=== PATIENT | male | born 1950 | race Caucasian/White ===

== ENCOUNTER 2020-03-21 12:37 | Outpatient (CLI) | payer MEDICARE, OTHER, SELFPAY ==
--- NOTE | 2020-03-21 12:49 | CT_ITS ---
WS: [id number] CT NECK WITH CONTRAST HISTORY: CERVICAL LYMPHADENOPATHY, LEFT TECHNIQUE: Contiguous 5 mm axial images are performed through the neck with intravenous contrast. Sag ittal and coronal reformats are also submitted. All CT scans at [facility] use at least o ne of these dose optimization techniques: automated exposure control; mA and/or kV adjustment per pat ient size (includes targeted exams where dose is matched to clinical indication); or iterative recons truction. CONTRAST: CONTRAST: Omnipaque 300; 95 mL IV. DLP: 3023.36 mGycm COMPARISON: None available. Soft tissue enhancing mass centered in the LEFT lung base along the lingula tonsil. The largest mass extends over length of 2.6 cm x 2.2 x 1.3 cm. The do believe there is enhancement across the midline and is probably involvement of the lingular surface of the RIGHT tongue. Enlargement and abnormal enh ancement and thickening of the uvula. There is extensive adenopathy in the LEFT neck. Confluent lymphadenopathy throughout the LEFT neck. T he largest cluster measures 8.4 cm in length by 2.8 cm. This cluster of lymph nodes begins at the lev el of the hyoid bone and extends inferiorly to the supraclavicular region. There is an additional anh up of lymph nodes at level IIa. Lymph node clusters are present on the LEFT at level IIa, IIb, III an d Va and supraclavicular. Largest necrotic lymph node measures 2.5 x 2.2 cm at the level of the thyro id cartilage. There are smaller lymph nodes along the RIGHT cervical chain but no definite adenopathy . No osseous abnormalities. Visualized portions of the skull base demonstrate no abnormalities. Orbits and globes are within norm al limits. No soft tissue masses. Visualized paranasal sinuses and mastoid air cells are normal. Lung apices are clear. CT/CT neck w con* [id number] IMPRESSION: 1. Enhancing mass centered at the LEFT lung base to involve the lingular and p alatine tonsils, uvula and highly suspect extension across the midline to the R IGHT tongue base. Consistent with neoplasm. Recommend follow-up PET/CT imaging and biopsy. 2. Extensive LEFT cervical chain lymphadenopathy.
[2020-03-21 13:20] LABS: Blood Urea Nitrogen 22 mg/dL (8-23)
[2020-03-21] MEDS: iohexol 300 mg/mL 100 mL Btl IV (13:35)
== END 2020-03-21 12:38 | disposition home or self-care (01) ==
LOC: RADWPI 12:43
PROVIDERS: Family Provider Family Medicine; Visit Provider Family Medicine
DX: R59.0 Localized enlarged lymph nodes (principal); R91.8 Other nonspecific abnormal finding of lung field
CPT/HCPCS: 70491; 82565; 84520; Q9967

== ENCOUNTER 2020-04-19 14:24 | Outpatient (CLI) | payer MEDICARE, OTHER, SELFPAY ==
--- NOTE | 2020-04-19 17:23 | N.ONRAD NP_ITS ---
Radiation Oncology New Patient Visit Patient: Demarcus Maldonado MR#: [id number] : 1950> Age: 69> Sex: Male> Dictated by: Dr. Lit Baeza Date of Service: 04/19/2020 Referring Physician(s) : Praneeth Thompson M.D. Diagnosis: Oropharynx, base of tongue, squamous cell carcinoma, stage T2 N2 MX (PET pending) Radiotherapy to date: Summary > No prior radiation therapy. Chief Complaint / History of Present Illness: Mr. Maldonado is a 69-year-old man who complained of a foreign body sensation in his throat prior to knee replacement surgery. His surgery was canceled and he was referred for further evaluation. He was noted to have a base of tongue mass and was referred to Dr. Thompson. Dr. Thompson detected a mass involving the left base of tongue extending to the vallecula. Also lymphadenopathy was noted in the left neck extending down to the supraclavicular area. No extension beyond the base of tongue and vallecula was detected. Biopsy was positive for squamous cell carcinoma. HPV was positive. A CT of the neck was performed locally. This study revealed a 2.6 x 2.2 x 1.3 cm mass in the left base of tongue with enhancement extending into the right base of tongue. The study also described enlargement and enhancement of the uvula, which was not appreciated at the time of the E[facility] exam [place] office. The CT also showed extensive lymphadenopathy in the left neck. Lymphadenopathy extended from the hyoid into the supraclavicular region. No definite lymphadenopathy was identified on the right. Mr. Maldonado is referred for evaluation for concomitant chemotherapy and radiation for cure. Current Medications: Atenolol, d3-1000, daily Multiple Vitamins, flonase Allergy Relief, furosemide, glucosamine HCl, hydroCHLOROthiazide, losartan Potassium, metFORMIN HCl, naproxen, omeprazole, potassium Chloride ER, pravastatin Sodium. Allergies: Keflex, Pneumococcal 13-Samaria Conj Vacc and Penicillins. Medical History: - History of prostate cancer, - hypercholesterolemia, - hypertension, - type II diabetes. No history of collagen vascular disease. No previous radiation therapy. Surgical History: Hernia repair (x2), splenectomy, tonsillectomy and tURP. Family History: Father is at age 83 having experienced pneumonia. Mother is at age 85. Brother is at age 53. Sister is alive having experienced melanoma. Social History: Last screened on 04/19/2020 - Yes - but has quit for 38 years. Smoked for 5 years. Last screened on 04/19/2020 - Never drank. Patient indicated access to the following support systems: lives alone, supportive family/friends willing to assist with needs, and adequate transportation available for expected visits. Patient indicated the following nutritional habits: regular meals. Patient indicated participation in the following forms of activity: regular exercise. Current Complaints / Review of Systems: Constitutional - Complains of lack of appetite. Complains of moderate fatigue. Complains of change in weight in which he has lost about 15 lbs. since January 2020. Denies fever and night sweats. Eyes - Denies blurred vision and double vision. ENMT - Complains of altered taste. Denies dysphagia but says it feels like something is in his throat, ear pain, problems with hearing, mouth dryness, stomatitis and tinnitus. Neck - Denies neck pain, decreased range of motion and swelling of the neck. Integumentary - Denies rash. Cardiovascular - Denies arrhythmias, chest pain and edema. Respiratory - Complains of a mild cough. Denies dyspnea, hiccoughs and wheezing. Gastrointestinal - Complains of occasional constipation. Complains of nausea occasionally. Denies abdominal pain, diarrhea, heartburn / dyspepsia, melena / GI bleeding and vomiting. Genitourinary (M) - Denies dysuria, frequency, nocturia and urgency. Musculoskeletal - Complains of joint pain in the right knee. Denies bone pain and muscle weakness. Neurologic - Complains of intermittent dizziness that occurs upon sitting to standing. Denies abnormal gait and headaches. Endocrine - Complains of Type 2 diabetes. Denies thyroid disease. Hematologic/Lymphatic - Denies tender or enlarged lymph nodes.. Vital Signs: Performed on 04/19/2020 2:57 PM Height - 260.8 in, Weight - 72 lbs (high), BSA - 3.51 sq.m, BMI - 0.74 (low), Temperature - 98.3 f (low), Pulse - 79 /min, Respiration - 19 /min, O2 Sat - 94 % (low), Pain - 0 and BP - 127/ 66 mm(hg). Physical Exam: Alert, oriented, and in no acute distress. The oral cavity examination reveals him to have multiple dental caps. His teeth appear to be in fair repair. No gum disease noted. No lesions seen in the oral cavity. My limited exam of the base of tongue did not reveal a visible abnormality. I did not have a mirror in order to do an indirect exam. No lesions were seen involving the palatine tonsils, soft palate, uvula, or posterior pharyngeal wall. Palpation of the base of tongue revealed diffuse induration on the left with milder induration on the right. I could not reach the vallecula due to the patient gagging and pulling away. Examination of the neck revealed no palpable lymphadenopathy on the right. On the left from approximately the level of the hyoid bone lymphadenopathy is palpated in a chain that is relatively continuous down through the supraclavicular area. No lymph nodes larger than 3 cm were palpated. No fixation was detected. Lungs were clear to percussion. On auscultation there were no rales rhonchi or wheezes. Heart rhythm regular. No murmur or gallop or rub. Abdomen no distention. No organomegaly or mass or tenderness. Musculoskeletal no bone tenderness detected. Normal gait. Performance Status: KPS: 80 Pathology: Squamous Cell Carcinoma, HPV+. Lab: Imaging: See HPI Impression: Mr. Maldonado has a squamous cell carcinoma of the base of tongue with significant left neck lymphadenopathy. Cancer is HPV positive. I recommended a PET scan for the completion of staging, particularly to determine if he has metastatic disease, and to appropriately prescribe radiation dose to the right neck. Dr. Reich pointed out in our discussion about this case that status of the nodes in the right neck can affect the stage. I spoke with Mr. Maldonado's dentist [facility] in [facility]. He will see him to assess the status of his dentition and to determine if he needs extractions. He also will determine whether fluoride trays or other treatments are appropriate. I discussed the situation with and Mrs. Maldonado. I discussed that he will receive concomitant chemotherapy and radiation unless the PET scan shows something quite unexpected. I discussed a typical course of radiation over 7 weeks. We discussed that the chemotherapy is given 3 times during radiation. I discussed the numerous side effects that occur with head and neck radiation including fatigue, decreased appetite, mucositis with sore mouth and throat, altered taste, loss of taste, xerostomia, trismus, TMJ syndrome, and middle ear effusion requiring tube placement. I discussed that xerostomia resolvea slowly and that dry mouth usually results in significant deterioration of dentition unless meticulous care is given. Also discussed that a significant percentage of patients who receive head neck radiation develop hypothyroidism. At this time Mr. Maldonado wishes to proceed with a dental evaluation, a PET scan, and then concomitant chemotherapy and radiation if appropriate. I spoke with Mr. Maldonado???s dentist today and they will get him in for evaluation. The PET scan has been ordered and is pending. Signed by: 04/19/2020 5:21:45 PM <<Signature on File>> Time spent with patient: CPT Code: CPT Code:
--- NOTE | 2020-04-19 18:28 | ONC CON_ITS ---
Dr. Reich New Patient Note Patient: Demarcus Maldonado < Unit #: [id number]: 1950 Dicatated By: Devendra Reich M.D.Date of Visit: Apr 19, 2020 Onc MED New Patient/Consult Referring Physician: Praneeth Thompson Chief Complaint: Base of tongue cancer. 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 He had presented with left cervical lymphadenopathy. He had associated pain in the left side of the neck and throat. He had been seen initially by Dr. James. CT of the neck on 03/27/2020 showed a soft tissue enhancing mass centered in the left tongue base along the lingual tonsil. It was noted to extend over a length of 2.6 x 2.2 x 1.3 cm. There appeared to be enhancement across the midline and there was suspected involvement in the lingular surface of the right tongue. Also noted was enlargement and abnormal enhancement and thickening of the uvula. There was extensive, confluent adenopathy i involving the left neck. The largest cluster of nodes measured 8.4 cm in length by 2.8 cm, beginning at the level of the hyoid bone and extending inferiorly to the supraclavicular region. Additional clusters of lymph nodes were present at level IIa, IIb, III, Va, and in the supraclavicular area. The largest necrotic lymph node measured 2.5 x 2.2 cm at the level of the thyroid cartilage. Smaller lymph nodes were noted along the right cervical chain, but without definite adenopathy. The lung apices were noted to be clear. He was seen by Dr. Praneeth Thompson on 03/30/2020. His exam showed an exophytic mass and papillomatous mass at the left tongue base as well as papillomatous mass at the left paramedian tongue base. The remainder of the oral cavity and oropharyngeal exam was reported to be normal. The laryngeal exam showed erythema and edema of the arytenoid mucosa. He then underwent direct laryngoscopy with biopsy and esophagoscopy on 04/05/2020. Findings included an exophytic lesion involving the left tongue base extending to the right of the midline. It also was noted to extend into the vallecula. There was no involvement of the lateral pharyngeal wall or the larynx. The esophagus was noted to be free of lesions. Biopsy showed infiltrating moderately differentiated squamous cell carcinoma which was confirmed to be HPV positive. He is seen now for further management. He says he does not have much energy. He is still doing some light work. ECOG score is 1. He has had a recent decline in his appetite, and his weight is down 16 pounds. He does not have fever or night sweats. He has some discomfort on the left side of the neck and throat, and he has to clear his throat a lot. He has a little difficulty swallowing. He has some sinus drainage and cough. He does not complain of shortness of breath or chest pain. He says his stomach always feels queasy. Lately he has had constipation. He has frequent urination with his diuretic. He has pain in his right knee, and he had originally planned to have right total knee replacement prior to all of this starting. He has no other joint or bone pain. He does not complain of headache. He does have some dizziness. He has no focal neurologic symptoms. He reports that he bruises easily. 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 Past Medical History: His medical history includes hypertension, hypercholesterolemia, type II diabetes, history of prostate cancer, and history of ITP. Past Surgical History: His surgical/procedural history includes radical prostatectomy, splenectomy, tonsillectomy, and umbilical and abdominal wall hernia repairs. Medications: Atenolol 1 Tablet (of 25 mg) Oral daily, D3-1000 1 Tablet (of 25 mcg ) Oral daily, Daily Multiple Vitamins 1 Tablet Oral daily, Flonase Allergy Relief Suspension Nasal, Furosemide 1 Tablet (of 40 mg) Oral daily PRN, Glucosamine HCl 2 Tablet (of 1000 mg) Oral daily, hydroCHLOROthiazide 1 Tablet (of 25 mg) Oral daily, Losartan Potassium 1 Tablet (of 100 mg) Oral daily, metFORMIN HCl 0.5 - 1 Tablet (of 1000 mg) Oral b.i.d., Naproxen 1 Tablet (of 500 mg) Oral b.i.d. PRN, Omeprazole 1 Capsule (of 20 mg) Capsule Delayed Release Oral daily, Potassium Chloride ER 1 Tablet (of 10 meq) Capsule, controlled release Oral daily, Pravastatin Sodium 1 Tablet (of 20 mg) Oral daily Allergies: Keflex, Penicillins, and Pneumococcal 13-Samaria Conj Vacc. Social History: Mr. Maldonado is . He is retired from [employer]. 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 He has a history of smoking for 6 years. He quit following his splenectomy, which was approximately 40 years ago. He also chewed tobacco, but only for about 1 or 2 years. He had some alcohol use in the . He quit drinking in 1971. Family History: Father with pneumonia at age 83. Mother at age 85, apparently due to complications of dementia. A brother at age 53, exact cause unknown to the patient. He was told that he had some form of inherited condition that choked him out . A sister has been treated for melanoma. Review Of Symptoms: Constitutional - He has no energy, but he is still able to do light work. Appetite has declined. Weight is down 16 lbs. No fever, night sweats, or hot flashes. ECOG score is 1, Eyes - No change in vision, ENMT - No hearing loss or tinnitus. He has chronic sinus congestion/drainage. No mouth sores. He has some discomfort in the throat and a little difficulty swallowing, Hematologic/Lymphatic - He bruises easily, Respiratory - No shortness of breath. He does have some cough. No pleuritic pain or hemoptysis, Cardiovascular - No angina pain. No palpitations, Gastrointestinal - His stomach feels queasy. No vomiting. No heartburn or acid reflux. Lately he has had constipation. No blood in the stool or black stools, Genitourinary (M) - No dysuria or hematuria. He has frequent urination with his diuretic. No urgency or incontinence, Musculoskeletal - He has pain in his right knee. He has no other joint or bone pain, Integumentary - No skin rash or other skin changes, Neurologic - No headache. He does have some dizziness. No numbness or tingling. No other focal neurologic symptoms, Psychiatric - He has been a little nervous, and he has some depression. No insomnia, Constitutional - Complains of lack of appetite. Complains of moderate fatigue. Complains of change in weight in which he has lost about 15 lbs. since January 2020. Denies fever and night sweats, Eyes - Denies blurred vision and double vision, ENMT - Complains of altered taste. Denies dysphagia but says it feels like something is in his throat, ear pain, problems with hearing, mouth dryness, stomatitis and tinnitus, Neck - Denies neck pain, decreased range of motion and swelling of the neck, Integumentary - Denies rash, Cardiovascular - Denies arrhythmias, chest pain and edema, Respiratory - Complains of a mild cough. Denies dyspnea, hiccoughs and wheezing, Gastrointestinal - Complains of occasional constipation. Complains of nausea occasionally. Denies abdominal pain, diarrhea, heartburn / dyspepsia, melena / GI bleeding and vomiting, Genitourinary (M) - Denies dysuria, frequency, nocturia and urgency, Musculoskeletal - Complains of joint pain in the right knee. Denies bone pain and muscle weakness, Neurologic - Complains of intermittent dizziness that occurs upon sitting to standing. Denies abnormal gait and headaches, Endocrine - Complains of Type 2 diabetes. Denies thyroid disease, Hematologic/Lymphatic - Denies tender or enlarged lymph nodes. Vital Signs: Performed on Apr 19, 2020 15:46: 72.00 in, 260.8 lbs, 98.3 F, 79, 17, 127/66 mm(hg), 95 % (LOW), 0, Performed on Apr 19, 2020 15:46: 35.371 kg/m2 (HIGH), and Performed on Apr 19, 2020 14:57: 3.51 sq.m. Physical Examination: Constitutional - He appears to be in good general health, Eyes - Sclerae nonicteric. Conjunctivae clear, ENMT - No visible lesion in the oral cavity, Neck - No thyromegaly, Hematologic/Lymphatic - There are multiple small lymph nodes on the left side of the neck, both anterior and posterior cervical, extending down into the left supraclavicular fossa. No axillary adenopathy noted, Respiratory - Lungs are clear with good air movement bilaterally, Cardiovascular - Heart rhythm is regular. There is no murmur, gallop, or rub noted, Abdomen - Moderately distended. Liver and spleen are not enlarged. There is no abdominal mass or ascites noted and there is no inguinal adenopathy, Back/Spine - No spine or CVA tenderness noted, Extremities - Mild lower extremity edema. Posterior tibial pulses are palpable bilaterally, Integumentary - No rashes. No suspicious skin lesions noted, Neurologic - No focal neurologic deficits noted. Impression: 1. Patient with infiltrating moderately differentiated squamous cell carcinoma involving left base of tongue, by clinical evaluation stage BEVERLY (T2, N2b, M0), HPV positive. 2. He underwent direct laryngoscopy with biopsy and esophagoscopy on 04/05/2020. His other medical illnesses include: 3. Hypertension. 4. Hyperlipidemia. 5. Type 2 diabetes. 6. He has chronic venous insufficiency. 7. History of prostate cancer for which he underwent radical prostatectomy approximately 5 years ago. 8. 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 Plan: The CT findings and pathology results were reviewed with the patient. We discussed the clinical implications. He has a locally advanced squamous cell carcinoma involving the left base of tongue. Given the extent of lymph node involvement, he needs a PET/CT to complete staging. In the absence of any evidence of metastatic disease, the recommended treatment will be chemoradiation using standard high-dose cisplatin regimen for the chemosensitization. I reviewed anticipated side effects with the chemotherapy which may include nausea/vomiting, alopecia, fatigue, low blood counts, renal impairment, and neuropathy, among others. He will be visiting with the radiation oncologist today. Treatment will be started as soon as the radiation planning, including dental evaluation, is completed. Signed By: Devendra Reich M.D. <<Signature on File>>
== END 2020-04-19 14:25 | disposition home or self-care (01) ==
LOC: ONCMED 14:35
PROVIDERS: PCP Family Medicine; Referring Provider Otolaryngology; Visit Provider Internal Medicine Medical Oncology
DX: C01 Malignant neoplasm of base of tongue (principal); R59.0 Localized enlarged lymph nodes; Z87.891 Personal history of nicotine dependence; I10 Essential (primary) hypertension; E78.5 Hyperlipidemia, unspecified; E11.9 Type 2 diabetes mellitus without complications; I87.2 Venous insufficiency (chronic) (peripheral); Z85.46 Personal history of malignant neoplasm of prostate; Z90.79 Acquired absence of other genital organ(s); Z90.81 Acquired absence of spleen; Z86.2 Personal history of diseases of the blood and blood-forming organs and certain disorders involving the immune mechanism
CPT/HCPCS: 99204; 99215

== ENCOUNTER 2020-05-15 09:52 | Day surgery (SDC) | payer MEDICARE, OTHER, SELFPAY ==
[2020-05-14 12:27] VITALS: BMI 35.9
[2020-05-15] VITALS (8 sets, daily range): BP systolic 116–135; BP diastolic 58–73; PULSE 69–75; RESP 16–24; TEMP 36.6–36.8; O2SAT 93–100
[2020-05-15] MEDS: sodium chloride 0.9% 1,000 ML 30 ML IV (10:44)
[2020-05-15 10:45] LABS: Glucose Point of Care 146 mg/dL (70-110)
--- NOTE | 2020-05-15 11:04 | ECG_ITS ---
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 Measurements Intervals [place] Rate: 70 P: 72 [place]: 244 QRS: -24 QRSD: 107 T: 38 QT: 399 QTc: 431 Interpretive Statements SINUS RHYTHM WITH FIRST DEGREE AV BLOCK BORDERLINE LEFT AXIS DEVIATION [QRS AXIS < -20] No previous ECG available for comparison Electronically Signed On 05-15-2020 19:19:43 CDT by Jazmyne Henriquez M.D. [id number]
--- NOTE | 2020-05-15 11:27 | W.PM.OPSUD ---
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 PLANNED PROCEDURE: Bronchoscopy inspection of the airway, endobronchial ultrasound-guided transbronchial needle aspiration of lymph nodes and possible endobronchial transbronchial biopsies. Operation Date: 05/15/20 11:00 Proposed Procedures p Ebus(Not Applicable) - Vazquez Kingsley MD
--- NOTE | 2020-05-15 11:50 | ANES.PREANE2 ---
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 Proposed Procedure: Operation Date: 05/15/20 11:00 Proposed Procedures p Ebus(Not Applicable) - Vazquez Kingsley MD Was Beta Pako taken within 24 hours: Yes Last intake: Intake Last Liquid Date 05/14/20 Last Liquid Time 23:50 Last Solid Date 05/14/20 Last Solid Time 16:00 Social: Social History: No alcohol and No tobacco Exam: Pre-Anes Outpt Exam: alert, oriented x 3, clear to auscultation bilaterally and regular rate & rhythm Airway: Submandibular: WNL Cervical ROM: WNL MP: 2 History/ROS: No significant history except as noted Pulmonary: Pulmonary: Cough and GALVAN CV/HEM: CV/HEM: HTN : : None reported Hepatic: Hepatic: None reported GI: GI: GERD Metabolic: Metabolic: DM Musc/skel: Musc/skel: None reported Anesthetic Plan: ASA status: 3 Anesthesia: General Meds/Allergies Current Medications: Current Medications Generic Name Dose Route Start Last Admin Trade Name Freq PRN Reason Stop Dose Admin Sodium Chloride 1,000 mls @ 30 ml s/hr 05/15/20 07:45 05/15/20 10:44 Sodium Chloride 0.9% IV 05/16/20 07:44 30 mls/hr .Q24H CLAUDY Administration PFSH Anesthesia PFSH: Medical History (Updated 05/10/20 @ 11:21 by Vazquez Kingsley MD) Abdominal wall hernia Cervical lymphadenopathy History of ITP HTN (hypertension) Hypercholesterolemia Prostate cancer Type 2 diabetes mellitus Umbilical hernia Surgical History H/O radical prostatectomy H/O splenectomy Hx of tonsillectomy Family History Mother Dementia Father Lung disease Social History Smoking and tobacco status: former smoker Quit status (tobacco): has quit using tobacco Year quit tobacco: 1979 - 1.5 PPD x 10 Years Alcohol intake: never Lives independently: Yes Household members: none Marital status: Current occupational status: retired History of recent travel: No Current gender identity: Male and Female Data Anesthesia Other Labs: Laboratory Results - last 48 hr 05/15/20 10:42 POC Glucose 146 Cardiac Studies: No Data to Display
[2020-05-15] MEDS: lidocaine 1% INJ 20 mL XX (12:23)
[2020-05-15] MEDS: EPINEPHrine 1 mg/mL INJ XX (12:28)
--- NOTE | 2020-05-15 13:24 | SUR.PHASEI ---
1319 PATIENT TO PACU FROM OR. RR EVEN AND UNLABORED. SPO2 100% ON SIMPLE MASK AT 8L.
--- NOTE | 2020-05-15 13:27 | PM.OP ---
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 Procedure: Name of the procedure: Bronchoscopy with inspection of the airway,endobronchial ultrasound-guided transbronchial needle aspiration of lymph nodes and control of bleeding. Indication: PET positive medicine lymphadenopathy with a history of base of the tongue squamous cell cancer Anesthesia: General anesthesia. Local anesthesia: The dell in the right and left mainstem bronchi were anesthetized with 1% lidocaine, 3 mL. Description of the procedure: The procedure was explained to the patient and the consent was obtained. The patient was brought to the OR. The patient underwent endotracheal intubation for general anesthesia. Following induction of general anesthesia, the bronchoscope was advanced through the ET tube. The lower trachea appeared to be normal. The dell was sharp. The dell, the right and left mainstem bronchi are anesthetized with 1% lidocaine. In a systematic manner bilateral bronchial tree was then examined. The bronchoscope was advanced into the left mainstem bronchus. The left upper lobe, lingula and left lower lobe bronchi were examined up to the third subsegmental level and no abnormalities were identified. There was no endobronchial lesion, active bleeding or mucous plug. The bronchoscope was then introduced into the right mainstem bronchus. The right upper lobe, right middle lobe and right lower lobe bronchi were examined up to the third subsegmental level and no abnormalities were identified. The endobronchial ultrasound was introduced through the ET tube. Subcarinal lymphadenopathy was identified. Transbronchial needle aspiration was performed from station 7 and 4R lymph nodes. The bronchoscope was reintroduced through the mouth. There was some bleeding during the intubation process from the base of the tongue cancer. Diluted epinephrine was used to control any residual bleeding. Samples: 1. The transbronchial needle aspiration of the aforementioned lymph node groups were sent for cytology. Complications: There was no immediate complications. The patient was extubated and brought to the PACU in stable condition.
--- NOTE | 2020-05-15 13:42 | SUR.PHASEI ---
1340 PATIENT TO OPS. DENIES PAIN. TOLERATING ICE CHIPS.
--- NOTE | 2020-05-15 14:26 | SUR.PHASEII ---
Patient to follow up with Dr. Kingsley jun 05 a t 8:15.
== END 2020-05-15 14:40 | disposition home or self-care (01) ==
PROVIDERS: PCP Family Medicine; Visit Provider Internal Medicine Critical Care Medicine
PROC: BB4BZZZ Ultrasonography of Pleura (ICD-10-PCS; principal; 2020-05-15 11:00)
DX: C01 Malignant neoplasm of base of tongue (principal); R59.0 Localized enlarged lymph nodes; I10 Essential (primary) hypertension; K21.9 Gastro-esophageal reflux disease without esophagitis; E11.9 Type 2 diabetes mellitus without complications; E78.00 Pure hypercholesterolemia, unspecified; Z85.46 Personal history of malignant neoplasm of prostate; Z87.891 Personal history of nicotine dependence; I44.0 Atrioventricular block, first degree
CPT/HCPCS: 12345; 31628; 36416; 82962; 88173; 88305; 93005; J0171; J1100; J2405; J2704; J2710; J3010; J3490; J7030

== ENCOUNTER 2020-06-01 06:52 | Outpatient (RCR) | payer MEDICARE, OTHER, SELFPAY ==
--- NOTE | 2020-05-28 | CT_ITS ---
Radiation Therapy Planning CT images; total exam DLP: 1682.01 mGy-cm MTDD
[2020-05-28] MEDS: iodixanol 320 mg/mL 100mL Btl (RAD THERAPY ONLY) IV (13:48)
[2020-05-28 13:50] LABS: Blood Urea Nitrogen 14 mg/dL (8-23)
--- NOTE | 2020-05-29 16:21 | ONCRAD EPV_ITS ---
Radiation Oncology Established Patient Visit Patient: Jarod MR#: [id number] : 1950 Age: 69 Sex: Male> Dictated by: Dr. 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 Subsequent EBUS & FNA of level 7 and 4R lymph nodes (05/15/2020) revealed reactive lymph nodes. Planned treatment: Definitive radiation therapy to 70 Gy in 35 fractions concurrent with Q3 weekly cisplatin. Recommended radiographic surveillance following definitive concurrent chemoRT: -) CT of the neck one month after XRT; -) PET/CT (skull to thigh) 3 months after XRT; -) CT chest 6 months after XRT to verify stability of APOLINAR nodule. Chief Complaint / History of Present Illness: The patient is seen in follow up today after recently undergoing EBUS and biopsy of questionable mediastinal lymph nodes (level 7 and 4R). Both FNA samples revealed reactive disease. In follow up today, the patient reports no current swallowing difficulties, aspiration, breathing difficulties, or tongue/throat pain. Current Medications: Atenolol, d3-1000, daily Multiple Vitamins, flonase Allergy Relief, furosemide, glucosamine HCl, hydroCHLOROthiazide, lORazepam, losartan Potassium, metFORMIN HCl, naproxen, omeprazole, potassium Chloride ER, pravastatin Sodium, prochlorperazine Maleate. Allergies: Keflex, Pneumococcal 13-Samaria Conj Vacc and Penicillins. Current Complaints / Review of Systems: Constitutional - Complains of lack of appetite. Complains of moderate fatigue. Denies fever and night sweats. Eyes - Denies blurred vision and double vision. ENMT - Complains of ear pain on the left side occasionally that comes and goes. Complains of altered taste. Denies dysphagia but has odynophagia, problems with hearing, mouth dryness, stomatitis and tinnitus. Neck - Complains of neck pain occasionally. Denies decreased range of motion. Integumentary - Denies rash. Cardiovascular - Denies arrhythmias, chest pain and edema. Respiratory - Complains of cough which is productive occasionally. Complains of dyspnea associated with normal activity. Denies hemoptysis, hiccoughs and wheezing. Gastrointestinal - Complains of persistent constipation. Denies abdominal pain, diarrhea, heartburn / dyspepsia, melena / GI bleeding, nausea and vomiting. Genitourinary (M) - Denies dysuria, frequency, nocturia and urgency. Musculoskeletal - Complains of joint pain in the right knee. Denies bone pain. Neurologic - Complains of intermittent dizziness that occurs upon sitting to standing. Denies headaches. Endocrine - Complains of Type 2 diabetes. Denies thyroid disease. Hematologic/Lymphatic - Complains of tender or enlarged lymph nodes the left side of the neck.. Vital Signs: Performed on 05/28/2020 1:46 PM BMI - 35.452 kg/m2 (high), Height - 72.00 in, Weight - 261.4 lbs, Temperature - 98.8 f, Pulse - 71, Respiration - 20, O2 Sat - 96 %, Pain - 0 and BP - 137/ 75 mm(hg). Physical Exam: General: Alert and oriented x 3. No acute distress. HEENT: Normocephalic, atraumatic. Extraocular Movements Intact: Pupils Equal, Round, Reactive to Light and Accommodation: Sclerae anicteric. Oral cavity is clear without lesions, masses or ulcers. NECK: Exploration of lymph nodes along the left cervical 2/3 lymph node chain is appreciated. Nasolaryngoscopy: Currently unavailable at this facility. LUNGS: Clear to auscultation bilaterally without rales, rhonchi or wheeze. HEART: Regular rate and rhythm, normal S1 and S2 without murmur, gallop or rub. MUSCULOSKELETAL: No tenderness or percussion pain over the axial skeleton, scapulae or pelvis. ABDOMEN: Soft, nontender, nondistended without masses or organomegaly. Bowell sounds are present. EXTREMITIES: No peripheral edema is identified. Limited motor and sensory examination are grossly intact and symmetric bilaterally. NEUROLOGIC: Cranial nerves II ???XII are grossly intact. Normal sensation, strength 5/5 in all extremities, normal gait, no ataxia. Performance Status: 1 - No physically strenuous activity, but ambulatory and able to carry out light or sedentary work (e.g. office work, light house work). (ECOG) Lab: None pending. 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 I plan to begin definitive radiation therapy planning today and medical oncology plans to consider every 3 weekly cisplatin concurrently. We discussed logistics, prognosis, treatment alternatives, and potential acute and late side effects in detail. I have requested that the patient see surgery to evaluate for PEG tube insertion at a later date. The patient expressed understanding of the risks and benefits of treatment, and elected to proceed. Recommended radiographic surveillance following definitive concurrent chemoRT: -) CT of the neck one month after XRT; -) PET/CT (skull to thigh) 3 months after XRT; -) CT chest 6 months after XRT to verify stability of APOLINAR nodule. Signed by: 05/29/2020 4:21:02 PM <<Signature on File>> CPT Code: CPT Code:
[2020-05-31 08:38] LABS: Basophils # 0.1 10^3/uL (0.0-0.1); Basophils % 1.1 %; Eosinophils # 0.7 10^3/uL (0.0-0.8); Eosinophils % 8.2 %; Hematocrit 40.3 % (42.0-52.0); Hemoglobin 13.2 g/dL (11.7-16.6); Lymphocytes # 2.8 10^3/uL (0.8-4.8); Lymphocytes % 34.4 %; Mean Corpuscular HGB Conc 32.8 g/dL (30.0-36.0); Mean Corpuscular Hemoglobin 31.6 pg (28.0-34.0); Mean Corpuscular Volume 96.4 fL (80-94); Mean Platelet Volume 12.5 fL (7.4-10.4); Monocytes % 12.8 %; Nucleated Red Blood Cells % 0 %; Platelet Count 182 10^3/cmm (130-400); Red Blood Count 4.18 10^6/uL (4.1-5.3); Red Cell Distribution Width 14.1 % (12.1-15.1); White Blood Count 8.1 10^3/uL (4.0-10.0)
[2020-05-31 08:57] LABS: Alanine Aminotransferase 19 U/L (0-41); Albumin Level 3.7 g/dL (3.5-5.2); Alkaline Phosphatase 66 IU/L (40-130); Anion Gap 13.7 (5-19); Aspartate Amino Transferase 23 U/L (0-40); Blood Urea Nitrogen 20 mg/dL (8-23); Carbon Dioxide 24 mmol/L (22-29); Chloride 100 mmol/L (98-107); Globulin 3.2 g/dL (1.3-4.6); Glucose 228 mg/dL (65-115); Magnesium 1.7 mg/dL (1.7-2.3); Osmolality Calculated 282 mOsm/kg (285-295); Potassium 3.7 mmol/L (3.5-5.1); Sodium 134 mmol/L (136-145); Total Bilirubin 0.4 mg/dL (0.15-1.2); Total Protein 6.9 g/dL (6.6-8.7)
[2020-05-31] MEDS: FUROsemide 10 mg/mL SDV 2mL 20 MG IV (14:28)
[2020-05-31] MEDS: sodium chlor 0.9% + KCl 20 mEq 20 MEQ/1,000 ML BAG 500 MEQ IV (14:30)
== END 2020-06-01 23:59 | disposition home or self-care (01) ==
LOC: ONCMED 06:52
PROVIDERS: Nurse Practitioner; PCP Family Medicine; Visit Provider Radiology Radiation Oncology
DX: Z51.0 Encounter for antineoplastic radiation therapy (principal); Z51.11 Encounter for antineoplastic chemotherapy; C01 Malignant neoplasm of base of tongue
CPT/HCPCS: 77300; 77301; 77334; 77338; 77386; 80053; 82565; 83735; 84520; 85025; 96366; 96367; 96413; 96415; 99214; J1100; J1453; J1940; J2469; J3475; J3480; J7030; J7040; J9060; Q9967

== ENCOUNTER 2020-06-27 12:51 | Day surgery (SDC) | payer MEDICARE, OTHER, SELFPAY ==
[2020-06-26 15:52] VITALS: BMI 32.6
--- NOTE | 2020-06-27 10:52 | W.PM.OPSUD ---
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
[2020-06-27 12:58] VITALS: BP 125/73; PULSE 72; RESP 18; TEMP 36.7; O2SAT 94
--- NOTE | 2020-06-27 13:04 | SUR.PREOP ---
IV PLACED THIS AM [facility] AND LEFT IN FOR PROCEDURE. IV FLUSHED AND ASYMPTOMATIC
[2020-06-27] MEDS: sodium chloride 0.9% 1,000 ML 30 ML IV (13:09)
--- NOTE | 2020-06-27 13:27 | ANES.PREANE2 ---
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 Proposed Procedure: Operation Date: 06/27/20 14:10 Proposed Procedures p PEG Tube Insertion [id number] C02.9(Not Applicable) - Praveen Goodwin MD Was Beta Pako taken within 24 hours: Yes Last intake: Intake Last Liquid Date 06/27/20 Last Liquid Time 06:30 Last Solid Date 06/26/20 Last Solid Time 12:00 Social: Social History: No alcohol and No tobacco Exam: Pre-Anes Outpt Exam: alert, oriented x 3, clear to auscultation bilaterally and regular rate & rhythm Airway: Submandibular: WNL Cervical ROM: Other (limited CROM) MP: 3 Pulmonary: Pulmonary: None reported CV/HEM: CV/HEM: HTN : : None reported Hepatic: Hepatic: None reported GI: GI: None reported Metabolic: Metabolic: DM Musc/skel: Musc/skel: None reported Neuropsych: Neuropsych: None reported Anesthetic Plan: ASA status: 3 Anesthesia: MAC Meds/Allergies Current Medications: Current Medications Generic Name Dose Route Start Last Admin Trade Name Freq PRN Reason Stop Dose Admin Sodium Chloride 1,000 mls @ 30 ml s/hr 06/27/20 13:00 06/27/20 13:09 Sodium Chloride 0.9% IV 06/28/20 12:59 30 mls/hr .Q24H CLAUDY Administration PFSH Anesthesia PFSH: Medical History Abdominal wall hernia Cervical lymphadenopathy H/O nephrolithotomy with removal of calculi History of ITP HTN (hypertension) Hypercholesterolemia Prostate cancer Squamous cell cancer of tongue Type 2 diabetes mellitus Umbilical hernia Surgical History H/O arthroscopy of knee H/O circumcision H/O colonoscopy 3-4 yrs ago H/O esophagogastroduodenoscopy years ago H/O hernia repair H/O radical prostatectomy H/O splenectomy Hx of tonsillectomy Family History Mother Dementia Father Lung disease Bleeding disorder Denies family history of Anesthesia complication Social History Smoking and tobacco status: former smoker Quit status (tobacco): has quit using tobacco Year quit tobacco: 1979 - 1.5 PPD x 10 Years Alcohol intake: never Lives independently: Yes Household members: none Marital status: Current occupational status: retired History of recent travel: No Current gender identity: Male Data Anesthesia Cardiac Studies: No Data to Display
[2020-06-27] MEDS: clindamycin 600 MG/50 ML PREMIX 100 MG IV (13:53)
--- NOTE | 2020-06-27 14:35 | PM.OP ---
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 A bite block was placed and Olympus gastroscope was introduced and advanced up to the stomach and the first portion of the duodenum. There were no abnormalities noted in the esophagus, stomach and duodenum. The site for the planned PEG was confirmed in the left upper quadrant with transillumination using gastroscope noted through the abdominal wall and indentation of the abdominal wall noted on the gastroscope. This site was marked, and total of 5 milliliters of 1% lidocaine was infiltrated. An 11-blade was used to make a stab incision. An introducer needle was passed through the abdominal wall into the gastric lumen and the needle removed and the needle removed and the sheath left behind. A guidewire was passed through the introducer needle into the gastric lumen and grasped with a snare attached to the gastroscope. The gastroscope was withdrawn along with the guidewire, which was attached to the 20-[place] [employer]ive PEG tube. The guidewire was then pulled through the abdominal wall along with the PEG through the mouth into the gastric lumen until the inner disc was noted to stand against the gastric wall. The gastroscope was reintroduced to confirm good position. The outer disc was then attached and the two way valve was fixed to the PEG tube. The outer disc was noted to be at 3 centimeters at the skin level. Sterile dressing and abdominal binder was placed. The patient was stable throughout the procedure.
[2020-06-27 14:40] VITALS: BP 119/64; PULSE 76; RESP 18; TEMP 36.3; O2SAT 96
[2020-06-27 15:00] VITALS: BP 118/64; PULSE 70; RESP 18; TEMP 36.3; O2SAT 96
[2020-06-27] MEDS: HYDROcodone-acetaminophen 5-325 mg Tablet 1 TAB PO (15:28)
== END 2020-06-27 15:46 | disposition home or self-care (01) ==
PROVIDERS: PCP Family Medicine; Visit Provider Surgery
PROC: 0DH63UZ Insertion of Feeding Device into Stomach, Percutaneous Approach (ICD-10-PCS; CPT 43246; principal; 2020-06-27 14:00)
DX: C02.9 Malignant neoplasm of tongue, unspecified (principal); K44.9 Diaphragmatic hernia without obstruction or gangrene; I10 Essential (primary) hypertension; E11.9 Type 2 diabetes mellitus without complications; E78.00 Pure hypercholesterolemia, unspecified; Z85.46 Personal history of malignant neoplasm of prostate; Z87.891 Personal history of nicotine dependence
CPT/HCPCS: 12345; 43246; J3490; J7030

== ENCOUNTER 2020-07-02 05:34 | Outpatient (RCR) | payer MEDICARE, OTHER, SELFPAY ==
--- NOTE | 2020-06-05 17:42 | ONCRAD TMN_ITS ---
Radiation Oncology Weekly Treatment Management Patient: Demarcus Maldonado MR#: [id number] : 1950> Age: 69> Sex: Male Dictated by: Dr. 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 Subsequent EBUS & FNA of level 7 and 4R lymph nodes (05/15/2020) revealed reactive lymph nodes. Planned treatment: Definitive radiation therapy to 70 Gy in 35 fractions concurrent with Q3 weekly cisplatin. Recommended radiographic surveillance following definitive concurrent chemoRT: -) CT of the neck one month after XRT; -) PET/CT (skull to thigh) 3 months after XRT; -) CT chest 6 months after XRT to verify stability of APOLINAR nodule. Radiotherapy to date: Course: HN 35FX, Treatment Site: HN 35FX, Ref. ID: [id number], Energy: 6X, Dose/Fx (cGy): 200, #Fx: , Dose Correction (cGy): 0, Total Dose (cGy): 800, Start Date: 05/31/2020, Elapsed Days: 5 Reason for visit: The patient is being seen today as part of their regularly scheduled weekly on treatment visits to assess for acute toxicities for radiotherapy. Interim History: The patient is received 4 fractions and he is currently asymptomatic from respect to his radiotherapy. He reports occasional throbbing left ear pain, altered taste, and nausea. His nausea is responding to antiemetics. Current Medications: Atenolol, cISplatin, d3-1000, daily Multiple Vitamins, dexamethasone Sodium Phosphate, emend, flonase Allergy Relief, furosemide, furosemide, glucosamine HCl, hydroCHLOROthiazide, lORazepam, losartan Potassium, magnesium Sulfate, metFORMIN HCl, naproxen, omeprazole, palonosetron HCl, potassium Chloride, potassium Chloride ER, pravastatin Sodium, prochlorperazine Maleate. Allergies: Keflex, Pneumococcal 13-Sam[place] Conj Vacc and Penicillins. Current Complaints/Review of Systems: Constitutional - Complains of mild fatigue. Denies lack of appetite, fever and night sweats. ENMT - Complains of ear pain on the left side occasionally. Complains of altered taste. Denies dysphagia, problems with hearing, mouth dryness and stomatitis. Neck - Denies neck pain. Integumentary - Has no redness to the neck. Respiratory - Complains of hiccoughs. Vital Signs: Performed on 06/05/2020 11:02 AM BMI - 34.937 kg/m2 (high), Height - 72.00 in, Weight - 257.6 lbs, Temperature - 98.0 f, Pulse - 63, Respiration - 18, O2 Sat - 96 %, Pain - 0 and BP - 136/ 77 mm(hg). Physical Exam: Appears stable, no skin erythema or desquamation. Performance Status: 1 - No physically strenuous activity, but ambulatory and able to carry out light or sedentary work (e.g. office work, light house work). (ECOG) Lab: None pending in Radiation Oncology. Test performed on 05/31/2020 8:25 AM HCT - 40.3 % (low), MCV - 96.4 fl (high), MPV - 12.5 fl (high), Monocytes - 1.0 10 3/ul (high), Sodium - 134 mmol/l (low), Cr Clearance (Est) - 141.7100 ml/min (high) and Glucose - 228 mg/dl (high). Imaging: Radiation therapy imaging related to accurate target localization (i.e. KV, MV and CBCT) was reviewed. Appropriate changes, if any, were made to ensure treatment accuracy. Plan: The patient is tolerating therapy reasonably well. Radiotherapy will continue as planned. CPT: 30078 Signed by: Dr. aTe Funes>06/05/2020 5:41:00 PM <<Signature on File>>
[2020-06-06 11:32] LABS: Basophils # 0.1 10^3/uL (0.0-0.1); Basophils % 1.3 %; Eosinophils # 0.3 10^3/uL (0.0-0.8); Eosinophils % 5.1 %; Hematocrit 38.7 % (42.0-52.0); Hemoglobin 13.1 g/dL (11.7-16.6); Lymphocytes # 1.7 10^3/uL (0.8-4.8); Lymphocytes % 26.9 %; Mean Corpuscular HGB Conc 33.9 g/dL (30.0-36.0); Mean Corpuscular Hemoglobin 31.9 pg (28.0-34.0); Mean Corpuscular Volume 94.2 fL (80-94); Mean Platelet Volume 12.7 fL (7.4-10.4); Monocytes # 0.7 10^3/uL (0.2-0.9); Monocytes % 11.9 %; Neutrophils # 3.41 10^3/uL (1.8-7.7); Neutrophils % 54.6 %; Nucleated Red Blood Cells % 0 %; Platelet Count 171 10^3/cmm (130-400); Red Blood Count 4.11 10^6/uL (4.1-5.3); Red Cell Distribution Width 13.2 % (12.1-15.1); White Blood Count 6.2 10^3/uL (4.0-10.0)
[2020-06-06 11:47] LABS: Alanine Aminotransferase 23 U/L (0-41); Alkaline Phosphatase 72 IU/L (40-130); Anion Gap 11.5 (5-19); Aspartate Amino Transferase 27 U/L (0-40); Blood Urea Nitrogen 20 mg/dL (8-23); Carbon Dioxide 33 mmol/L (22-29); Chloride 89 mmol/L (98-107); Globulin 2.9 g/dL (1.3-4.6); Glucose 211 mg/dL (65-115); Osmolality Calculated 273 mOsm/kg (285-295); Potassium 3.5 mmol/L (3.5-5.1); Sodium 130 mmol/L (136-145); Total Bilirubin 0.6 mg/dL (0.15-1.2); Total Protein 6.9 g/dL (6.6-8.7)
--- NOTE | 2020-06-07 15:39 | ONC FU_ITS ---
[facility] Patient Note Patient: Demarcus Maldonado < Unit #: [id number]: 1950 Dictated By: Willy LlamasDate of Visit: Jun 07, 2020 Onc MED Follow-Up/Prog Note Chief Complaint: Base of tongue cancer. 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 He had presented with left cervical lymphadenopathy. He had associated pain in the left side of the neck and throat. He had been seen initially by Dr. James. CT of the neck on 03/27/2020 showed a soft tissue enhancing mass centered in the left tongue base along the lingual tonsil. It was noted to extend over a length of 2.6 x 2.2 x 1.3 cm. There appeared to be enhancement across the midline and there was suspected involvement in the lingular surface of the right tongue. Also noted was enlargement and abnormal enhancement and thickening of the uvula. There was extensive, confluent adenopathy i involving the left neck. The largest cluster of nodes measured 8.4 cm in length by 2.8 cm, beginning at the level of the hyoid bone and extending inferiorly to the supraclavicular region. Additional clusters of lymph nodes were present at level IIa, IIb, III, Va, and in the supraclavicular area. The largest necrotic lymph node measured 2.5 x 2.2 cm at the level of the thyroid cartilage. Smaller lymph nodes were noted along the right cervical chain, but without definite adenopathy. The lung apices were noted to be clear. He was seen by Dr. Praneeth Thompson on 03/30/2020. His exam showed an exophytic mass and papillomatous mass at the left tongue base as well as papillomatous mass at the left paramedian tongue base. The remainder of the oral cavity and oropharyngeal exam was reported to be normal. The laryngeal exam showed erythema and edema of the arytenoid mucosa. He then underwent direct laryngoscopy with biopsy and esophagoscopy on 04/05/2020. Findings included an exophytic lesion involving the left tongue base extending to the right of the midline. It also was noted to extend into the vallecula. There was no involvement of the lateral pharyngeal wall or the larynx. The esophagus was noted to be free of lesions. Biopsy showed infiltrating moderately differentiated squamous cell carcinoma which was confirmed to be HPV positive. Mr. Maldonado was seen by Dr. Reich on April 19, 2024 further management options. At that point he continued to lose some weight. He had lost a total of 16 pounds. He was having pain in the right knee but this is chronic as he was to have a right total knee replacement but was found to have the adenopathy in the left cervical area which was ultimately found to be cancer. Obviously his right knee replacement is on hold. 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 He states the splenectomy really did not help but then he was placed on high-dose prednisone and had antibody testing monthly for total of a year and has had no further problems with his platelets since that time. He underwent PET CT imaging on April 28, 2020 which reported a 2.4 x 1.7 cm left base of tongue mass with an SUV of 24.5, representing the known primary squamous cell carcinoma. There were FDG positive nodes from the cervical level II through IV and V levels on the left consistent with a local metastatic disease. An index node in the left level IV measures 2.7 x 1.7 cm with an SUV of 3.2. A 1.2 cm right level IIA node has an SUV of 4.2, indicating a high probability of a contralateral cervical disease. In the left lateral upper lobe there is a subpleural solid nodule measuring 8 mm with an SUV of 9. This is suspicious but not definitive for distant metastatic disease. Uptake in the central left lung apex does not localize to any radiographic lesion and may represent isolated segmental embolus correlation with clinical symptoms and d-dimer was recommended. In the mediastinum was a 2.8 x 1.5 subcarinal node with an SUV of 5.3 suspicious for metastatic disease. Smaller FDG positive nodes in the right paratracheal and subaortic territories may be reactive but was recommended to be followed closely. Mr. Maldonado was offered concurrent treatment with radiation and chemo sensitizing cisplatin. He began his first cycle of treatment on May 31, 2020. Mr. Maldonado is here today for day 8 follow-up. He reports overall he is doing well. He states he is had a little bit of nausea but the nausea medication resolves as quickly. He states he is swallowing soft foods relatively well and is able to do liquids currently with no problem. He is scheduled to see Dr. Goodwin later this week for consultation for possible feeding tube. Mr. Maldonado states he wants to put off that as long as possible. He states his energy remains pretty good. He is able do all his ADLs without any assistance. He is doing some chores around the house and that he is able to do the light work with no problems. He does tire but recovers well with rest. He denies any fever or chills. He has had no new shortness of breath orthopnea. He denies any chest pain or palpitations. He denies any diarrhea or constipation. He denies any neuropathy or hearing changes. His ECOG is 1. Past Medical History: History of prostate cancer Hypercholesterolemia Hypertension ITP Type II diabetes Past Surgical History: Radical prostatectomy Splenectomy Tonsillectomy Umbilical and abdominal wall hernia repairs Allergies: Keflex, Penicillins, and Pneumococcal 13-Samaria Conj Vacc. Medications: Atenolol 1 Tablet (of 25 mg) Oral daily D3-1000 1 Tablet (of 25 mcg ) Oral daily Daily Multiple Vitamins 1 Tablet Oral daily Flonase Allergy Relief Suspension Nasal Furosemide 1 Tablet (of 40 mg) Oral daily PRN Glucosamine HCl 2 Tablet (of 1000 mg) Oral daily hydroCHLOROthiazide 1 Tablet (of 25 mg) Oral daily Losartan Potassium 1 Tablet (of 100 mg) Oral daily metFORMIN HCl 0.5 - 1 Tablet (of 1000 mg) Oral b.i.d. Naproxen 1 Tablet (of 500 mg) Oral b.i.d. PRN Omeprazole 1 Capsule (of 20 mg) Capsule Delayed Release Oral daily Potassium Chloride ER 1 Tablet (of 10 meq) Capsule, controlled release Oral daily Pravastatin Sodium 1 Tablet (of 20 mg) Oral daily Family History: Mr. Maldonado's mother at age 85. Mr. Maldonado's father at age 83: pneumonia. Mr. Maldonado has 1 brother who is . He has 1 sister who is alive: melanoma. Father with pneumonia at age 83. Mother at age 85, apparently due to complications of dementia. A brother at age 53, exact cause unknown to the patient. He was told that he had some form of inherited condition that choked him out . A sister has been treated for melanoma. Social History: Mr. Maldonado is and he is retired. Mr. Maldonado quit smoking 38 years ago but had smoked for 5 years. He is a former drinker. Mr. Maldonado reports the following support systems: lives alone, supportive family/friends willing to assist with needs, and adequate transportation available for expected visits. His diet consists of regular meals. He indicates his activity level as: regular exercise. He is retired from [employer]. He also had done work on the side [employer]. He has a history of smoking for 6 years. He quit following his splenectomy, which was approximately 40 years ago. He also chewed tobacco, but only for about 1 or 2 years. He had some alcohol use in the . He quit drinking in 1971. Review Of Symptoms: Constitutional Denies fevers, chills, night sweats, excessive fatigue or weight loss. Swallowing soft foods still. Allergic/Immunologic No reactions. Eyes Denies significant visual changes. No diplopia. No amaurosis. ENMT Denies changes in hearing, sore throat, mouth sores, difficulty or changes in swallowing ability (soft foods), and/or sinus drainage. Hematologic/Lymphatic Denies easy bruising or bleeding. The patient denies any tender or palpable lymph nodes. Respiratory Denies dyspnea on exertion, chest pain, cough or hemoptysis. Denies orthopnea. Cardiovascular Denies anginal chest pain, palpitations or orthopnea. Gastrointestinal Denies nausea, vomiting, diarrhea, GI bleeding, or constipation. Denies change in bowel habits and/or stool color, no heartburn or early satiety. Genitourinary (M) Denies hematuria, dysuria, increased frequency, urgency, hesitancy or incontinence. Musculoskeletal Denies joint pain, swelling or redness. No decreased range of motion. Integumentary Denies chronic rashes, inflammation, ulcerations or skin changes. Neurologic Denies headache, blurred vision, and no areas of focal weakness or numbness. Normal gait. No sensory problems. Psychiatric Denies insomnia, depression, kenneth or mood swings. Vital Signs: Performed on Jun 07, 2020 10:04 Height - 72.00 in Weight - 255.2 lbs (LOW) BSA - 2.36 sq.m BMI - 34.61 (HIGH) Temperature - 98.2 F (LOW) Pulse - 71 /min Respiration - 16 /min BP - 137/74 mm(hg) O2 Sat - 93 % (LOW) Pain - 0,1 - No physically strenuous activity, but ambulatory and able to carry out light or sedentary work (e.g. office work, light house work). (ECOG) Physical Examination: Constitutional Alert, oriented, no acute distress. Skin pink, warm and dry. Head Normocephalic; atraumatic. Eyes Conjunctivae and sclerae are clear and without icterus. Pupils are reactive and equal. Hematologic/Lymphatic No petechiae or purpura. Respiratory Lungs are clear to auscultation without rhonchi or wheezing. Cardiovascular Regular rate and rhythm of heart without murmurs,clicks, gallops or rubs. Back/Spine Non-tender to palpation. Extremities No visible deformities, no cyanosis, clubbing or edema. Musculoskeletal No tenderness or swelling, normal range of motion without obvious weakness. Integumentary No rashes or lesions. Neurologic No sensory or motor deficits, normal cerebellar function, normal gait. Psychiatric Alert and oriented times three. Coherent speech. Verbalizes understanding of our discussions today. Laboratory:Test performed on Jun 06, 2020 11:12 Sodium 130 mmol/L Potassium 3.5 mmol/L Chloride 89 mmol/L CO2 33 mmol/L Anion Gap 11.5 BUN 20 mg/dL Creatinine 1.2 mg/dL Cr Clearance (Est) 94.4700 mL/min Glucose 211 mg/dL Calcium 10.0 mg/dL Protein, Total 6.9 g/dL Albumin 4.0 g/dL Globulin 2.9 g/dL Bilirubin, Total 0.6 mg/dL ALT (SGPT) 23 U/L AST (SGOT) 27 U/L Alkaline Phosphatase 72 IU/L WBC 6.2 10 3/uL RBC 4.11 10 6/uL HGB 13.1 g/dL HCT 38.7 % MCV 94.2 fL MCH 31.9 pg MCHC 33.9 g/dL RDW 13.2 % Platelet Count 171 10 3/cmm MPV 12.7 fL Neutrophils 3.41 10 3/uL Lymphocytes 1.7 10 3/uL Monocytes 0.7 10 3/uL Eosinophils 0.3 10 3/uL Basophils 0.1 10 3/uL Neutrophil % 54.6 % Lymphocyte % 26.9 % Monocyte % 11.9 % Eosinophil % 5.1 % Basophils % 1.3 % NRBC % 0 % Test performed on May 31, 2020 08:25 Magnesium 1.7 mg/dL Impression: 1. Patient with infiltrating moderately differentiated squamous cell carcinoma involving left base of tongue, by clinical evaluation stage BEVERLY (T2, N2b, M0), HPV positive. 2. He underwent direct laryngoscopy with biopsy and esophagoscopy on 04/05/2020. His other medical illnesses include: 3. Hypertension. 4. Hyperlipidemia. 5. Type 2 diabetes. 6. He has chronic venous insufficiency. 7. History of prostate cancer for which he underwent radical prostatectomy approximately 5 years ago. 8. 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 He underwent PET CT imaging on April 28, 2020 which reported a 2.4 x 1.7 cm left base of tongue mass with an SUV of 24.5, representing the known primary squamous cell carcinoma. There were FDG positive nodes from the cervical level II through IV and V levels on the left consistent with a local metastatic disease. An index node in the left level IV measures 2.7 x 1.7 cm with an SUV of 3.2. A 1.2 cm right level IIA node has an SUV of 4.2, indicating a high probability of a contralateral cervical disease. In the left lateral upper lobe there is a subpleural solid nodule measuring 8 mm with an SUV of 9. This is suspicious but not definitive for distant metastatic disease. Uptake in the central left lung apex does not localize to any radiographic lesion and may represent isolated segmental embolus correlation with clinical symptoms and d-dimer was recommended. In the mediastinum was a 2.8 x 1.5 subcarinal node with an SUV of 5.3 suspicious for metastatic disease. Smaller FDG positive nodes in the right paratracheal and subaortic territories may be reactive but was recommended to be followed closely. Mr. Maldonado was offered concurrent treatment with radiation and chemo sensitizing cisplatin. He began his first cycle of treatment on May 31, 2020. He has tolerated it well thus far. Plan: 1. Proceed with cycle 1 cisplatin. This is day 8. 2. Continue antiemetics at home as needed he states he does not need a refill as of yet. 3. Continue soft diet as tolerated. We did discuss using Ensure as nutritional supplements however he is using some protein shakes at home as he does not tolerate the taste of the Ensure very well. We did discuss possibly using it in combination with ice cream or frozen yogurt to make a smoothie to get the nutrition as well as additional calories from the other ingredients. 4. Labs from June 06, 2020 were reviewed in detail and discussed with Mr. Maldonado and a copy was given to him. WBC 6.2, hemoglobin 13.1, platelets 171,000 ANC is 3400. Potassium 3.5 random glucose is 211 creatinine 1.2 and LFTs are normal. Magnesium from May 31, 2020 was 1.7. His weight is down from 261.4 pounds on May 21-to 255.2 pounds today. He does see Dr. Goodwin tomorrow for discussion of feeding tube placement. 5. Mr. Maldonado states he is not taking any potassium supplements at this time and he was advised what is watch his potassium for now. He is having his labs checked weekly. 6. We will plan to see him back in 2 weeks with CBC CMP and consideration of cycle 2 cisplatin. I have asked for weekly interim counts. 7. Mr. Maldonado was instructed to contact us in the interim should questions or problems arise. I did reinforce that we are glad to see him at any point but thus far he is doing well and will just see him back right before his chemo unless otherwise needed. Signed By: Willy Llamas-, AOP Devendra Reich MD <<Signature on File>>
--- NOTE | 2020-06-12 11:04 | ONCRAD TMN_ITS ---
Radiation Oncology Weekly Treatment Management Patient: Erica Tracy MR#: [id number] : 1950 Age: 69 Sex: Male Dictated by: Dr. Tae Funes Date of Service: 06/12/2020 Referring Physician(s) : Praneeth Thompson M.D. Diagnosis: cT2 N2 M0 squamous cell carcinoma of the left base of tongue, HPV+ (Stage II per TNM staging 8th ed., 2017) Biopsy proven 04/05/2020, Imaging per CT (03/27/2020) & PET/CT (04/28/2020) revealed a bulky base of tongue tumor with bilateral neck adenopathy (L>R), and concern for possible mediastinal disease. Subsequent EBUS & FNA of level 7 and 4R lymph nodes (05/15/2020) revealed reactive lymph nodes. Planned treatment: Definitive radiation therapy to 70 Gy in 35 fractions concurrent with Q3 weekly cisplatin. Recommended radiographic surveillance following definitive concurrent chemoRT: -) CT of the neck one month after XRT; -) PET/CT (skull to thigh) 3 months after XRT; -) CT chest 6 months after XRT to verify stability of APOLINAR nodule. Radiotherapy to date: Course: HN 35FX, Treatment Site: HN 35FX, Ref. ID: [id number], Energy: 6X, Dose/Fx (cGy): 200, #Fx: , Dose Correction (cGy): 0, Total Dose (cGy): 1,800, Start Date: 05/31/2020, End Date: 06/12/2020, Elapsed Days: 12 Reason for visit: The patient is being seen today as part of their regularly scheduled weekly on treatment visits to assess for acute toxicities from radiotherapy. Interim History: The patient reports no complaints. His next course of chemotherapy is due next . Current Medications: Atenolol, cISplatin, d3-1000, daily Multiple Vitamins, dexamethasone Sodium Phosphate, emend, flonase Allergy Relief, furosemide, furosemide, glucosamine HCl, hydroCHLOROthiazide, lORazepam, losartan Potassium, magnesium Sulfate, metFORMIN HCl, naproxen, omeprazole, palonosetron HCl, potassium Chloride, potassium Chloride ER, pravastatin Sodium, prochlorperazine Maleate. Allergies: Keflex, Pneumococcal 13-Sam[place] Conj Vacc and Penicillins. Current Complaints/Review of Systems: ROS Constitutional - Denies lack of appetite, fatigue, fever, lethargy, malaise, night sweats, rigors / chills and change in weight. ROS Allergic/Immunologic - No reactions. ROS Eyes - Denies significant visual changes. No diplopia. No amaurosis. ROS ENMT - Denies changes in hearing, sore throat, mouth sores, difficulty or changes in swallowing ability (soft foods), and/or sinus drainage. ROS Hematologic/Lymphatic - Denies easy bruising or bleeding. The patient denies any tender or palpable lymph nodes. ROS Respiratory - Denies dyspnea on exertion, chest pain, cough or hemoptysis. Denies orthopnea. ROS Cardiovascular - Denies anginal chest pain, palpitations or orthopnea. ROS Gastrointestinal - Denies nausea, vomiting, diarrhea, GI bleeding, or constipation. Denies change in bowel habits and/or stool color, no heartburn or early satiety. ROS Genitourinary (M) - Denies hematuria, dysuria, increased frequency, urgency, hesitancy or incontinence. ROS Musculoskeletal - Denies joint pain, swelling or redness. No decreased range of motion. ROS Integumentary - Denies chronic rashes, inflammation, ulcerations or skin changes. ROS Neurologic - Denies headache, blurred vision, and no areas of focal weakness or numbness. Normal gait. No sensory problems. ROS Psychiatric - Denies insomnia, depression, kenneth or mood swings. Vital Signs: Performed on 06/12/2020 10:57 AM BMI - 35.127 kg/m2 (high), Height - 72.00 in, Weight - 259.0 lbs, Temperature - 98.9 f, Pulse - 65, Respiration - 17, O2 Sat - 96 %, Pain - 0, Fatigue - 0 and BP - 152/ 68 mm(hg)(high/). Physical Exam: Appears stable, no skin erythema or desquamation. Performance Status: 1 - No physically strenuous activity, but ambulatory and able to carry out light or sedentary work (e.g. office work, light house work). (ECOG) Lab: None pending in Radiation Oncology. Test performed on 06/06/2020 11:12 AM HCT - 38.7 % (low), MCV - 94.2 fl (high), MPV - 12.7 fl (high), Sodium - 130 mmol/l (low), Chloride - 89 mmol/l (low), CO2 - 33 mmol/l (high) and Glucose - 211 mg/dl (high). Imaging: Radiation therapy imaging related to accurate target localization (i.e. KV, MV and CBCT) was reviewed. Appropriate changes, if any, were made to ensure treatment accuracy. Plan: The patient is tolerating therapy reasonably well. Radiotherapy will continue as planned. CPT: 88593 Signed by: Dr. Tae Funes 06/12/2020 11:02:45 AM
[2020-06-13 11:02] LABS: Basophils # 0.1 10^3/uL (0.0-0.1); Basophils % 1.2 %; Eosinophils # 0.5 10^3/uL (0.0-0.8); Eosinophils % 9.3 %; Hematocrit 34.5 % (42.0-52.0); Hemoglobin 11.7 g/dL (11.7-16.6); Lymphocytes # 1.2 10^3/uL (0.8-4.8); Lymphocytes % 25.3 %; Mean Corpuscular HGB Conc 33.9 g/dL (30.0-36.0); Mean Corpuscular Hemoglobin 32.7 pg (28.0-34.0); Mean Corpuscular Volume 96.4 fL (80-94); Mean Platelet Volume 12.6 fL (7.4-10.4); Monocytes # 0.7 10^3/uL (0.2-0.9); Monocytes % 14.3 %; Neutrophils % 49.7 %; Nucleated Red Blood Cells % 0 %; Platelet Count 106 10^3/cmm (130-400); Red Blood Count 3.58 10^6/uL (4.1-5.3); Red Cell Distribution Width 13.3 % (12.1-15.1); White Blood Count 4.8 10^3/uL (4.0-10.0)
[2020-06-13 11:31] LABS: Alanine Aminotransferase 17 U/L (0-41); Albumin Level 3.6 g/dL (3.5-5.2); Alkaline Phosphatase 65 IU/L (40-130); Aspartate Amino Transferase 23 U/L (0-40); Blood Urea Nitrogen 13 mg/dL (8-23); Carbon Dioxide 29 mmol/L (22-29); Chloride 97 mmol/L (98-107); Glucose 163 mg/dL (65-115); Osmolality Calculated 278 mOsm/kg (285-295); Sodium 134 mmol/L (136-145); Total Bilirubin 0.3 mg/dL (0.15-1.2); Total Protein 6.6 g/dL (6.6-8.7)
--- NOTE | 2020-06-19 13:43 | ONCRAD TMN_ITS ---
Radiation Oncology Weekly Treatment Management Patient: Erica Tracy MR#: [id number] : 1950 Age: 69 Sex: Male Dictated by: Dr. Tae Funes Date of Service: 06/19/2020 Referring Physician(s) : Praneeth Thompson Diagnosis: cT2 N2 M0 squamous cell carcinoma of the left base of tongue, HPV+ (Stage II per TNM staging 8th ed., 2017) Biopsy proven 04/05/2020, Imaging per CT (03/27/2020) & PET/CT (04/28/2020) revealed a bulky base of tongue tumor with bilateral neck adenopathy (L>R), and concern for possible mediastinal disease. Subsequent EBUS & FNA of level 7 and 4R lymph nodes (05/15/2020) revealed reactive lymph nodes. Planned treatment: Definitive radiation therapy to 70 Gy in 35 fractions concurrent with Q3 weekly cisplatin. Recommended radiographic surveillance following definitive concurrent chemoRT: -) CT of the neck one month after XRT; -) PET/CT (skull to thigh) 3 months after XRT; -) CT chest 6 months after XRT to verify stability of APOLINAR nodule. Radiotherapy to date: Course: HN 35FX, Treatment Site: HN 35FX, Ref. ID: [id number], Energy: 6X, Dose/Fx (cGy): 200, #Fx: , Dose Correction (cGy): 0, Total Dose (cGy): 2,800, Start Date: 05/31/2020, Elapsed Days: 19 Reason for visit: The patient is being seen today as part of their regularly scheduled weekly on treatment visits to assess for acute toxicities from radiotherapy. Interim History: The patient reports a loss of taste, and fatigue. Current Medications: Atenolol, cISplatin, d3-1000, daily Multiple Vitamins, dexamethasone Sodium Phosphate, emend, flonase Allergy Relief, furosemide, furosemide, glucosamine HCl, hydroCHLOROthiazide, lORazepam, losartan Potassium, magnesium Sulfate, metFORMIN HCl, naproxen, omeprazole, palonosetron HCl, potassium Chloride, potassium Chloride ER, pravastatin Sodium, prochlorperazine Maleate. Allergies: Keflex, Pneumococcal 13-Samaria Conj Vacc and Penicillins. Current Complaints/Review of Systems: Constitutional - Complains of mild fatigue. Complains of change in weight down three pounds since last week. Denies lack of appetite eating well, forcing self to eat, no taste at this time, fever, night sweats and rigors / chills. ENMT - Complains of moderate mouth dryness using biotene. Complains of sputum production lots of clear sisnus drainage. Complains of severe altered taste and that has not affected the appetite. Denies dysphagia, ear pain, epistaxis, problems with hearing, oral bleeding, stomatitis and tinnitus. Neck - Denies neck masses, neck pain, decreased range of motion and swelling of the neck. Integumentary - Denies bruising, dry skin, rash and urticaria. Respiratory - Complains of mild hiccoughs. Denies cough, dyspnea, hemoptysis, pleuritic chest pain and wheezing. Vital Signs: Performed on 06/19/2020 10:46 AM BMI - 34.53 kg/m2 (high), Height - 72.00 in, Weight - 254.6 lbs, Temperature - 97.8 f, Pulse - 67, Respiration - 18, O2 Sat - 97 %, Pain - 0, Fatigue - 5 and BP - 130/ 71 mm(hg). Physical Exam: Appears stable, no skin erythema or desquamation. There is no evidence of oral thrush, or oral mucositis. Performance Status: 1 - No physically strenuous activity, but ambulatory and able to carry out light or sedentary work (e.g. office work, light house work). (ECOG) Lab: None pending in Radiation Oncology. Imaging: Radiation therapy imaging related to accurate target localization (i.e. KV, MV and CBCT) was reviewed. Appropriate changes, if any, were made to ensure treatment accuracy. Plan: The patient is tolerating therapy reasonably well. Radiotherapy will continue as planned. The patient was encouraged to use his salt and soda mouth rinses as recommended. CPT: 60525 Signed by: Dr. Tae Funes 06/19/2020 1:42:14 PM
[2020-06-21 08:58] LABS: Basophils # 0.1 10^3/uL (0.0-0.1); Basophils % 1.2 %; Eosinophils # 0.4 10^3/uL (0.0-0.8); Eosinophils % 10.4 %; Hematocrit 35.3 % (42.0-52.0); Hemoglobin 12.4 g/dL (11.7-16.6); Lymphocytes # 1.5 10^3/uL (0.8-4.8); Lymphocytes % 36.6 %; Mean Corpuscular HGB Conc 35.1 g/dL (30.0-36.0); Mean Corpuscular Hemoglobin 32.7 pg (28.0-34.0); Mean Corpuscular Volume 93.1 fL (80-94); Monocytes # 1.1 10^3/uL (0.2-0.9); Monocytes % 26.7 %; Neutrophils # 0.99 10^3/uL (1.8-7.7); Neutrophils % 24.6 %; Nucleated Red Blood Cells % 0 %; Platelet Count 280 10^3/cmm (130-400); Red Blood Count 3.79 10^6/uL (4.1-5.3); Red Cell Distribution Width 15.2 % (12.1-15.1)
[2020-06-21 09:00] LABS: Mean Platelet Volume 9.5 fL (7.4-10.4)
[2020-06-21 09:40] LABS: Alanine Aminotransferase 10 U/L (0-41); Albumin Level 3.7 g/dL (3.5-5.2); Alkaline Phosphatase 58 IU/L (40-130); Aspartate Amino Transferase 19 U/L (0-40); Blood Urea Nitrogen 26 mg/dL (8-23); Calcium 9.3 mg/dL (8.5-10.5); Carbon Dioxide 27 mmol/L (22-29); Chloride 89 mmol/L (98-107); Globulin 2.8 g/dL (1.3-4.6); Glucose 124 mg/dL (65-115); Osmolality Calculated 258 mOsm/kg (285-295); Sodium 125 mmol/L (136-145); Total Bilirubin 0.4 mg/dL (0.15-1.2); Total Protein 6.5 g/dL (6.6-8.7)
[2020-06-21 09:42] LABS: Anion Gap 12.8 (5-19); Potassium 3.8 mmol/L (3.5-5.1)
--- NOTE | 2020-06-21 19:58 | ONC FU_ITS ---
Dr. Reich Patient Follow-Up Note Patient: Demarcus Maldonado Unit #: [id number]: 1950 Dicatated By: Devendra Reich M.D.Date of Visit:Jun 21, 2020 Onc Med Follow-up/Prog Note Chief Complaint: Base of tongue cancer. 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 He had presented with left cervical lymphadenopathy. He had associated pain in the left side of the neck and throat. He had been seen initially by Dr. James. CT of the neck on 03/27/2020 showed a soft tissue enhancing mass centered in the left tongue base along the lingual tonsil. It was noted to extend over a length of 2.6 x 2.2 x 1.3 cm. There appeared to be enhancement across the midline and there was suspected involvement in the lingular surface of the right tongue. Also noted was enlargement and abnormal enhancement and thickening of the uvula. There was extensive, confluent adenopathy i involving the left neck. The largest cluster of nodes measured 8.4 cm in length by 2.8 cm, beginning at the level of the hyoid bone and extending inferiorly to the supraclavicular region. Additional clusters of lymph nodes were present at level IIa, IIb, III, Va, and in the supraclavicular area. The largest necrotic lymph node measured 2.5 x 2.2 cm at the level of the thyroid cartilage. Smaller lymph nodes were noted along the right cervical chain, but without definite adenopathy. The lung apices were noted to be clear. He was seen by Dr. Praneeth Thompson on 03/30/2020. His exam showed an exophytic mass and papillomatous mass at the left tongue base as well as papillomatous mass at the left paramedian tongue base. The remainder of the oral cavity and oropharyngeal exam was reported to be normal. The laryngeal exam showed erythema and edema of the arytenoid mucosa. He then underwent direct laryngoscopy with biopsy and esophagoscopy on 04/05/2020. Findings included an exophytic lesion involving the left tongue base extending to the right of the midline. It also was noted to extend into the vallecula. There was no involvement of the lateral pharyngeal wall or the larynx. The esophagus was noted to be free of lesions. Biopsy showed infiltrating moderately differentiated squamous cell carcinoma which was confirmed to be HPV positive. I had seen him initially on 04/19/2020. Staging PET/CT on 04/28/2020 showed a 2.4 x 1.7 cm left base of tongue mass with SUV 24.5, consistent with primary malignancy. There were FDG positive nodes from cervical levels II through IV and V levels on the left consistent with local metastatic disease. A 1.2 cm right level 2A node had SUV 4.2 indicating a high probability of contralateral cervical disease. A subpleural solid nodule in the lateral left upper lobe measuring 8 mm had SUV 1.9, suspicious but not definitive for distant metastatic disease. A 2.8 x 1.5 cm subcarinal lymph node had SUV 5.3, suspicious for metastatic disease. Smaller FDG positive nodes in the right pretracheal and subaortic territories were felt to be most likely reactive. He was referred to Dr. Kingsley. On 05/15/2020 he underwent bronchoscopy/EBUS with transbronchial FNA biopsy of station 7 and station 4R lymph nodes. Pathology from both sites showed reactive lymph node tissue with no evidence of malignancy. With those findings, he was recommended to undergo radiation concurrently with standard high-dose cisplatin chemotherapy. He has a history of having previously undergone radical prostatectomy for prostate cancer. He also has a prior history of ITP. His other medical illnesses include hypertension, hyperlipidemia, and type 2 diabetes. He has a past history of smoking, but only for about 6 years. He quit smoking approximately 40 years ago. He had also chewed tobacco, but only for about 1 or 2 years. INTERIM HISTORY: He began cycle 1 of cisplatin at 100 mg/m??? by IV infusion concurrently with radiation on 05/31/2020. He experienced no acute toxicity with the initial cisplatin infusion. He is seen now for a scheduled follow-up visit. He is still feeling pretty good generally. He does have some fatigue, but he is able to do light work. ECOG score is 1. He says he is not that hungry, and he complains that he has no taste. His weight is down 7 pounds. He does not have fever or night sweats. He says his mouth feels a little tender and his throat is a little sore. He has no difficulty swallowing. He has just a little bit of cough. He does not complain of shortness of breath or chest pain. He has had only occasional mild nausea. He has had some mild constipation. He has no complaints. He has pain in his right knee, which is chronic. He has no other joint or bone pain. He does not complain of headache. He has just occasional dizziness. He has no numbness/paresthesia or other focal neurologic symptoms. Medications: Atenolol 1 Tablet (of 25 mg) Oral daily, D3-1000 1 Tablet (of 25 mcg ) Oral daily, Daily Multiple Vitamins 1 Tablet Oral daily, Flonase Allergy Relief Suspension Nasal, Furosemide 1 Tablet (of 40 mg) Oral daily PRN, Glucosamine HCl 2 Tablet (of 1000 mg) Oral daily, hydroCHLOROthiazide 1 Tablet (of 25 mg) Oral daily, Losartan Potassium 1 Tablet (of 100 mg) Oral daily, metFORMIN HCl 0.5 - 1 Tablet (of 1000 mg) Oral b.i.d., Naproxen 1 Tablet (of 500 mg) Oral b.i.d. PRN, Omeprazole 1 Capsule (of 20 mg) Capsule Delayed Release Oral daily, Potassium Chloride ER 1 Tablet (of 10 meq) Capsule, controlled release Oral daily, Pravastatin Sodium 1 Tablet (of 20 mg) Oral daily Allergies: Keflex, Penicillins, and Pneumococcal 13-Samaria Conj Vacc. Review of Systems: Constitutional - His energy seems to be holding up, though he does have some fatigue. He is able to do all his light to moderate outside work. His appetite has decreased, but he is able to eat and he is supplementing with protein shakes. His weight is down a little. No fever, night sweats, or hot flashes. ECOG score is 1, ENMT - No sinus congestion/drainage. His mouth and throat are a little sore. He has no difficulty swallowing, Hematologic/Lymphatic - No abnormal bruising or bleeding, Respiratory - No shortness of breath. He has a slight cough. No pleuritic pain or hemoptysis, Cardiovascular - No angina pain. No palpitations, Gastrointestinal - No nausea or vomiting. He is taking omeprazole for heartburn. He has had mild constipation. No blood in the stool or black stools, Genitourinary (M) - No dysuria or hematuria. No urinary frequency. No urgency or incontinence, Musculoskeletal - He is having increased right knee pain, Integumentary - No skin complications, Neurologic - No headache or dizziness. No numbness or tingling. No other focal neurologic symptoms, Psychiatric - He is having some mild anxiety. No depression. No insomnia. Vital Signs: Performed on Jun 21, 2020 09:31 Height - 72.00 in Weight - 253.2 lbs (LOW) BSA - 2.36 sq.m BMI - 34.34 (HIGH) Temperature - 97.8 F (LOW) Pulse - 72 /min Respiration - 17 /min BP - 117/67 mm(hg) O2 Sat - 95 % (LOW) Pain - 0 Fatigue - 6 Physical Examination: Constitutional - He looks pretty good generally, Eyes - Sclerae nonicteric. Conjunctivae clear, ENMT - There is mild mucosal irritation. There are no other lesions noted in the oral cavity, Hematologic/Lymphatic - There has been resolution of the cervical adenopathy. No axillary adenopathy noted, Respiratory - Lungs are clear with good air movement bilaterally, Cardiovascular - Heart rhythm is regular. There is no murmur, gallop, or rub noted, Abdomen - Mildly distended but soft. Liver and spleen are not enlarged. There is no abdominal mass or ascites noted and there is no inguinal adenopathy, Extremities - Mild lower extremity edema, Neurologic - No focal neurologic deficits noted. Lab/Imaging: Test performed on Jun 21, 2020 09:07 Sodium 125 mmol/L Potassium 3.8 mmol/L Chloride 89 mmol/L CO2 27 mmol/L Anion Gap 12.8 BUN 26 mg/dL Creatinine 1.1 mg/dL Cr Clearance (Est) 103.0600 mL/min Glucose 124 mg/dL Calcium 9.3 mg/dL Protein, Total 6.5 g/dL Albumin 3.7 g/dL Globulin 2.8 g/dL Bilirubin, Total 0.4 mg/dL ALT (SGPT) 10 U/L AST (SGOT) 19 U/L Alkaline Phosphatase 58 IU/L Test performed on Jun 21, 2020 08:25 WBC 4.0 10 3/uL RBC 3.79 10 6/uL HGB 12.4 g/dL HCT 35.3 % MCV 93.1 fL MCH 32.7 pg MCHC 35.1 g/dL RDW 15.2 % Platelet Count 280 10 3/cmm MPV 9.5 fL Neutrophils 0.99 10 3/uL Lymphocytes 1.5 10 3/uL Monocytes 1.1 10 3/uL Eosinophils 0.4 10 3/uL Basophils 0.1 10 3/uL Neutrophil % 24.6 % Lymphocyte % 36.6 % Monocyte % 26.7 % Eosinophil % 10.4 % Basophils % 1.2 % NRBC % 0 % Impression: 1. Patient with infiltrating moderately differentiated squamous cell carcinoma involving left base of tongue, by clinical evaluation stage BEVERLY (T2, N2b, M0), HPV positive. 2. He underwent direct laryngoscopy with biopsy and esophagoscopy on 04/05/2020. His other medical illnesses include: 3. Hypertension. 4. Hyperlipidemia. 5. Type 2 diabetes. 6. He has chronic venous insufficiency. 7. History of prostate cancer for which he underwent radical prostatectomy approximately 5 years ago. 8. 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 Staging PET/CT 04/28/2020 reported a 2.4 x 1.7 cm left base of tongue mass with an SUV of 24.5, consistent with primary malignancy. There were FDG positive nodes from the cervical level II through IV and V levels on the left consistent with local metastatic disease. A 1.2 cm right level IIA node had an SUV of 4.2, indicating a high probability of contralateral cervical disease. In the left lateral upper lobe there was a subpleural solid nodule measuring 8 mm with an SUV 1.9. This was suspicious but not definitive for distant metastatic disease. A 2.8 x 1.5 subcarinal node with SUV 5.3 was suspicious for metastatic disease. Smaller FDG positive nodes in the right paratracheal and subaortic territories appeared to be most likely reactive. On 05/15/2020 he underwent bronchoscopy/EBUS with transbronchial FNA biopsy of station 7 and station 4R lymph nodes. Pathology from both sites showed reactive lymph node tissue with no evidence of malignancy. With those findings, he was recommended to undergo radiation concurrently with standard high-dose cisplatin chemotherapy. He began cycle 1 of cisplatin 100 mg/m??? IV infusion, currently with radiation on 05/31/2020. He tolerated the initial cisplatin infusion with no acute toxicity. He has since then had some fatigue and some anorexia/dysguesia. Thus far has had only very mild mucositis symptoms. Overall he has been tolerating treatment well, and he does appear to be showing a very good clinical response. However, he has now developed moderately severe neutropenia, ANC 1000. Plan: He will continue his daily radiation. Due to the neutropenia, his chemotherapy will be delayed. I will recheck his CBC next week and as soon as he is showing recovery of the neutrophil count, I will plan to proceed with cycle 2 of cisplatin. The dosage will remain the same at 100 mg/m??? by IV infusion. Signed By: Devendra Reich M.D. <<Signature on File>>
[2020-06-25] MEDS: sodium chloride 0.9% 1,000 ML 999 ML IV (11:00)
[2020-06-25 11:16] LABS: Eosinophils # 0.1 10^3/uL (0.0-0.8); Eosinophils % 2.8 %; Hematocrit 37.7 % (42.0-52.0); Hemoglobin 12.7 g/dL (11.7-16.6); Mean Corpuscular HGB Conc 33.7 g/dL (30.0-36.0); Mean Corpuscular Hemoglobin 31.7 pg (28.0-34.0); Mean Platelet Volume 11.7 fL (7.4-10.4); Monocytes # 1.1 10^3/uL (0.2-0.9); Monocytes % 27.8 %; Neutrophils # 1.66 10^3/uL (1.8-7.7); Neutrophils % 42.4 %; Nucleated Red Blood Cells % 0 %; Platelet Count 154 10^3/cmm (130-400); Red Blood Count 4.01 10^6/uL (4.1-5.3); Red Cell Distribution Width 13.6 % (12.1-15.1); White Blood Count 3.9 10^3/uL (4.0-10.0)
[2020-06-25 12:15] LABS: Alanine Aminotransferase 9 U/L (0-41); Albumin Level 3.7 g/dL (3.5-5.2); Alkaline Phosphatase 56 IU/L (40-130); Anion Gap 13.7 (5-19); Aspartate Amino Transferase 14 U/L (0-40); Blood Urea Nitrogen 27 mg/dL (8-23); Calcium 8.6 mg/dL (8.5-10.5); Carbon Dioxide 26 mmol/L (22-29); Chloride 87 mmol/L (98-107); Globulin 2.9 g/dL (1.3-4.6); Glucose 106 mg/dL (65-115); Osmolality Calculated 253 mOsm/kg (285-295); Potassium 3.7 mmol/L (3.5-5.1); Sodium 123 mmol/L (136-145); Total Bilirubin 0.3 mg/dL (0.15-1.2); Total Protein 6.6 g/dL (6.6-8.7)
--- NOTE | 2020-06-26 12:27 | ONCRAD TMN_ITS ---
Radiation Oncology Weekly Treatment Management Patient: Erica Tracy MR#: [id number] : 1950 Age: 69 Sex: Male Dictated by: Dr. Tae Funes Date of Service: 06/25/2020 Referring Physician(s) : Praneeth Thompson Diagnosis: cT2 N2 M0 squamous cell carcinoma of the left base of tongue, HPV+ (Stage II per TNM staging 8th ed., 2017) Biopsy proven 04/05/2020, Imaging per CT (03/27/2020) & PET/CT (04/28/2020) revealed a bulky base of tongue tumor with bilateral neck adenopathy (L>R), and concern for possible mediastinal disease. Subsequent EBUS & FNA of level 7 and 4R lymph nodes (05/15/2020) revealed reactive lymph nodes. Planned treatment: Definitive radiation therapy to 70 Gy in 35 fractions concurrent with Q3 weekly cisplatin. Recommended radiographic surveillance following definitive concurrent chemoRT: -) CT of the neck one month after XRT; -) PET/CT (skull to thigh) 3 months after XRT; -) CT chest 6 months after XRT to verify stability of APOLINAR nodule. Radiotherapy to date: Course: HN 35FX Treatment Site: HN 35FX, Ref. ID: [id number], Energy: 6X, Dose/Fx (cGy): 200, #Fx: 18 / 35, Dose Correction (cGy): 0, Total Dose (cGy): 3,600, Start Date: 05/31/2020, End Date: 06/25/2020,Elapsed Days: 25 Reason for visit: The patient is being seen today as part of their regularly scheduled weekly on treatment visits to assess for acute toxicities from radiotherapy. Interim History: The patient's weight is down 7.6 pounds since last on treatment visit. The patient is frustrated because everything tastes like metal. He reports moderate fatigue and yet no painful swallowing. We discussed the merits of considering to have the PEG tube placed. Current Medications: Atenolol, cISplatin, d3-1000, daily Multiple Vitamins, dexamethasone Sodium Phosphate, emend, flonase Allergy Relief, furosemide, furosemide, glucosamine HCl, hydroCHLOROthiazide, losartan Potassium, magnesium Sulfate, metFORMIN HCl, naproxen, omeprazole, palonosetron HCl, potassium Chloride, potassium Chloride ER, pravastatin Sodium, prochlorperazine Maleate. Allergies: Keflex, Pneumococcal 13-[place] Conj Vacc and Penicillins. Vital Signs: Performed on 06/25/2020 11:10 AM BMI - 33.499 kg/m2 (high), Height - 72.00 in, Weight - 247.0 lbs, Temperature - 97.9 f, Pulse - 71, Respiration - 18, O2 Sat - 96 %, Pain - 0, Fatigue - 7 and BP - 105/ 66 mm(hg). Physical Exam: Appears stable, no skin erythema or desquamation. Lungs are clear to auscultation bilaterally, mild neck erythema. Performance Status: 1 - No physically strenuous activity, but ambulatory and able to carry out light or sedentary work (e.g. office work, light house work). (ECOG) Lab: None pending in Radiation Oncology. Test performed on 06/21/2020 8:25 AM RBC - 3.79 10 6/ul (low), HCT - 35.3 % (low), RDW - 15.2 % (high), Neutrophils - 0.99 10 3/ul (low), Monocytes - 1.1 10 3/ul (high), Test performed on 06/21/2020 9:07 AM Sodium - 125 mmol/l (low), Chloride - 89 mmol/l (low), BUN - 26 mg/dl (high), Glucose - 124 mg/dl (high) and Protein, Total - 6.5 g/dl (low). Imaging: Radiation therapy imaging related to accurate target localization (i.e. KV, MV and CBCT) was reviewed. Appropriate changes, if any, were made to ensure treatment accuracy. Plan: The patient is tolerating therapy reasonably well. Radiotherapy will continue as planned. The patient is considering to have the PEG tube placed. He has already consulted with surgery, and they are waiting for the patient to consent. CPT: 94284 Signed by: Dr. Tae Funes 06/26/2020 12:27:14 PM
[2020-06-27] MEDS: sodium chloride 0.9% 1,000 ML 999 ML IV (09:15)
[2020-07-02 11:20] LABS: Basophils # 0.1 10^3/uL (0.0-0.1); Basophils % 1.2 %; Eosinophils # 0.2 10^3/uL (0.0-0.8); Eosinophils % 3.2 %; Hematocrit 37.8 % (42.0-52.0); Lymphocytes # 0.9 10^3/uL (0.8-4.8); Lymphocytes % 17.8 %; Mean Corpuscular HGB Conc 34.4 g/dL (30.0-36.0); Mean Corpuscular Hemoglobin 32.2 pg (28.0-34.0); Mean Corpuscular Volume 93.6 fL (80-94); Mean Platelet Volume 12.2 fL (7.4-10.4); Monocytes % 18.8 %; Neutrophils # 2.93 10^3/uL (1.8-7.7); Nucleated Red Blood Cells % 0 %; Platelet Count 107 10^3/cmm (130-400); Red Blood Count 4.04 10^6/uL (4.1-5.3); Red Cell Distribution Width 14.4 % (12.1-15.1); White Blood Count 5.1 10^3/uL (4.0-10.0)
[2020-07-02 11:52] LABS: Alanine Aminotransferase 10 U/L (0-41); Albumin Level 3.9 g/dL (3.5-5.2); Alkaline Phosphatase 80 IU/L (40-130); Anion Gap 13.2 (5-19); Aspartate Amino Transferase 17 U/L (0-40); Blood Urea Nitrogen 24 mg/dL (8-23); Calcium 9.9 mg/dL (8.5-10.5); Carbon Dioxide 33 mmol/L (22-29); Chloride 87 mmol/L (98-107); Globulin 3.4 g/dL (1.3-4.6); Glucose 184 mg/dL (65-115); Osmolality Calculated 270 mOsm/kg (285-295); Potassium 4.2 mmol/L (3.5-5.1); Sodium 129 mmol/L (136-145); Total Bilirubin 0.3 mg/dL (0.15-1.2); Total Protein 7.3 g/dL (6.6-8.7)
== END 2020-07-02 23:59 | disposition home or self-care (01) ==
LOC: ONCMED 05:34
PROVIDERS: Nurse Practitioner; PCP Family Medicine; Visit Provider Internal Medicine Medical Oncology
DX: Z51.0 Encounter for antineoplastic radiation therapy (principal); C01 Malignant neoplasm of base of tongue; D70.1 Agranulocytosis secondary to cancer chemotherapy; T45.1X5A Adverse effect of antineoplastic and immunosuppressive drugs, initial encounter; I10 Essential (primary) hypertension; E78.5 Hyperlipidemia, unspecified; E11.9 Type 2 diabetes mellitus without complications; I87.2 Venous insufficiency (chronic) (peripheral); Z90.79 Acquired absence of other genital organ(s); Z85.46 Personal history of malignant neoplasm of prostate; Z90.81 Acquired absence of spleen; Z86.2 Personal history of diseases of the blood and blood-forming organs and certain disorders involving the immune mechanism; Z79.899 Other long term (current) drug therapy
CPT/HCPCS: 12345; 43246; 77336; 77386; 80053; 85025; 96360; 96361; 96365; 99214; J1100; J2469; J3475; J3480; J3490; J7030

== ENCOUNTER 2020-07-13 05:59 | Outpatient (RCR) | payer MEDICARE, OTHER, SELFPAY ==
[2020-07-03] MEDS: sodium chloride 0.9% 250 ML 75 ML IV (09:43)
[2020-07-03] MEDS: FUROsemide 10 mg/mL SDV 2mL 20 MG IV (13:48)
[2020-07-03] MEDS: sodium chlor 0.9% + KCl 20 mEq 20 MEQ/1,000 ML BAG 500 MEQ IV (13:50)
--- NOTE | 2020-07-03 15:02 | ONCRAD TMN_ITS ---
Radiation Oncology Weekly Treatment Management Patient: Erica Tracy MR#: [id number] : 1950 Age: 69 Sex: Male Dictated by: Dr. 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 Subsequent EBUS & FNA of level 7 and 4R lymph nodes (05/15/2020) revealed reactive lymph nodes. Planned treatment: Definitive radiation therapy to 70 Gy in 35 fractions concurrent with Q3 weekly cisplatin. Recommended radiographic surveillance following definitive concurrent chemoRT: -) CT of the neck one month after XRT; -) PET/CT (skull to thigh) 3 months after XRT; -) CT chest 6 months after XRT to verify stability of APOLINAR nodule. Radiotherapy to date: Course: HN 35FX, Treatment Site: HN 35FX, Ref. ID: [id number], Energy: 6X, Dose/Fx (cGy): 200, #Fx: 24 / 35, Dose Correction (cGy): 0, Total Dose (cGy): 4,800, Start Date: 05/31/2020, Elapsed Days: 33 Reason for visit: The patient is being seen today as part of their regularly scheduled weekly on treatment visits to assess for acute toxicities from radiotherapy. Interim History: The patient has a PEG tube, and he is using 5 cans/day. His weight is up. Current Medications: Atenolol, cISplatin, dexamethasone Sodium Phosphate, emend, flonase Allergy Relief, furosemide, furosemide, hydroCHLOROthiazide, losartan Potassium, magnesium Sulfate, metFORMIN HCl, naproxen, palonosetron HCl, potassium Chloride, pravastatin Sodium, prochlorperazine Maleate. Allergies: Keflex, Pneumococcal 13-Samaria Conj Vacc and Penicillins. Current Complaints/Review of Systems: ROS Constitutional - His energy has improved. He is able to do light to moderate outside work. His appetite has improved and his weight is up 4 pounds from last visit. No fever, night sweats, or hot flashes. ECOG score is 1. ROS ENMT - He has sinus congestion/drainage. No mouth sores. No sore throat. He reports thickening in secretions from radiation. ROS Hematologic/Lymphatic - No abnormal bruising or bleeding. ROS Respiratory - No shortness of breath. No cough. No pleuritic pain or hemoptysis. ROS Cardiovascular - No angina pain. No palpitations. ROS Gastrointestinal - No nausea or vomiting. No heartburn or acid reflux. No diarrhea. He reports his bowel habits have slowed down. He will be starting Senna-S today for constipation. No blood in the stool or black stools. He had a PEG tube placed on 06/[address] Goodwin and he is receiving tubel feedings at home. ROS Genitourinary (M) - No dysuria or hematuria. No urinary frequency. No urgency or incontinence. ROS Musculoskeletal - No joint or bone pain. ROS Integumentary - No skin complications. ROS Neurologic - No headache or dizziness. He has some slight numbness/tingling in the fingertips. No other focal neurologic symptoms. ROS Psychiatric - No anxiety or depression. He is sleeping better. Vital Signs: Performed on 07/03/2020 8:59 AM Height - 72.00 in, Weight - 247.4 lbs (high), BSA - 2.33 sq.m, BMI - 33.55 (high), Temperature - 97.3 f (low), Pulse - 73 /min, Respiration - 22 /min, O2 Sat - 99 %, Pain - 0 and BP - 127/ 55 mm(hg)(/low). Physical Exam: Appears stable, no skin erythema or desquamation. Lungs are clear to auscultation bilaterally. The patient has beginning stages of oral thrush, and he has prominent xerostomia. Performance Status: 1 - No physically strenuous activity, but ambulatory and able to carry out light or sedentary work (e.g. office work, light house work). (ECOG) Lab: None pending in Radiation Oncology. Test performed on 07/02/2020 11:05 AM RBC - 4.04 10 6/ul (low), HCT - 37.8 % (low), Platelet Count - 107 10 3/cmm (low), MPV - 12.2 fl (high), Monocytes - 1.0 10 3/ul (high), Sodium - 129 mmol/l (low), Chloride - 87 mmol/l (low), CO2 - 33 mmol/l (high), BUN - 24 mg/dl (high) and Glucose - 184 mg/dl (high). Imaging: Radiation therapy imaging related to accurate target localization (i.e. KV, MV and CBCT) was reviewed. Appropriate changes, if any, were made to ensure treatment accuracy. Plan: The patient is tolerating therapy reasonably well. Radiotherapy will continue as planned. A clotrimazole Altagracia prescription was written, and the patient was encouraged to use his salt and baking soda mouth rinse more frequently in order to facilitate improved oral hygiene. I have a low threshold for prescribing Diflucan in the event that his oral thrush worsens. CPT: 96602 Signed by: Dr. Tae Funes 07/03/2020 3:01:24 PM
--- NOTE | 2020-07-03 18:12 | ONC FU_ITS ---
Dr. Reich Patient Follow-Up Note Patient: Demarcus Maldonado < Unit #: [id number]: 1950 Dicatated By: Devendra Reich M.D.Date of Visit:Jul 03, 2020 Onc Med Follow-up/Prog Note Chief Complaint: Base of tongue cancer. 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 He had presented with left cervical lymphadenopathy. He had associated pain in the left side of the neck and throat. He had been seen initially by Dr. James. CT of the neck on 03/27/2020 showed a soft tissue enhancing mass centered in the left tongue base along the lingual tonsil. It was noted to extend over a length of 2.6 x 2.2 x 1.3 cm. There appeared to be enhancement across the midline and there was suspected involvement in the lingular surface of the right tongue. Also noted was enlargement and abnormal enhancement and thickening of the uvula. There was extensive, confluent adenopathy i involving the left neck. The largest cluster of nodes measured 8.4 cm in length by 2.8 cm, beginning at the level of the hyoid bone and extending inferiorly to the supraclavicular region. Additional clusters of lymph nodes were present at level IIa, IIb, III, Va, and in the supraclavicular area. The largest necrotic lymph node measured 2.5 x 2.2 cm at the level of the thyroid cartilage. Smaller lymph nodes were noted along the right cervical chain, but without definite adenopathy. The lung apices were noted to be clear. He was seen by Dr. Praneeth Thompson on 03/30/2020. His exam showed an exophytic mass and papillomatous mass at the left tongue base as well as papillomatous mass at the left paramedian tongue base. The remainder of the oral cavity and oropharyngeal exam was reported to be normal. The laryngeal exam showed erythema and edema of the arytenoid mucosa. He then underwent direct laryngoscopy with biopsy and esophagoscopy on 04/05/2020. Findings included an exophytic lesion involving the left tongue base extending to the right of the midline. It also was noted to extend into the vallecula. There was no involvement of the lateral pharyngeal wall or the larynx. The esophagus was noted to be free of lesions. Biopsy showed infiltrating moderately differentiated squamous cell carcinoma which was confirmed to be HPV positive. I had seen him initially on 04/19/2020. Staging PET/CT on 04/28/2020 showed a 2.4 x 1.7 cm left base of tongue mass with SUV 24.5, consistent with primary malignancy. There were FDG positive nodes from cervical levels II through IV and V levels on the left consistent with local metastatic disease. A 1.2 cm right level 2A node had SUV 4.2 indicating a high probability of contralateral cervical disease. A subpleural solid nodule in the lateral left upper lobe measuring 8 mm had SUV 1.9, suspicious but not definitive for distant metastatic disease. A 2.8 x 1.5 cm subcarinal lymph node had SUV 5.3, suspicious for metastatic disease. Smaller FDG positive nodes in the right pretracheal and subaortic territories were felt to be most likely reactive. He was referred to Dr. Kingsley. On 05/15/2020 he underwent bronchoscopy/EBUS with transbronchial FNA biopsy of station 7 and station 4R lymph nodes. Pathology from both sites showed reactive lymph node tissue with no evidence of malignancy. With those findings, he was recommended to undergo radiation concurrently with standard high-dose cisplatin chemotherapy. He has a history of having previously undergone radical prostatectomy for prostate cancer. He also has a prior history of ITP. His other medical illnesses include hypertension, hyperlipidemia, and type 2 diabetes. He has a past history of smoking, but only for about 6 years. He quit smoking approximately 40 years ago. He had also chewed tobacco, but only for about 1 or 2 years. INTERIM HISTORY: He began cycle 1 of cisplatin at 100 mg/m??? by IV infusion concurrently with radiation on 05/31/2020. He experienced no acute toxicity with the initial cisplatin infusion. Her further chemotherapy was held due to neutropenia. He completed radiation on 06/19/2020 to a total dose of 6540 cGy. He then continued with radiation. At his day 22 visit he had moderately severe neutropenia with absolute neutrophil count at just under 1000, and his second dose of cisplatin was deferred. Subsequent to that visit, he began having more difficulty with swallowing and with oral intake, and he did opt undergo placement of the PEG tube. He is seen for a scheduled visit. He has now been on tube feeding, and he is tolerating 5 cans of supplement daily. His energy is picking up. His ECOG score is 1. He has no fever or night sweats. He is having a problem with a phlegmy discharge associated with the radiation, and his throat is still a little sore. He does not complain of shortness of breath, cough, or chest pain. He is having some mild constipation. He has no other GI or complaints. He has pain in his right knee. He has some numbness in the tips of his fingers. Medications: Atenolol 1 Tablet (of 25 mg) Oral daily, Flonase Allergy Relief Suspension Nasal, Furosemide 1 Tablet (of 40 mg) Oral daily PRN, hydroCHLOROthiazide 1 Tablet (of 25 mg) Oral daily, Losartan Potassium 1 Tablet (of 100 mg) Oral daily, metFORMIN HCl 0.5 - 1 Tablet (of 1000 mg) Oral b.i.d., Naproxen 1 Tablet (of 500 mg) Oral b.i.d. PRN, Pravastatin Sodium 1 Tablet (of 20 mg) Oral daily Allergies: Keflex, Penicillins, and Pneumococcal 13-Samaria Conj Vacc. Review of Systems: Constitutional - Complains of lack of appetite Has PEG tube and puts in 5 cans of enteral nutrition per day. Complains of mild fatigue. Complains of change in weight in which he has gained 3.8 lbs. since last OTV. Denies fever, ENMT - Complains of dysphagia which is slight, mouth dryness, stomatitis and altered taste. Denies ear pain, Neck - Denies neck pain, Integumentary - Has redness to the neck, Constitutional - His energy has improved. He is able to do light to moderate outside work. His appetite has improved and his weight is up 4 pounds from last visit. No fever, night sweats, or hot flashes. ECOG score is 1, ENMT - He has sinus congestion/drainage. No mouth sores. No sore throat. He reports thickening in secretions from radiation, Hematologic/Lymphatic - No abnormal bruising or bleeding, Respiratory - No shortness of breath. No cough. No pleuritic pain or hemoptysis, Cardiovascular - No angina pain. No palpitations, Gastrointestinal - No nausea or vomiting. No heartburn or acid reflux. No diarrhea. He reports his bowel habits have slowed down. He will be starting Senna-S today for constipation. No blood in the stool or black stools. He had a PEG tube placed on 06/[address] Goodwin and he is receiving tubel feedings at home, Genitourinary (M) - No dysuria or hematuria. No urinary frequency. No urgency or incontinence, Musculoskeletal - No joint or bone pain, Integumentary - No skin complications, Neurologic - No headache or dizziness. He has some slight numbness/tingling in the fingertips. No other focal neurologic symptoms, Psychiatric - No anxiety or depression. He is sleeping better. Vital Signs: Performed on Jul 03, 2020 11:57 Height - 72.00 in Weight - 247.4 lbs Temperature - 97.3 F Pulse - 73 Respiration - 22 BP - 127/55 mm(hg) O2 Sat - 99 % Pain - 0 Performed on Jul 03, 2020 11:57 BMI - 33.554 kg/m2 (HIGH) Performed on Jul 03, 2020 08:59 Height - 72.00 in Weight - 247.4 lbs (HIGH) BSA - 2.33 sq.m BMI - 33.55 (HIGH) Temperature - 97.3 F (LOW) Pulse - 73 /min Respiration - 22 /min BP - 127/55 mm(hg) O2 Sat - 99 % Pain - 0 Physical Examination: Constitutional - He looks pretty good generally, Eyes - Sclerae nonicteric. Conjunctivae clear, ENMT - There is mild erythema. There is a slight coating on the tongue. There are no other lesions noted in the oral cavity, Neck - There is mild erythema from the radiation. There is no mass palpab, Hematologic/Lymphatic - No cervical, clavicular, or axillary adenopathy, Respiratory - Lungs are clear with some decrease in air movement bilaterally, Cardiovascular - Heart rhythm is regular. There is no murmur, gallop, or rub noted, Abdomen - Soft. The PEG tube site looks clean. Liver and spleen are not enlarged. There is no abdominal mass or ascites noted and there is no inguinal adenopathy, Extremities - Slight edema, Neurologic - No focal neurologic deficits noted. Lab/Imaging: Test performed on Jul 02, 2020 11:05 Sodium 129 mmol/L Potassium 4.2 mmol/L Chloride 87 mmol/L CO2 33 mmol/L Anion Gap 13.2 BUN 24 mg/dL Creatinine 1.2 mg/dL Cr Clearance (Est) 94.4700 mL/min Glucose 184 mg/dL Calcium 9.9 mg/dL Protein, Total 7.3 g/dL Albumin 3.9 g/dL Globulin 3.4 g/dL Bilirubin, Total 0.3 mg/dL ALT (SGPT) 10 U/L AST (SGOT) 17 U/L Alkaline Phosphatase 80 IU/L WBC 5.1 10 3/uL RBC 4.04 10 6/uL HGB 13.0 g/dL HCT 37.8 % MCV 93.6 fL MCH 32.2 pg MCHC 34.4 g/dL RDW 14.4 % Platelet Count 107 10 3/cmm MPV 12.2 fL Neutrophils 2.93 10 3/uL Lymphocytes 0.9 10 3/uL Monocytes 1.0 10 3/uL Eosinophils 0.2 10 3/uL Basophils 0.1 10 3/uL Neutrophil % 58.0 % Lymphocyte % 17.8 % Monocyte % 18.8 % Eosinophil % 3.2 % Basophils % 1.2 % NRBC % 0 % Impression: 1. Patient with infiltrating moderately differentiated squamous cell carcinoma involving left base of tongue, by clinical evaluation stage BEVERLY (T2, N2b, M0), HPV positive. 2. He underwent direct laryngoscopy with biopsy and esophagoscopy on 04/05/2020. His other medical illnesses include: 3. Hypertension. 4. Hyperlipidemia. 5. Type 2 diabetes. 6. He has chronic venous insufficiency. 7. History of prostate cancer for which he underwent radical prostatectomy approximately 5 years ago. 8. 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 Staging PET/CT 04/28/2020 reported a 2.4 x 1.7 cm left base of tongue mass with an SUV of 24.5, consistent with primary malignancy. There were FDG positive nodes from the cervical level II through IV and V levels on the left consistent with local metastatic disease. A 1.2 cm right level IIA node had an SUV of 4.2, indicating a high probability of contralateral cervical disease. In the left lateral upper lobe there was a subpleural solid nodule measuring 8 mm with an SUV 1.9. This was suspicious but not definitive for distant metastatic disease. A 2.8 x 1.5 subcarinal node with SUV 5.3 was suspicious for metastatic disease. Smaller FDG positive nodes in the right paratracheal and subaortic territories appeared to be most likely reactive. On 05/15/2020 he underwent bronchoscopy/EBUS with transbronchial FNA biopsy of station 7 and station 4R lymph nodes. Pathology from both sites showed reactive lymph node tissue with no evidence of malignancy. With those findings, he was recommended to undergo radiation concurrently with standard high-dose cisplatin chemotherapy. He began cycle 1 of cisplatin 100 mg/m??? IV infusion concurrently with radiation on 05/31/2020. He tolerated the initial cisplatin infusion with no acute toxicity. At day 22 he had developed moderately severe neutropenia, ANC 1000, and his 2nd cycle of cisplatin was deferred. He has since then undergone placement of a PEG tube, and he has been supplementing with tube feeding, which he tolerates well. He is showing symptomatic improvement, and he does appear to be showing a very good clinical response to the chemoradiation. His blood counts now have adequately recovered. Plan: He will now proceed with his second dose of cisplatin at 100 mg/m??? by IV infusion. This will complete his chemotherapy, as he is due to finish radiation within 2 weeks. I will plan to give him additional IV hydration tomorrow, as needed. I will recheck a blood count in 2 weeks. He will be scheduled for a follow-up visit in 4 weeks. Signed By: Devendra Reich M.D. <<Signature on File>>
[2020-07-06] MEDS: sodium chloride 0.9% 1,000 ML 999 ML IV (09:10)
--- NOTE | 2020-07-10 17:09 | ONCRAD TMN_ITS ---
Radiation Oncology Weekly Treatment Management Patient: Erica Tracy MR#: [id number] : 1950 Age: 69 Sex: Male Dictated by: Dr. 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 Subsequent EBUS & FNA of level 7 and 4R lymph nodes (05/15/2020) revealed reactive lymph nodes. Planned treatment: Definitive radiation therapy to 70 Gy in 35 fractions concurrent with Q3 weekly cisplatin. Recommended radiographic surveillance following definitive concurrent chemoRT: -) CT of the neck one month after XRT; -) PET/CT (skull to thigh) 3 months after XRT; -) CT chest 6 months after XRT to verify stability of APOLINAR nodule. Radiotherapy to date: Course: HN 35FX, Treatment Site: HN 35FX, Ref. ID: [id number], Energy: 6X, Dose/Fx (cGy): 200, #Fx: 28 / 35, Dose Correction (cGy): 0, Total Dose (cGy): 5,600, Start Date: 05/31/2020, Elapsed Days: 40 Reason for visit: The patient is being seen today as part of their regularly scheduled weekly on treatment visits to assess for acute toxicities from radiotherapy. Interim History: The patient reports fatigue, initial dizziness when standing, nausea, progressive solid/liquid odynophagia, and progressive xerostomia. He continues to use his PEG tube and he is consuming approximately 5 cans of nutrition per day. His weight is down 2.4 pounds over the past week. Current Medications: Atenolol, cISplatin, clotrimazole, dexamethasone Sodium Phosphate, emend, flonase Allergy Relief, furosemide, furosemide, hydroCHLOROthiazide, losartan Potassium, magnesium Sulfate, metFORMIN HCl, naproxen, palonosetron HCl, potassium Chloride, pravastatin Sodium, prochlorperazine Maleate. Allergies: Keflex, Pneumococcal 13-Samaria Conj Vacc and Penicillins. Current Complaints/Review of Systems: Constitutional - Complains of lack of appetite Has PEG Tube and puts in 5 cans of eternal nutrition. Complains of severe fatigue. Complains of change in weight in which weight is down 2.4 lbs. since last OTV. Denies fever. ENMT - Complains of dysphagia and also has odynophagia, mouth dryness, stomatitis and altered taste. Denies ear pain. Has worsening hoaseness to the voice. Neck - Denies neck pain. Integumentary - Has dry desquamation to the neck. Vital Signs: Performed on 07/10/2020 11:16 AM BMI - 33.228 kg/m2 (high), Height - 72.00 in, Weight - 245.0 lbs, Temperature - 98.0 f, Pulse - 77, Respiration - 18, O2 Sat - 96 %, Pain - 0 and BP - 105/ 67 mm(hg). Physical Exam: Bilateral neck erythema is appreciated without desquamation. Oral cavity examination reveals physical exam findings consistent with resolved thrush. The patient has thick ropey sputum and obvious xerostomia. Evaluation of the patient's buttocks reveals a 3 cm long by 1 cm wide grade 2 bedsore on his right buttock at the level of his gluteal cleft. performance Status: 1 - No physically strenuous activity, but ambulatory and able to carry out light or sedentary work (e.g. office work, light house work). (ECOG) Lab: None pending in Radiation Oncology. Imaging: Radiation therapy imaging related to accurate target localization (i.e. KV, MV and CBCT) was reviewed. Appropriate changes, if any, were made to ensure treatment accuracy. Plan: The patient is tolerating therapy reasonably well. Radiotherapy will continue as planned. I will ask our medical oncology colleagues to give the patient IV fluids today. Furthermore, the patient was recommended to go see wound care for a grade 2 bedsore located on his right gluteal cleft. The patient was given detailed instructions in how to manage his oral hygiene (inclusive of more frequent swish and spit with baking soda/salt solution +/- swish and spit with olive oil). It appears that the patient's oral thrush has resolved with clotrimazole nelida administration. CPT: 14072 Signed by: Dr. Tae Funes 07/10/2020 5:07:14 PM
== END 2020-07-13 23:59 | disposition home or self-care (01) ==
LOC: ONCMED 05:59
PROVIDERS: PCP Family Medicine; Visit Provider Radiology Radiation Oncology
DX: Z51.0 Encounter for antineoplastic radiation therapy (principal); Z51.11 Encounter for antineoplastic chemotherapy; C01 Malignant neoplasm of base of tongue; I10 Essential (primary) hypertension; E78.5 Hyperlipidemia, unspecified; E11.9 Type 2 diabetes mellitus without complications; I87.2 Venous insufficiency (chronic) (peripheral); D69.3 Immune thrombocytopenic purpura; Z85.46 Personal history of malignant neoplasm of prostate
CPT/HCPCS: 77014; 77336; 77386; 77427; 96360; 96366; 96367; 96375; 96413; 99214; J1100; J1453; J1940; J2370; J2469; J2704; J3475; J3480; J7030; J7040; J7050; J9060

== ENCOUNTER 2020-07-16 07:02 | Inpatient (IN) | payer MEDICARE, OTHER, SELFPAY ==
[2020-07-16] VITALS (106 sets, daily range): BP systolic 73–137; BP diastolic 37–77; PULSE 76–137; RESP 9–23; TEMP 36.7–37.3; O2SAT 85–100; BMI 33.2
--- NOTE | 2020-07-16 07:11 | ED_ITS ---
HPI - Syncope General: Chief Complaint: Syncope Stated Complaint: SYNCOPED Time Seen by Provider: 07/16/20 07:11 History of Present Illness: HPI narrative: 69-year-old male presents to the emergency room with complaint of syncopal episode this morning he got up to go to the bathroom felt lightheaded and dizzy shortly after getting up realize he was not can make it all the way ultimately fell and he hit his forehead on a heater he has a small abrasion had very brief loss of consciousness this was witnessed by his . He has known pharyngeal CA and is undergoing treatment for it had treatment last week. He also reports he had a large bloody bowel movement before coming in this morning. Stool witnessed in the department is obviously black and tarry and is Hemoccult positive. complaint: loss of consciousness and collapsed Onset (ago): minute(s) -: second(s) Prodromal symptoms: lightheaded, shortness of breath and diaphoresis Witnessed: Yes - by Bystander Context: getting out of bed and standing up Injuries sustained associated with event: face Associated symptoms: Reports nausea, short of breath, vertigo and weakness; Deny abdominal pain, chest pain, fever(s), headache(s) or other History: other (Pharyngeal CA) Treatments prior to arrival: none Review of Systems 2 Const: Denies: fever(s) ENMT: Denies: throat pain, ear or mastoid pain, nasal discharge or nasal congestion Card: Denies: chest pain Resp: Denies: dyspnea, productive cough or non-productive cough GI: Reports: nausea; Denies: abdominal pain : Denies: flank pain, dysuria, urinary frequency or urinary urgency Skin/Breast: Denies: rash or pruritus Neuro: Reports: vertigo; Denies: headache(s) [facility] ED PFSH: Medical History (Updated 07/16/20 @ 18:09 by Arik James MD) Abdominal wall hernia Cervical lymphadenopathy H/O nephrolithotomy with removal of calculi History of ITP HTN (hypertension) Hypercholesterolemia Prostate cancer Squamous cell cancer of tongue Type 2 diabetes mellitus Umbilical hernia Surgical History H/O arthroscopy of knee H/O circumcision H/O colonoscopy 3-4 yrs ago H/O esophagogastroduodenoscopy years ago H/O hernia repair H/O radical prostatectomy H/O splenectomy Hx of tonsillectomy S/P percutaneous endoscopic gastrostomy (PEG) tube placement (06/27/20) Family History Mother Dementia Father Lung disease Bleeding disorder Denies family history of Anesthesia complication Social History Smoking and tobacco status: former smoker Quit status (tobacco): has quit using tobacco Year quit tobacco: 1979 - 1.5 PPD x 10 Years Alcohol intake: never Lives independently: Yes Household members: none Marital status: Current occupational status: retired History of recent travel: No Current gender identity: Male Physical Exam Const: COMMON NORMALS: no acute distress GENERAL APPEARANCE: cooperative and comfortable ORIENTATION/CONSCIOUSNESS: Yes awake, Yes oriented to person, Yes oriented to place and Yes oriented to time HENMT: COMMON NORMALS: normocephalic, atraumatic and hearing grossly normal bilaterally HEAD & SCALP: normocephalic and atraumatic Eye: COMMON NORMALS: Equal, round and reactive pupils present, EOMs intact bilaterally, conjunctivae normal and no scleral icterus CONJUNCTIVA: Yes conjunctivae normal PUPIL: Yes Equal, round and reactive pupils present Neck/C-Spine: COMMON NORMALS: full ROM, no lymphadenopathy, supple and no JVD Lymph: LYMPHATIC: no lymphadenopathy noted and no lymphedema noted Resp: COMMON NORMALS: normal respiratory effort, No retractions, No use of accessory muscles and clear to auscultation bilaterally AUSCULTATION: clear to auscultation bilaterally Cardio: COMMON NORMALS: no JVD, regular rate, regular rhythm and No murmurs present (Cardio) RATE: regular rate RHYTHM: regular rhythm GI: COMMON NORMALS: Soft to palpation and No hepatosplenomegaly present AUSCULTATION: Yes normoactive bowel sounds PALPATION: Yes Soft to palpation, No Tenderness to palpation present (GI), No Guarding due to palpation present (GI) and Yes No hepatosplenomegaly present Extremity: COMMON NORMALS: normal to inspection, capillary refill normal, no clubbing, cyanosis or edema, no calf tenderness and no pedal edema Neuro: SENSORIUM/ORIENTATION: Yes oriented to person, Yes oriented to place and Yes oriented to time Skin: COMMON NORMALS: no rashes or lesions noted GENERAL SKIN EXAM: no rashes or lesions noted Course Vital Signs: Vital signs: Vital Signs Temperature 98.5 F 07/17/20 12:00 Pulse Rate 94 07/17/20 16:00 Respiratory Rate 19 H 07/17/20 16:00 Blood Pressure 130/75 07/17/20 16:00 Pulse Oximetry 95 07/17/20 16:00 MDM - Syncope MDM Narrative: Medical decision making narrative: Initially on arrival patient blood pressure of 80 systolic he was given IV fluids while we are waiting all the work-up he had another blood pressure that dropped into the 70 systolic range. He is also tachycardic. Combined that with the syncope that he presented was in a sudden drop from 13 3-8 9 am concerned he is not yet equalized and given his clinical picture we will go ahead and transfuse 2 units. Patient will be admitted his BUN is 68 suspect he has an upper GI bleed he is also been given Protonix. He will be admitted to the ICU will discuss with hospitalist. Lab Data: Labs: Lab Results 07/16/20 07/16/20 07/16/20 Range/Units 07:13 07:13 07:13 WBC 5.9 (4.0-10.0) 10^3/ uL RBC 2.72 L (4.1-5.3) 10^6/u L Hgb 8.9 L (11.7-16.6) g/dL Hct 26.9 L (42.0-52.0) % MCV 98.9 H (80-94) fL MCH 32.7 (28.0-34.0) pg MCHC 33.1 (30.0-36.0) g/dL RDW 13.7 (12.1-15.1) % Plt Count 58 L (130-400) 10^3/c mm MPV 13.0 H (7.4-10.4) fL Neut % (Auto) 71.9 % Lymph % (Auto) 16.0 % [place] % (Auto) 8.3 % Eos % (Auto) 2.7 % Baso % (Auto) 0.8 % Neut # (Auto) 4.26 (1.8-7.7) 10^3/u L Lymph # (Auto) 1.0 (0.8-4.8) 10^3/u L [place] # (Auto) 0.5 (0.2-0.9) 10^3/u L Eos # (Auto) 0.2 (0.0-0.8) 10^3/u L Baso # (Auto) 0.1 (0.0-0.1) 10^3/u L Nucleated RBC % (a uto) 0 % Nucleated RBCs # 0.0 /100WBC Sodium 131 L (136-145) mmol/L Potassium 5.2 H (3.5-5.1) mmol/L Chloride 90 L (98-107) mmol/L Carbon Dioxide 25 (22-29) mmol/L Anion Gap 21.2 H (5-19) BUN 68 H (8-23) mg/dL Creatinine 1.6 H (0.7-1.2) mg/dL GFR Calculation Not Reportable Glucose 264 H (65-115) mg/dL Calculated Osmolal ity 280 L (285-295) mOsm/k g Calcium 9.2 (8.5-10.5) mg/dL Magnesium 2.1 (1.7-2.3) mg/dL Total Bilirubin 0.3 (0.15-1.2) mg/dL AST 14 (0-40) U/L ALT 13 (0-41) U/L Alkaline Phosphata se 87 (40-130) IU/L Creatine Kinase 15 L (39-308) U/L Troponin T Baselin e 14 (0-15) ng/L Total Protein 5.8 L (6.6-8.7) g/dL Albumin 3.4 L (3.5-5.2) g/dL Globulin 2.4 (1.3-4.6) g/dL Urine Color (Yellow) Urine Appearance (CLEAR) Urine pH (5-7) Ur Specific Gravit y (1.005-1.030) Urine Protein (Negative) Urine Glucose (UA) (Normal) Urine Ketones (Negative) Urine Blood (Negative) Urine Nitrate (Negative) Urine Bilirubin (Negative) Urine Urobilinogen (Negative) mg/dL Ur Leukocyte Skylar ase (Negative) Blood Type Rho(D) Type Antibody Screen Crossmatch 07/16/20 07/16/20 Range/Units 08:22 08:40 WBC (4.0-10.0) 10^3/ uL RBC (4.1-5.3) 10^6/u L Hgb (11.7-16.6) g/dL Hct (42.0-52.0) % MCV (80-94) fL MCH (28.0-34.0) pg MCHC (30.0-36.0) g/dL RDW (12.1-15.1) % Plt Count (130-400) 10^3/c mm MPV (7.4-10.4) fL Neut % (Auto) % Lymph % (Auto) % [place] % (Auto) % Eos % (Auto) % Baso % (Auto) % Neut # (Auto) (1.8-7.7) 10^3/u L Lymph # (Auto) (0.8-4.8) 10^3/u L [place] # (Auto) (0.2-0.9) 10^3/u L Eos # (Auto) (0.0-0.8) 10^3/u L Baso # (Auto) (0.0-0.1) 10^3/u L Nucleated RBC % (a uto) % Nucleated RBCs # /100WBC Sodium (136-145) mmol/L Potassium (3.5-5.1) mmol/L Chloride (98-107) mmol/L Carbon Dioxide (22-29) mmol/L Anion Gap (5-19) BUN (8-23) mg/dL Creatinine (0.7-1.2) mg/dL GFR Calculation Glucose (65-115) mg/dL Calculated Osmolal ity (285-295) mOsm/k g Calcium (8.5-10.5) mg/dL Magnesium (1.7-2.3) mg/dL Total Bilirubin (0.15-1.2) mg/dL AST (0-40) U/L ALT (0-41) U/L Alkaline Phosphata se (40-130) IU/L Creatine Kinase (39-308) U/L Troponin T Baselin e (0-15) ng/L Total Protein (6.6-8.7) g/dL Albumin (3.5-5.2) g/dL Globulin (1.3-4.6) g/dL Urine Color Yellow (Yellow) Urine Appearance Clear (CLEAR) Urine pH 5 (5-7) Ur Specific Gravit y 1.015 (1.005-1.030) Urine Protein Neg (Negative) Urine Glucose (UA) 1+ (Normal) Urine Ketones Negative (Negative) Urine Blood Neg (Negative) Urine Nitrate Negative (Negative) Urine Bilirubin Neg (Negative) Urine Urobilinogen Norm (Negative) mg/dL Ur Leukocyte Skylar ase Negative (Negative) Blood Type O Positive Rho(D) Type Positive Antibody Screen Negative Crossmatch See Detail Discharge Plan Discharge Patient Disposition: Admitted As Inpatient Admit Provider: Lalita Daniel Clinical Impression: Acute upper GI bleed, Squamous cell cancer of tongue, Syncope due to orthostatic hypotension Condition: Stable Referrals: Arik James MD [Primary Care Provider] - Discharge Date/Time: 07/16/20 10:47 Coding Level of Care Code ED Boiling Off Winder for Chg Fwd Exam Comprehensive
--- NOTE | 2020-07-16 07:12 | XR_ITS ---
WS: [id number] PORTABLE CHEST HISTORY: dyspnea/cough COMPARISON: 1 2014 Pulmonary hyperexpansion. Small amount of pleural thickening at the LEFT lung base. No pleural effusi on or pneumothorax. Cardiac size: Normal. Mediastinum/Aorta: Normal mediastinum. No osseous abnormality seen. Surgical sutures LEFT upper abdomen. XR/XR chest 1V portable [id number] IMPRESSION: 1. Stable pleural thickening at the LEFT lung base and emphysema. 2. No pneumonia.
--- NOTE | 2020-07-16 07:12 | ECG_ITS ---
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 Measurements Intervals [place] Rate: 98 P: 73 VT: 217 QRS: -12 QRSD: 86 T: 47 QT: 325 QTc: 417 Interpretive Statements SINUS RHYTHM WITH FIRST DEGREE AV BLOCK Compared to ECG 05/15/2020 11:17:33 No significant changes Electronically Signed On 07-16-2020 20:52:14 CDT by Jazmyne Henriquez M.D. [id number] f
[2020-07-16 07:20] LABS: Basophils # 0.1 10^3/uL (0.0-0.1); Basophils % 0.8 %; Eosinophils # 0.2 10^3/uL (0.0-0.8); Eosinophils % 2.7 %; Hematocrit 26.9 % (42.0-52.0); Hemoglobin 8.9 g/dL (11.7-16.6); Mean Corpuscular HGB Conc 33.1 g/dL (30.0-36.0); Mean Corpuscular Hemoglobin 32.7 pg (28.0-34.0); Mean Corpuscular Volume 98.9 fL (80-94); Monocytes # 0.5 10^3/uL (0.2-0.9); Monocytes % 8.3 %; Neutrophils # 4.26 10^3/uL (1.8-7.7); Neutrophils % 71.9 %; Nucleated Red Blood Cells % 0 %; Platelet Count 58 10^3/cmm (130-400); Red Blood Count 2.72 10^6/uL (4.1-5.3); Red Cell Distribution Width 13.7 % (12.1-15.1); White Blood Count 5.9 10^3/uL (4.0-10.0)
--- NOTE | 2020-07-16 07:35 | CT_ITS ---
WS: [id number] CT HEAD NONCONTRAST HISTORY: fall, closed head injury TECHNIQUE: Contiguous axial imaging performed through the brain in 2.5 mm imaging. Bone and soft tiss ue windows. Sagittal and coronal reformats reviewed. All CT scans at [facility] use at le ast one of these dose optimization techniques: automated exposure control; mA and/or kV adjustment pe r patient size (includes targeted exams where dose is matched to clinical indication); or iterative r econstruction. DLP: 864.94 mGy.cm COMPARISON: None available. No acute intracranial hemorrhage, midline shift or mass effect. Mild atrophy and mild chronic microvascular ischemic disease. Small lacunar infarcts in the internal capsules. Ventricles: Normal size with no hydrocephalus. No inferior displacement of cerebellar tonsils. Paranasal sinuses: As visualized are clear. Mastoid air cells: Well pneumatized. Calvarium and scalp: Skull is intact with no soft tissue edema or swelling. CT/CT head wo con* [id number] IMPRESSION: 1. No acute intracranial hemorrhage or edema. 2. Mild atrophy and chronic ischemic disease. 3. No skull fracture.
--- NOTE | 2020-07-16 07:35 | XR_ITS ---
WS: [id number] CERVICAL SPINE 3 VIEWS HISTORY: fall, trauma COMPARISON: None available. Mild straightening of the normal cervical lordosis. Incomplete evaluation of C6 through the superior aspect of T1. No fractures are identified. No prevertebral soft tissue swelling. Mild disc space narrowing and small osteophytes. Lateral masses of C1 and C2 are aligned. Odontoid is negative. Soft tissues are normal. XR/XR cervical spine 3V* [id number] IMPRESSION: 1. Incomplete evaluation of C6-T1. For persisting concerns of cervical patholo gy consider follow-up CT cervical spine. 2. Mild spondylitic changes with no fractures identified.
[2020-07-16 07:42] LABS: Alanine Aminotransferase 13 U/L (0-41); Albumin Level 3.4 g/dL (3.5-5.2); Alkaline Phosphatase 87 IU/L (40-130); Anion Gap 21.2 (5-19); Aspartate Amino Transferase 14 U/L (0-40); Blood Urea Nitrogen 68 mg/dL (8-23); Calcium 9.2 mg/dL (8.5-10.5); Carbon Dioxide 25 mmol/L (22-29); Chloride 90 mmol/L (98-107); Creatine Phosphokinase 15 U/L (39-308); Globulin 2.4 g/dL (1.3-4.6); Glucose 264 mg/dL (65-115); Magnesium 2.1 mg/dL (1.7-2.3); Osmolality Calculated 280 mOsm/kg (285-295); Potassium 5.2 mmol/L (3.5-5.1); Sodium 131 mmol/L (136-145); Total Bilirubin 0.3 mg/dL (0.15-1.2); Total Protein 5.8 g/dL (6.6-8.7)
[2020-07-16 07:43] LABS: Troponin(5th) Baseline 14 ng/L (0-15)
[2020-07-16] MEDS: sodium chloride 0.9% 1,000 ML 999 ML IV ×2 (07:47→09:10)
--- NOTE | 2020-07-16 08:25 | PC.NURSE ---
IV fluids moved to pressure bag due to low BP.
[2020-07-16 08:26] LABS: Add Urine Microscopic? NO
[2020-07-16 08:34] LABS: Bilirubin Urine Neg (Negative); Blood Urine Neg (Negative); Glucose Urine UA 1+ (Normal); Ketones Urine Negative (Negative); Leukocyte Esterase Urine Negative (Negative); Nitrate Urine Negative (Negative); Protein Urine Neg (Negative); Specific Gravity, Urine 1.015 (1.005-1.030); Urine Appearance Clear (CLEAR); Urine Color Yellow (Yellow); Urobilinogen Urine Norm (Negative); pH Urine 5 (5-7)
[2020-07-16] MEDS: pantoprazole 40 mg SDV IVP ×2 (08:57→21:38)
--- NOTE | 2020-07-16 09:12 | ECG_ITS ---
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 Measurements Intervals [place] Rate: 89 P: 110 CO: 215 QRS: 202 QRSD: 90 T: 166 QT: 349 QTc: 426 Interpretive Statements SINUS RHYTHM WITH FIRST DEGREE AV BLOCK ARM LEADS REVERSED [INVERTED P AND QRS IN I] Compared to ECG 07/16/2020 07:19:50 No significant changes Electronically Signed On 07-16-2020 20:53:00 CDT by Jazmyne Henriquez M.D. [id number]
[2020-07-16 10:54] LABS: Troponin 5 2HR 19.27 ng/L (0-15); Troponin 5 2HR Delta 5.27 ABS# (0-10)
[2020-07-16] MEDS: sodium chloride 0.9% 1,000 ML 150 ML IV ×3 (12:21→21:48)
[2020-07-16] MEDS: fluconazole premix 100 MG in empty flexible container 1 EACH 50 MG IV (12:23)
--- NOTE | 2020-07-16 12:45 | PM.CONSULT ---
Providers/Reason For Consult Consulting Physican/Specialty*: Internal medicine/gastroenterology Reason for Consult*: Presumed vigorous upper GI bleed Attending Physician: Arik James MD Primary Care Provider: Arik James MD History of Present Illness History of Present Illness Demarcus Maldonado is a 69 year old male ended to the emergency department after beginning to have black stools yesterday. He did not present yesterday, because he felt pretty good. This morning on route to the toilet he had a syncopal or at least presyncopal episode where he swooned and hit his head on a heater. He was noted at home to have maroon and black tarry stools of copious amount. He was noted to have heme positive and tarry stools in the emergency department. On June 27 Dr. Goodwin put in a PEG tube, as the patient suffers from tongue cancer, and I assume this was placed to maintain nutrition where his cancer to become obstructive. Dr. Crane in the emergency department surmised that the patient may also be suffering from some sort of esophagitis including candidal esophagitis and placed him on Diflucan and IV pantoprazole on route to the intensive care unit as I speak with Mr. Maldonado today he is not in any distress, and he has not had a bloody bowel movement since he is been here. I discussed with him the tenuous nature of his potential GI bleed and have informed him that I am suspicious that it is related to his stress of therapy as well as naproxen twice a day. It is of note that he is on omeprazole as well at low-dose. He agrees to proceed with diagnostic endoscopy and possible control of bleeding. He remains to be seen if we will do that in the intensive care unit, or in the operating room. Review of Systems General: Reports: 10 or more systems reviewed and unremarkable except in HPI and below GI: Reports: dysphagia, diarrhea, change in bowel habits, hematochezia and melena; Denies: abdominal pain, nausea, vomiting, hematemesis, coffee ground emesis, heartburn, early satiety or pain on defecation Meds/Allergies Home Medications and Allergies Home Medications Medication Instructions Recorded Confirmed Last Taken Type atenolol 25 mg tablet 25 mg PO DAILY 05/10/20 07/16/20 07/13/20 History cholecalciferol (vitamin D3) 25 25 mcg PO DAILY 05/10/20 07/16/20 07/15/20 History mcg (1,000 unit) capsule fluticasone propionate 50 1 spray INTRANASAL DAILY PRN 05/10/20 07/16/20 04/10/20 History mcg/actuation nasal spray,suspension furosemide 40 mg tablet 40 mg PO DAILY 05/10/20 07/16/20 07/15/20 History hydrochlorothiazide 25 mg tablet 25 mg PO DAILY 05/10/20 07/16/20 07/15/20 History losartan 100 mg tablet 100 mg PO DAILY 05/10/20 07/16/20 07/15/20 History metformin 1,000 mg tablet See Rx Instructions .ROUTE .COMPLEX 05/10/20 07/16/20 07/15/20 History multivitamin,cf-wdco-osiyduur 1 tab PO DAILY 05/10/20 07/16/20 07/15/20 History naproxen 500 mg tablet 500 mg PO BID 05/10/20 07/16/20 07/15/20 History omeprazole 20 mg tablet,delayed 20 mg PO DAILY 05/10/20 07/16/20 07/15/20 History release pravastatin 20 mg tablet 20 mg PO DAILY 05/10/20 07/16/20 07/15/20 History alprazolam [Xanax] 0.5 mg PO TID PRN 07/16/20 07/16/20 Unknown History clotrimazole See Rx Instructions .ROUTE .COMPLEX 07/16/20 07/16/20 07/15/20 History hydrocodone-acetaminophen 1 tab PO Q6H PRN 07/16/20 07/16/20 Unknown History levofloxacin 500 mg PO DAILY 07/16/20 07/16/20 07/15/20 History Allergies Allergy/AdvReac Type Severity Reaction Status Date / Time pneumococcal vaccine Allergy Severe ALGY-Swell Verified 07/16/20 07:10 Lip/Tongue/Throat cephalexin [From Keflex] AdvReac Severe ADR-Vomitin Verified 07/16/20 07:10 g Penicillins AdvReac Severe ADR-Vomitin Verified 07/16/20 07:10 g Current Medications Current Medications Generic Name Dose Route Start Last Admin Trade Name Freq PRN Reason Stop Dose Admin Sodium Chloride 1,000 mls @ 150 mls/hr 07/16/20 11:07 07/16/20 12:21 Sodium Chloride 0.9% IV 150 mls/hr .Q6H40M CLAUDY Administration Fluconazole 100 mg/ N/A 50 mls @ 50 mls/hr 07/16/20 11:30 07/16/20 12:23 IV 50 mls/hr Q24H CLAUDY Administration PFSH Acute PFSH: Medical History Abdominal wall hernia Cervical lymphadenopathy H/O nephrolithotomy with removal of calculi History of ITP HTN (hypertension) Hypercholesterolemia Prostate cancer Squamous cell cancer of tongue Type 2 diabetes mellitus Umbilical hernia Surgical History H/O arthroscopy of knee H/O circumcision H/O colonoscopy 3-4 yrs ago H/O esophagogastroduodenoscopy years ago H/O hernia repair H/O radical prostatectomy H/O splenectomy Hx of tonsillectomy S/P percutaneous endoscopic gastrostomy (PEG) tube placement (06/27/20) Family History Mother Dementia Father Lung disease Bleeding disorder Denies family history of Anesthesia complication Social History Smoking and tobacco status: former smoker Quit status (tobacco): has quit using tobacco Year quit tobacco: 1979 - .5 PPD x 10 Years Alcohol intake: never Lives independently: Yes Household members: none Marital status: Current occupational status: retired History of recent travel: No Current gender identity: Male Vitals/I&O/Wt Last Vital Signs Temp 99.1 F 07/16/20 12:30 Pulse 82 07/16/20 12:30 Resp 13 07/16/20 12:30 BP 103/65 07/16/20 12:30 Pulse Ox 96 07/16/20 12:30 07/15/20 07/16/20 07/16/20 22:59 06:59 14:59 Intake Total 0 / 0 Output Total 0 / 0 Balance 0 / 0 Weight last 48 hrs Weight 245 lb Physical Exam Const: COMMON NORMALS: no acute distress Neck/C-Spine: COMMON NORMALS: no JVD Resp: COMMON NORMALS: normal respiratory effort, No retractions, No use of accessory muscles, clear to auscultation bilaterally and percussion normal AUSCULTATION: clear to auscultation bilaterally PERCUSSION: percussion normal Cardio: COMMON NORMALS: no JVD, regular rate, regular rhythm, S1 normal heart sound present, S2 normal heart sound present, No gallops present (Cardio), No clicks present (Cardio), No murmurs present (Cardio), No rub (Cardio) and Peripheral pulses 2+ throughout RATE: regular rate RHYTHM: regular rhythm HEART SOUNDS: S1 normal heart sound present and S2 normal heart sound present PERIPHERAL PULSES: Peripheral pulses 2+ throughout GI: COMMON NORMALS: Normal to inspection, nondistended, normoactive bowel sounds present, Soft to palpation, non-tender, no masses and no bruits INSPECTION: Yes other (PEG tube in place and dressed. No bleeding noted.) PALPATION: Yes Soft to palpation A&P Assessment and plan (1) Acute upper GI bleed: I will proceed with diagnostic and possibly therapeutic EGD as soon as possible. Status: Acute Coding Level of Care Code Acute Human Resources Operations Director for [facility] Fwd Exam Detailed Diagnoses Acute upper GI bleed K92.2 Comment Please allow Anahi Ríos to bill for this consult.
--- NOTE | 2020-07-16 13:08 | ANES.PREANE2 ---
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 Proceduralist aware- given prbcs GI: GI: GERD Metabolic: Metabolic: DM and Morbid obesity Anesthetic Plan: ASA status: 3E Anesthesia: General and MAC Risk of > 500 ml blood loss (7ml/kg in children): No Other Pertinent Information: SCC of tongue Meds/Allergies Current Medications: Current Medications Generic Name Dose Route Start Last Admin Trade Name Freq PRN Reason Stop Dose Admin Sodium Chloride 1,000 mls @ 150 m ls/hr 07/16/20 11:07 07/16/20 12:21 Sodium Chloride 0.9% IV 150 mls/hr .Q6H40M CLAUDY Administration Fluconazole 100 mg / N/A 50 mls @ 50 mls/h r 07/16/20 11:30 07/16/20 12:23 IV 50 mls/hr Q24H CLAUDY Administration PFSH Anesthesia PFSH: Medical History Abdominal wall hernia Cervical lymphadenopathy H/O nephrolithotomy with removal of calculi History of ITP HTN (hypertension) Hypercholesterolemia Prostate cancer Squamous cell cancer of tongue Type 2 diabetes mellitus Umbilical hernia Surgical History H/O arthroscopy of knee H/O circumcision H/O colonoscopy 3-4 yrs ago H/O esophagogastroduodenoscopy years ago H/O hernia repair H/O radical prostatectomy H/O splenectomy Hx of tonsillectomy S/P percutaneous endoscopic gastrostomy (PEG) tube placement (06/27/20) Family History Mother Dementia Father Lung disease Bleeding disorder Denies family history of Anesthesia complication Social History Smoking and tobacco status: former smoker Quit status (tobacco): has quit using tobacco Year quit tobacco: 1979 - 1.5 PPD x 10 Years Alcohol intake: never Lives independently: Yes Household members: none Marital status: Current occupational status: retired History of recent travel: No Current gender identity: Male Data Anesthesia CBC & Chem 7: 07/16/20 07:13 07/16/20 07:13 Other Labs: Laboratory Results - last 48 hr 07/16/20 07/16/20 07/16/20 07:13 07:13 07:13 WBC 5.9 RBC 2.72 L Hgb 8.9 L Hct 26.9 L MCV 98.9 H MCH 32.7 MCHC 33.1 RDW 13.7 Plt Count 58 L MPV 13.0 H Neut % (Auto) 71.9 Lymph % (Auto) 16.0 [place] % (Auto) 8.3 Eos % (Auto) 2.7 Baso % (Auto) 0.8 Neut # (Auto) 4.26 Lymph # (Auto) 1.0 [place] # (Auto) 0.5 Eos # (Auto) 0.2 Baso # (Auto) 0.1 Nucleated RBC % (auto) 0 Nucleated RBCs # 0.0 Sodium 131 L Potassium 5.2 H Chloride 90 L Carbon Dioxide 25 Anion Gap 21.2 H BUN 68 H Creatinine 1.6 H GFR Calculation Not Reportable Glucose 264 H Calculated Osmolality 280 L Calcium 9.2 Magnesium 2.1 Total Bilirubin 0.3 AST 14 ALT 13 Alkaline Phosphatase 87 Creatine Kinase 15 L Troponin T Baseline 14 Troponin T 120 Minute Delta Troponin T Total Protein 5.8 L Albumin 3.4 L Globulin 2.4 Urine Color Urine Appearance Urine pH Ur Specific [place] Urine Protein Urine Glucose (UA) Urine Ketones Urine Blood Urine Nitrate Urine Bilirubin Urine Urobilinogen Ur Leukocyte Esterase Blood Type Rho(D) Type Antibody Screen Crossmatch 07/16/20 07/16/20 07/16/20 08:22 08:40 10:27 WBC RBC Hgb Hct MCV MCH MCHC RDW Plt Count MPV Neut % (Auto) Lymph % (Auto) [place] % (Auto) Eos % (Auto) Baso % (Auto) Neut # (Auto) Lymph # (Auto) [place] # (Auto) Eos # (Auto) Baso # (Auto) Nucleated RBC % (auto) Nucleated RBCs # Sodium Potassium Chloride Carbon Dioxide Anion Gap BUN Creatinine GFR Calculation Glucose Calculated Osmolality Calcium Magnesium Total Bilirubin AST ALT Alkaline Phosphatase Creatine Kinase Troponin T Baseline Troponin T 120 Minute 19.27 H Delta Troponin T 5.27 Total Protein Albumin Globulin Urine Color Yellow Urine Appearance Clear Urine pH 5 Ur Specific [place] 1.015 Urine Protein Neg Urine Glucose (UA) 1+ Urine Ketones Negative Urine Blood Neg Urine Nitrate Negative Urine Bilirubin Neg Urine Urobilinogen Norm Ur Leukocyte Esterase Negative Blood Type O Positive Rho(D) Type Positive Antibody Screen Negative Crossmatch See Detail Cardiac Studies: No Data to Display
--- NOTE | 2020-07-16 13:12 | ECG_ITS ---
[facility] Test Date: 2020-07-16 Pat Name: Demarcus Maldonado Department: Room: [facility] Gender: Male Gynaecological Oncologist: : [id number] Requested By: Mikey Parada Order Number: [id number] Kalyani MD: Jazmyne Henriquez M.D. Measurements Intervals [place] Rate: 86 P: 69 NV: 197 QRS: -16 QRSD: 92 T: 38 QT: 356 QTc: 427 Interpretive Statements SINUS RHYTHM Compared to ECG 07/16/2020 09:50:24 First degree AV block no longer present Electronically Signed On 07-16-2020 20:53:03 CDT by Jazmyne Henriquez M.D. [id number]
--- NOTE | 2020-07-16 13:22 | PC.NURSE ---
Transport to OR patient transported to OR by OR crew for EGD.
[2020-07-16] MEDS: sodium chloride 0.9% 1,000 ML 30 ML IV (13:38)
[2020-07-16] MEDS: EPINEPHrine 1 mg/mL INJ SUBCUT ×2 (14:00→14:15)
[2020-07-16 14:24] LABS: Troponin 5 6HR 19.02 ng/L (0-15); Troponin 5 6HR Delta 5.02 ng/L (0-12)
[2020-07-16] MEDS: sodium chloride 0.9% (100 ml) 100 ML (14:51)
--- NOTE | 2020-07-16 18:02 | PM.HP ---
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 The patient presented to the emergency department after having a syncopal episode at home this morning. The patient got up to go to the bathroom and felt lightheaded and dizzy and passed out and hit his right forehead on an air purifier. The patient had a brief syncopal episode. He was brought to the emergency department and found to have black tarry stools and hemoglobin that had dropped from 13 to 8.9 over the last couple of weeks. The patient was transfused 1 unit of blood and Dr. Ramirez saw the patient and did an upper endoscopy. The upper endoscopy showed multiple ulcerations in the duodenum. The patient denies any chest pains, shortness of breath, constipation, dysuria. Medications/Allergies Home Medications Medication Instructions Recorded Confirmed Last Taken Type atenolol 25 mg tablet 25 mg PO DAILY 05/10/20 07/16/20 07/13/20 History cholecalciferol (vitamin D3) 25 25 mcg PO DAILY 05/10/20 07/16/20 07/15/20 History mcg (1,000 unit) capsule fluticasone propionate 50 1 spray INTRANASAL DAILY PRN 05/10/20 07/16/20 04/10/20 History mcg/actuation nasal spray,suspension furosemide 40 mg tablet 40 mg PO DAILY 05/10/20 07/16/20 07/15/20 History hydrochlorothiazide 25 mg tablet 25 mg PO DAILY 05/10/20 07/16/20 07/15/20 History losartan 100 mg tablet 100 mg PO DAILY 05/10/20 07/16/20 07/15/20 History metformin 1,000 mg tablet See Rx Instructions .ROUTE .COMPLEX 05/10/20 07/16/20 07/15/20 History multivitamin,fg-kqbn-wnqyjcxy 1 tab PO DAILY 05/10/20 07/16/20 07/15/20 History naproxen 500 mg tablet 500 mg PO BID 05/10/20 07/16/20 07/15/20 History omeprazole 20 mg tablet,delayed 20 mg PO DAILY 05/10/20 07/16/20 07/15/20 History release pravastatin 20 mg tablet 20 mg PO DAILY 05/10/20 07/16/20 07/15/20 History alprazolam [Xanax] 0.5 mg PO TID PRN 07/16/20 07/16/20 Unknown History clotrimazole See Rx Instructions .ROUTE .COMPLEX 07/16/20 07/16/20 07/15/20 History hydrocodone-acetaminophen 1 tab PO Q6H PRN 07/16/20 07/16/20 Unknown History levofloxacin 500 mg PO DAILY 07/16/20 07/16/20 07/15/20 History Allergies Allergy/AdvReac Type Severity Reaction Status Date / Time pneumococcal vaccine Allergy Severe ALGY-Swell Verified 07/16/20 07:10 Lip/Tongue/Throat cephalexin [From Keflex] AdvReac Severe ADR-Vomitin Verified 07/16/20 07:10 g Penicillins AdvReac Severe ADR-Vomitin Verified 07/16/20 07:10 g PFSH Acute PFSH: Medical History Abdominal wall hernia Cervical lymphadenopathy H/O nephrolithotomy with removal of calculi History of ITP HTN (hypertension) Hypercholesterolemia Prostate cancer Squamous cell cancer of tongue Type 2 diabetes mellitus Umbilical hernia Surgical History H/O arthroscopy of knee H/O circumcision H/O colonoscopy 3-4 yrs ago H/O esophagogastroduodenoscopy years ago H/O hernia repair H/O radical prostatectomy H/O splenectomy Hx of tonsillectomy S/P percutaneous endoscopic gastrostomy (PEG) tube placement (06/27/20) Family History Mother Dementia Father Lung disease Bleeding disorder Denies family history of Anesthesia complication Social History Smoking and tobacco status: former smoker Quit status (tobacco): has quit using tobacco Year quit tobacco: 1979 - 1.5 PPD x 10 Years Alcohol intake: never Lives independently: Yes Household members: none Marital status: Current occupational status: retired History of recent travel: No Current gender identity: Male Vitals/I&O/Wt Last Vital Signs Temp 98.6 F 07/16/20 17:35 Pulse 82 07/16/20 17:35 Resp 20 H 07/16/20 17:35 BP 119/77 07/16/20 17:35 Pulse Ox 98 07/16/20 17:35 07/16/20 07/16/20 07/16/20 06:59 14:59 22:59 Intake Total 1550 / 1550 350 / 1900 Output Total 0 / 0 550 / 550 Balance 1550 / 1550 -200 / 1350 Weight last 48 hrs Weight 245 lb Physical Exam Narrative: EXAM NARRATIVE: General: Alert and oriented x3 Mouth: No significant lesions noted. Cardiac: Regular rate and rhythm without murmurs Lungs: Mild crackles in the bases without wheezes or rhonchi Abdomen: Soft, nontender without masses appreciated Extremities: Trace edema in the bilateral lower extremities Data : 07/16/20 07:13 07/16/20 07:13 A&P Assessment and plan (1) Acute upper GI bleed: Status: Acute (2) Syncope due to orthostatic hypotension: Status: Acute (3) Squamous cell cancer of tongue: Status: Acute (4) Mediastinal lymphadenopathy: Status: Acute (5) Type 2 diabetes mellitus: Status: Acute (6) HTN (hypertension): Status: Acute Additional A&P Information 1. Syncopal episode -the patient has a syncopal episode likely secondary to acute GI bleed. The patient is feeling better after 1 unit of blood and IV fluids. Likely secondary to bleeding and not another neurologic or cardiovascular process. 2. Upper GI bleed -the patient had multiple ulcerations in the duodenum. Dr. Ramirez did an upper endoscopy on 07/16/2020 and there was no active bleeding at that time. The patient is on Protonix 40 mg IV twice daily and will watch for further signs of bleeding. He seems to be improving at this time. I appreciate Dr. Ramirez's assistance with this case. 3. Squamous cell carcinoma of the tongue -the patient has been getting radiation therapy and missed today's treatment secondary to having his upper endoscopy and being hospitalized. We will try and get him set up for continued radiation therapy tomorrow. 4. Type 2 diabetes mellitus -I will hold the patient's metformin today. Plan for sliding scale insulin if needed. 5. Hypertension -restart home meds in the morning since his blood pressure was relatively soft and hold Lasix for now. 6. Prophylaxis -because of GI bleed we will have the patient use SCDs. Attestations Medical Necessity Statement*: Patient will be here for greater than 2 midnights due to upper GI bleed with syncope as above. Critical Care Time: Critical Care Time (min): 35 Coding Level of Care Code Acute Chief Development Officer for [employer] [facility] Diagnoses Acute upper GI bleed K92.2 Syncope due to orthostatic hypotension I95.1 Squamous cell cancer of tongue C02.9 Mediastinal lymphadenopathy R59.0 Type 2 diabetes mellitus E11.9 HTN (hypertension) I10
[2020-07-16 18:52] LABS: Hematocrit 25.1 % (42.0-52.0); Hemoglobin 8.2 g/dL (11.7-16.6)
[2020-07-17] VITALS (21 sets, daily range): BP systolic 98–154; BP diastolic 54–84; PULSE 71–103; RESP 12–23; TEMP 36.7–37.3; O2SAT 93–98
[2020-07-17] MEDS: sodium chloride 0.9% 1,000 ML 150 ML IV ×3 (03:17→18:05)
[2020-07-17 03:59] LABS: Basophils % 1.2 %; Eosinophils # 0.3 10^3/uL (0.0-0.8); Eosinophils % 11.2 %; Hematocrit 25.6 % (42.0-52.0); Hemoglobin 8.5 g/dL (11.7-16.6); Lymphocytes # 0.5 10^3/uL (0.8-4.8); Lymphocytes % 19.6 %; Mean Corpuscular HGB Conc 33.2 g/dL (30.0-36.0); Mean Corpuscular Hemoglobin 31.5 pg (28.0-34.0); Mean Corpuscular Volume 94.8 fL (80-94); Mean Platelet Volume 13.5 fL (7.4-10.4); Monocytes # 0.5 10^3/uL (0.2-0.9); Monocytes % 18.8 %; Neutrophils # 1.23 10^3/uL (1.8-7.7); Neutrophils % 49.2 %; Nucleated Red Blood Cells % 0 %; Platelet Count 48 10^3/cmm (130-400); Red Cell Distribution Width 15.9 % (12.1-15.1); White Blood Count 2.5 10^3/uL (4.0-10.0)
[2020-07-17 04:33] LABS: INR 1.12 (0.8-1.2)
[2020-07-17 04:38] LABS: Slide Review Slide Review Perform
[2020-07-17 04:39] LABS: Phosphorus 2.5 mg/dL (2.5-4.5)
[2020-07-17 04:43] LABS: Alanine Aminotransferase 12 U/L (0-41); Albumin Level 2.8 g/dL (3.5-5.2); Alkaline Phosphatase 55 IU/L (40-130); Anion Gap 12.3 (5-19); Aspartate Amino Transferase 14 U/L (0-40); Blood Urea Nitrogen 55 mg/dL (8-23); Calcium 7.7 mg/dL (8.5-10.5); Carbon Dioxide 24 mmol/L (22-29); Chloride 106 mmol/L (98-107); Globulin 2.2 g/dL (1.3-4.6); Glucose 168 mg/dL (65-115); Osmolality Calculated 288 mOsm/kg (285-295); Potassium 4.3 mmol/L (3.5-5.1); Sodium 138 mmol/L (136-145); Total Bilirubin 0.4 mg/dL (0.15-1.2)
[2020-07-17] MEDS: sodium chloride 0.9% (100 ml) 100 ML 30 ML (05:12)
[2020-07-17 06:12] LABS: Glucose Point of Care 170 mg/dL (70-110)
--- NOTE | 2020-07-17 07:08 | PC.NURSE ---
Shift Events: Patient has remained alert and oriented x 4 this shift. Had 1 medium black tarry bowel movement and 1 smear. 1 unit of PRBC's infused. Repeat Hgb 8.5. Vital signs remained stable. Afebrile. No complaints of pain. Good urine output. Appears to be neutropenic on morning labs. PEG tube flushed and patent.
--- NOTE | 2020-07-17 07:44 | PM.PN ---
Subjective Subjective: Interval history: The patient has had less bowel movements overnight. They seem to be slowing down. He is feeling well in general. The patient is hungry and would like to start tube feedings again. The patient denies any chest pains or shortness of breath. The patient wonders how the ulcers could have form so quickly after his scope looks good 3 weeks ago. Vitals/I&O/Wt Last Vital Signs Temp 98.1 F 07/17/20 04:00 Pulse 71 07/17/20 07:00 Resp 15 07/17/20 07:00 BP 117/60 07/17/20 07:00 Pulse Ox 94 07/17/20 07:00 07/16/20 07/17/20 07/17/20 22:59 06:59 14:59 Intake Total 492.5 / 2042.5 1172.5 / 3215.0 Output Total 1550 / 1550 1200 / 2750 Balance -1057.5 / 492.5 -27.5 / 465.0 Weight last 48 hrs Weight 245 lb Physical Exam Narrative: EXAM NARRATIVE: General: Alert and oriented x3 Mouth: No significant lesions noted. Cardiac: Regular rate and rhythm without murmurs Lungs: Mild crackles in the bases without wheezes or rhonchi Abdomen: Soft, non-tender without masses appreciated Extremities: Trace edema in the bilateral lower extremities Data : 07/17/20 03:05 07/17/20 03:05 A&P Assessment and plan (1) Acute upper GI bleed: Status: Acute (2) Syncope due to orthostatic hypotension: Status: Acute (3) Squamous cell cancer of tongue: Status: Acute (4) Mediastinal lymphadenopathy: Status: Acute (5) Type 2 diabetes mellitus: Status: Acute (6) HTN (hypertension): Status: Acute Additional A&P Information 1. Syncopal episode -the patient has a syncopal episode likely secondary to acute GI bleed. The patient is feeling better after 3 units of blood and IV fluids. Likely secondary to bleeding and not another neurologic or cardiovascular process. 2. Upper GI bleed -the patient had multiple ulcerations in the duodenum. Dr. Ramirez did an upper endoscopy on 07/16/2020 and there was no active bleeding at that time. The patient is on Protonix 40 mg IV twice daily and will watch for further signs of bleeding. He seems to be improving at this time. I appreciate Dr. Ramirez's assistance with this case. The patient did have an endoscopy done at the end of June by Dr. Goodwin for placement of the PEG tube. No abnormalities were noted at that time. This makes me wonder if cisplatin may be the cause of the underlying ulcers. The patient has received 3 units of blood and his hemoglobin is stable at 8.5 currently. We will recheck a CBC this afternoon. Okay to start tube feedings today since his overall bleeding seems to be slowing down. 3. Squamous cell carcinoma of the tongue -the patient has been getting radiation therapy and missed today's treatment secondary to having his upper endoscopy and being hospitalized. We will try and get him set up for continued radiation therapy tomorrow. 4. Type 2 diabetes mellitus -I will hold the patient's metformin today. Plan for sliding scale insulin if needed. 5. Hypertension -hold BP meds for now. 6. Thrombocytopenia -the patient has a history of thrombocytopenia and splenectomy. The current case is likely secondary to cisplatin therapy versus GI bleed. We will continue to monitor levels and transfuse if needed. Since he is not actively bleeding we will hold off on transfusion. 7. Prophylaxis -because of GI bleed we will have the patient use SCDs. Attestations Medical Necessity Statement*: The patient continues need inpatient care and I will keep in the ICU as his blood pressures are relatively soft and he has pancytopenia. 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
[2020-07-17 07:46] LABS: Glucose Point of Care 151 mg/dL (70-110)
[2020-07-17] MEDS: pantoprazole 40 mg SDV IVP (07:46)
--- NOTE | 2020-07-17 09:28 | PC.NURSE ---
Update to Oncology Patient is scheduled for Radiation treatment at [facility]. Verbal request from to contact [facility] and update them on patient being admitted and see if this treatment can be continued while in ICU. Spoke with NAHID Ruvalcaba and informed nurse of patient condition and vital signs since admission yesterday. Per , patient is not a candidate for radiation today d/t active blood BM and vital sings. Will follow up tomorrow and reevaluate status. informed of information. Will continue to monitor patient.
[2020-07-17] MEDS: atorvastatin 40 mg Tablet 20 MG PO (10:03)
[2020-07-17 11:25] LABS: Glucose Point of Care 195 mg/dL (70-110)
--- NOTE | 2020-07-17 11:53 | PM.PN ---
Subjective Subjective: Interval history: Patient says he feels better today. The nurses report that he is had 1 melanotic stool. Vitals/I&O/Wt Last Vital Signs Temp 98.1 F 07/17/20 04:00 Pulse 82 07/17/20 10:00 Resp 12 07/17/20 10:00 BP 109/54 07/17/20 10:00 Pulse Ox 94 07/17/20 10:00 07/16/20 07/17/20 07/17/20 22:59 06:59 14:59 Intake Total 492.5 / 2042.5 1172.5 / 3215.0 2437 / 2437 Output Total 1550 / 1550 1200 / 2750 Balance -1057.5 / 492.5 -27.5 / 465.0 2437 / 2437 Weight last 48 hrs Weight 245 lb Physical Exam Narrative: EXAM NARRATIVE: His abdominal exam reveals no epigastric pain. He does not appear to be in any distress. Data : 07/17/20 03:05 07/17/20 03:05 A&P Assessment and plan (1) Acute upper GI bleed: Secondary to multiple duodenal ulcers 1 of which had a visible artery. Most likely related to the stress of chemotherapy and radiation coupled with his diligent use of naproxen. I recommend continuing his current regimen of aggressive proton pump inhibitor therapy. Changing him over to 40 mg twice daily of Protonix is reasonable as a segue to discharging him home. He is tolerating PEG tube feedings and if he remained stable overnight, discharge in the morning is reasonable. Status: Acute Attestations Medical Necessity Statement*: Given his only recent stabilization, it is reasonable that he will be here for 2 midnights. 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
--- NOTE | 2020-07-17 12:57 | ANE.PACU2 ---
Inpatient post-anesthesia follow up: Airway intact: Yes Vital signs: Temperature 98.5 F Pulse Rate [Monito r] 100 Pulse Rate 91 Respiratory Rate 17 Blood Pressure [Ri ght Arm] 103/57 Blood Pressure 146/67 Pulse Oximetry 96 Oxygen Delivery Me thod [ Nasal Cannula Current Rate & Del shakila] Oxygen Delivery Me thod Room Air Oxygen Flow Rate [ Current Rate 2 & Delivery] Oxygen Flow Rate 4 Fraction of Inspir ed Oxygen Hydration adequate: Yes Nausea and vomiting: No Pain level: 1 Mental status: Baseline
[2020-07-17] MEDS: fluconazole premix 100 MG in empty flexible container 1 EACH 50 MG IV (13:53)
[2020-07-17] MEDS: pantoprazole DR 40 mg Tablet PO (18:06)
[2020-07-17 19:52] LABS: Basophils % 1.4 %; Eosinophils # 0.5 10^3/uL (0.0-0.8); Eosinophils % 24.3 %; Hematocrit 24.2 % (42.0-52.0); Lymphocytes # 0.5 10^3/uL (0.8-4.8); Lymphocytes % 23.4 %; Mean Corpuscular HGB Conc 33.1 g/dL (30.0-36.0); Mean Corpuscular Hemoglobin 31.5 pg (28.0-34.0); Mean Corpuscular Volume 95.3 fL (80-94); Mean Platelet Volume 13.3 fL (7.4-10.4); Monocytes # 0.4 10^3/uL (0.2-0.9); Monocytes % 17.8 %; Neutrophils % 33.1 %; Nucleated Red Blood Cells % 0 %; Platelet Count 57 10^3/cmm (130-400); Red Blood Count 2.54 10^6/uL (4.1-5.3); White Blood Count 2.1 10^3/uL (4.0-10.0)
[2020-07-17 20:19] LABS: Neutrophils # 0.71 10^3/uL (1.8-7.7); Slide Review Slide Review Perform
[2020-07-17 21:40] LABS: Glucose Point of Care 226 mg/dL (70-110)
[2020-07-18] VITALS (9 sets, daily range): BP systolic 123–147; BP diastolic 50–77; PULSE 77–102; RESP 16–20; TEMP 36.6–37.1; O2SAT 94–96
[2020-07-18 06:39] LABS: Glucose Point of Care 153 mg/dL (70-110)
[2020-07-18] MEDS: pantoprazole DR 40 mg Tablet PO ×2 (08:56→18:11)
--- NOTE | 2020-07-18 08:56 | P.PN_ITS ---
Subjective Subjective: Interval history: The patient only had one BM overnight and has not had further blood passage. He has been tolerating tube feeds well. He denies any fevers, shortness of breath and chest pain. No abdominal pain at this point. He was unable to do radiation yesterday due to his active bleeding. He is unsure if he can ambulate well on his own. Vitals/I&O/Wt Last Vital Signs Temp 98.2 F 07/18/20 08:00 Pulse 83 07/18/20 08:00 Resp 18 07/18/20 08:00 BP 141/70 07/18/20 08:00 Pulse Ox 95 07/18/20 08:00 07/17/20 07/18/20 07/18/20 22:59 06:59 14:59 Intake Total 1000 / 3437 Output Total 1100 / 2100 800 / 2900 275 / 275 Balance -100 / 1337 -800 / 537 -275 / -275 Physical Exam Narrative: EXAM NARRATIVE: General: Alert and oriented x3 Mouth: No significant lesions noted. Cardiac: Regular rate and rhythm without murmurs Lungs: Mild crackles in the bases without wheezes or rhonchi Abdomen: Soft, non-tender without masses appreciated Extremities: Trace edema in the bilateral lower extremities Data : 07/18/20 08:57 07/18/20 08:57 A&P Assessment and plan (1) Acute upper GI bleed: Status: Acute (2) Syncope due to orthostatic hypotension: Status: Acute (3) Squamous cell cancer of tongue: Status: Acute (4) Mediastinal lymphadenopathy: Status: Acute (5) Type 2 diabetes mellitus: Status: Acute (6) HTN (hypertension): Status: Acute Additional A&P Information 1. Syncopal episode -the patient had a syncopal episode likely secondary to acute GI bleed. The patient is feeling better after 3 units of blood and IV fluids. Likely secondary to bleeding and not another neurologic or cardiovascular process. Patient is to work with physical therapy today to see if he is steady enough to be able to self-transfer. 2. Upper GI bleed -the patient had multiple ulcerations in the duodenum. Dr. Ramirez did an upper endoscopy on 07/16/2020 and there was no active bleeding at that time. The patient is on Protonix 40 mg IV twice daily and will watch for further signs of bleeding. He seems to be improving at this time. I appreciate Dr. Ramirez's assistance with this case. The patient did have an endoscopy done at the end of June by Dr. Goodwin for placement of the PEG tube. No abnormalities were noted at that time. The patient is currently on Cisplatin and last received chemo about 2.5 weeks ago. The patient has received 3 units of blood and his hemoglobin is relatively stable but slowly trending downward. We will recheck a CBC in the am and consider another transfusion if continuing to drop. Okay to continue tube feedings 5x/day with Glucerna 3. Squamous cell carcinoma of the tongue -the patient has been getting radiation therapy and missed treatment on 07/16 and 07/17 secondary to having his upper endoscopy and GI bleed. I spoke with Dr Reich and he has arranged for him to get this done today (07/18). He is on Cisplatin therapy for chemo. 4. Type 2 diabetes mellitus -I will hold the patient's metformin today. Plan for sliding scale insulin if needed. 5. Hypertension -hold BP meds for now. 6. Thrombocytopenia -the patient has a history of thrombocytopenia and splenectomy. The current case is likely secondary to cisplatin therapy versus GI bleed. We will continue to monitor levels and transfuse if needed. Since he is not actively bleeding we will hold off on transfusion. 7. Neutropenia - The patient likely has neutropenia secondary to chemotherapy. Will continue to follow levels for now. If they get below 500, he shows signs of infection or fever, Cefepime could be considered. He has an allergy to Keflex w ith vomiting but may do okay in terms of this being IV. Continue to follow levels. 8. Prophylaxis -because of GI bleed we will have the patient use SCDs and ambulate with PT. Attestations Medical Necessity Statement*: The patient continues to need inpatient therapy for the above issues. His stay will cross two midnights. 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
[2020-07-18] MEDS: losartan 50 mg Tablet 100 MG PO (08:57)
[2020-07-18] MEDS: atorvastatin 40 mg Tablet 20 MG PO (08:57)
[2020-07-18] MEDS: atenolol 50 mg Tablet 25 MG PO (08:57)
[2020-07-18] MEDS: hydroCHLOROthiazide 25 mg Tablet PO (08:58)
[2020-07-18 09:18] LABS: Hematocrit 24.1 % (42.0-52.0); Hemoglobin 7.9 g/dL (11.7-16.6); Mean Corpuscular HGB Conc 32.8 g/dL (30.0-36.0); Mean Corpuscular Hemoglobin 31.6 pg (28.0-34.0); Mean Corpuscular Volume 96.4 fL (80-94); Mean Platelet Volume 12.6 fL (7.4-10.4); Platelet Count 57 10^3/cmm (130-400); Red Cell Distribution Width 15.8 % (12.1-15.1); White Blood Count 2.3 10^3/uL (4.0-10.0)
[2020-07-18 09:38] LABS: Alanine Aminotransferase 14 U/L (0-41); Albumin Level 2.8 g/dL (3.5-5.2); Alkaline Phosphatase 66 IU/L (40-130); Aspartate Amino Transferase 16 U/L (0-40); Blood Urea Nitrogen 29 mg/dL (8-23); Calcium 8.1 mg/dL (8.5-10.5); Carbon Dioxide 23 mmol/L (22-29); Chloride 113 mmol/L (98-107); Globulin 2.4 g/dL (1.3-4.6); Glucose 206 mg/dL (65-115); Osmolality Calculated 299 mOsm/kg (285-295); Sodium 143 mmol/L (136-145); Total Bilirubin 0.2 mg/dL (0.15-1.2); Total Protein 5.2 g/dL (6.6-8.7)
[2020-07-18 10:28] LABS: Glucose Point of Care 190 mg/dL (70-110)
[2020-07-18 10:35] LABS: Slide Review Slide Review Perform
[2020-07-18 10:45] LABS: Absolute Eosinophils 0.6 10^3/cmm (0.0-0.7); Absolute Segmented Neutrophil 0.3 10/cmm (1.6-7.1); Band Neutrophils Absolute 0.3 10^3/cmm (0.0-1.2); Eosinophils 29 %; Lymphocytes 31 %; Monocytes Absolute 0.3 10^3/cmm (0.1-0.6); Segmented Neutrophils 14 %; Total Cells Counted 100 (0-100)
[2020-07-18 10:46] LABS: Platelet Estimate Decreased (Normal)
[2020-07-18 10:49] LABS: Absolute Neutrophil 0.6 10^3/cmm (1.4-6.5); Polychromasia Trace
--- NOTE | 2020-07-18 12:45 | PC.NURSE ---
Clotrimazole administered late d/t pt's preference. Pt prefers to soak med in 15mls of warm water and allow it to dissolve. Educated pt on proper med administration. Pt refused. Went in pt's room around 1230 to monitor progress. Pt finishing med. Scanned med at that time for proper drug monitoring. Will probably skip next dose.
[2020-07-18] MEDS: fluconazole premix 100 MG in empty flexible container 1 EACH 50 MG IV (15:39)
--- NOTE | 2020-07-18 15:46 | PC.NURSE ---
Pt off unit for radiation from [id number].
[2020-07-18 16:41] LABS: Glucose Point of Care 139 mg/dL (70-110)
[2020-07-18 20:54] LABS: Glucose Point of Care 155 mg/dL (70-110)
[2020-07-18] MEDS: sodium chloride 0.9% 1,000 ML 150 ML IV (22:17)
[2020-07-19] VITALS: BP 125/71; PULSE 78; RESP 18; TEMP 36.9; O2SAT 95
[2020-07-19 04:00] VITALS: BP 122/71; PULSE 81; RESP 16; TEMP 37; O2SAT 95
[2020-07-19] MEDS: sodium chloride 0.9% 1,000 ML 150 ML IV (04:53)
[2020-07-19 06:05] LABS: Basophils % 0.5 %; Eosinophils # 0.5 10^3/uL (0.0-0.8); Hematocrit 22.8 % (42.0-52.0); Hemoglobin 7.2 g/dL (11.7-16.6); Lymphocytes # 0.5 10^3/uL (0.8-4.8); Lymphocytes % 28.6 %; Mean Corpuscular HGB Conc 31.6 g/dL (30.0-36.0); Mean Corpuscular Hemoglobin 30.9 pg (28.0-34.0); Mean Corpuscular Volume 97.9 fL (80-94); Mean Platelet Volume 12.9 fL (7.4-10.4); Monocytes # 0.5 10^3/uL (0.2-0.9); Monocytes % 25.9 %; Nucleated Red Blood Cells % 0 %; Platelet Count 64 10^3/cmm (130-400); Red Blood Count 2.33 10^6/uL (4.1-5.3); Red Cell Distribution Width 15.8 % (12.1-15.1); White Blood Count 1.9 10^3/uL (4.0-10.0)
[2020-07-19 06:32] LABS: Alanine Aminotransferase 13 U/L (0-41); Albumin Level 2.7 g/dL (3.5-5.2); Alkaline Phosphatase 61 IU/L (40-130); Anion Gap 8.6 (5-19); Aspartate Amino Transferase 15 U/L (0-40); Blood Urea Nitrogen 20 mg/dL (8-23); Carbon Dioxide 24 mmol/L (22-29); Chloride 112 mmol/L (98-107); Globulin 2.4 g/dL (1.3-4.6); Glucose 139 mg/dL (65-115); Magnesium 1.8 mg/dL (1.7-2.3); Osmolality Calculated 297 mOsm/kg (285-295); Phosphorus 2.3 mg/dL (2.5-4.5); Potassium 3.6 mmol/L (3.5-5.1); Sodium 141 mmol/L (136-145); Total Bilirubin 0.2 mg/dL (0.15-1.2); Total Protein 5.1 g/dL (6.6-8.7)
[2020-07-19 06:55] LABS: Glucose Point of Care 166 mg/dL (70-110)
[2020-07-19 07:06] LABS: Neutrophils # 0.32 10^3/uL (1.8-7.7)
[2020-07-19 07:41] VITALS: BP 131/70; PULSE 79; RESP 16; TEMP 36.8; O2SAT 96
[2020-07-19] MEDS: losartan 50 mg Tablet 100 MG PO (08:30)
[2020-07-19] MEDS: atorvastatin 40 mg Tablet 20 MG PO (08:30)
[2020-07-19] MEDS: atenolol 50 mg Tablet 25 MG PO (08:31)
[2020-07-19] MEDS: hydroCHLOROthiazide 25 mg Tablet PO (08:32)
[2020-07-19] MEDS: pantoprazole DR 40 mg Tablet PO ×2 (08:32→18:05)
--- NOTE | 2020-07-19 09:10 | PC.SOCIAL ---
IMM Page 2 of IMM explained to and signed by patient. He verbalizes understanding. Initialed, dated, and timed and placed in chart. Copy provided to patient.
[2020-07-19 11:58] VITALS: BP 133/75; PULSE 76; RESP 16; TEMP 37.1; O2SAT 97
[2020-07-19 13:07] LABS: Glucose Point of Care 153 mg/dL (70-110)
--- NOTE | 2020-07-19 13:42 | PM.PN ---
Subjective Subjective: Interval history: Feeling ok but still weak and unsteady. No fevers, no cough. no chest pain Vitals/I&O/Wt Last Vital Signs Temp 98.7 F 07/19/20 11:58 Pulse 76 07/19/20 11:58 Resp 16 07/19/20 11:58 BP 133/75 07/19/20 11:58 Pulse Ox 97 07/19/20 11:58 07/18/20 07/19/20 07/19/20 22:59 06:59 14:59 Intake Total 237 / 1707 1470 / 1707 470 / 470 Output Total 900 / 2355 650 / 2355 Balance -663 / -648 820 / -648 470 / 470 Physical Exam Narrative: EXAM NARRATIVE: General: No acute distress, Alert. Well nourished. Heart: Regular rate and rhythm. No murmurs, rubs or gallops. Normal capillary refill. Lungs: Clear to auscultation. No wheezes, rhonchi or rales. Abdomen: Positive bowel sounds. Non-tender, non-distended. No hepatosplenomegaly. No gaurding. Extremities: No clubbing, cyanosis, or edema. Negative Masha's Data : 07/19/20 04:12 07/19/20 04:12 A&P Assessment and plan (1) Acute upper GI bleed: s/p EGD revealing ulcers. - hgb dropping some still. Unsure if bleeding or from pancytopenia as his wbc has dropped also. - continue to monitor. add iron tabs. cont protonix bid. transfuse if drops below 7 again Status: Acute (2) Syncope due to orthostatic hypotension: Status: Acute (3) Squamous cell cancer of tongue: - continue with radiation therapy Status: Acute (4) Mediastinal lymphadenopathy: Status: Acute (5) Neutropenia: - add cefepime per oncology recommendations. Status: Acute Attestations Medical Necessity Statement*: 69 yo with GI bleed requiring inpatient treatment and monitoring. Coding Level of Care Code Acute Payment Poster for [facility] Diagnoses Acute upper GI bleed K92.2 Syncope due to orthostatic hypotension I95.1 Squamous cell cancer of tongue C02.9 Mediastinal lymphadenopathy R59.0 Neutropenia D70.9
[2020-07-19] MEDS: fluconazole premix 100 MG in empty flexible container 1 EACH 50 MG IV (15:10)
[2020-07-19 16:00] VITALS: BP 126/65; PULSE 75; RESP 16; TEMP 37.4; O2SAT 95
[2020-07-19] MEDS: cefepime 1,000 MG in sodium chloride 0.9% (plus) 50 ML 100 MG IV (17:01)
[2020-07-19] MEDS: ferrous sulfate EC 325 mg Tablet PO (18:05)
[2020-07-19 18:14] LABS: Glucose Point of Care 149 mg/dL (70-110)
[2020-07-19 19:55] VITALS: BP 138/73; PULSE 81; RESP 20; TEMP 37.9; O2SAT 97
[2020-07-19 21:25] LABS: Glucose Point of Care 95 mg/dL (70-110)
[2020-07-20] VITALS: BP 144/73; PULSE 84; RESP 18; TEMP 36.7; O2SAT 96
[2020-07-20] MEDS: cefepime 1,000 MG in sodium chloride 0.9% (plus) 50 ML 100 MG IV ×2 (01:39→15:11)
[2020-07-20 04:00] VITALS: BP 145/76; PULSE 86; RESP 20; TEMP 36.6; O2SAT 94
[2020-07-20 05:39] LABS: Glucose Point of Care 163 mg/dL (70-110)
[2020-07-20 06:06] LABS: Basophils % 0.6 %; Eosinophils # 0.3 10^3/uL (0.0-0.8); Eosinophils % 16.7 %; Hematocrit 24.1 % (42.0-52.0); Hemoglobin 7.7 g/dL (11.7-16.6); Lymphocytes # 0.5 10^3/uL (0.8-4.8); Mean Corpuscular Hemoglobin 31.7 pg (28.0-34.0); Mean Corpuscular Volume 99.2 fL (80-94); Mean Platelet Volume 12.8 fL (7.4-10.4); Monocytes # 0.6 10^3/uL (0.2-0.9); Monocytes % 33.9 %; Neutrophils % 17.2 %; Nucleated Red Blood Cells % 1.7 %; Platelet Count 88 10^3/cmm (130-400); Red Blood Count 2.43 10^6/uL (4.1-5.3); Red Cell Distribution Width 15.3 % (12.1-15.1); White Blood Count 1.7 10^3/uL (4.0-10.0)
[2020-07-20 06:30] LABS: Alanine Aminotransferase 12 U/L (0-41); Albumin Level 2.9 g/dL (3.5-5.2); Alkaline Phosphatase 65 IU/L (40-130); Anion Gap 11.5 (5-19); Aspartate Amino Transferase 15 U/L (0-40); Blood Urea Nitrogen 17 mg/dL (8-23); Calcium 8.1 mg/dL (8.5-10.5); Carbon Dioxide 23 mmol/L (22-29); Chloride 107 mmol/L (98-107); Globulin 2.5 g/dL (1.3-4.6); Glucose 141 mg/dL (65-115); Osmolality Calculated 290 mOsm/kg (285-295); Potassium 3.5 mmol/L (3.5-5.1); Sodium 138 mmol/L (136-145); Total Bilirubin 0.2 mg/dL (0.15-1.2); Total Protein 5.4 g/dL (6.6-8.7)
[2020-07-20 06:42] LABS: Glucose Point of Care 147 mg/dL (70-110)
--- NOTE | 2020-07-20 07:19 | PC.NURSE ---
Dr. Atkins on floor, let him know neutrophil results.
[2020-07-20] MEDS: ferrous sulfate EC 325 mg Tablet PO ×3 (07:29→18:36)
[2020-07-20 08:00] VITALS: BP 123/68; PULSE 76; RESP 18; TEMP 37.6; O2SAT 95
[2020-07-20] MEDS: atenolol 50 mg Tablet 25 MG PO (08:55)
[2020-07-20] MEDS: pantoprazole DR 40 mg Tablet PO ×2 (08:55→18:36)
[2020-07-20] MEDS: losartan 50 mg Tablet 100 MG PO (08:55)
[2020-07-20] MEDS: hydroCHLOROthiazide 25 mg Tablet PO (08:56)
[2020-07-20] MEDS: atorvastatin 40 mg Tablet 20 MG PO (08:57)
[2020-07-20 10:45] LABS: Glucose Point of Care 110 mg/dL (70-110)
[2020-07-20] MEDS: fluconazole 100 mg Tablet PO (11:32)
[2020-07-20] MEDS: HYDROcodone-acetaminophen 5-325 mg Tablet 1 TAB PO (11:33)
[2020-07-20 11:35] VITALS: BP 133/72; PULSE 78; RESP 18; TEMP 37.8; O2SAT 95
--- NOTE | 2020-07-20 13:01 | P.PN_ITS ---
Subjective Subjective: Interval history: Patient is feeling still very weak today. No chest pain or shortness of breath. He did have a fever this morning but he states that is not uncommon after he has radiation therapy. He is getting some blood-tinged sputum from the back of his throat. Vitals/I&O/Wt Last Vital Signs Temp 100.0 F H 07/20/20 11:35 Pulse 78 07/20/20 11:35 Resp 18 07/20/20 11:35 BP 133/72 07/20/20 11:35 Pulse Ox 95 07/20/20 11:35 07/19/20 07/20/20 07/20/20 22:59 06:59 14:59 Intake Total 527 / 1234 237 / 1234 Output Total 700 / 1555 655 / 1555 850 / 850 Balance -173 / -321 -418 / -321 -850 / -850 Physical Exam Narrative: EXAM NARRATIVE: General: No acute distress, Alert. Well nourished. Heart: Regular rate and rhythm. No murmurs, rubs or gallops. Normal capillary refill. Lungs: Clear to auscultation. No wheezes, rhonchi or rales. Abdomen: Positive bowel sounds. Non-tender, non-distended. No hepatosplenome kimberly. No gaurding. Extremities: No clubbing, cyanosis, or edema. Negative Masha's Data : 07/20/20 05:35 07/20/20 05:35 A&P Assessment and plan (1) Acute upper GI bleed: s/p EGD revealing ulcers. - hgb dropping some but up a little bit today. Overall I think this is probably stable. Iron supplements were started yesterday. Transfuse if drops below 7 again Status: Acute (2) Syncope due to orthostatic hypotension: Patient is still very weak with his legs. Unable to get up by himself. We will start physical therapy today. Status: Acute (3) Squamous cell cancer of tongue: - continue with radiation therapy Status: Acute (4) Mediastinal lymphadenopathy: Status: Acute (5) Neutropenia: - add cefepime per oncology recommendations on 07/19/2020. With his white count and neutrophils worsening some today and the fever we noted we will go ahead and add Levaquin as well today. Status: Acute Attestations Medical Necessity Statement*: Patient is a 69-year-old gentleman with severe neutropenia and anemia secondary to GI bleed requiring continued inpatient treatments and monitoring. Coding Level of Care Code Acute Financial Services Assistant for [facility] Diagnoses Acute upper GI bleed K92.2 Syncope due to orthostatic hypotension I95.1 Squamous cell cancer of tongue C02.9 Mediastinal lymphadenopathy R59.0 Neutropenia D70.9
[2020-07-20] MEDS: levofloxacin-dextrose 5 % 750 MG/150 ML PREMIX 100 MG IV (14:19)
[2020-07-20 15:57] VITALS: BP 132/71; PULSE 69; RESP 18; TEMP 37.6; O2SAT 95
[2020-07-20 16:52] LABS: Glucose Point of Care 196 mg/dL (70-110)
[2020-07-20 20:00] VITALS: BP 127/73; PULSE 75; RESP 18; TEMP 36.9; O2SAT 95
[2020-07-20 20:20] LABS: Glucose Point of Care 212 mg/dL (70-110)
[2020-07-21] VITALS: BP 124/74; PULSE 81; RESP 14; TEMP 37.2; O2SAT 94
[2020-07-21] MEDS: cefepime 1,000 MG in sodium chloride 0.9% (plus) 50 ML 100 MG IV ×2 (02:42→14:00)
[2020-07-21 04:00] VITALS: BP 143/75; PULSE 84; RESP 18; TEMP 38.2; O2SAT 94
[2020-07-21 06:10] LABS: Basophils % 0.5 %; Eosinophils # 0.3 10^3/uL (0.0-0.8); Eosinophils % 13.7 %; Hematocrit 24.3 % (42.0-52.0); Hemoglobin 7.9 g/dL (11.7-16.6); Lymphocytes # 0.6 10^3/uL (0.8-4.8); Mean Corpuscular HGB Conc 32.5 g/dL (30.0-36.0); Mean Corpuscular Hemoglobin 31.6 pg (28.0-34.0); Mean Corpuscular Volume 97.2 fL (80-94); Mean Platelet Volume 13.3 fL (7.4-10.4); Monocytes # 0.7 10^3/uL (0.2-0.9); Monocytes % 37.6 %; Neutrophils % 17.2 %; Nucleated Red Blood Cells # 0.1 /100WBC; Nucleated Red Blood Cells % 2.5 %; Platelet Count 124 10^3/cmm (130-400); Red Cell Distribution Width 15.1 % (12.1-15.1)
[2020-07-21 06:17] LABS: Glucose Point of Care 115 mg/dL (70-110)
--- NOTE | 2020-07-21 06:19 | PC.NURSE ---
Pt had 2mL of residual out of PEG tube
[2020-07-21 06:33] LABS: Neutrophils # 0.34 10^3/uL (1.8-7.7)
[2020-07-21 06:35] LABS: Alanine Aminotransferase 10 U/L (0-41); Albumin Level 2.9 g/dL (3.5-5.2); Alkaline Phosphatase 67 IU/L (40-130); Anion Gap 11.4 (5-19); Aspartate Amino Transferase 16 U/L (0-40); Blood Urea Nitrogen 16 mg/dL (8-23); Calcium 8.7 mg/dL (8.5-10.5); Carbon Dioxide 25 mmol/L (22-29); Chloride 103 mmol/L (98-107); Globulin 2.7 g/dL (1.3-4.6); Glucose 107 mg/dL (65-115); Osmolality Calculated 284 mOsm/kg (285-295); Potassium 3.4 mmol/L (3.5-5.1); Sodium 136 mmol/L (136-145); Total Bilirubin 0.2 mg/dL (0.15-1.2); Total Protein 5.6 g/dL (6.6-8.7)
[2020-07-21 07:27] VITALS: BP 142/78; PULSE 56; RESP 20; TEMP 37.7; O2SAT 98
--- NOTE | 2020-07-21 07:37 | PM.PN ---
Subjective Subjective: Interval history: Tmax 100.8F this morning, c/o sore throat, which he states he often develops after radiation. C/o nasal congestion. ANC 340. No diarrhea , nausea or vomiting. 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 - hgb dropping some but up a little bit today. Overall I think this is probably stable. Iron supplements were started yesterday. Transfuse if drops below 7 again. Status: Acute (2) Syncope due to orthostatic hypotension: Patient is still very weak with his legs. Unable to get up by himself. 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 developed sore throat, which patient says has been an adverse event of raditaion in the past for him Status: Acute (4) Mediastinal lymphadenopathy: Status: Acute (5) Neutropenia: - started on cefepime and levaquin per oncology recommendations on 07/19/2020. - ANC at 340, likely as result of recent chemo - Check CXR, blood culture as part of fever w/up. No localizing signs of abdominal infection at this time. IF develops diarrhea, check C diff panel Status: Acute Additional A&P Information 1. Syncopal episode -the patient had a syncopal episode likely secondary to acute GI bleed. The patient is feeling better after 3 units of blood and IV fluids. Likely secondary to bleeding and not another neurologic or cardiovascular process. Patient is to work with physical therapy today to see if he is steady enough to be able to self-transfer. 2. Upper GI bleed -the patient had multiple ulcerations in the duodenum. Dr. Ramirez did an upper endoscopy on 07/16/2020 and there was no active bleeding at that time. The patient is on Protonix 40 mg IV twice daily and will watch for further signs of bleeding. He seems to be improving at this time. I appreciate Dr. Ramirez's assistance with this case. The patient did have an endoscopy done at the end of June by Dr. Goodwin for placement of the PEG tube. No abnormalities were noted at that time. The patient is currently on Cisplatin and last received chemo about 2.5 weeks ago. The patient has received 3 units of blood and his hemoglobin is relatively stable but slowly trending downward. We will recheck a CBC in the am and consider another transfusion if continuing to drop. Okay to continue tube feedings 5x/day with Glucerna 3. Squamous cell carcinoma of the tongue -the patient has been getting radiation therapy and missed treatment on 07/16 and 07/17 secondary to having his upper endoscopy and GI bleed. Currently on RT inpatient 4. Type 2 diabetes mellitus -insulin sliding scale 5. Hypertension -hold BP meds for now. 6. Thrombocytopenia -the patient has a history of thrombocytopenia and splenectomy. The current case is likely secondary to cisplatin therapy versus GI bleed. We will continue to monitor levels and transfuse if needed. Since he is not actively bleeding we will hold off on transfusion. 7. Neutropenia - The patient likely has neutropenia secondary to chemotherapy. Will continue to follow levels for now. 8. Prophylaxis -because of GI bleed we will have the patient use SCDs and ambulate with PT. 9. 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
[2020-07-21] MEDS: atorvastatin 40 mg Tablet 20 MG PO (08:52)
[2020-07-21] MEDS: atenolol 50 mg Tablet 25 MG PO (08:54)
[2020-07-21] MEDS: hydroCHLOROthiazide 25 mg Tablet PO (08:55)
[2020-07-21] MEDS: pantoprazole DR 40 mg Tablet PO ×2 (08:55→18:51)
[2020-07-21] MEDS: losartan 50 mg Tablet 100 MG PO (08:56)
[2020-07-21] MEDS: ferrous sulfate EC 325 mg Tablet PO ×3 (09:45→18:50)
--- NOTE | 2020-07-21 10:17 | DCPLANNER ---
Pg 2 of IM updated and reviewed with pt. No questions, copy provided.
[2020-07-21 10:57] LABS: Glucose Point of Care 126 mg/dL (70-110)
[2020-07-21 11:17] VITALS: BP 134/67; PULSE 80; RESP 18; TEMP 37.2; O2SAT 94
[2020-07-21] MEDS: levofloxacin-dextrose 5 % 750 MG/150 ML PREMIX 100 MG IV (12:00)
[2020-07-21] MEDS: fluconazole 100 mg Tablet PO (12:00)
--- NOTE | 2020-07-21 14:07 | PC.NURSE ---
patient refused to sit up in chair, states he is not feeling up to it today. rec glucerna at meal time two cans, at gravity, with 60mls of water flush. Dr. Oneill notified of feeding amount and schedule and ordered to continue with current Peg feeding.
[2020-07-21 15:10] VITALS: BP 146/63; PULSE 69; RESP 22; TEMP 37.3; O2SAT 94
--- NOTE | 2020-07-21 15:56 | XRR_ITS ---
PROCEDURE INFORMATION: Exam: XR Chest, 1 View Exam date and time: 07/21/2020 3:57 PM Age: 69 years old Clinical indication: Fever; Additional info: Evaluet for pneumonia TECHNIQUE: Imaging protocol: XR of the chest Views: 1 view. COMPARISON: CR XR chest 1V portable [id number] 07/16/2020 7:16 AM ; 11/03/2014 FINDINGS: Lungs: Potential mild component of COPD/chronic bronchitis. No consolidation. Pleural space: Stable pleural thickening/scar left costophrenic angle. No pleural effusion. No pneumothorax. Heart/Mediastinum: Mild arteriosclerosis.. No cardiomegaly. Bones/joints: Old right rib fracture. XR/XR chest 1V portable [id number] IMPRESSION: No acute findings.
[2020-07-21 16:37] LABS: Glucose Point of Care 169 mg/dL (70-110)
[2020-07-21 20:00] VITALS: BP 142/72; PULSE 83; RESP 18; TEMP 38.1; O2SAT 93
[2020-07-21 20:26] LABS: Glucose Point of Care 145 mg/dL (70-110)
[2020-07-22] VITALS: BP 124/70; PULSE 83; RESP 18; TEMP 37.5; O2SAT 93
--- NOTE | 2020-07-22 00:30 | PC.NURSE ---
Pt received 4/5 feedings on this shift due to refusing his 5th feed.
[2020-07-22] MEDS: cefepime 1,000 MG in sodium chloride 0.9% (plus) 50 ML 100 MG IV ×2 (01:40→13:34)
[2020-07-22 04:00] VITALS: BP 135/72; PULSE 85; RESP 17; TEMP 37.8; O2SAT 93
[2020-07-22 05:50] LABS: Basophils % 0.4 %; Eosinophils # 0.3 10^3/uL (0.0-0.8); Eosinophils % 12.7 %; Hematocrit 25.4 % (42.0-52.0); Hemoglobin 8.3 g/dL (11.7-16.6); Lymphocytes # 0.5 10^3/uL (0.8-4.8); Lymphocytes % 21.2 %; Mean Corpuscular HGB Conc 32.7 g/dL (30.0-36.0); Mean Corpuscular Volume 98.1 fL (80-94); Mean Platelet Volume 12.7 fL (7.4-10.4); Monocytes # 0.9 10^3/uL (0.2-0.9); Monocytes % 37.7 %; Neutrophils % 27.2 %; Nucleated Red Blood Cells # 0.1 /100WBC; Nucleated Red Blood Cells % 2.5 %; Platelet Count 166 10^3/cmm (130-400); Red Blood Count 2.59 10^6/uL (4.1-5.3); Red Cell Distribution Width 15.2 % (12.1-15.1); White Blood Count 2.4 10^3/uL (4.0-10.0)
[2020-07-22 06:11] LABS: Alanine Aminotransferase 11 U/L (0-41); Albumin Level 2.9 g/dL (3.5-5.2); Alkaline Phosphatase 64 IU/L (40-130); Anion Gap 13.4 (5-19); Aspartate Amino Transferase 15 U/L (0-40); Blood Urea Nitrogen 18 mg/dL (8-23); Calcium 8.2 mg/dL (8.5-10.5); Carbon Dioxide 26 mmol/L (22-29); Chloride 101 mmol/L (98-107); Globulin 2.9 g/dL (1.3-4.6); Glucose 142 mg/dL (65-115); Osmolality Calculated 288 mOsm/kg (285-295); Potassium 3.4 mmol/L (3.5-5.1); Sodium 137 mmol/L (136-145); Total Bilirubin 0.2 mg/dL (0.15-1.2); Total Protein 5.8 g/dL (6.6-8.7)
[2020-07-22 06:12] LABS: Neutrophils # 0.64 10^3/uL (1.8-7.7)
[2020-07-22 06:33] LABS: Glucose Point of Care 145 mg/dL (70-110)
[2020-07-22 07:12] VITALS: BP 131/73; PULSE 72; RESP 18; TEMP 37.6; O2SAT 94
[2020-07-22] MEDS: atorvastatin 40 mg Tablet 20 MG PO (09:14)
[2020-07-22] MEDS: hydroCHLOROthiazide 25 mg Tablet PO (09:14)
[2020-07-22] MEDS: atenolol 50 mg Tablet 25 MG PO (09:14)
[2020-07-22] MEDS: losartan 50 mg Tablet 100 MG PO (09:14)
[2020-07-22] MEDS: pantoprazole DR 40 mg Tablet PO (09:15)
[2020-07-22] MEDS: ferrous sulfate EC 325 mg Tablet PO ×3 (09:19→16:54)
[2020-07-22 10:58] LABS: Glucose Point of Care 203 mg/dL (70-110)
[2020-07-22 11:10] VITALS: BP 138/72; PULSE 76; RESP 20; TEMP 36.8; O2SAT 95
--- NOTE | 2020-07-22 11:48 | P.PN_ITS ---
Subjective Subjective: Interval history: T-max 100.6 last evening. Saturating 91 to 95% on room air. Denies any current acute complaints. Sore throat appears to be improving today. 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 Unable to get up by himself. 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 developed sore throat, which patient says has been an adverse event of raditaion in the past for him Status: Acute (4) Mediastinal lymphadenopathy: Status: Acute (5) Neutropenia: - started on cefepime and levaquin per oncology recommendations on 07/19/2020. - ANC at 640 now, improving - CXR without consolidation, blood culture negative thus far, No localizing signs of abdominal infection at this time. IF develops diarrhea, check C diff panel Status: Acute Additional A&P Information 1. Syncopal episode -the patient had a syncopal episode likely secondary to acute GI bleed. The patient is feeling better after 3 units of blood and IV fluids. Likely secondary to bleeding and not another neurologic or car diovascular process. Perform standing exercises with PT today. 2. Upper GI bleed -the patient had multiple ulcerations in the duodenum. Dr. Ramirez did an upper endoscopy on 07/16/2020 and there was no active bleeding at that time. The patient is on Protonix 40 mg IV twice daily and will watch for further signs of bleeding. He seems to be improving at this time. I appreciate Dr. Ramirez's assistance with this case. The patient did have an endoscopy done at the end of June by Dr. Goodwin for placement of the PEG tube. No abnormalities were noted at that time. The patient is currently on Cisplatin and last received chemo about 2.5 weeks ago. The patient has received 3 units of blood and his hemoglobin is relatively stable, trending up to 8.3. continue tube feedings 5x/day with Glucerna. 3. Squamous cell carcinoma of the tongue -the patient has been getting radiation therapy and missed treatment on 07/16 and 07/17 secondary to having his upper endoscopy and GI bleed. Currently on RT inpatient 4. Type 2 diabetes mellitus -insulin sliding scale 5. Hypertension -hold BP meds for now. 6. Thrombocytopenia -the patient has a history of thrombocytopenia and splenectomy. The current case is likely secondary to cisplatin therapy versus GI bleed. We will continue to monitor levels and transfuse if needed. Since he is not actively bleeding we will hold off on transfusion. 7. Neutropenia - The patient likely has neutropenia secondary to chemotherapy. Will continue to follow levels for now. ANC is improving 8. Prophylaxis -because of GI bleed we will have the patient use SCDs and ambulate with PT. 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
[2020-07-22] MEDS: levofloxacin-dextrose 5 % 750 MG/150 ML PREMIX 100 MG IV (11:53)
[2020-07-22] MEDS: fluconazole 100 mg Tablet PO (13:16)
[2020-07-22 14:19] LABS: SARS Covid-2 Antigen Negative (Negative)
[2020-07-22 15:09] VITALS: BP 135/76; PULSE 71; RESP 22; TEMP 37.3; O2SAT 91
[2020-07-22 16:32] LABS: Glucose Point of Care 107 mg/dL (70-110)
[2020-07-22 19:56] VITALS: BP 127/73; PULSE 76; RESP 18; TEMP 37.9; O2SAT 95
[2020-07-22 20:39] LABS: Glucose Point of Care 154 mg/dL (70-110)
[2020-07-23] VITALS (7 sets, daily range): BP systolic 113–134; BP diastolic 64–70; PULSE 72–78; RESP 17–21; TEMP 37.2–37.9; O2SAT 91–95
[2020-07-23] MEDS: cefepime 1,000 MG in sodium chloride 0.9% (plus) 50 ML 100 MG IV ×2 (01:37→15:13)
--- NOTE | 2020-07-23 01:40 | PC.NURSE ---
Pt is actively passing gas, but unable to have a bowel movement despite trying several times throughout the night.
[2020-07-23 05:35] LABS: Basophils % 0.7 %; Eosinophils # 0.5 10^3/uL (0.0-0.8); Eosinophils % 16.5 %; Hematocrit 24.4 % (42.0-52.0); Lymphocytes # 0.5 10^3/uL (0.8-4.8); Lymphocytes % 18.4 %; Mean Corpuscular HGB Conc 32.8 g/dL (30.0-36.0); Mean Corpuscular Hemoglobin 31.6 pg (28.0-34.0); Mean Corpuscular Volume 96.4 fL (80-94); Mean Platelet Volume 12.8 fL (7.4-10.4); Monocytes % 34.9 %; Neutrophils % 28.4 %; Nucleated Red Blood Cells # 0.1 /100WBC; Nucleated Red Blood Cells % 2.2 %; Platelet Count 165 10^3/cmm (130-400); Red Blood Count 2.53 10^6/uL (4.1-5.3); Red Cell Distribution Width 15.5 % (12.1-15.1); White Blood Count 2.7 10^3/uL (4.0-10.0)
[2020-07-23 05:56] LABS: Alanine Aminotransferase 12 U/L (0-41); Albumin Level 2.8 g/dL (3.5-5.2); Alkaline Phosphatase 70 IU/L (40-130); Anion Gap 11.4 (5-19); Aspartate Amino Transferase 16 U/L (0-40); Blood Urea Nitrogen 15 mg/dL (8-23); Calcium 8.5 mg/dL (8.5-10.5); Carbon Dioxide 28 mmol/L (22-29); Chloride 99 mmol/L (98-107); Globulin 2.8 g/dL (1.3-4.6); Glucose 136 mg/dL (65-115); Magnesium 1.8 mg/dL (1.7-2.3); Osmolality Calculated 283 mOsm/kg (285-295); Phosphorus 2.3 mg/dL (2.5-4.5); Potassium 3.4 mmol/L (3.5-5.1); Sodium 135 mmol/L (136-145); Total Bilirubin 0.2 mg/dL (0.15-1.2); Total Protein 5.6 g/dL (6.6-8.7)
[2020-07-23 06:13] LABS: Neutrophils # 0.77 10^3/uL (1.8-7.7)
[2020-07-23 06:31] LABS: Glucose Point of Care 171 mg/dL (70-110)
--- NOTE | 2020-07-23 08:33 | PM.PN ---
Subjective Subjective: Interval history: The patient denies any chest pains, shortness of breath, nausea, vomiting, abdominal pain. He states that he feels the temperature problems may be related to his radiation. He would like to go home as soon as he can. The patient has some phlegm in the back of his throat that he coughs up every few hours. Vitals/I&O/Wt Last Vital Signs Temp 99 F 07/23/20 04:00 Pulse 76 07/23/20 04:00 Resp 17 07/23/20 04:00 BP 117/68 07/23/20 04:00 Pulse Ox 91 07/23/20 04:00 07/22/20 07/23/20 07/23/20 22:59 06:59 14:59 Intake Total 1311 / 1361 Output Total 575 / 1025 695 / 1720 Balance -575 / -975 616 / -359 Physical Exam Narrative: EXAM NARRATIVE: General: Alert and oriented x3 Mouth: No significant lesions noted. Thick mucus noted in his mouth. Cardiac: Regular rate and rhythm without murmurs Lungs: Mild crackles in the bases without wheezes or rhonchi Abdomen: Soft, non-tender without masses appreciated Extremities: Trace edema in the bilateral lower extremities Data : 07/23/20 05:04 07/23/20 05:04 Micro: Microbiology 07/22/20 05:27 Blood Culture - Preliminary Blood NEGATIVE TO DATE 07/22/20 05:27 Blood Culture - Preliminary Blood NEGATIVE TO DATE A&P Additional A&P Information 1. Syncopal episode -the patient had a syncopal episode likely secondary to acute GI bleed. The patient is feeling better after 3 units of blood and IV fluids. Likely secondary to bleeding and not another neurologic or cardiovascular process. The patient is able to stand at bedside with physical therapy. Continue to work on strengthening and moving around the room. He will likely need physical therapy as an outpatient. 2. Upper GI bleed -the patient had multiple ulcerations in the duodenum. Dr. Ramirez did an upper endoscopy on 07/16/2020 and there was no active bleeding at that time. The patient is on Protonix 40 mg IV twice daily and will watch for further signs of bleeding. He seems to be improving at this time. I appreciate Dr. Ramirez's assistance with this case. The patient is currently on Cisplatin and last received chemo about 3 weeks ago. The patient has received 3 units of blood and his hemoglobin is relatively stable. Continue to follow hemoglobin and continue with iron supplementation. 3. Squamous cell carcinoma of the tongue -the patient has been getting radiation therapy and missed treatment on 07/16 and 07/17 secondary to having his upper endoscopy and GI bleed. He will have his last treatment of radiation done today. 4. Type 2 diabetes mellitus -I will hold the patient's metformin. Plan for sliding scale insulin if needed. 5. Hypertension -stable at this point. 6. Thrombocytopenia -the patient's platelets are improving. This was likely secondary to his pancytopenia. 7. Neutropenia - The patient likely has neutropenia secondary to chemotherapy. He has signs of neutropenic fever and his temperature is fluctuating. Continue with cefepime and levofloxacin. We will plan for discharge home once he is afebrile for 24 hours and his neutrophil counts are continuing to move upwards. 8. Prophylaxis -because of GI bleed we will have the patient use SCDs and ambulate with PT. Attestations Medical Necessity Statement*: The patient continues need inpatient care secondary to neutropenic fever secondary to chemotherapy. Plan for discharge home once this is improving. 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
[2020-07-23] MEDS: losartan 50 mg Tablet 100 MG PO (08:56)
[2020-07-23] MEDS: potassium chloride oral liq 20 mEq/15 mL UDC 40 MEQ PEG-TUBE (08:56)
[2020-07-23] MEDS: atorvastatin 40 mg Tablet 20 MG PO (08:56)
[2020-07-23] MEDS: ferrous sulfate EC 325 mg Tablet PO ×3 (08:56→16:57)
[2020-07-23] MEDS: hydroCHLOROthiazide 25 mg Tablet PO (08:57)
[2020-07-23] MEDS: atenolol 50 mg Tablet 25 MG PO (08:57)
[2020-07-23] MEDS: pantoprazole DR 40 mg Tablet PO ×2 (08:57→16:57)
--- NOTE | 2020-07-23 09:55 | PC.NURSE ---
IV potassium paused d/t pt going to [facility] for radiation. IV flushed with 10 mL NS. Pt left floor with ambulance personnel.
--- NOTE | 2020-07-23 11:37 | PC.NURSE ---
1000 dose of clotrimazole missed d/t pt being at radiation.
[2020-07-23 11:43] LABS: Glucose Point of Care 172 mg/dL (70-110)
[2020-07-23] MEDS: fluconazole 100 mg Tablet PO (13:04)
[2020-07-23] MEDS: levofloxacin-dextrose 5 % 750 MG/150 ML PREMIX 100 MG IV (13:05)
[2020-07-23 16:57] LABS: Glucose Point of Care 129 mg/dL (70-110)
[2020-07-23] MEDS: magnesium hydroxide 30 mL UDC PO (16:57)
[2020-07-23 20:42] LABS: Glucose Point of Care 143 mg/dL (70-110)
[2020-07-24] VITALS (7 sets, daily range): BP systolic 116–140; BP diastolic 66–83; PULSE 71–87; RESP 17–18; TEMP 37.2–37.8; O2SAT 93–98
[2020-07-24] MEDS: cefepime 1,000 MG in sodium chloride 0.9% (plus) 50 ML 100 MG IV ×2 (01:52→15:40)
[2020-07-24 06:04] LABS: Basophils % 0.6 %; Eosinophils # 0.3 10^3/uL (0.0-0.8); Eosinophils % 10.7 %; Hematocrit 24.8 % (42.0-52.0); Hemoglobin 7.9 g/dL (11.7-16.6); Lymphocytes # 0.5 10^3/uL (0.8-4.8); Lymphocytes % 17.2 %; Mean Corpuscular HGB Conc 31.9 g/dL (30.0-36.0); Mean Corpuscular Hemoglobin 31.5 pg (28.0-34.0); Mean Corpuscular Volume 98.8 fL (80-94); Mean Platelet Volume 12.9 fL (7.4-10.4); Monocytes # 1.1 10^3/uL (0.2-0.9); Monocytes % 34.6 %; Neutrophils % 35.6 %; Nucleated Red Blood Cells % 1.3 %; Platelet Count 200 10^3/cmm (130-400); Red Blood Count 2.51 10^6/uL (4.1-5.3); Red Cell Distribution Width 15.4 % (12.1-15.1); White Blood Count 3.1 10^3/uL (4.0-10.0)
[2020-07-24 06:37] LABS: Alanine Aminotransferase 13 U/L (0-41); Albumin Level 2.7 g/dL (3.5-5.2); Alkaline Phosphatase 68 IU/L (40-130); Anion Gap 12.8 (5-19); Aspartate Amino Transferase 18 U/L (0-40); Blood Urea Nitrogen 12 mg/dL (8-23); Calcium 8.2 mg/dL (8.5-10.5); Carbon Dioxide 26 mmol/L (22-29); Chloride 96 mmol/L (98-107); Globulin 2.9 g/dL (1.3-4.6); Glucose 140 mg/dL (65-115); Magnesium 1.8 mg/dL (1.7-2.3); Osmolality Calculated 274 mOsm/kg (285-295); Potassium 3.8 mmol/L (3.5-5.1); Sodium 131 mmol/L (136-145); Total Bilirubin 0.2 mg/dL (0.15-1.2); Total Protein 5.6 g/dL (6.6-8.7)
[2020-07-24 06:48] LABS: Glucose Point of Care 187 mg/dL (70-110)
--- NOTE | 2020-07-24 08:36 | P.PN_ITS ---
Subjective Subjective: Interval history: The patient is continued to have difficulties with having a bowel movement. Otherwise he has a sore throat related to his recent radiation. The patient is having difficulty with swallowing and pain associated with swallowing. Patient denies any dyspnea at this time. Vitals/I&O/Wt Last Vital Signs Temp 100.1 F H 07/24/20 04:00 Pulse 73 07/24/20 04:00 Resp 18 07/24/20 04:00 BP 117/72 07/24/20 04:00 Pulse Ox 93 07/24/20 04:00 07/23/20 07/24/20 07/24/20 22:59 06:59 14:59 Intake Total 587 / 6932.733 7953 / 2972.333 Output Total 600 / 900 350 / 1250 Balance -13 / 998.333 724 / 1722.333 Physical Exam Narrative: EXAM NARRATIVE: General: Alert and oriented x3 Mouth: A few scattered clear fluid-filled blisters in the posterior pharynx noted. Thick mucus noted in his mouth. Cardiac: Regular rate and rhythm without murmurs Lungs: Mild crackles in the right base without wheezes or rhonchi Abdomen: Soft, non-tender without masses appreciated Extremities: Trace edema in the bilateral lower extremities Data : 07/24/20 05:17 07/24/20 05:17 Micro: Microbiology 07/22/20 05:27 Blood Culture - Preliminary Blood NEGATIVE TO DATE 07/22/20 05:27 Blood Culture - Preliminary Blood NEGATIVE TO DATE A&P Additional A&P Information 1. Syncopal episode -the patient had a syncopal episode likely secondary to acute GI bleed. The patient is feeling better after 3 units of blood and IV fluids. Likely secondary to bleeding and not another neurologic or cardiovascular process. The patient is able to stand at bedside with physical t herapy. Continue to work on strengthening and moving around the room. He will likely need physical therapy as an outpatient. 2. Upper GI bleed -the patient had multiple ulcerations in the duodenum. Dr. Ramirez did an upper endoscopy on 07/16/2020 and there was no active bleeding at that time. The patient is on Protonix 40 mg IV twice daily and will watch for further signs of bleeding. He seems to be improving at this time. I appreciate Dr. Ramirez's assistance with this case. The patient is currently on Cisplatin and last received chemo about 3 weeks ago. The patient has received 3 units of blood and his hemoglobin is relatively stable. Continue to follow hemoglobin and continue with iron supplementation. 3. Squamous cell carcinoma of the tongue -the patient has been getting radiation therapy and missed treatment on 07/16 and 07/17 secondary to having his upper endoscopy and GI bleed. The patient had his last radiation therapy on 07/23/2020. 4. Type 2 diabetes mellitus -I will hold the patient's metformin. Plan for sliding scale insulin if needed. 5. Hypertension -stable at this point. 6. Thrombocytopenia -the patient's platelets are improving. This was likely secondary to his pancytopenia. 7. Neutropenia -the patient's neutropenia is improving and is now up to 1100. Okay to take him off of reverse isolation. We will plan for antibiotics at home upon discharge. The patient is having some temperatures in the low 100s now, however is feeling better. We will plan for discharge home tomorrow if he continues to do well. 8. Constipation -continue to try milk of magnesia and add enema if needed. 9. Prophylaxis -because of GI bleed we will have the patient use SCDs and ambulate with PT. Attestations Medical Necessity Statement*: Patient continues need inpatient care and is showing signs of improvement. We will plan for discharge home in the next 1 to 2 days if he continues to do well. Coding Level of Care Code Acute Emergency Communications Operator for Rolando Klilian
[2020-07-24] MEDS: losartan 50 mg Tablet 100 MG PO (08:54)
[2020-07-24] MEDS: ferrous sulfate EC 325 mg Tablet PO ×3 (08:54→18:19)
[2020-07-24] MEDS: atorvastatin 40 mg Tablet 20 MG PO (08:54)
[2020-07-24] MEDS: atenolol 50 mg Tablet 25 MG PO (08:54)
[2020-07-24] MEDS: hydroCHLOROthiazide 25 mg Tablet PO (08:54)
[2020-07-24] MEDS: pantoprazole DR 40 mg Tablet PO ×2 (08:55→18:19)
[2020-07-24] MEDS: magnesium hydroxide 30 mL UDC PO (09:51)
[2020-07-24] MEDS: fluconazole 100 mg Tablet PO (11:51)
[2020-07-24 11:52] LABS: Glucose Point of Care 165 mg/dL (70-110)
[2020-07-24] MEDS: levofloxacin-dextrose 5 % 750 MG/150 ML PREMIX 100 MG IV (12:28)
[2020-07-24 17:08] LABS: Glucose Point of Care 154 mg/dL (70-110)
[2020-07-24 22:08] LABS: Glucose Point of Care 105 mg/dL (70-110)
[2020-07-25] VITALS: BP 134/72; PULSE 80; RESP 18; TEMP 37.1; O2SAT 95
[2020-07-25] MEDS: cefepime 1,000 MG in sodium chloride 0.9% (plus) 50 ML 100 MG IV (01:59)
[2020-07-25 04:00] VITALS: BP 119/74; PULSE 78; RESP 18; TEMP 36.4; O2SAT 94
[2020-07-25 05:38] LABS: Basophils % 0.7 %; Eosinophils # 0.2 10^3/uL (0.0-0.8); Eosinophils % 6.4 %; Hematocrit 25.6 % (42.0-52.0); Hemoglobin 8.5 g/dL (11.7-16.6); Lymphocytes # 0.5 10^3/uL (0.8-4.8); Lymphocytes % 17.3 %; Mean Corpuscular HGB Conc 33.2 g/dL (30.0-36.0); Mean Corpuscular Hemoglobin 31.7 pg (28.0-34.0); Mean Corpuscular Volume 95.5 fL (80-94); Mean Platelet Volume 12.5 fL (7.4-10.4); Monocytes # 1.1 10^3/uL (0.2-0.9); Monocytes % 36.6 %; Neutrophils # 1.08 10^3/uL (1.8-7.7); Neutrophils % 36.6 %; Platelet Count 233 10^3/cmm (130-400); Red Blood Count 2.68 10^6/uL (4.1-5.3); Red Cell Distribution Width 15.2 % (12.1-15.1)
[2020-07-25 06:14] LABS: Alanine Aminotransferase 14 U/L (0-41); Alkaline Phosphatase 72 IU/L (40-130); Anion Gap 13.2 (5-19); Aspartate Amino Transferase 18 U/L (0-40); Blood Urea Nitrogen 10 mg/dL (8-23); Calcium 8.1 mg/dL (8.5-10.5); Carbon Dioxide 27 mmol/L (22-29); Chloride 94 mmol/L (98-107); Globulin 2.9 g/dL (1.3-4.6); Glucose 127 mg/dL (65-115); Magnesium 1.9 mg/dL (1.7-2.3); Osmolality Calculated 271 mOsm/kg (285-295); Phosphorus 2.3 mg/dL (2.5-4.5); Potassium 4.2 mmol/L (3.5-5.1); Sodium 130 mmol/L (136-145); Total Bilirubin 0.2 mg/dL (0.15-1.2); Total Protein 5.9 g/dL (6.6-8.7)
[2020-07-25 06:50] LABS: Glucose Point of Care 136 mg/dL (70-110)
[2020-07-25 08:00] VITALS: BP 126/78; PULSE 72; RESP 18; TEMP 36.6; O2SAT 96
--- NOTE | 2020-07-25 08:25 | PM.DCS ---
Discharge Providers Date of Admission: 07/16/20 09:29 Date of Discharge: July 25, 2020 Attending Provider at Admission: Lalita Daniel DO Attending Provider at Discharge: Arik James MD Primary Care Provider: Arik James MD Diagnoses at Discharge Discharge Diagnosis (1) Acute upper GI bleed: Status: Acute (2) Syncope due to orthostatic hypotension: Status: Acute (3) Squamous cell cancer of tongue: Status: Acute (4) Mediastinal lymphadenopathy: Status: Acute (5) Neutropenia: Status: Acute Reason for Visit Reason for Visit: SYNCOPED Hospital Course Hospital Course: The patient was admitted with upper GI bleed and his hemoglobin dropped from 13 down to 8. The patient was transfused 3 units of blood and his hemoglobin has been stable in the 8 range since. The patient had an upper endoscopy done by Dr. Ramirez and multiple ulcerations were noted in the duodenum. These were not actively bleeding when he viewed them. The patient stabilized from a hemoglobin standpoint, however he developed pancytopenia with neutropenia and developed temperatures up to 100.3. For this reason he was started on cefepime and levofloxacin. The patient had blood cultures done that were negative. Chest x-ray was negative. The patient responded well to treatment and his neutrophils gradually improved and were over 1000 by the time of discharge. He is not had any elevated temperatures for over 24 hours now. The patient feels well other than having a sore throat likely related to radiation. The patient does not have signs of oral thrush at this time. The patient will be discharged home today and he is to follow-up with his oncologist over the next 4 to 7 days. The patient will follow up with me in the next week. The patient will need to have a CBC rechecked to evaluate his white blood cell count hemoglobin and platelets as well as neutrophils. Overall the patient is in agreement with discharge home at this time. All questions were answered. Routine precautions were discussed. The patient will also be set up with an outpatient suction catheter to help with oral secretions. The patient has significant oral secretions secondary to radiation. He is unable to swallow effectively secondary to treatment of his tongue cancer. I confirm that it is medically necessary for the patient to have the suction catheter at home. Physical Exam Narrative: EXAM NARRATIVE: General: Alert and oriented x3 Mouth: A few scattered clear fluid-filled blisters in the posterior pharynx noted. Thick mucus noted in his mouth. Cardiac: Regular rate and rhythm without murmurs Lungs: Mild crackles in the right base without wheezes or rhonchi Abdomen: Soft, non-tender without masses appreciated Extremities: Trace edema in the bilateral lower extremities Discharge Data Data Completed and Pending: Completed Studies During Hospitalization Category Date Time Status CT head wo con* 7 0450 Urgent Cat Scan 07/16/20 07:35 Completed XR cervical spine 3V* [id number] Stat Exams 07/16/20 07:35 Completed XR chest 1V evelyn ble [id number] Routine Exams 07/21/20 15:56 Completed XR chest 1V evelyn ble [id number] Stat Exams 07/16/20 07:12 Completed Pending at discharge Category Date Time Status Blood Culture AM LABS Lab 07/22/20 05:27 Results Leukocyte Reduced RBC Stat Lab 07/16/20 08:40 Results Type and Screen R outine Lab 07/16/20 08:40 Results Labs from last 24 hours 07/25/20 07/25/20 07/25/20 06:42 05:11 05:11 WBC 3.0 L RBC 2.68 L Hgb 8.5 L Hct 25.6 L MCV 95.5 H MCH 31.7 MCHC 33.2 RDW 15.2 H Plt Count 233 MPV 12.5 H Neut % (Auto) 36.6 Lymph % (Auto) 17.3 Cavalier % (Auto) 36.6 Eos % (Auto) 6.4 Baso % (Auto) 0.7 Neut # (Auto) 1.08 L Lymph # (Auto) 0.5 L Cavalier # (Auto) 1.1 H Eos # (Auto) 0.2 Baso # (Auto) 0.0 Nucleated RBC % (a uto) 1.0 Nucleated RBCs # 0.0 Sodium 130 L Potassium 4.2 Chloride 94 L Carbon Dioxide 27 Anion Gap 13.2 BUN 10 Creatinine 0.8 GFR Calculation Not Reportable Glucose 127 H POC Glucose 136 Calculated Osmolal ity 271 L Calcium 8.1 L Phosphorus 2.3 L Magnesium 1.9 Total Bilirubin 0.2 AST 18 ALT 14 Alkaline Phosphata se 72 Total Protein 5.9 L Albumin 3.0 L Globulin 2.9 07/24/20 07/24/20 07/24/20 22:05 17:05 11:43 WBC RBC Hgb Hct MCV MCH MCHC RDW Plt Count MPV Neut % (Auto) Lymph % (Auto) Cavalier % (Auto) Eos % (Auto) Baso % (Auto) Neut # (Auto) Lymph # (Auto) Cavalier # (Auto) Eos # (Auto) Baso # (Auto) Nucleated RBC % (a uto) Nucleated RBCs # Sodium Potassium Chloride Carbon Dioxide Anion Gap BUN Creatinine GFR Calculation Glucose POC Glucose 105 154 165 Calculated Osmolal ity Calcium Phosphorus Magnesium Total Bilirubin AST ALT Alkaline Phosphata se Total Protein Albumin Globulin Vitals: Last Vital Signs Temp 97.6 F 07/25/20 04:00 Pulse 78 07/25/20 04:00 Resp 18 07/25/20 04:00 BP 119/74 07/25/20 04:00 Pulse Ox 94 07/25/20 04:00 Discharge Plan Discharge Patient Disposition: Home Condition: Stable Prescriptions: New ferrous sulfate 325 mg (65 mg iron) Tablet,Delayed Release (Dr/Ec) 325 mg PO TIDWM Qty: 90 RF: 0 Continued atenolol 25 mg tablet 25 mg PO DAILY RF: 0 cholecalciferol (vitamin D3) 25 mcg (1,000 unit) capsule 25 mcg PO DAILY RF: 0 Complete Multivitamin Tablet 1 tab PO DAILY RF: 0 fluticasone propionate [Flonase Allergy Relief] 50 mcg/actuation spray,suspension 1 spray INTRANASAL DAILY PRN (Reason: allergy symptoms) RF: 0 furosemide 40 mg tablet 40 mg PO DAILY RF: 0 hydrochlorothiazide 25 mg tablet 25 mg PO DAILY RF: 0 losartan 100 mg tablet 100 mg PO DAILY RF: 0 metformin 1,000 mg tablet See Rx Instructions .ROUTE .COMPLEX RF: 0 pravastatin 20 mg tablet 20 mg PO DAILY RF: 0 clotrimazole 10 mg nelida See Rx Instructions .ROUTE .COMPLEX RF: 0 hydrocodone-acetaminophen 5-325 mg Tablet 1 tab PO Q6H PRN (Reason: Pain) RF: 0 Xanax 0.5 mg Tablet 0.5 mg PO TID PRN (Reason: Anxiety) RF: 0 levofloxacin 500 mg Tablet 500 mg PO DAILY RF: 0 Changed omeprazole 20 mg tablet,delayed release (DR/EC) 40 mg PO DAILY Qty: 60 RF: 0 Discontinued naproxen 500 mg tablet 500 mg PO BID RF: 0 Discharge Orders: Discharge Order (Routine); Ordered 07/25/20 Ordered By: Arik James Other Ambulatory Orders: DME: Miscellaneous (Order) Location: None Selected Ordered By: Arik James DME: Miscellaneous (Order) Location: None Selected Ordered By: Arik James Referrals: Devendra Reich MD [Hospitalist] - 4-7 days Arik James MD [Primary Care Provider] - 1 week Discharge Diet: Resume prior tube feeds Discharge Activity: Increase activity as tolerated Activity Restrictions/Additional Instructions: For having concerns that you are having further bleeding from your intestine, please return to the ER right away. Discharge Attestations Time Spent in Discharge Care*: greater than 30 min Quality Metrics Clinical Quality Measures During this hospital stay, did patient experience: None Coding Level of Care Code Acute Sports Anchor for g Fwd Diagnoses Acute upper GI bleed K92.2 Syncope due to orthostatic hypotension I95.1 Squamous cell cancer of tongue C02.9 Mediastinal lymphadenopathy R59.0 Neutropenia D70.9
[2020-07-25] MEDS: ferrous sulfate EC 325 mg Tablet PO (09:18)
[2020-07-25 09:19] VITALS: BP 119/74
[2020-07-25] MEDS: hydroCHLOROthiazide 25 mg Tablet PO (09:19)
[2020-07-25] MEDS: atenolol 50 mg Tablet 25 MG PO (09:19)
[2020-07-25] MEDS: losartan 50 mg Tablet 100 MG PO (09:19)
[2020-07-25] MEDS: atorvastatin 40 mg Tablet 20 MG PO (09:19)
[2020-07-25] MEDS: pantoprazole DR 40 mg Tablet PO (09:19)
[2020-07-25 10:46] VITALS: BP 119/74
== END 2020-07-25 09:47 | disposition home or self-care (01) | DRG 378 ==
LOC: ER 08:45 → ICU 10:11 → MEDSURG 07-17 20:12
PROVIDERS: Family Medicine; Internal Medicine; Student in an Organized Health Care Education/Training Program; Admitting Provider Family Medicine; PCP Family Medicine; Visit Provider Family Medicine
PROC: 0DJ08ZZ Inspection of Upper Intestinal Tract, Via Natural or Artificial Opening Endoscopic (ICD-10-PCS; CPT 43235; principal; 2020-07-16 13:00)
DX: K26.4 Chronic or unspecified duodenal ulcer with hemorrhage (principal); D61.818 Other pancytopenia; W19.XXXA Unspecified fall, initial encounter; C02.9 Malignant neoplasm of tongue, unspecified; Z93.1 Gastrostomy status; I10 Essential (primary) hypertension; E78.00 Pure hypercholesterolemia, unspecified; C61 Malignant neoplasm of prostate; E11.9 Type 2 diabetes mellitus without complications; Z90.79 Acquired absence of other genital organ(s); Z90.81 Acquired absence of spleen; Z87.891 Personal history of nicotine dependence; K26.7 Chronic duodenal ulcer without hemorrhage or perforation; Z79.899 Other long term (current) drug therapy; Z79.891 Long term (current) use of opiate analgesic; Z79.84 Long term (current) use of oral hypoglycemic drugs; T45.1X5A Adverse effect of antineoplastic and immunosuppressive drugs, initial encounter; D69.59 Other secondary thrombocytopenia; R59.0 Localized enlarged lymph nodes; I95.1 Orthostatic hypotension
CPT/HCPCS: 12345; 36415; 36416; 36430; 43236; 70450; 71045; 72040; 77386; 80053; 81003; 82550; 82962; 83735; 84100; 84484; 85007; 85014; 85018; 85025; 85610; 86141; 86850; 86900; 86920; 87040; 87426; 93005; 96372; 97110; 97116; 97161; 97530; 99283; C9113; J0171; J0692; J1450; J1815; J1956; J2370; J2704; J7030; P9016

== ENCOUNTER 2020-07-31 05:40 | Outpatient (RCR) | payer MEDICARE, OTHER, SELFPAY ==
[2020-07-30 10:13] LABS: Basophils # 0.1 10^3/uL (0.0-0.1); Basophils % 1.3 %; Eosinophils % 0.9 %; Hematocrit 30.4 % (42.0-52.0); Hemoglobin 9.9 g/dL (11.7-16.6); Lymphocytes # 0.7 10^3/uL (0.8-4.8); Lymphocytes % 15.2 %; Mean Corpuscular HGB Conc 32.6 g/dL (30.0-36.0); Mean Corpuscular Hemoglobin 31.7 pg (28.0-34.0); Mean Corpuscular Volume 97.4 fL (80-94); Mean Platelet Volume 11.3 fL (7.4-10.4); Monocytes # 1.2 10^3/uL (0.2-0.9); Monocytes % 25.9 %; Neutrophils # 2.39 10^3/uL (1.8-7.7); Neutrophils % 52.5 %; Nucleated Red Blood Cells % 0.4 %; Platelet Count 369 10^3/cmm (130-400); Red Blood Count 3.12 10^6/uL (4.1-5.3); Red Cell Distribution Width 16.8 % (12.1-15.1); White Blood Count 4.6 10^3/uL (4.0-10.0)
[2020-07-30 10:30] LABS: Alanine Aminotransferase 14 U/L (0-41); Albumin Level 3.6 g/dL (3.5-5.2); Alkaline Phosphatase 111 IU/L (40-130); Anion Gap 14.9 (5-19); Aspartate Amino Transferase 19 U/L (0-40); Blood Urea Nitrogen 24 mg/dL (8-23); Calcium 9.7 mg/dL (8.5-10.5); Carbon Dioxide 27 mmol/L (22-29); Chloride 92 mmol/L (98-107); Globulin 3.1 g/dL (1.3-4.6); Glucose 154 mg/dL (65-115); Osmolality Calculated 275 mOsm/kg (285-295); Potassium 4.9 mmol/L (3.5-5.1); Sodium 129 mmol/L (136-145); Total Bilirubin 0.2 mg/dL (0.15-1.2); Total Protein 6.7 g/dL (6.6-8.7)
[2020-07-31 14:54] LABS: Iron 52 ug/dL (59-158); Percent Saturation 23.7 % (20-50); Thyroid Stimulating Hormone 3.59 uIU/mL (0.27-4.20); Total Iron Binding Capacity 219 mcg/dl; Unsaturated Iron Binding 167 ug/dL (112-347)
--- NOTE | 2020-08-04 14:09 | ONC FU_ITS ---
Dr. Reich Patient Follow-Up Note Patient: Demarcus Maldonado Unit #: [id number]: [id number] Dicatated By: Devendra Reich M.D.Date of Visit:Jul 31, 2020 Onc Med Follow-up/Prog Note Chief Complaint: Base of tongue cancer. 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 He had presented with left cervical lymphadenopathy. He had associated pain in the left side of the neck and throat. He had been seen initially by Dr. James. CT of the neck on 03/27/2020 showed a soft tissue enhancing mass centered in the left tongue base along the lingual tonsil. It was noted to extend over a length of 2.6 x 2.2 x 1.3 cm. There appeared to be enhancement across the midline and there was suspected involvement in the lingular surface of the right tongue. Also noted was enlargement and abnormal enhancement and thickening of the uvula. There was extensive, confluent adenopathy i involving the left neck. The largest cluster of nodes measured 8.4 cm in length by 2.8 cm, beginning at the level of the hyoid bone and extending inferiorly to the supraclavicular region. Additional clusters of lymph nodes were present at level IIa, IIb, III, Va, and in the supraclavicular area. The largest necrotic lymph node measured 2.5 x 2.2 cm at the level of the thyroid cartilage. Smaller lymph nodes were noted along the right cervical chain, but without definite adenopathy. The lung apices were noted to be clear. He was seen by Dr. Praneeth Thompson on 03/30/2020. His exam showed an exophytic mass and papillomatous mass at the left tongue base as well as papillomatous mass at the left paramedian tongue base. The remainder of the oral cavity and oropharyngeal exam was reported to be normal. The laryngeal exam showed erythema and edema of the arytenoid mucosa. He then underwent direct laryngoscopy with biopsy and esophagoscopy on 04/05/2020. Findings included an exophytic lesion involving the left tongue base extending to the right of the midline. It also was noted to extend into the vallecula. There was no involvement of the lateral pharyngeal wall or the larynx. The esophagus was noted to be free of lesions. Biopsy showed infiltrating moderately differentiated squamous cell carcinoma which was confirmed to be HPV positive. I had seen him initially on 04/19/2020. Staging PET/CT on 04/28/2020 showed a 2.4 x 1.7 cm left base of tongue mass with SUV 24.5, consistent with primary malignancy. There were FDG positive nodes from cervical levels II through IV and V levels on the left consistent with local metastatic disease. A 1.2 cm right level 2A node had SUV 4.2 indicating a high probability of contralateral cervical disease. A subpleural solid nodule in the lateral left upper lobe measuring 8 mm had SUV 1.9, suspicious but not definitive for distant metastatic disease. A 2.8 x 1.5 cm subcarinal lymph node had SUV 5.3, suspicious for metastatic disease. Smaller FDG positive nodes in the right pretracheal and subaortic territories were felt to be most likely reactive. He was referred to Dr. Kingsley. On 05/15/2020 he underwent bronchoscopy/EBUS with transbronchial FNA biopsy of station 7 and station 4R lymph nodes. Pathology from both sites showed reactive lymph node tissue with no evidence of malignancy. With those findings, he was recommended to undergo radiation concurrently with standard high-dose cisplatin chemotherapy. He has a history of having previously undergone radical prostatectomy for prostate cancer. He also has a prior history of ITP. His other medical illnesses include hypertension, hyperlipidemia, and type 2 diabetes. He has a past history of smoking, but only for about 6 years. He quit smoking approximately 40 years ago. He had also chewed tobacco, but only for about 1 or 2 years. INTERIM HISTORY: He began cycle 1 of cisplatin at 100 mg/m??? by IV infusion concurrently with radiation on 05/31/2020. He experienced no acute toxicity with the initial cisplatin infusion. Her further chemotherapy was held due to neutropenia. He completed radiation on 06/19/2020 to a total dose of 6540 cGy. He then continued with radiation. At his day 22 visit he had moderately severe neutropenia with absolute neutrophil count at just under 1000, and his second dose of cisplatin was deferred. Subsequent to that visit, he began having more difficulty with swallowing and with oral intake, and he did opt undergo placement of the PEG tube. He was able to continue his radiation, and he proceeded with cycle 2 of cisplatin 100 mg/m??? by IV infusion on 07/03/2020. On 07/16/2020 he was admitted to the hospital with acute upper GI bleeding. His EGD showed multiple benign-appearing ulcers in the duodenum, which appeared to be the likely source for the GI bleed, though no active bleeding was apparent at the time of the procedure. During the hospitalization he became neutropenic, but it resolved uneventfully on antibiotic coverage with cefepime and Levaquin. During the hospitalization, he was able to resume his radiation, and he completed treatment on 07/23/2020 to a total dose of 7000 cGy. He was discharged home on 07/25/2020. He is seen now for a follow-up visit. He is feeling pretty good generally, though he is still weak and his activity is limited. ECOG score is 3. He does not have much appetite, and he is still dependent on tube feeding for his nutrition. He has had problems trying to swallow liquids. He has not had fever. He complains that he sweats a lot, both during the daytime and at night. His throat is still sore. He is having some cough associated with sinus drainage. He does not complain of shortness of breath or chest pain. He currently is not having nausea he does not have acid reflux symptoms. He is having constipation now. Bladder function is been okay. He has no significant joint or bone pain. He has developed swelling in his legs, and he also has developed some bedsores, though he says they are getting better. He does not complain of headache or dizziness. He has no focal neurologic symptoms. Medications: Atenolol 1 Tablet (of 25 mg) Oral daily, Doxycycline Monohydrate 20 mL (of 25 mg/5mL) Suspension, when reconstituted Oral b.i.d. for 14 days, Flonase Allergy Relief Suspension Nasal, Furosemide 1 Tablet (of 40 mg) Oral b.i.d. PRN, metFORMIN HCl 0.5 - 1 Tablet (of 1000 mg) Oral b.i.d., Pravastatin Sodium 1 Tablet (of 20 mg) Oral daily Allergies: Keflex, Penicillins, and Pneumococcal 13-Samaria Conj Vacc. Review of Systems: Constitutional - He is feeling pretty good generally, he is weak and he is mainly sedentary at home. His appetite is okay but his weight is down about 5 pounds from last visit. No fevers. He is having persistent sweating both day and night. ECOG score is 3, ENMT - He has sinus congestion/drainage, which tends to be worse at night. No mouth sores. His throat is sore. He has some difficulty swallowing, including liquids, Hematologic/Lymphatic - No abnormal bruising or bleeding, Respiratory - No shortness of breath. No cough. No pleuritic pain or hemoptysis, Cardiovascular - No angina pain. No palpitations, Gastrointestinal - No nausea or vomiting. No heartburn or acid reflux. No diarrhea. He has constipation. He currently has no blood in the stool or black stools. He has PEG tube which he is using for feedings and medications, Genitourinary (M) - No dysuria or hematuria. No urinary frequency. No urgency or incontinence, Musculoskeletal - He is having alot of pain in his throat from radiation. He is taking hydrocodone-APAP 5-325 mg for this, Integumentary - He has swelling in both legs, Neurologic - No headache or dizziness. No numbness or tingling. No other focal neurologic symptoms, Psychiatric - He sometimes has depression. He does not sleep well. Vital Signs: Performed on Jul 31, 2020 10:04 Height - 72.00 in Weight - 240.2 lbs (LOW) BSA - 2.30 sq.m BMI - 32.58 (HIGH) Temperature - 97.0 F (LOW) Pulse - 80 /min Respiration - 20 /min BP - 113/56 mm(hg) O2 Sat - 96 % Pain - 7 Physical Examination: Constitutional - He appears generally weak, Eyes - Sclerae nonicteric. Conjunctivae clear, ENMT - There are no lesions noted in the oral cavity, Neck - No mass or thyromegaly, Hematologic/Lymphatic - No cervical, clavicular, or axillary adenopathy, Respiratory - Lungs sound clear with some decrease in air movement bilaterally, Cardiovascular - Heart rhythm is regular. There is no murmur, gallop, or rub noted, Abdomen - Soft. The PEG tube site looks good. Liver and spleen are not enlarged. There is no abdominal mass or ascites noted and there is no inguinal adenopathy, Extremities - There is 2+ lower extremity edema, Neurologic - No focal neurologic deficits noted. Lab/Imaging: CBC shows hemoglobin 9.9 g, white blood cell count 4600, and platelet count 369,000. Comprehensive metabolic profile is unremarkable except for slightly low sodium at 129 mmol/L. Renal function remains adequate with BUN 24 and creatinine 1.1 mg/dL. Bilirubin and liver enzymes are normal. Impression: 1. Patient with infiltrating moderately differentiated squamous cell carcinoma involving left base of tongue, by clinical evaluation stage BEVERLY (T2, N2b, M0), HPV positive. 2. He underwent direct laryngoscopy with biopsy and esophagoscopy on 04/05/2020. His other medical illnesses include: 3. Hypertension. 4. Hyperlipidemia. 5. Type 2 diabetes. 6. He has chronic venous insufficiency. 7. History of prostate cancer for which he underwent radical prostatectomy approximately 5 years ago. 8. 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 Staging PET/CT 04/28/2020 reported a 2.4 x 1.7 cm left base of tongue mass with an SUV of 24.5, consistent with primary malignancy. There were FDG positive nodes from the cervical level II through IV and V levels on the left consistent with local metastatic disease. A 1.2 cm right level IIA node had an SUV of 4.2, indicating a high probability of contralateral cervical disease. In the left lateral upper lobe there was a subpleural solid nodule measuring 8 mm with an SUV 1.9. This was suspicious but not definitive for distant metastatic disease. A 2.8 x 1.5 subcarinal node with SUV 5.3 was suspicious for metastatic disease. Smaller FDG positive nodes in the right paratracheal and subaortic territories appeared to be most likely reactive. On 05/15/2020 he underwent bronchoscopy/EBUS with transbronchial FNA biopsy of station 7 and station 4R lymph nodes. Pathology from both sites showed reactive lymph node tissue with no evidence of malignancy. With those findings, he was recommended to undergo radiation concurrently with standard high-dose cisplatin chemotherapy. He began cycle 1 of cisplatin 100 mg/m??? IV infusion concurrently with radiation on 05/31/2020. He tolerated the initial cisplatin infusion with no acute toxicity. At day 22 he had developed moderately severe neutropenia, ANC 1000, and his 2nd cycle of cisplatin was deferred. During that time he had undergone placement of a PEG tube, and he began nutritional support with tube feeding. He was able to continue his radiation, and he was then given cycle 2 of cisplatin on 07/03/2020. On 07/16/2020 he was admitted to the hospital with acute GI bleed, determined by EGD to be due to duodenal ulcers. He stabilized with conservative management. He again became neutropenic, but with uneventful recovery. He was able to continue radiation, and he completed his treatment on 07/23/2020 to a total dose of 7000 cGy. Since discharge from the hospital he has still been pretty weak generally and he has limited activity. At this point he still has sore throat and difficulty swallowing, but he does tolerate his tube feeding. Overall he has had significant complications during chemoradiation and he still has early marginal performance status, but he does appear to have had a very good response by clinical evaluation. Plan: He is now being followed on observation/expectant management. He is still having to administer medications through his PEG tube, and I did give suggestions for transitioning his PPI to something more convenient. He was also given instructions for a bowel regimen. With his blood pressure relatively low he is advised to stop losartan. For now he will continue antibiotic coverage with doxycycline. I will see if I can arrange for physical therapy at home. He is being scheduled for a 1-month interval follow-up CT scan, and I also will arrange for follow-up with Dr. Thompson. Signed By: Devendra Reich M.D. <<Signature on File>>
== END 2020-08-01 12:10 | disposition home or self-care (01) ==
LOC: ONCMED 05:40
PROVIDERS: PCP Family Medicine; Visit Provider Internal Medicine Medical Oncology
DX: C01 Malignant neoplasm of base of tongue (principal); I10 Essential (primary) hypertension; E78.5 Hyperlipidemia, unspecified; E11.9 Type 2 diabetes mellitus without complications; I87.2 Venous insufficiency (chronic) (peripheral); D69.3 Immune thrombocytopenic purpura; Z85.46 Personal history of malignant neoplasm of prostate; Z90.81 Acquired absence of spleen
CPT/HCPCS: 80053; 83540; 83550; 84443; 85025; 99214

== ENCOUNTER 2020-08-20 10:07 | Outpatient (CLI) | payer MEDICARE, OTHER, SELFPAY ==
--- NOTE | 2020-08-20 10:20 | CT_ITS ---
WS: [id number] CT NECK WITH CONTRAST HISTORY: MALIGNANT NEOPLASM BASE OF TONGUE TECHNIQUE: Contiguous 5 mm axial images are performed through the neck with intravenous contrast. Sag ittal and coronal reformats are also submitted. All CT scans at [facility] use at least o ne of these dose optimization techniques: automated exposure control; mA and/or kV adjustment per pat ient size (includes targeted exams where dose is matched to clinical indication); or iterative recons truction. CONTRAST: CONTRAST: Omnipaque 300; 95 mL IV. DLP: 3021.4 mGycm COMPARISON: 07/22/[address] 04/28/2020 Recently described mass at the LEFT lung base with extension across the midline has essentially resol nithin with treatment. There is mild thickening of the uvula but improved also. The paraglottic fat on t he RIGHT is mildly more prominent than on the LEFT but this may be posttreatment edema. There is also some increased soft tissue thickening in the floor of the LEFT pyriform sinus. There has been a significant improvement in the LEFT cervical chain lymphadenopathy. There is one lar ge necrotic lymph node in the LEFT cervical chain which is a level 3 lymph node measuring 1.7 x 1.6 c m. This lymph node encroaches into the posterior jugular vein and has decreased in size since the michele or study. There are some additional lymph nodes which are all smaller in size. No right-sided enlarge d or necrotic lymph nodes are appreciated. Thyroid gland and salivary glands are normally enhancing with no masses. No osseous abnormalities. Visualized portions of the skull base demonstrate no abnormalities. Orbits and globes are within norm al limits. No soft tissue masses. Visualized paranasal sinuses and mastoid air cells are normal. No nodules at the lung apices. CT/CT neck w con* [id number] IMPRESSION: 1. Complete resolution LEFT tongue base neoplasm since 03/21/2020. 2. Very mild edema in the RIGHT paraglottic fat which is probably post treatm ent. There is additional increased soft tissue in the floor of the LEFT pyrifor m sinus which is probably mucus. 3. Significant improvement in the cervical chain lymphadenopathy. Largest lymp h node persists measuring 1.7 x 1.6 cm at level III but also improved. 4. No progression or adverse changes.
[2020-08-20] MEDS: iohexol 300 mg/mL 100 mL Btl IV (10:43)
== END 2020-08-20 10:08 | disposition home or self-care (01) ==
LOC: RADWPI 10:15
PROVIDERS: PCP Family Medicine; Visit Provider Radiology Radiation Oncology
DX: C01 Malignant neoplasm of base of tongue (principal); R60.0 Localized edema; R59.0 Localized enlarged lymph nodes
CPT/HCPCS: 70491; Q9967

== ENCOUNTER 2020-08-27 13:18 | Outpatient (RCR) | payer MEDICARE, OTHER, SELFPAY ==
[2020-08-09] MEDS: sodium chloride 0.9% 1,000 mL Bolus 999 ML IV (13:55)
[2020-08-09 15:31] LABS: Basophils # 0.1 10^3/uL (0.0-0.1); Basophils % 0.7 %; Eosinophils # 0.1 10^3/uL (0.0-0.8); Eosinophils % 0.7 %; Hematocrit 30.1 % (42.0-52.0); Hemoglobin 9.9 g/dL (11.7-16.6); Lymphocytes # 0.8 10^3/uL (0.8-4.8); Lymphocytes % 11.1 %; Mean Corpuscular HGB Conc 32.9 g/dL (30.0-36.0); Mean Corpuscular Volume 97.4 fL (80-94); Mean Platelet Volume 11.9 fL (7.4-10.4); Monocytes % 15.2 %; Neutrophils # 4.79 10^3/uL (1.8-7.7); Nucleated Red Blood Cells % 0 %; Platelet Count 245 10^3/cmm (130-400); Red Blood Count 3.09 10^6/uL (4.1-5.3); Red Cell Distribution Width 17.4 % (12.1-15.1); White Blood Count 6.8 10^3/uL (4.0-10.0)
[2020-08-09 15:52] LABS: Ammonia 15 umol/L (16-60)
[2020-08-09 15:55] LABS: Alanine Aminotransferase 16 U/L (0-41); Albumin Level 3.8 g/dL (3.5-5.2); Alkaline Phosphatase 99 IU/L (40-130); Anion Gap 14.6 (5-19); Aspartate Amino Transferase 21 U/L (0-40); Blood Urea Nitrogen 11 mg/dL (8-23); C Reactive Protein 4.6 mg/L (0.0-4.9); Calcium 8.9 mg/dL (8.5-10.5); Carbon Dioxide 25 mmol/L (22-29); Chloride 90 mmol/L (98-107); Creatine Phosphokinase 27 U/L (39-308); Globulin 2.4 g/dL (1.3-4.6); Glucose 123 mg/dL (65-115); Osmolality Calculated 261 mOsm/kg (285-295); Potassium 4.6 mmol/L (3.5-5.1); Sodium 125 mmol/L (136-145); Total Bilirubin 0.2 mg/dL (0.15-1.2); Total Protein 6.2 g/dL (6.6-8.7)
--- NOTE | 2020-08-22 18:39 | ONCRAD EPV_ITS ---
Radiation Oncology Established Patient Visit Patient: Erica Tracy [id number] : 1950> Age: 69> Sex: Male> Dictated by: Dr. Tae Funes Date of Service: 08/22/2020 Referring Physician(s) : Praneeth Thompson Diagnosis: C01 - Malignant neoplasm of base of tongue, Diagnosed 04/19/2020 (Active) Stage X, T2, pN2b, M0, p16+ Diagnosis: cT2 N2 M0 squamous cell carcinoma of the left base of tongue, HPV+ (Stage II per TNM staging 8th ed., 2017) Biopsy proven 04/05/2020, Imaging per CT (03/27/2020) & PET/CT (04/28/2020) revealed a bulky base of tongue tumor with bilateral neck adenopathy (L>R), and concern for possible mediastinal disease. Subsequent EBUS & FNA of level 7 and 4R lymph nodes (05/15/2020) revealed reactive lymph nodes. Treatment rendered: Definitive radiation therapy to 70 Gy in 35 fractions concurrent with Q3 weekly cisplatin (05/31/2020-07/23/2020). Current History: The patient is seen in follow-up today, and he reports persistent dysgeusia to the extent that he would rather use his PEG tube then consume food orally. Furthermore, the patient shares that when he drinks water, it goes down the wrong tube . He also continues to complain of xerostomia, thick ropey sputum, and fatigue. Posttreatment CT of the neck (08/20/2020) revealed complete resolution of the left tongue base neoplasm, and significant improvement in cervical lymphadenopathy. The patient has mild edema in the right paraglottic fat and mucus appearing material in the left piriform sinus. Current Medications: Atenolol, cISplatin, dexamethasone Sodium Phosphate, doxycycline Monohydrate, doxycycline Monohydrate, emend, flonase Allergy Relief, furosemide, furosemide, furosemide, hYDROcodone-Acetaminophen, magnesium Sulfate, metFORMIN HCl, palonosetron HCl, potassium Chloride, pravastatin Sodium, prochlorperazine Maleate, sodium Chloride. Allergies: Keflex, Pneumococcal 13-Samaria Conj Vacc and Penicillins. Current Complaints / Review of Systems: Constitutional - Complains of lack of appetite. Complains of mild fatigue. Complains of change in weight dwon 11 lbs. since last seen on 07/10/20. Denies fever. Patient is only using his G-Tube due to food has no taste. Puts in 5 can per day of Glucerna in the G-Tube. Eyes - Denies blurred vision and double vision. ENMT - Complains of problems with hearing in both ears. Complains of sputum production which is thick and ropey. Complains of altered taste. Denies dysphagia but has odynophagia, ear pain, mouth dryness, stomatitis and tinnitus. Neck - Denies neck pain and decreased range of motion. Integumentary - Denies rash. Cardiovascular - Complains of edema in both legs and feet. Denies arrhythmias and chest pain. Respiratory - Denies cough, dyspnea, hiccoughs and wheezing. Gastrointestinal - Denies abdominal pain, constipation, diarrhea, heartburn / dyspepsia, melena / GI bleeding, nausea and vomiting. Genitourinary (M) - Complains of nocturia occasionally. Denies dysuria, frequency and urgency. Musculoskeletal - Complains of generalized muscle weakness. Denies joint pain. Neurologic - Complains of abnormal gait with walking and depends on if he is tired or the terrain he is walking on. Denies dizziness and headaches. Endocrine - Complains of Type 2 diabetes. Denies thyroid disease. Hematologic/Lymphatic - Denies tender or enlarged lymph nodes.. Physical Exam: General: Alert and oriented x 3. No acute distress. HEENT: Normocephalic, atraumatic. Extraocular Movements Intact: Pupils Equal, Round, Reactive to Light and Accommodation: Sclerae anicteric. Oral cavity is prominent for xerostomia, thick ropey sputum, but no mucosal irregularity concerning for malignancy or oral thrush. NECK: Supple without supraclavicular or jugular lymphadenopathy. LUNGS: Clear to auscultation bilaterally without rales, rhonchi or wheeze. HEART: Regular rate and rhythm, normal S1 and S2 without murmur, gallop or rub. MUSCULOSKELETAL: No tenderness or percussion pain over the axial skeleton, scapulae or pelvis. EXTREMITIES: No peripheral edema is identified NEUROLOGIC: Cranial nerves II ???XII are grossly intact. Normal sensation, strength 5/5 in all extremities, normal gait, no ataxia. Performance Status: 3 - Capable of only limited self-care, confined to bed or chair more than 50% of waking hours. (ECOG) Lab: None pending. Test performed on 07/30/2020 10:02 AM RBC - 3.12 10 6/ul (low), HGB - 9.9 g/dl (low), HCT - 30.4 % (low), MCV - 97.4 fl (high), RDW - 16.8 % (high), MPV - 11.3 fl (high), Lymphocytes - 0.7 10 3/ul (low), Monocytes - 1.2 10 3/ul (high), Sodium - 129 mmol/l (low), Chloride - 92 mmol/l (low), BUN - 24 mg/dl (high), Glucose - 154 mg/dl (high) and Osmolality - Calculated - 275 mosm/kg (low). Pathology: Primary, c01 - malignant neoplasm of base of tongue, Diagnosed 04/19/2020 (active) stage x, t2, pn2b, m0, p16+. Impression: The patient is a 69-year-old male with cT2 N2 M0 squamous cell carcinoma of the left base of tongue, HPV+ (Stage II per TNM staging 8th ed., 2017) who was treated with definitive radiation therapy to a total dose of 70 Gy in 35 fractions concurrent Q3 weekly cisplatin (completed 07/23/2020). The patient's posttreatment CT of the neck (08/20/2020) revealed complete resolution of the left tongue base neoplasm, and significant interval improvement in cervical lymphadenopathy. Plan: -) Swallow evaluation (ordered today). The patient remains PEG tube dependent and he shares that when he swallows water, he aspirates it. -) PET/CT (skull to thigh) ~fourth week of October 2020, and follow-up with radiation oncology with planned nasolaryngoscopy; -) CT chest with contrast at the end of December or April 2021, to verify stability of the APOLINAR nodule. -) Begin thyroid function surveillance at the end of December 2020, followed by every 6 months. -) The patient was encouraged to follow-up with his ENT physician for surveillance, -) The patient was encouraged to follow-up with his dentist. Signed by: Tae Funes MD 08/22/2020 6:38:37 PM <<Signature on File>> Time spent with patient: CPT Code: CPT Code:
[2020-08-27] MEDS: sodium chloride 0.9% 1,000 mL Bolus 999 ML IV (13:35)
[2020-08-27 13:50] LABS: Basophils # 0.1 10^3/uL (0.0-0.1); Eosinophils # 0.2 10^3/uL (0.0-0.8); Eosinophils % 2.2 %; Hematocrit 38.3 % (42.0-52.0); Hemoglobin 12.6 g/dL (11.7-16.6); Lymphocytes # 1.7 10^3/uL (0.8-4.8); Lymphocytes % 24.5 %; Mean Corpuscular HGB Conc 32.9 g/dL (30.0-36.0); Mean Corpuscular Hemoglobin 32.7 pg (28.0-34.0); Mean Corpuscular Volume 99.5 fL (80-94); Mean Platelet Volume 13.6 fL (7.4-10.4); Monocytes % 13.7 %; Neutrophils # 4.01 10^3/uL (1.8-7.7); Nucleated Red Blood Cells % 0 %; Platelet Count 53 10^3/cmm (130-400); Red Blood Count 3.85 10^6/uL (4.1-5.3); Red Cell Distribution Width 16.4 % (12.1-15.1); White Blood Count 6.9 10^3/uL (4.0-10.0)
[2020-08-27 14:05] LABS: Anion Gap 17.8 (5-19); Blood Urea Nitrogen 15 mg/dL (8-23); Calcium 9.9 mg/dL (8.5-10.5); Carbon Dioxide 27 mmol/L (22-29); Chloride 89 mmol/L (98-107); Glucose 119 mg/dL (65-115); Osmolality Calculated 272 mOsm/kg (285-295); Potassium 3.8 mmol/L (3.5-5.1); Sodium 130 mmol/L (136-145)
== END 2020-09-01 23:59 | disposition home or self-care (01) ==
LOC: ONCMED 13:18
PROVIDERS: PCP Family Medicine; Visit Provider Internal Medicine Medical Oncology
DX: C01 Malignant neoplasm of base of tongue (principal); Z23 Encounter for immunization; E87.1 Hypo-osmolality and hyponatremia; R41.0 Disorientation, unspecified; I10 Essential (primary) hypertension; Z79.899 Other long term (current) drug therapy; M62.81 Muscle weakness (generalized); R25.3 Fasciculation; Z93.1 Gastrostomy status
CPT/HCPCS: 80048; 80053; 82140; 82550; 85025; 86140; 90471; 96360; J7030

== ENCOUNTER 2020-08-29 10:39 | Outpatient (CLI) | payer MEDICARE, OTHER, SELFPAY ==
--- NOTE | 2020-08-29 11:16 | FL_ITS ---
WS: [id number] Exam: FL barium swallow modified [id number] Date/Time of Exam: 08/29/2020 11:25 AM Reason For Exam: Other dysphagia Fluoroscopy time: 2 minutes Modified barium swallow was performed in conjunction with the speech therapy department. Fluoroscopy was performed with patient in the lateral projection. Multiple food consistencies were provided. A single episode of laryngeal penetration was identified with swallowing of thin liquids. This was re medied with the chin down position. The patient tolerated nectar consistency and solid barium foodstu ffs without aspiration or penetration. FL/FL barium swallow modifd [id number] IMPRESSION: 1. Single episode of mild laryngeal penetration with thin liquid barium as deta iled above. 2. No other sign of aspiration or penetration. Speech therapist will provide re commendations.
== END 2020-08-29 10:40 | disposition home or self-care (01) ==
LOC: RAD 10:43
PROVIDERS: PCP Family Medicine; Visit Provider Radiology Radiation Oncology
DX: R13.10 Dysphagia, unspecified (principal)
CPT/HCPCS: 74230; 92611

== ENCOUNTER 2020-08-29 12:28 | Outpatient (RCR) | payer MEDICARE, OTHER, SELFPAY | END 2020-09-01 23:59 | disposition home or self-care (01) | LOC: SPT 12:28 | PROVIDERS: PCP Family Medicine; Referring Provider Radiology Radiation Oncology; Visit Provider Radiology Radiation Oncology | DX: C01 Malignant neoplasm of base of tongue (principal) | CPT/HCPCS: 97161 ==

== ENCOUNTER 2020-09-02 06:00 | Outpatient (RCR) | payer MEDICARE, OTHER, SELFPAY | END 2020-10-01 23:59 | disposition home or self-care (01) | LOC: SPT 06:00 | PROVIDERS: PCP Family Medicine; Referring Provider Radiology Radiation Oncology; Visit Provider Radiology Radiation Oncology | DX: C02.9 Malignant neoplasm of tongue, unspecified (principal) | CPT/HCPCS: 97110 ==

== ENCOUNTER 2020-10-01 05:15 | Outpatient (RCR) | payer MEDICARE, OTHER, SELFPAY ==
[2020-09-05 09:17] LABS: Basophils # 0.1 10^3/uL (0.0-0.1); Basophils % 1.3 %; Eosinophils # 0.3 10^3/uL (0.0-0.8); Eosinophils % 4.6 %; Hematocrit 36.7 % (42.0-52.0); Hemoglobin 12.3 g/dL (11.7-16.6); Lymphocytes # 1.6 10^3/uL (0.8-4.8); Mean Corpuscular HGB Conc 33.5 g/dL (30.0-36.0); Mean Corpuscular Hemoglobin 32.5 pg (28.0-34.0); Mean Corpuscular Volume 97.1 fL (80-94); Mean Platelet Volume 13.3 fL (7.4-10.4); Monocytes # 0.9 10^3/uL (0.2-0.9); Neutrophils # 2.67 10^3/uL (1.8-7.7); Neutrophils % 48.9 %; Nucleated Red Blood Cells % 0 %; Platelet Count 39 10^3/cmm (130-400); Red Blood Count 3.78 10^6/uL (4.1-5.3); Red Cell Distribution Width 15.5 % (12.1-15.1); White Blood Count 5.5 10^3/uL (4.0-10.0)
[2020-09-05 09:44] LABS: Alanine Aminotransferase 16 U/L (0-41); Alkaline Phosphatase 85 IU/L (40-130); Anion Gap 13.9 (5-19); Aspartate Amino Transferase 20 U/L (0-40); Blood Urea Nitrogen 11 mg/dL (8-23); Calcium 9.8 mg/dL (8.5-10.5); Carbon Dioxide 29 mmol/L (22-29); Chloride 90 mmol/L (98-107); Globulin 2.7 g/dL (1.3-4.6); Glucose 135 mg/dL (65-115); Osmolality Calculated 269 mOsm/kg (285-295); Potassium 3.9 mmol/L (3.5-5.1); Sodium 129 mmol/L (136-145); Total Bilirubin 0.3 mg/dL (0.15-1.2); Total Protein 6.7 g/dL (6.6-8.7)
[2020-09-05 09:48] LABS: Slide Review Slide Review Perform
[2020-09-10 12:28] LABS: Basophils # 0.1 10^3/uL (0.0-0.1); Basophils % 1.3 %; Eosinophils # 0.2 10^3/uL (0.0-0.8); Eosinophils % 3.3 %; Hemoglobin 12.5 g/dL (11.7-16.6); Lymphocytes % 36.9 %; Mean Corpuscular HGB Conc 33.8 g/dL (30.0-36.0); Mean Corpuscular Hemoglobin 33.1 pg (28.0-34.0); Mean Corpuscular Volume 97.9 fL (80-94); Mean Platelet Volume 11.9 fL (7.4-10.4); Monocytes # 0.9 10^3/uL (0.2-0.9); Monocytes % 15.7 %; Neutrophils # 2.35 10^3/uL (1.8-7.7); Neutrophils % 42.4 %; Nucleated Red Blood Cells % 0 %; Red Blood Count 3.78 10^6/uL (4.1-5.3); Red Cell Distribution Width 15.4 % (12.1-15.1); White Blood Count 5.5 10^3/uL (4.0-10.0)
[2020-09-10 13:11] LABS: Platelet Count 24 10^3/cmm (130-400)
[2020-09-13 09:31] LABS: Basophils # 0.1 10^3/uL (0.0-0.1); Basophils % 1.2 %; Eosinophils # 0.2 10^3/uL (0.0-0.8); Eosinophils % 3.1 %; Hematocrit 37.2 % (42.0-52.0); Hemoglobin 12.6 g/dL (11.7-16.6); Lymphocytes # 1.3 10^3/uL (0.8-4.8); Mean Corpuscular HGB Conc 33.9 g/dL (30.0-36.0); Mean Corpuscular Hemoglobin 32.6 pg (28.0-34.0); Mean Corpuscular Volume 96.1 fL (80-94); Monocytes % 19.6 %; Neutrophils # 2.38 10^3/uL (1.8-7.7); Neutrophils % 48.7 %; Nucleated Red Blood Cells % 0 %; Red Blood Count 3.87 10^6/uL (4.1-5.3); White Blood Count 4.9 10^3/uL (4.0-10.0)
[2020-09-13 10:20] LABS: Platelet Count 18 10^3/cmm (130-400)
[2020-09-13 10:21] LABS: Slide Review Slide Review Perform
[2020-09-14 07:12] LABS: Basophils # 0.1 10^3/uL (0.0-0.1); Basophils % 1.3 %; Eosinophils # 0.2 10^3/uL (0.0-0.8); Eosinophils % 4.1 %; Hematocrit 38.5 % (42.0-52.0); Hemoglobin 12.8 g/dL (11.7-16.6); Lymphocytes # 1.8 10^3/uL (0.8-4.8); Lymphocytes % 39.8 %; Mean Corpuscular HGB Conc 33.2 g/dL (30.0-36.0); Mean Corpuscular Hemoglobin 32.6 pg (28.0-34.0); Mean Platelet Volume 12.6 fL (7.4-10.4); Monocytes # 0.9 10^3/uL (0.2-0.9); Monocytes % 18.4 %; Neutrophils # 1.65 10^3/uL (1.8-7.7); Neutrophils % 35.8 %; Nucleated Red Blood Cells % 0 %; Red Blood Count 3.93 10^6/uL (4.1-5.3); Red Cell Distribution Width 15.1 % (12.1-15.1); White Blood Count 4.6 10^3/uL (4.0-10.0)
[2020-09-14 08:47] LABS: Platelet Count 22 10^3/cmm (130-400); Slide Review Slide Review Perform
[2020-09-17 10:12] LABS: Basophils # 0.1 10^3/uL (0.0-0.1); Basophils % 1.6 %; Eosinophils # 0.1 10^3/uL (0.0-0.8); Eosinophils % 2.7 %; Hematocrit 37.5 % (42.0-52.0); Hemoglobin 12.5 g/dL (11.7-16.6); Lymphocytes # 1.4 10^3/uL (0.8-4.8); Lymphocytes % 32.1 %; Mean Corpuscular HGB Conc 33.3 g/dL (30.0-36.0); Mean Corpuscular Hemoglobin 32.5 pg (28.0-34.0); Mean Corpuscular Volume 97.4 fL (80-94); Mean Platelet Volume 13.2 fL (7.4-10.4); Monocytes # 0.8 10^3/uL (0.2-0.9); Monocytes % 17.4 %; Neutrophils # 2.02 10^3/uL (1.8-7.7); Neutrophils % 45.7 %; Nucleated Red Blood Cells % 0 %; Red Blood Count 3.85 10^6/uL (4.1-5.3); Red Cell Distribution Width 14.8 % (12.1-15.1); White Blood Count 4.4 10^3/uL (4.0-10.0)
[2020-09-17 10:31] LABS: Platelet Count 19 10^3/cmm (130-400)
[2020-09-20 08:54] LABS: Basophils # 0.1 10^3/uL (0.0-0.1); Basophils % 1.6 %; Eosinophils # 0.2 10^3/uL (0.0-0.8); Eosinophils % 3.7 %; Hematocrit 37.3 % (42.0-52.0); Hemoglobin 12.3 g/dL (11.7-16.6); Lymphocytes # 1.7 10^3/uL (0.8-4.8); Lymphocytes % 38.8 %; Mean Corpuscular Hemoglobin 32.5 pg (28.0-34.0); Mean Corpuscular Volume 98.4 fL (80-94); Mean Platelet Volume 12.2 fL (7.4-10.4); Monocytes # 0.7 10^3/uL (0.2-0.9); Monocytes % 16.6 %; Neutrophils # 1.68 10^3/uL (1.8-7.7); Neutrophils % 38.8 %; Nucleated Red Blood Cells % 0 %; Red Blood Count 3.79 10^6/uL (4.1-5.3); Red Cell Distribution Width 15.1 % (12.1-15.1); White Blood Count 4.3 10^3/uL (4.0-10.0)
[2020-09-20 10:02] LABS: Platelet Count 24 10^3/cmm (130-400); Slide Review Slide Review Perform
[2020-09-26 09:42] LABS: Basophils # 0.1 10^3/uL (0.0-0.1); Basophils % 1.2 %; Eosinophils # 0.2 10^3/uL (0.0-0.8); Eosinophils % 3.8 %; Hematocrit 38.3 % (42.0-52.0); Hemoglobin 12.8 g/dL (11.7-16.6); Lymphocytes # 1.3 10^3/uL (0.8-4.8); Lymphocytes % 31.2 %; Mean Corpuscular HGB Conc 33.4 g/dL (30.0-36.0); Mean Corpuscular Hemoglobin 32.9 pg (28.0-34.0); Mean Corpuscular Volume 98.5 fL (80-94); Mean Platelet Volume 13.8 fL (7.4-10.4); Monocytes # 0.8 10^3/uL (0.2-0.9); Monocytes % 19.1 %; Neutrophils # 1.87 10^3/uL (1.8-7.7); Neutrophils % 44.2 %; Nucleated Red Blood Cells % 0 %; Platelet Count 30 10^3/cmm (130-400); Red Blood Count 3.89 10^6/uL (4.1-5.3); Red Cell Distribution Width 14.6 % (12.1-15.1); White Blood Count 4.2 10^3/uL (4.0-10.0)
[2020-09-26 10:05] LABS: Alanine Aminotransferase 17 U/L (0-41); Albumin Level 4.2 g/dL (3.5-5.2); Alkaline Phosphatase 69 IU/L (40-130); Aspartate Amino Transferase 19 U/L (0-40); Blood Urea Nitrogen 12 mg/dL (8-23); Calcium 9.8 mg/dL (8.5-10.5); Carbon Dioxide 27 mmol/L (22-29); Chloride 93 mmol/L (98-107); Globulin 2.7 g/dL (1.3-4.6); Glucose 142 mg/dL (65-115); Osmolality Calculated 276 mOsm/kg (285-295); Sodium 132 mmol/L (136-145); Total Bilirubin 0.3 mg/dL (0.15-1.2); Total Protein 6.9 g/dL (6.6-8.7)
[2020-09-26 10:20] LABS: Slide Review Slide Review Perform; Vitamin B12 222 pg/mL (232-1245)
[2020-10-01] MEDS: cyanocobalamin 1,000 mcg/mL SDV 1000 MCG IM (09:10)
[2020-10-01 09:19] LABS: Basophils # 0.1 10^3/uL (0.0-0.1); Basophils % 1.1 %; Eosinophils # 0.2 10^3/uL (0.0-0.8); Eosinophils % 2.5 %; Hematocrit 41.3 % (42.0-52.0); Hemoglobin 13.3 g/dL (11.7-16.6); Lymphocytes # 1.8 10^3/uL (0.8-4.8); Lymphocytes % 29.7 %; Mean Corpuscular HGB Conc 32.2 g/dL (30.0-36.0); Mean Corpuscular Hemoglobin 32.3 pg (28.0-34.0); Mean Corpuscular Volume 100.2 fL (80-94); Monocytes # 1.1 10^3/uL (0.2-0.9); Monocytes % 18.6 %; Neutrophils # 2.91 10^3/uL (1.8-7.7); Neutrophils % 47.6 %; Nucleated Red Blood Cells % 0 %; Platelet Count 31 10^3/cmm (130-400); Red Blood Count 4.12 10^6/uL (4.1-5.3); Red Cell Distribution Width 14.4 % (12.1-15.1); White Blood Count 6.1 10^3/uL (4.0-10.0)
[2020-10-01 09:39] LABS: Alanine Aminotransferase 17 U/L (0-41); Albumin Level 4.3 g/dL (3.5-5.2); Alkaline Phosphatase 76 IU/L (40-130); Anion Gap 16.8 (5-19); Aspartate Amino Transferase 19 U/L (0-40); Blood Urea Nitrogen 15 mg/dL (8-23); Calcium 10.3 mg/dL (8.5-10.5); Carbon Dioxide 30 mmol/L (22-29); Chloride 93 mmol/L (98-107); Globulin 2.9 g/dL (1.3-4.6); Glucose 142 mg/dL (65-115); Osmolality Calculated 285 mOsm/kg (285-295); Potassium 3.8 mmol/L (3.5-5.1); Sodium 136 mmol/L (136-145); Total Bilirubin 0.3 mg/dL (0.15-1.2); Total Protein 7.2 g/dL (6.6-8.7)
== END 2020-10-01 23:59 | disposition home or self-care (01) ==
LOC: ONCMED 05:15
PROVIDERS: Internal Medicine Medical Oncology; PCP Family Medicine; Visit Provider Nurse Practitioner
DX: C01 Malignant neoplasm of base of tongue (principal); D51.9 Vitamin B12 deficiency anemia, unspecified
CPT/HCPCS: 36415; 80053; 82607; 85025; 96372; J3420

== ENCOUNTER 2020-10-02 06:00 | Outpatient (RCR) | payer MEDICARE, OTHER, SELFPAY | END 2020-11-01 23:59 | disposition home or self-care (01) | LOC: SPT 06:00 | PROVIDERS: PCP Family Medicine; Referring Provider Radiology Radiation Oncology; Visit Provider Radiology Radiation Oncology | DX: C01 Malignant neoplasm of base of tongue (principal) | CPT/HCPCS: 97110 ==

== ENCOUNTER 2020-10-22 05:40 | Outpatient (RCR) | payer MEDICARE, OTHER, SELFPAY ==
[2020-10-08] MEDS: cyanocobalamin 1,000 mcg/mL SDV 1000 MCG SUBCUT (09:00)
[2020-10-08 09:18] LABS: Basophils # 0.1 10^3/uL (0.0-0.1); Basophils % 1.4 %; Eosinophils # 0.2 10^3/uL (0.0-0.8); Eosinophils % 3.7 %; Hematocrit 39.9 % (42.0-52.0); Lymphocytes % 35.3 %; Mean Corpuscular HGB Conc 32.6 g/dL (30.0-36.0); Mean Corpuscular Volume 98.3 fL (80-94); Mean Platelet Volume 13.4 fL (7.4-10.4); Monocytes % 17.1 %; Neutrophils # 2.41 10^3/uL (1.8-7.7); Nucleated Red Blood Cells % 0 %; Platelet Count 52 10^3/cmm (130-400); Red Blood Count 4.06 10^6/uL (4.1-5.3); Red Cell Distribution Width 14.3 % (12.1-15.1); White Blood Count 5.7 10^3/uL (4.0-10.0)
[2020-10-08 09:48] LABS: Slide Review Slide Review Perform
[2020-10-15] MEDS: cyanocobalamin 1,000 mcg/mL SDV 1000 MCG SUBCUT (09:09)
[2020-10-15 09:35] LABS: Basophils # 0.1 10^3/uL (0.0-0.1); Basophils % 1.5 %; Eosinophils # 0.2 10^3/uL (0.0-0.8); Eosinophils % 2.7 %; Hematocrit 40.9 % (42.0-52.0); Hemoglobin 13.5 g/dL (11.7-16.6); Lymphocytes # 1.7 10^3/uL (0.8-4.8); Lymphocytes % 30.3 %; Mean Corpuscular Hemoglobin 32.4 pg (28.0-34.0); Mean Corpuscular Volume 98.1 fL (80-94); Monocytes # 1.1 10^3/uL (0.2-0.9); Monocytes % 19.3 %; Neutrophils # 2.51 10^3/uL (1.8-7.7); Neutrophils % 45.8 %; Nucleated Red Blood Cells % 0 %; Platelet Count 33 10^3/cmm (130-400); Red Blood Count 4.17 10^6/uL (4.1-5.3); Red Cell Distribution Width 13.9 % (12.1-15.1); White Blood Count 5.5 10^3/uL (4.0-10.0)
[2020-10-15 09:42] LABS: Alanine Aminotransferase 16 U/L (0-41); Albumin Level 4.2 g/dL (3.5-5.2); Alkaline Phosphatase 65 IU/L (40-130); Anion Gap 15.5 (5-19); Aspartate Amino Transferase 25 U/L (0-40); Blood Urea Nitrogen 17 mg/dL (8-23); Calcium 9.9 mg/dL (8.5-10.5); Carbon Dioxide 29 mmol/L (22-29); Chloride 97 mmol/L (98-107); Globulin 2.7 g/dL (1.3-4.6); Glucose 132 mg/dL (65-115); Osmolality Calculated 289 mOsm/kg (285-295); Potassium 3.5 mmol/L (3.5-5.1); Sodium 138 mmol/L (136-145); Total Bilirubin 0.2 mg/dL (0.15-1.2); Total Protein 6.9 g/dL (6.6-8.7)
[2020-10-22] MEDS: cyanocobalamin 1,000 mcg/mL SDV 1000 MCG SUBCUT (08:53)
[2020-10-22 09:03] LABS: Basophils # 0.1 10^3/uL (0.0-0.1); Basophils % 1.5 %; Eosinophils # 0.3 10^3/uL (0.0-0.8); Eosinophils % 4.7 %; Hematocrit 39.7 % (42.0-52.0); Lymphocytes # 2.5 10^3/uL (0.8-4.8); Lymphocytes % 41.1 %; Mean Corpuscular HGB Conc 32.7 g/dL (30.0-36.0); Mean Corpuscular Volume 97.8 fL (80-94); Mean Platelet Volume 12.8 fL (7.4-10.4); Neutrophils # 2.14 10^3/uL (1.8-7.7); Neutrophils % 35.5 %; Nucleated Red Blood Cells % 0 %; Platelet Count 48 10^3/cmm (130-400); Red Blood Count 4.06 10^6/uL (4.1-5.3); Red Cell Distribution Width 13.6 % (12.1-15.1)
== END 2020-11-01 23:59 | disposition home or self-care (01) ==
LOC: ONCMED 05:40
PROVIDERS: PCP Family Medicine; Visit Provider Nurse Practitioner
DX: C01 Malignant neoplasm of base of tongue (principal)
CPT/HCPCS: 36415; 80053; 85025; 96372; J3420

== ENCOUNTER 2020-11-05 08:53 | Outpatient (RCR) | payer MEDICARE, OTHER, SELFPAY ==
[2020-11-05 09:30] LABS: Basophils # 0.1 10^3/uL (0.0-0.1); Basophils % 1.3 %; Eosinophils # 0.3 10^3/uL (0.0-0.8); Eosinophils % 4.5 %; Hematocrit 40.5 % (42.0-52.0); Hemoglobin 13.2 g/dL (11.7-16.6); Lymphocytes # 2.3 10^3/uL (0.8-4.8); Lymphocytes % 37.5 %; Mean Corpuscular HGB Conc 32.6 g/dL (30.0-36.0); Mean Corpuscular Hemoglobin 32.1 pg (28.0-34.0); Mean Corpuscular Volume 98.5 fL (80-94); Mean Platelet Volume 13.5 fL (7.4-10.4); Monocytes % 16.6 %; Neutrophils # 2.46 10^3/uL (1.8-7.7); Neutrophils % 39.8 %; Nucleated Red Blood Cells % 0 %; Platelet Count 65 10^3/cmm (130-400); Red Blood Count 4.11 10^6/uL (4.1-5.3); Red Cell Distribution Width 13.5 % (12.1-15.1); White Blood Count 6.2 10^3/uL (4.0-10.0)
[2020-11-05 10:08] LABS: Alanine Aminotransferase 18 U/L (0-41); Albumin Level 4.2 g/dL (3.5-5.2); Alkaline Phosphatase 64 IU/L (40-130); Anion Gap 16.1 (5-19); Aspartate Amino Transferase 25 U/L (0-40); Blood Urea Nitrogen 17 mg/dL (8-23); Carbon Dioxide 31 mmol/L (22-29); Chloride 99 mmol/L (98-107); Glucose 138 mg/dL (65-115); Homocysteine 13.81; Osmolality Calculated 298 mOsm/kg (285-295); Potassium 4.1 mmol/L (3.5-5.1); Sodium 142 mmol/L (136-145); Total Bilirubin 0.3 mg/dL (0.15-1.2); Total Protein 7.2 g/dL (6.6-8.7)
--- NOTE | 2020-11-05 11:23 | ONC FU_ITS ---
[facility] Patient Note Patient: Demarcus Maldonado Unit #: [id number]: 1950 Dictated By: Willy LlamasDate of Visit: Nov 05, 2020 Onc MED Follow-Up/Prog Note Chief Complaint: Base of tongue cancer. 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 He had presented with left cervical lymphadenopathy. He had associated pain in the left side of the neck and throat. He had been seen initially by Dr. James. CT of the neck on 03/27/2020 showed a soft tissue enhancing mass centered in the left tongue base along the lingual tonsil. It was noted to extend over a length of 2.6 x 2.2 x 1.3 cm. There appeared to be enhancement across the midline and there was suspected involvement in the lingular surface of the right tongue. Also noted was enlargement and abnormal enhancement and thickening of the uvula. There was extensive, confluent adenopathy i involving the left neck. The largest cluster of nodes measured 8.4 cm in length by 2.8 cm, beginning at the level of the hyoid bone and extending inferiorly to the supraclavicular region. Additional clusters of lymph nodes were present at level IIa, IIb, III, Va, and in the supraclavicular area. The largest necrotic lymph node measured 2.5 x 2.2 cm at the level of the thyroid cartilage. Smaller lymph nodes were noted along the right cervical chain, but without definite adenopathy. The lung apices were noted to be clear. He was seen by Dr. Praneeth Thompson on 03/30/2020. His exam showed an exophytic mass and papillomatous mass at the left tongue base as well as papillomatous mass at the left paramedian tongue base. The remainder of the oral cavity and oropharyngeal exam was reported to be normal. The laryngeal exam showed erythema and edema of the arytenoid mucosa. He then underwent direct laryngoscopy with biopsy and esophagoscopy on 04/05/2020. Findings included an exophytic lesion involving the left tongue base extending to the right of the midline. It also was noted to extend into the vallecula. There was no involvement of the lateral pharyngeal wall or the larynx. The esophagus was noted to be free of lesions. Biopsy showed infiltrating moderately differentiated squamous cell carcinoma which was confirmed to be HPV positive. Dr Reich had seen him initially on 04/19/2020. Staging PET/CT on 04/28/2020 showed a 2.4 x 1.7 cm left base of tongue mass with SUV 24.5, consistent with primary malignancy. There were FDG positive nodes from cervical levels II through IV and V levels on the left consistent with local metastatic disease. A 1.2 cm right level 2A node had SUV 4.2 indicating a high probability of contralateral cervical disease. A subpleural solid nodule in the lateral left upper lobe measuring 8 mm had SUV 1.9, suspicious but not definitive for distant metastatic disease. A 2.8 x 1.5 cm subcarinal lymph node had SUV 5.3, suspicious for metastatic disease. Smaller FDG positive nodes in the right pretracheal and subaortic territories were felt to be most likely reactive. He was referred to Dr. Kingsley. On 05/15/2020 he underwent bronchoscopy/EBUS with transbronchial FNA biopsy of station 7 and station 4R lymph nodes. Pathology from both sites showed reactive lymph node tissue with no evidence of malignancy. With those findings, he was recommended to undergo radiation concurrently with standard high-dose cisplatin chemotherapy. He has a history of having previously undergone radical prostatectomy for prostate cancer. He also has a prior history of ITP. His other medical illnesses include hypertension, hyperlipidemia, and type 2 diabetes. He has a past history of smoking, but only for about 6 years. He quit smoking approximately 40 years ago. He had also chewed tobacco, but only for about 1 or 2 years. INTERIM HISTORY: He began cycle 1 of cisplatin at 100 mg/m??? by IV infusion concurrently with radiation on 05/31/2020. He experienced no acute toxicity with the initial cisplatin infusion. Her further chemotherapy was held due to neutropenia. He completed radiation on 06/19/2020 to a total dose of 6540 cGy. He then continued with radiation. At his day 22 visit he had moderately severe neutropenia with absolute neutrophil count at just under 1000, and his second dose of cisplatin was deferred. Subsequent to that visit, he began having more difficulty with swallowing and with oral intake, and he did opt undergo placement of the PEG tube. He was able to continue his radiation, and he proceeded with cycle 2 of cisplatin 100 mg/m??? by IV infusion on 07/03/2020. On 07/16/2020 he was admitted to the hospital with acute upper GI bleeding. His EGD showed multiple benign-appearing ulcers in the duodenum, which appeared to be the likely source for the GI bleed, though no active bleeding was apparent at the time of the procedure. During the hospitalization he became neutropenic, but it resolved uneventfully on antibiotic coverage with cefepime and Levaquin. During the hospitalization, he was able to resume his radiation, and he completed treatment on 07/23/2020 to a total dose of 7000 cGy. He was discharged home on 07/25/2020. Mr Malagon is here today for followup. Overall he is doing well. He is slowly recovering. He states that he is not using his walker for mobility assistance in the house very much at all. He states that he is eating good. He still has quite a few taste abnormalities. He states they are no worse and may be slightly better but certainly not back to his normal. He did have follow-up with Dr. Heath in [place] and he stated everything looked good and plan to see him back in 6 months. Mr. Maldonado states that he is seeing Dr. Goodwin tomorrow for possible PEG tube removal. He is not utilizing it at all. He denies any nausea or vomiting. He denies any diarrhea or constipation. He denies any pain. He states he has not had any trouble swallowing or eating. He denies any mouth sores, sore throat. Denies any residual neuropathy. His ECOG is 1. Past Medical History: History of prostate cancer Hypercholesterolemia Hypertension ITP Type II diabetes Past Surgical History: Radical prostatectomy Splenectomy Tonsillectomy Umbilical and abdominal wall hernia repairs Allergies: Keflex, Penicillins, and Pneumococcal 13-Samaria Conj Vacc. Medications: Atenolol 1 Tablet (of 25 mg) Tablet Oral daily Flonase Allergy Relief Suspension Nasal Furosemide 1 Tablet (of 40 mg) Oral at bedtime PRN metFORMIN HCl 0.5 - 1 Tablet (of 1000 mg) Oral b.i.d. Omeprazole 1 Capsule (of 20 mg) Capsule Delayed Release Oral daily Potassium Chloride ER 1 Tablet (of 10 meq) Capsule, controlled release Oral daily Pravastatin Sodium 1 Tablet (of 20 mg) Oral daily Family History: Mr. Maldonado's mother at age 85. Mr. Maldonado's father at age 83: pneumonia. Mr. Maldonado has 1 brother who is . He has 1 sister who is alive: melanoma. Father with pneumonia at age 83. Mother at age 85, apparently due to complications of dementia. A brother at age 53, exact cause unknown to the patient. He was told that he had some form of inherited condition that choked him out . A sister has been treated for melanoma. Social History: Mr. Maldonado is and he is retired. Mr. Maldonado quit smoking 39 years ago but had smoked for 5 years. He is a former drinker. Mr. Maldonado reports the following support systems: lives alone, supportive family/friends willing to assist with needs, and adequate transportation available for expected visits. His diet consists of regular meals. He indicates his activity level as: regular exercise. He is retired from [employer]. He also had done work on the side [employer]. He has a history of smoking for 6 years. He quit following his splenectomy, which was approximately 40 years ago. He also chewed tobacco, but only for about 1 or 2 years. He had some alcohol use in the . He quit drinking in 1971. Review Of Symptoms: Constitutional Denies lack of appetite, fatigue, fever, lethargy, malaise, night sweats, rigors / chills and change in weight. Eating good-no trouble swallowing. Taste is still off. Allergic/Immunologic No reactions. Eyes Denies significant visual changes. No diplopia. No amaurosis. ENMT Denies changes in hearing, sore throat, mouth sores, difficulty or changes in swallowing ability (soft foods), and/or sinus drainage. Hematologic/Lymphatic Denies easy bruising or bleeding. The patient denies any tender or palpable lymph nodes. Respiratory Denies dyspnea on exertion, chest pain, cough or hemoptysis. Denies orthopnea. Cardiovascular Denies anginal chest pain, palpitations or orthopnea. Gastrointestinal Denies nausea, vomiting, diarrhea, GI bleeding, or constipation. Denies change in bowel habits and/or stool color, no heartburn or early satiety. Genitourinary (M) Denies hematuria, dysuria, increased frequency, urgency, hesitancy or incontinence. Musculoskeletal Denies joint pain, swelling or redness. No decreased range of motion. Integumentary Denies chronic rashes, inflammation, ulcerations or skin changes. Neurologic Denies headache, blurred vision, and no areas of focal weakness or numbness. Normal gait-using assistance less and less. I go without the walker most of the time at home . No sensory problems. Psychiatric Denies insomnia, depression, kenneth or mood swings. Vital Signs: Performed on Nov 05, 2020 10:30 Height - 72.00 in Weight - 220.8 lbs (LOW) BSA - 2.22 sq.m BMI - 29.95 Temperature - 97.9 F (LOW) Pulse - 90 /min Respiration - 18 /min BP - 151/80 mm(hg) (HIGH) O2 Sat - 93 % (LOW) Pain - 0,1 - No physically strenuous activity, but ambulatory and able to carry out light or sedentary work (e.g. office work, light house work). (ECOG) Physical Examination: Constitutional Alert, oriented, no acute distress. Skin pink, warm and dry. Head Normocephalic; atraumatic. Eyes Conjunctivae and sclerae are clear and without icterus. Pupils are reactive and equal. ENMT No oral exudates, ulcers, masses, thrush or mucositis. Oropharynx clear. Tongue normal. Neck Supple without masses or thyromegaly. No jugular venous distension. No supraclavicular or cervical adenopathy. Hematologic/Lymphatic No petechiae or purpura. Respiratory Lungs are clear to auscultation without rhonchi or wheezing. Cardiovascular Regular rate and rhythm of heart without murmurs,clicks, gallops or rubs. Back/Spine Non-tender to palpation. Extremities No visible deformities, no cyanosis, clubbing or edema. Musculoskeletal No tenderness or swelling, normal range of motion without obvious weakness. Integumentary No rashes or lesions. Neurologic No sensory or motor deficits, normal cerebellar function, normal gait. Psychiatric Alert and oriented times three. Coherent speech. Verbalizes understanding of our discussions today. Laboratory:Test performed on Nov 05, 2020 09:16 Homocysteine 13.81 umol/L Sodium 142 mmol/L Potassium 4.1 mmol/L Chloride 99 mmol/L CO2 31 mmol/L Anion Gap 16.1 BUN 17 mg/dL Creatinine 0.9 mg/dL Cr Clearance (Est) 106.65 mL/min Glucose 138 mg/dL Osmolality - Calculated 298 mOsm/kg Calcium 10.0 mg/dL Protein, Total 7.2 g/dL Albumin 4.2 g/dL Globulin 3.0 g/dL Bilirubin, Total 0.3 mg/dL ALT (SGPT) 18 U/L AST (SGOT) 25 U/L Alkaline Phosphatase 64 IU/L WBC 6.2 10 3/uL RBC 4.11 10 6/uL HGB 13.2 g/dL HCT 40.5 % MCV 98.5 fL MCH 32.1 pg MCHC 32.6 g/dL RDW 13.5 % Platelet Count 65 10 3/cmm MPV 13.5 fL Neutrophils 2.46 10 3/uL Lymphocytes 2.3 10 3/uL Monocytes 1.0 10 3/uL Eosinophils 0.3 10 3/uL Basophils 0.1 10 3/uL Neutrophil % 39.8 % Lymphocyte % 37.5 % Monocyte % 16.6 % Eosinophil % 4.5 % Basophils % 1.3 % NRBC % 0 % Test performed on Sep 20, 2020 08:45 CBC Slide Review Slide Review Perform SLIDE REVIEW AGREES WITH AUTOMATED RESULTS ST Test performed on Jul 30, 2020 10:02 TSH 3.59 uIU/mL Test performed on May 31, 2020 08:25 Magnesium 1.7 mg/dL Impression: 1. Patient with infiltrating moderately differentiated squamous cell carcinoma involving left base of tongue, by clinical evaluation stage BEVERLY (T2, N2b, M0), HPV positive. 2. He underwent direct laryngoscopy with biopsy and esophagoscopy on 04/05/2020. His other medical illnesses include: 3. Hypertension. 4. Hyperlipidemia. 5. Type 2 diabetes. 6. He has chronic venous insufficiency. 7. History of prostate cancer for which he underwent radical prostatectomy approximately 5 years ago. 8. 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 Staging PET/CT 04/28/2020 reported a 2.4 x 1.7 cm left base of tongue mass with an SUV of 24.5, consistent with primary malignancy. There were FDG positive nodes from the cervical level II through IV and V levels on the left consistent with local metastatic disease. A 1.2 cm right level IIA node had an SUV of 4.2, indicating a high probability of contralateral cervical disease. In the left lateral upper lobe there was a subpleural solid nodule measuring 8 mm with an SUV 1.9. This was suspicious but not definitive for distant metastatic disease. A 2.8 x 1.5 subcarinal node with SUV 5.3 was suspicious for metastatic disease. Smaller FDG positive nodes in the right paratracheal and subaortic territories appeared to be most likely reactive. On 05/15/2020 he underwent bronchoscopy/EBUS with transbronchial FNA biopsy of station 7 and station 4R lymph nodes. Pathology from both sites showed reactive lymph node tissue with no evidence of malignancy. With those findings, he was recommended to undergo radiation concurrently with standard high-dose cisplatin chemotherapy. He began cycle 1 of cisplatin 100 mg/m??? IV infusion concurrently with radiation on 05/31/2020. He tolerated the initial cisplatin infusion with no acute toxicity. At day 22 he had developed moderately severe neutropenia, ANC 1000, and his 2nd cycle of cisplatin was deferred. During that time he had undergone placement of a PEG tube, and he began nutritional support with tube feeding. He was able to continue his radiation, and he was then given cycle 2 of cisplatin on 07/03/2020. On 07/16/2020 he was admitted to the hospital with acute GI bleed, determined by EGD to be due to duodenal ulcers. He stabilized with conservative management. He again became neutropenic, but with uneventful recovery. He was able to continue radiation, and he completed his treatment on 07/23/2020 to a total dose of 7000 cGy. Since discharge from the hospital he has still been pretty weak generally and he has limited activity. At this point he still has sore throat and difficulty swallowing, but he does tolerate his tube feeding. Overall he has had significant complications during chemoradiation and he still has early marginal performance status, but he does appear to have had a very good response by clinical evaluation. He continues to recover without evidence of disease recurrence. He continues to have thromboctyopenia but his platelets are improved today at 65,000. Plan: 1. Continue observation/expectant management. 2. He is seeing Dr Goodwin for possible removal of his PEG tube tomorrow. He states he is not using it at all. 3. He did have followup with Dr Neville just before Aure[place] and reports he was told everything looked good and Dr Neville will see him back in 6 months or as needed. 4. Today's labs were reviewed in detail and discussed with Mr Maldonado and a copy was given to him. WBC , Hgb 13.2, platelets 65,000, ANC 2500. Creatinine 0.3, random glucose 138, LFT's are normal. His weight is 220.8. He is afebrile. Add a hemoglobin A1c to blood in lab due to his glucose of 138. This also may be sent to [facility]. 5. We will plan to see him back in 1 month with CBC CMP TSH. Also he will have restaging PET CT imaging for comparison to his August 2020 scans. 6. Mr. Maldonado hard about the COVID-19 vaccine. He wishes to visit on a list to have received the vaccine once it is available. [facility] was to be on our [facility] as well. He states the [facility] did [facility] to have a shingles vaccine. I did ask him to delay that until after the Covid vaccine just due to the unknown sequela of both been administered within a month or so of each other. 7. Mr. Maldonado was encouraged to contact us in interim should questions or problems arise. Signed By: Willy Llamas-, CNP Devendra Reich MD <<Signature on File>>
[2020-11-05 13:07] LABS: Estmated Average Glucose 123; Hemoglobin A1C 5.9 % (4.0-6.0)
[2020-11-08 11:33] LABS: Methylmalonic Acid 142 nmol/L (87-318)
== END 2020-12-02 23:59 | disposition home or self-care (01) ==
LOC: ONCMED 08:53
PROVIDERS: PCP Family Medicine; Visit Provider Nurse Practitioner
DX: C01 Malignant neoplasm of base of tongue (principal); I10 Essential (primary) hypertension; E78.5 Hyperlipidemia, unspecified; E11.9 Type 2 diabetes mellitus without complications; I87.2 Venous insufficiency (chronic) (peripheral); D69.3 Immune thrombocytopenic purpura; Z85.46 Personal history of malignant neoplasm of prostate; Z79.899 Other long term (current) drug therapy
CPT/HCPCS: 36415; 80053; 83036; 83090; 83921; 85025; 99214

== ENCOUNTER 2020-12-24 08:04 | Outpatient (RCR) | payer MEDICARE, OTHER, SELFPAY ==
[2020-12-24 08:35] LABS: Basophils # 0.1 10^3/uL (0.0-0.1); Basophils % 1.5 %; Eosinophils # 0.2 10^3/uL (0.0-0.8); Eosinophils % 3.9 %; Hemoglobin 13.4 g/dL (11.7-16.6); Lymphocytes # 2.5 10^3/uL (0.8-4.8); Lymphocytes % 47.5 %; Mean Corpuscular HGB Conc 32.7 g/dL (30.0-36.0); Mean Corpuscular Hemoglobin 31.8 pg (28.0-34.0); Mean Corpuscular Volume 97.2 fL (80-94); Mean Platelet Volume 12.3 fL (7.4-10.4); Monocytes # 0.8 10^3/uL (0.2-0.9); Monocytes % 15.6 %; Neutrophils # 1.62 10^3/uL (1.8-7.7); Neutrophils % 31.3 %; Nucleated Red Blood Cells % 0 %; Platelet Count 57 10^3/cmm (130-400); Red Blood Count 4.22 10^6/uL (4.1-5.3); Red Cell Distribution Width 14.6 % (12.1-15.1); White Blood Count 5.2 10^3/uL (4.0-10.0)
[2020-12-24 09:02] LABS: Alanine Aminotransferase 14 U/L (0-41); Albumin Level 4.4 g/dL (3.5-5.2); Alkaline Phosphatase 60 IU/L (40-130); Anion Gap 15.2 (5-19); Aspartate Amino Transferase 24 U/L (0-40); Blood Urea Nitrogen 19 mg/dL (8-23); Carbon Dioxide 29 mmol/L (22-29); Chloride 97 mmol/L (98-107); Glucose 127 mg/dL (65-115); Osmolality Calculated 290 mOsm/kg (285-295); Potassium 3.2 mmol/L (3.5-5.1); Sodium 138 mmol/L (136-145); Total Bilirubin 0.4 mg/dL (0.15-1.2); Total Protein 7.4 g/dL (6.6-8.7)
[2020-12-24] MEDS: sodium chloride 0.9% 250 ML 125 ML IV (12:49)
--- NOTE | 2020-12-30 16:46 | ONC FU_ITS ---
[facility] Patient Note Patient: Demarcus Maldonado Unit #: [id number]: 1950 Dictated By: Willy LlamasDate of Visit: Dec 24, 2020 Onc MED Follow-Up/Prog Note Chief Complaint: Base of tongue cancer. 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 He had presented with left cervical lymphadenopathy. He had associated pain in the left side of the neck and throat. He had been seen initially by Dr. James. CT of the neck on 03/27/2020 showed a soft tissue enhancing mass centered in the left tongue base along the lingual tonsil. It was noted to extend over a length of 2.6 x 2.2 x 1.3 cm. There appeared to be enhancement across the midline and there was suspected involvement in the lingular surface of the right tongue. Also noted was enlargement and abnormal enhancement and thickening of the uvula. There was extensive, confluent adenopathy i involving the left neck. The largest cluster of nodes measured 8.4 cm in length by 2.8 cm, beginning at the level of the hyoid bone and extending inferiorly to the supraclavicular region. Additional clusters of lymph nodes were present at level IIa, IIb, III, Va, and in the supraclavicular area. The largest necrotic lymph node measured 2.5 x 2.2 cm at the level of the thyroid cartilage. Smaller lymph nodes were noted along the right cervical chain, but without definite adenopathy. The lung apices were noted to be clear. He was seen by Dr. Praneeth Thompson on 03/30/2020. His exam showed an exophytic mass and papillomatous mass at the left tongue base as well as papillomatous mass at the left paramedian tongue base. The remainder of the oral cavity and oropharyngeal exam was reported to be normal. The laryngeal exam showed erythema and edema of the arytenoid mucosa. He then underwent direct laryngoscopy with biopsy and esophagoscopy on 04/05/2020. Findings included an exophytic lesion involving the left tongue base extending to the right of the midline. It also was noted to extend into the vallecula. There was no involvement of the lateral pharyngeal wall or the larynx. The esophagus was noted to be free of lesions. Biopsy showed infiltrating moderately differentiated squamous cell carcinoma which was confirmed to be HPV positive. Dr Reich had seen him initially on 04/19/2020. Staging PET/CT on 04/28/2020 showed a 2.4 x 1.7 cm left base of tongue mass with SUV 24.5, consistent with primary malignancy. There were FDG positive nodes from cervical levels II through IV and V levels on the left consistent with local metastatic disease. A 1.2 cm right level 2A node had SUV 4.2 indicating a high probability of contralateral cervical disease. A subpleural solid nodule in the lateral left upper lobe measuring 8 mm had SUV 1.9, suspicious but not definitive for distant metastatic disease. A 2.8 x 1.5 cm subcarinal lymph node had SUV 5.3, suspicious for metastatic disease. Smaller FDG positive nodes in the right pretracheal and subaortic territories were felt to be most likely reactive. He was referred to Dr. Kingsley. On 05/15/2020 he underwent bronchoscopy/EBUS with transbronchial FNA biopsy of station 7 and station 4R lymph nodes. Pathology from both sites showed reactive lymph node tissue with no evidence of malignancy. With those findings, he was recommended to undergo radiation concurrently with standard high-dose cisplatin chemotherapy. He has a history of having previously undergone radical prostatectomy for prostate cancer. He also has a prior history of ITP. His other medical illnesses include hypertension, hyperlipidemia, and type 2 diabetes. He has a past history of smoking, but only for about 6 years. He quit smoking approximately 40 years ago. He had also chewed tobacco, but only for about 1 or 2 years. INTERIM HISTORY: He began cycle 1 of cisplatin at 100 mg/m??? by IV infusion concurrently with radiation on 05/31/2020. He experienced no acute toxicity with the initial cisplatin infusion. Her further chemotherapy was held due to neutropenia. He completed radiation on 06/19/2020 to a total dose of 6540 cGy. He then continued with radiation. At his day 22 visit he had moderately severe neutropenia with absolute neutrophil count at just under 1000, and his second dose of cisplatin was deferred. Subsequent to that visit, he began having more difficulty with swallowing and with oral intake, and he did opt undergo placement of the PEG tube. He was able to continue his radiation, and he proceeded with cycle 2 of cisplatin 100 mg/m??? by IV infusion on 07/03/2020. On 07/16/2020 he was admitted to the hospital with acute upper GI bleeding. His EGD showed multiple benign-appearing ulcers in the duodenum, which appeared to be the likely source for the GI bleed, though no active bleeding was apparent at the time of the procedure. During the hospitalization he became neutropenic, but it resolved uneventfully on antibiotic coverage with cefepime and Levaquin. During the hospitalization, he was able to resume his radiation, and he completed treatment on 07/23/2020 to a total dose of 7000 cGy. He was discharged home on 07/25/2020. His neutropenia did recover post hospitalization but has had persistent thrombocytopenia of unknown etiology. Mr. Maldonado reports that he had follow-up with Dr. Neville in [place] and is on a 6-month surveillance plan for him. He also had removal of his PEG tube on November 06, [address] Goodwin. Mr. Maldonado had restaging PET/CT on November 24, 2020 which reported resolution at the base of the tongue and bilateral cervical malignant nodes. Progression of existing left upper lobe nodule with development of multiple new FDG positive nodules, indicating malignant progression. Mr. Maldonado did have next generation sequencing through [facility] and on December 04, 2020 it reported that he was PD-L1 (22 C3) positive, CPS: 10 by IHC and TMB sequencing was high, 11 mut/Mb. His p16 by IHC was positive/2+, 90%, MSI sequencing was stable mismatch repair status was proficient; NTRK 1/2/3 fusion not detected; FANTASMA negative and EGFR amplification not detected. TP53 mutation not detected. HOXB13 sequencing pathogenic variant Exon 1 p.[id number]; KMT2D pathologic variant exon 48 [id number], The tumor mutational burden was reported at 11. With these findings Dr. Reich has discussed with Mr.& Mrs. Maldonado the potential benefit of response with immunotherapy. He has offered Mr. Maldonado treatment with pembrolizumab. Mr. Maldonado, Mrs. Maldonado and Dr. Reich discussed this at length and they are agreeable to proceed with a trial of immunotherapy. We will plan to start that today. Mr. Maldonado states he has no new concerns. He denies any new shortness of breath or orthopnea. He states he has had a productive cough of some discolored sputum which she states happens frequently this time a year. He states unfortunately he generally ends up with bronchitis. He states he is able to cough stuff up currently. He denies any fever or chills. He denies any known Covid exposure or pending test. He denies any chest pain or palpitations. He states he is generally weak but no worse than what he has been. He is able to perform his ADLs without any assistance. He denies any bowel or bladder problems. He denies any worsening fatigue, hair loss or brittle nails. He states overall he feels good. He is eating good and swallowing well at this point. He denies any new pain. His ECOG is 1. Past Medical History: History of prostate cancer Hypercholesterolemia Hypertension ITP Type II diabetes Past Surgical History: Radical prostatectomy Splenectomy Tonsillectomy Umbilical and abdominal wall hernia repairs Allergies: Keflex, Penicillins, and Pneumococcal 13-[place] Conj Vacc. Medications: Atenolol 1 Tablet (of 25 mg) Tablet Oral daily Flonase Allergy Relief Suspension Nasal Furosemide 1 Tablet (of 40 mg) Oral at bedtime PRN metFORMIN HCl 0.5 - 1 Tablet (of 1000 mg) Oral b.i.d. Omeprazole 1 Capsule (of 20 mg) Capsule Delayed Release Oral daily Potassium Chloride ER 1 Tablet (of 10 meq) Capsule, controlled release Oral daily Pravastatin Sodium 1 Tablet (of 20 mg) Oral daily Family History: Mr. Maldonado's mother at age 85. Mr. Maldonado's father at age 83: pneumonia. Mr. Maldonado has 1 brother who is . He has 1 sister who is alive: melanoma. Father with pneumonia at age 83. Mother at age 85, apparently due to complications of dementia. A brother at age 53, exact cause unknown to the patient. He was told that he had some form of inherited condition that choked him out . A sister has been treated for melanoma. Social History: Mr. Maldonado is and he is retired. Mr. Maldonado quit smoking 39 years ago but had smoked for 5 years. He is a former drinker. Mr. Maldonado reports the following support systems: lives alone, supportive family/friends willing to assist with needs, and adequate transportation available for expected visits. His diet consists of regular meals. He indicates his activity level as: regular exercise. He is retired from [employer]. 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 He has a history of smoking for 6 years. He quit following his splenectomy, which was approximately 40 years ago. He also chewed tobacco, but only for about 1 or 2 years. He had some alcohol use in the . He quit drinking in 1971. Review Of Symptoms: Constitutional Denies lack of appetite, fatigue, fever, lethargy, malaise, night sweats, rigors / chills and change in weight. Eating good-no trouble swallowing. Eyes Denies significant visual changes. No diplopia. No amaurosis. ENMT Denies changes in hearing, sore throat, mouth sores, difficulty or changes in swallowing ability (soft foods), and/or sinus drainage. Hematologic/Lymphatic Denies easy bruising or bleeding. The patient denies any tender or palpable lymph nodes. Respiratory Denies dyspnea on exertion, chest pain, cough or hemoptysis. Denies orthopnea. Cardiovascular Denies anginal chest pain, palpitations or orthopnea. Gastrointestinal Denies nausea, vomiting, diarrhea, GI bleeding, or constipation. Denies change in bowel habits and/or stool color, no heartburn or early satiety. Genitourinary (M) Denies hematuria, dysuria, increased frequency, urgency, hesitancy or incontinence. Musculoskeletal Denies joint pain, swelling or redness. No decreased range of motion. Integumentary Denies chronic rashes, inflammation, ulcerations or skin changes. Neurologic Denies headache, blurred vision, and no areas of focal weakness or numbness. Normal gait-using cane for assistance less and less. Psychiatric Denies insomnia, depression, kenneth or mood swings. Vital Signs: ,1 - No physically strenuous activity, but ambulatory and able to carry out light or sedentary work (e.g. office work, light house work). (ECOG) Physical Examination: Constitutional Alert, oriented, no acute distress. Skin pink, warm and dry. Head Normocephalic; atraumatic. Eyes Conjunctivae and sclerae are clear and without icterus. Pupils are reactive and equal. Neck Supple without masses or thyromegaly. No jugular venous distension. No supraclavicular or cervical adenopathy. Hematologic/Lymphatic No petechiae or purpura. Respiratory Lungs are clear to auscultation without rhonchi or wheezing. Cardiovascular Regular rate and rhythm of heart without murmurs,clicks, gallops or rubs. Back/Spine Non-tender to palpation. Extremities No visible deformities, no cyanosis, clubbing or edema. Musculoskeletal No tenderness or swelling, normal range of motion without obvious weakness. Integumentary No rashes or lesions. Neurologic No sensory or motor deficits, normal cerebellar function, normal gait. Psychiatric Alert and oriented times three. Coherent speech. Verbalizes understanding of our discussions today. Laboratory:Test performed on Dec 24, 2020 08:23 Sodium 138 mmol/L TSH 9.00 uIU/mL Potassium 3.2 mmol/L Chloride 97 mmol/L CO2 29 mmol/L Anion Gap 15.2 BUN 19 mg/dL Creatinine 0.9 mg/dL Cr Clearance (Est) 105.1000 mL/min Glucose 127 mg/dL Osmolality - Calculated 290 mOsm/kg Calcium 10.0 mg/dL Protein, Total 7.4 g/dL Albumin 4.4 g/dL Globulin 3.0 g/dL Bilirubin, Total 0.4 mg/dL ALT (SGPT) 14 U/L AST (SGOT) 24 U/L Alkaline Phosphatase 60 IU/L WBC 5.2 10 3/uL RBC 4.22 10 6/uL HGB 13.4 g/dL HCT 41.0 % MCV 97.2 fL MCH 31.8 pg MCHC 32.7 g/dL RDW 14.6 % Platelet Count 57 10 3/cmm MPV 12.3 fL Neutrophils 1.62 10 3/uL Lymphocytes 2.5 10 3/uL Monocytes 0.8 10 3/uL Eosinophils 0.2 10 3/uL Basophils 0.1 10 3/uL Neutrophil % 31.3 % Lymphocyte % 47.5 % Monocyte % 15.6 % Eosinophil % 3.9 % Basophils % 1.5 % NRBC % 0 % Test performed on Nov 05, 2020 09:16 Homocysteine 13.81 umol/L Test performed on Sep 20, 2020 08:45 CBC Slide Review Slide Review Perform SLIDE REVIEW AGREES WITH AUTOMATED RESULTS ST Impression: 1. Patient with infiltrating moderately differentiated squamous cell carcinoma involving left base of tongue, by clinical evaluation stage BEVERLY (T2, N2b, M0), HPV positive. 2. He underwent direct laryngoscopy with biopsy and esophagoscopy on 04/05/2020. His other medical illnesses include: 3. Hypertension. 4. Hyperlipidemia. 5. Type 2 diabetes. 6. He has chronic venous insufficiency. 7. History of prostate cancer for which he underwent radical prostatectomy approximately 5 years ago. 8. 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 Staging PET/CT 04/28/2020 reported a 2.4 x 1.7 cm left base of tongue mass with an SUV of 24.5, consistent with primary malignancy. There were FDG positive nodes from the cervical level II through IV and V levels on the left consistent with local metastatic disease. A 1.2 cm right level IIA node had an SUV of 4.2, indicating a high probability of contralateral cervical disease. In the left lateral upper lobe there was a subpleural solid nodule measuring 8 mm with an SUV 1.9. This was suspicious but not definitive for distant metastatic disease. A 2.8 x 1.5 subcarinal node with SUV 5.3 was suspicious for metastatic disease. Smaller FDG positive nodes in the right paratracheal and subaortic territories appeared to be most likely reactive. On 05/15/2020 he underwent bronchoscopy/EBUS with transbronchial FNA biopsy of station 7 and station 4R lymph nodes. Pathology from both sites showed reactive lymph node tissue with no evidence of malignancy. With those findings, he was recommended to undergo radiation concurrently with standard high-dose cisplatin chemotherapy. He began cycle 1 of cisplatin 100 mg/m??? IV infusion concurrently with radiation on 05/31/2020. He tolerated the initial cisplatin infusion with no acute toxicity. At day 22 he had developed moderately severe neutropenia, ANC 1000, and his 2nd cycle of cisplatin was deferred. During that time he had undergone placement of a PEG tube, and he began nutritional support with tube feeding. He was able to continue his radiation, and he was then given cycle 2 of cisplatin on 07/03/2020. On 07/16/2020 he was admitted to the hospital with acute GI bleed, determined by EGD to be due to duodenal ulcers. He stabilized with conservative management. He again became neutropenic, but with uneventful recovery. He was able to continue radiation, and he completed his treatment on 07/23/2020 to a total dose of 7000 cGy. Since discharge from the hospital he has still been pretty weak generally and he has limited activity. At this point he still has sore throat and difficulty swallowing, but he does tolerate his tube feeding. Mr. Maldonado had restaging PET/CT on November 24, 2020 which reported resolution at the base of the tongue and bilateral cervical malignant nodes. Progression of existing left upper lobe nodule with development of multiple new FDG positive nodules, indicating malignant progression. Mr. Maldonado did have next generation sequencing through [facility] and on December 04, 2020 it reported that he was PD-L1 (22 C3) positive, CPS: 10 by IHC and TMB sequencing was high, 11 mut/Mb. His p16 by IHC was positive/2+, 90%, MSI sequencing was stable mismatch repair status was proficient; NTRK 1/2/3 fusion not detected; FANTASMA negative and EGFR amplification not detected. TP53 mutation not detected. HOXB13 sequencing pathogenic variant Exon 1 p.[id number]; KMT2D pathologic variant exon 48 [id number], The tumor mutational burden was reported at 11. With these findings Dr. Reich has discussed with Mr.& Mrs. Maldonado the potential benefit of response with immunotherapy. He has offered Mr. Maldonado treatment with pembrolizumab. He continues to recover without evidence of disease recurrence. He continues to have thromboctyopenia. Mr. Maldonado was found to have PD-L1 positive mutation from the [facility] report dated 12/04/2020. There has been documented benefit from pembrolizumab. Mr. Maldonado has been offered treatment with pembrolizumab. He and Dr. Reich discussed it at length today. He has elected to proceed with pembrolizumab today. Plan: PROBLEMS ADDRESSED TODAY 1. PD-L1 positive infiltrating moderately differentiated squamous cell carcinoma involving the left tongue base. A. Proceed with cycle 1 single agent prembrolizumab B. Antiemetics may be added as needed C. Today's labs were reviewed in detail and discussed with Mr Maldonado and a copy was given to him. WBC 5.2, hemoglobin 13.4, platelets 57,000, ANC is 1620. Potassium 3.2 random glucose 127 creatinine 0.9 LFTs are normal TSH is 9.0. 5. We will plan to see him back in 3 weeks for cycle 2 with CBC CMP TSH. 6. Specific side effects of immunotherapy discussed included but not limited to: ??? pneumonitis: new or worsening cough; chest pain; and shortness of breath. ??? Colitis: diarrhea or more bowel movements than usual; blood in stools or dark, tarry, sticky stools; and severe stomach area (abdomen) pain or tenderness. ??? Encephalitis: confusion, headaches, mental status changes, disorientation * hepatitis: jaundice; severe nausea or vomiting; pain on the right side of the abdomen; drowsiness; dark urine; bleeding or bruise more easily than normal. ??? nephritis and kidney failure: including decrease in the amount of urine; hematuria; lower extremity edema; and loss of appetite. ??? thyroid and pituitary changes that may include: headaches that will not go away or unusual headaches; extreme tiredness, weight gain or weight loss; changes in mood or behavior, such as decreased sex drive, irritability, or forgetfulness; dizziness or fainting; hair loss; feeling cold; constipation; and voice gets deeper. ???rash; changes in eyesight; severe or persistent muscle or joint pains; and severe muscle weakness. 2. Hypothyroidism A. We will start him on levothyroxine 25 mics for a TSH of 9.0 prior to starting immunotherapy. He has been instructed to let us know if he has any worsening fatigue, skin dryness, brittle hair or nails, shortness of breath, chest discomfort or any diaphoresis. He was encouraged to let us know if he has any GI side effects such as diarrhea/constipation or nausea/vominting. B. We will plan to recheck his thyroid profile at his next follow-up. 3. Lower respiratory symptoms concerning for onset of bronchitis A. Levaquin 500 mg po daily x 7 days B OTC cough medicatio with Delsym C. OTC Guaifenesin as needed for congestion. The majority of this visit was time spent face to face in review of plan of care by Dr Reich and myself, review of side effect identification/management and where to call for questions or concerns. Signed By: Willy Llamas-, [facility] Devendra Reich MD <<Signature on File>>
== END 2020-12-30 23:59 | disposition home or self-care (01) ==
LOC: ONCMED 08:04
PROVIDERS: PCP Family Medicine; Visit Provider Nurse Practitioner
DX: Z51.12 Encounter for antineoplastic immunotherapy (principal); C01 Malignant neoplasm of base of tongue; E78.00 Pure hypercholesterolemia, unspecified; I10 Essential (primary) hypertension; E11.9 Type 2 diabetes mellitus without complications; E78.5 Hyperlipidemia, unspecified; I87.2 Venous insufficiency (chronic) (peripheral); Z85.46 Personal history of malignant neoplasm of prostate; Z79.899 Other long term (current) drug therapy
CPT/HCPCS: 80053; 84443; 85025; 96413; 99215; J7050; J9271

== ENCOUNTER 2021-01-14 06:06 | Outpatient (RCR) | payer MEDICARE, OTHER, SELFPAY ==
[2021-01-14 14:42] LABS: Basophils # 0.1 10^3/uL (0.0-0.1); Eosinophils # 0.2 10^3/uL (0.0-0.8); Eosinophils % 3.3 %; Hematocrit 37.9 % (42.0-52.0); Hemoglobin 12.5 g/dL (11.7-16.6); Lymphocytes # 2.2 10^3/uL (0.8-4.8); Mean Corpuscular Hemoglobin 31.7 pg (28.0-34.0); Mean Corpuscular Volume 96.2 fL (80-94); Monocytes # 0.9 10^3/uL (0.2-0.9); Monocytes % 15.9 %; Neutrophils # 2.14 10^3/uL (1.8-7.7); Neutrophils % 38.6 %; Nucleated Red Blood Cells % 0 %; Platelet Count 75 10^3/cmm (130-400); Red Blood Count 3.94 10^6/uL (4.1-5.3); Red Cell Distribution Width 15.3 % (12.1-15.1); White Blood Count 5.5 10^3/uL (4.0-10.0)
[2021-01-14 15:19] LABS: Alanine Aminotransferase 16 U/L (0-41); Albumin Level 4.2 g/dL (3.5-5.2); Alkaline Phosphatase 59 IU/L (40-130); Anion Gap 14.7 (5-19); Aspartate Amino Transferase 27 U/L (0-40); Blood Urea Nitrogen 19 mg/dL (8-23); Calcium 9.5 mg/dL (8.5-10.5); Carbon Dioxide 29 mmol/L (22-29); Chloride 100 mmol/L (98-107); Glucose 99 mg/dL (65-115); Osmolality Calculated 292 mOsm/kg (285-295); Potassium 3.7 mmol/L (3.5-5.1); Sodium 140 mmol/L (136-145); Thyroid Stimulating Hormone 4.42 uIU/mL (0.27-4.20); Total Bilirubin 0.5 mg/dL (0.15-1.2); Total Protein 7.2 g/dL (6.6-8.7)
[2021-01-14 17:17] LABS: Vitamin B12 > 2000 pg/mL (232-1245)
--- NOTE | 2021-01-14 18:25 | ONC FU_ITS ---
Dr. Reich Patient Follow-Up Note Patient: Demarcus Maldonado Unit #: [id number]: [id number] Dicatated By: Devendra Reich M.D.Date of Visit:Jan 14, 2021 Onc Med Follow-up/Prog Note Chief Complaint: Base of tongue cancer. 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 He had subsequent progression to stage IVC with PET/CT evidence of pulmonary metastatic disease bilaterally. He had presented with left cervical lymphadenopathy. He had associated pain in the left side of the neck and throat. He had been seen initially by Dr. James. CT of the neck on 03/27/2020 showed a soft tissue enhancing mass centered in the left tongue base along the lingual tonsil. It was noted to extend over a length of 2.6 x 2.2 x 1.3 cm. There appeared to be enhancement across the midline and there was suspected involvement in the lingular surface of the right tongue. Also noted was enlargement and abnormal enhancement and thickening of the uvula. There was extensive, confluent adenopathy i involving the left neck. The largest cluster of nodes measured 8.4 cm in length by 2.8 cm, beginning at the level of the hyoid bone and extending inferiorly to the supraclavicular region. Additional clusters of lymph nodes were present at level IIa, IIb, III, Va, and in the supraclavicular area. The largest necrotic lymph node measured 2.5 x 2.2 cm at the level of the thyroid cartilage. Smaller lymph nodes were noted along the right cervical chain, but without definite adenopathy. The lung apices were noted to be clear. He was seen by Dr. Praneeth Thompson on 03/30/2020. His exam showed an exophytic mass and papillomatous mass at the left tongue base as well as papillomatous mass at the left paramedian tongue base. The remainder of the oral cavity and oropharyngeal exam was reported to be normal. The laryngeal exam showed erythema and edema of the arytenoid mucosa. He then underwent direct laryngoscopy with biopsy and esophagoscopy on 04/05/2020. Findings included an exophytic lesion involving the left tongue base extending to the right of the midline. It also was noted to extend into the vallecula. There was no involvement of the lateral pharyngeal wall or the larynx. The esophagus was noted to be free of lesions. Biopsy showed infiltrating moderately differentiated squamous cell carcinoma which was confirmed to be HPV positive. I had seen him initially on 04/19/2020. Staging PET/CT on 04/28/2020 showed a 2.4 x 1.7 cm left base of tongue mass with SUV 24.5, consistent with primary malignancy. There were FDG positive nodes from cervical levels II through IV and V levels on the left consistent with local metastatic disease. A 1.2 cm right level 2A node had SUV 4.2 indicating a high probability of contralateral cervical disease. A subpleural solid nodule in the lateral left upper lobe measuring 8 mm had SUV 1.9, suspicious but not definitive for distant metastatic disease. A 2.8 x 1.5 cm subcarinal lymph node had SUV 5.3, suspicious for metastatic disease. Smaller FDG positive nodes in the right pretracheal and subaortic territories were felt to be most likely reactive. He was referred to Dr. Kingsley. On 05/15/2020 he underwent bronchoscopy/EBUS with transbronchial FNA biopsy of station 7 and station 4R lymph nodes. Pathology from both sites showed reactive lymph node tissue with no evidence of malignancy. With those findings, he was recommended to undergo radiation concurrently with standard high-dose cisplatin chemotherapy. He began cycle 1 of cisplatin at 100 mg/m??? by IV infusion concurrently with radiation on 05/31/2020. He experienced no acute toxicity with the initial cisplatin infusion. Her further chemotherapy was held due to neutropenia. He completed radiation on 06/19/2020 to a total dose of 6540 cGy. He then continued with radiation. At his day 22 visit he had moderately severe neutropenia with absolute neutrophil count at just under 1000, and his second dose of cisplatin was deferred. Subsequent to that visit, he began having more difficulty with swallowing and with oral intake, and he did opt undergo placement of the PEG tube. He was able to continue his radiation, and he proceeded with cycle 2 of cisplatin 100 mg/m??? by IV infusion on 07/03/2020. On 07/16/2020 he was admitted to the hospital with acute upper GI bleeding. His EGD showed multiple benign-appearing ulcers in the duodenum, which appeared to be the likely source for the GI bleed, though no active bleeding was apparent at the time of the procedure. During the hospitalization he became neutropenic, but it resolved uneventfully on antibiotic coverage with cefepime and Levaquin. During the hospitalization, he was able to resume his radiation, and he completed treatment on 07/23/2020 to a total dose of 7000 cGy. He has a history of having previously undergone radical prostatectomy for prostate cancer. He also has a prior history of ITP. His other medical illnesses include hypertension, hyperlipidemia, and type 2 diabetes. He has a past history of smoking, but only for about 6 years. He quit smoking approximately 40 years ago. He had also chewed tobacco, but only for about 1 or 2 years. INTERIM HISTORY: Restaging neck CT on 08/20/2020 showed significant improvement in the cervical chain lymphadenopathy with the largest persistent lymph node measuring 1.7 x 1.6 cm at level III. There appeared to be complete resolution of the left tongue base neoplasm. A restaging PET/CT on 11/24/2020 showed resolution of the base of tongue mass with FDG negative, subcentimeter left sided cervical lymph nodes. The right cervical level 2A node was no longer visualized. A 9 mm left upper lobe pulmonary nodule with SUV 2.3 was noted to have progressed from the prior study and also noted were multiple new bilateral pulmonary nodules, consistent with malignancy. These included a 1 cm anterior medial left upper lobe nodule with SUV 6.7 and a 1.1 cm right upper lobe nodule with SUV 6.4. With those findings he had further evaluation with a next generation sequencing study. It showed no actionable mutations, but the PD-L1 was positive at 10% and the tumor mutation burden was high at 11, suggesting potential benefit with immunotherapy. On 12/24/2020 he began cycle 1 of treatment with pembrolizumab. He tolerated it with no adverse effects. He is seen now for a follow-up visit. He says his energy is getting a little better. His ECOG score is 1. His appetite also is improving, except for lunch. His weight is down, though. He does not have fever or night sweats. He is not having difficulty swallowing. He does have some sinus drainage and cough. He does not complain of shortness of breath or chest pain. He has not been having nausea. He has had a little pain in his left lower chest/left upper quadrant medially. Bowel function has been adequate with senna. He has no complaints. He has some muscle cramping in his hands and he also complains that his shoulders hurt. He does not complain of headache. He has occasional orthostatic lightheadedness. He tends to get numbness in his left hand at night. Medications: Atenolol 1 Tablet (of 25 mg) Oral daily, Claritin 1 Tablet (of 10 mg) Oral once, D3-1000 1 Tablet (of 25 mcg ) Oral daily, Daily Multiple Vitamins 1 Tablet Oral daily, Flonase Allergy Relief Suspension Nasal, Furosemide 1 Tablet (of 40 mg) Oral at bedtime PRN, Lasix (80 mg) Tablet Oral Take as Directed, Levothyroxine Sodium 1 Tablet (of 25 mcg) Oral daily, metFORMIN HCl 0.5 - 1 Tablet (of 1000 mg) Oral b.i.d., Omeprazole 1 Capsule (of 20 mg) Capsule Delayed Release Oral daily, Potassium Chloride ER 1 Tablet (of 10 meq) Capsule, controlled release Oral daily, Pravastatin Sodium 1 Tablet (of 20 mg) Oral daily, Singulair 1 Tablet (of 10 mg) Oral at bedtime, Vitamin B 12 1 Tablet Oral once Allergies: Keflex, Penicillins, and Pneumococcal 13-[place] Conj Vacc. Vital Signs: Performed on Jan 14, 2021 16:16 Height - 72.00 in Weight - 209 lbs (LOW) BSA - 2.17 sq.m BMI - 28.35 Temperature - 98.4 F Pulse - 72 /min Respiration - 18 /min BP - 122/72 mm(hg) O2 Sat - 95 % (LOW) Pain - 0 Physical Examination: Constitutional - He appears somewhat weak generally, Eyes - Sclerae nonicteric. Conjunctivae clear, ENMT - No lesions noted in the oral cavity, Hematologic/Lymphatic - No cervical, clavicular, or axillary adenopathy, Respiratory - Lungs show sightly diminished air movement bilaterally and slightly coarse breath sounds, Cardiovascular - Heart rhythm is regular. There is no murmur, gallop, or rub noted, Abdomen - Soft. Liver is not enlarged. There is no abdominal mass or ascites noted and there is no inguinal adenopathy, Extremities - No edema, Neurologic - No focal neurologic deficits noted. Lab/Imaging: Test performed on Jan 14, 2021 14:08 Sodium 140 mmol/L TSH 4.42 uIU/mL Potassium 3.7 mmol/L Chloride 100 mmol/L CO2 29 mmol/L Anion Gap 14.7 BUN 19 mg/dL Creatinine 1.1 mg/dL Cr Clearance (Est) 81.4000 mL/min Glucose 99 mg/dL Osmolality - Calculated 292 mOsm/kg Calcium 9.5 mg/dL Protein, Total 7.2 g/dL Albumin 4.2 g/dL Globulin 3.0 g/dL Bilirubin, Total 0.5 mg/dL ALT (SGPT) 16 U/L AST (SGOT) 27 U/L Alkaline Phosphatase 59 IU/L WBC 5.5 10 3/uL RBC 3.94 10 6/uL HGB 12.5 g/dL HCT 37.9 % MCV 96.2 fL MCH 31.7 pg MCHC 33.0 g/dL RDW 15.3 % Platelet Count 75 10 3/cmm MPV 14.0 fL Neutrophils 2.14 10 3/uL Lymphocytes 2.2 10 3/uL Monocytes 0.9 10 3/uL Eosinophils 0.2 10 3/uL Basophils 0.1 10 3/uL Neutrophil % 38.6 % Lymphocyte % 40.0 % Monocyte % 15.9 % Eosinophil % 3.3 % Basophils % 2.0 % NRBC % 0 % Problem List: 1. HPV positive squamous cell carcinoma involving left base of tongue, by clinical evaluation stage BEVERLY (T2, N2b, M0) at initial diagnosis in March 2020. He had subsequent progression to stage IVC with PET/CT evidence of pulmonary metastatic disease bilaterally. 2. Hypertension. 3. Hyperlipidemia. 4. Type 2 diabetes. 5. He has chronic venous insufficiency. 6. History of prostate cancer for which he underwent radical prostatectomy approximately 5 years ago. 7. 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 Problems Addressed with this Encounter and Plan: Patient with HPV positive squamous cell carcinoma involving left base of tongue, by clinical evaluation stage BEVERLY (T2, N2b, M0) at initial diagnosis in March 2020. He underwent direct laryngoscopy with biopsy and esophagoscopy on 04/05/2020. Staging PET/CT 04/28/2020 showed a 2.8 x 1.5 subcarinal node with SUV 5.3, suspicious for metastatic disease. Smaller FDG positive nodes in the right paratracheal and subaortic territories appeared to be most likely reactive. On 05/15/2020 he underwent bronchoscopy/EBUS with transbronchial FNA biopsy of station 7 and station 4R lymph nodes. Pathology from both sites showed reactive lymph node tissue with no evidence of malignancy. With those findings, he was recommended to undergo radiation concurrently with standard high-dose cisplatin chemotherapy. He began cycle 1 of cisplatin 100 mg/m??? IV infusion concurrently with radiation on 05/31/2020. He tolerated the initial cisplatin infusion with no acute toxicity. At day 22 he had developed moderately severe neutropenia, ANC 1000, and his 2nd cycle of cisplatin was deferred. During that time he had undergone placement of a PEG tube, and he began nutritional support with tube feeding. He was able to continue his radiation, and he was then given cycle 2 of cisplatin on 07/03/2020. On 07/16/2020 he was admitted to the hospital with acute GI bleed, determined by EGD to be due to duodenal ulcers. He stabilized with conservative management. He again became neutropenic, but with uneventful recovery. He was able to continue radiation, and he completed his treatment on 07/23/2020 to a total dose of 7000 cGy. He did appear to have a very good response by follow-up CT in August 2020. Restaging PET/CT on 11/24/2019 showed FDG positive pulmonary nodules bilaterally, consistent with metastatic disease. A next generation sequencing study showed no actionable mutations, but his tumor was found to be PD-L1 positive at 10% with tumor mutation burden high at 11%, suggesting possible benefit with immunotherapy. He then began cycle 1 of pembrolizumab on 12/24/2020. He tolerated it well. He will proceed now with cycle 2 of pembrolizumab at 200 mg by IV infusion. He returns for treatment again in 3 weeks and for a follow-up visit in 6 weeks. Signed By: Devendra Reich M.D. <<Signature on File>>
== END 2021-01-30 23:59 | disposition home or self-care (01) ==
LOC: ONCMED 06:06
PROVIDERS: PCP Family Medicine; Visit Provider Internal Medicine Medical Oncology
DX: Z51.12 Encounter for antineoplastic immunotherapy (principal); C01 Malignant neoplasm of base of tongue; C78.01 Secondary malignant neoplasm of right lung; C78.02 Secondary malignant neoplasm of left lung; D69.3 Immune thrombocytopenic purpura; D51.9 Vitamin B12 deficiency anemia, unspecified; E03.9 Hypothyroidism, unspecified; I10 Essential (primary) hypertension; E78.5 Hyperlipidemia, unspecified; E11.9 Type 2 diabetes mellitus without complications; I87.2 Venous insufficiency (chronic) (peripheral); Z85.46 Personal history of malignant neoplasm of prostate; Z90.81 Acquired absence of spleen
CPT/HCPCS: 80053; 82607; 84443; 85025; 96413; 99214; J7050; J9271

== ENCOUNTER 2021-02-25 05:28 | Outpatient (RCR) | payer MEDICARE, OTHER, SELFPAY ==
[2021-02-25 12:01] LABS: Basophils # 0.1 10^3/uL (0.0-0.1); Basophils % 1.4 %; Eosinophils # 0.2 10^3/uL (0.0-0.8); Eosinophils % 1.9 %; Hematocrit 43.3 % (42.0-52.0); Hemoglobin 13.8 g/dL (11.7-16.6); Lymphocytes # 2.4 10^3/uL (0.8-4.8); Lymphocytes % 30.7 %; Mean Corpuscular HGB Conc 31.9 g/dL (30.0-36.0); Mean Corpuscular Hemoglobin 31.7 pg (28.0-34.0); Mean Corpuscular Volume 99.5 fL (80-94); Mean Platelet Volume 12.3 fL (7.4-10.4); Monocytes # 1.2 10^3/uL (0.2-0.9); Monocytes % 15.6 %; Neutrophils # 3.84 10^3/uL (1.8-7.7); Neutrophils % 49.9 %; Nucleated Red Blood Cells % 0 %; Platelet Count 99 10^3/cmm (130-400); Red Blood Count 4.35 10^6/uL (4.1-5.3); Red Cell Distribution Width 15.2 % (12.1-15.1); White Blood Count 7.7 10^3/uL (4.0-10.0)
[2021-02-25 12:35] LABS: Alanine Aminotransferase 26 U/L (0-41); Albumin Level 4.3 g/dL (3.5-5.2); Alkaline Phosphatase 64 IU/L (40-130); Anion Gap 20.1 (5-19); Aspartate Amino Transferase 42 U/L (0-40); Blood Urea Nitrogen 18 mg/dL (8-23); Calcium 9.5 mg/dL (8.5-10.5); Carbon Dioxide 24 mmol/L (22-29); Chloride 96 mmol/L (98-107); Globulin 3.4 g/dL (1.3-4.6); Glucose 110 mg/dL (65-115); Osmolality Calculated 285 mOsm/kg (285-295); Potassium 4.1 mmol/L (3.5-5.1); Sodium 136 mmol/L (136-145); Thyroid Stimulating Hormone 7.91 uIU/mL (0.27-4.20); Total Bilirubin 0.4 mg/dL (0.15-1.2); Total Protein 7.7 g/dL (6.6-8.7)
--- NOTE | 2021-03-04 00:54 | ONC FU_ITS ---
[facility] Patient Note Patient: Demarcus Maldonado Unit #: [id number]: [id number] Dictated By: Willy LlamasDate of Visit: Feb 25, 2021 Onc MED Follow-Up/Prog Note Chief Complaint: Base of tongue cancer. 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 He had subsequent progression to stage IVC with PET/CT evidence of pulmonary metastatic disease bilaterally. He had presented with left cervical lymphadenopathy. He had associated pain in the left side of the neck and throat. He had been seen initially by Dr. James. CT of the neck on 03/27/2020 showed a soft tissue enhancing mass centered in the left tongue base along the lingual tonsil. It was noted to extend over a length of 2.6 x 2.2 x 1.3 cm. There appeared to be enhancement across the midline and there was suspected involvement in the lingular surface of the right tongue. Also noted was enlargement and abnormal enhancement and thickening of the uvula. There was extensive, confluent adenopathy i involving the left neck. The largest cluster of nodes measured 8.4 cm in length by 2.8 cm, beginning at the level of the hyoid bone and extending inferiorly to the supraclavicular region. Additional clusters of lymph nodes were present at level IIa, IIb, III, Va, and in the supraclavicular area. The largest necrotic lymph node measured 2.5 x 2.2 cm at the level of the thyroid cartilage. Smaller lymph nodes were noted along the right cervical chain, but without definite adenopathy. The lung apices were noted to be clear. He was seen by Dr. Praneeth Thompson on 03/30/2020. His exam showed an exophytic mass and papillomatous mass at the left tongue base as well as papillomatous mass at the left paramedian tongue base. The remainder of the oral cavity and oropharyngeal exam was reported to be normal. The laryngeal exam showed erythema and edema of the arytenoid mucosa. He then underwent direct laryngoscopy with biopsy and esophagoscopy on 04/05/2020. Findings included an exophytic lesion involving the left tongue base extending to the right of the midline. It also was noted to extend into the vallecula. There was no involvement of the lateral pharyngeal wall or the larynx. The esophagus was noted to be free of lesions. Biopsy showed infiltrating moderately differentiated squamous cell carcinoma which was confirmed to be HPV positive. Dr Reich had seen him initially on 04/19/2020. Staging PET/CT on 04/28/2020 showed a 2.4 x 1.7 cm left base of tongue mass with SUV 24.5, consistent with primary malignancy. There were FDG positive nodes from cervical levels II through IV and V levels on the left consistent with local metastatic disease. A 1.2 cm right level 2A node had SUV 4.2 indicating a high probability of contralateral cervical disease. A subpleural solid nodule in the lateral left upper lobe measuring 8 mm had SUV 1.9, suspicious but not definitive for distant metastatic disease. A 2.8 x 1.5 cm subcarinal lymph node had SUV 5.3, suspicious for metastatic disease. Smaller FDG positive nodes in the right pretracheal and subaortic territories were felt to be most likely reactive. He was referred to Dr. Kingsley. On 05/15/2020 he underwent bronchoscopy/EBUS with transbronchial FNA biopsy of station 7 and station 4R lymph nodes. Pathology from both sites showed reactive lymph node tissue with no evidence of malignancy. With those findings, he was recommended to undergo radiation concurrently with standard high-dose cisplatin chemotherapy. He began cycle 1 of cisplatin at 100 mg/m??? by IV infusion concurrently with radiation on 05/31/2020. He experienced no acute toxicity with the initial cisplatin infusion. Her further chemotherapy was held due to neutropenia. He completed radiation on 06/19/2020 to a total dose of 6540 cGy. He then continued with radiation. At his day 22 visit he had moderately severe neutropenia with absolute neutrophil count at just under 1000, and his second dose of cisplatin was deferred. Subsequent to that visit, he began having more difficulty with swallowing and with oral intake, and he did opt undergo placement of the PEG tube. He was able to continue his radiation, and he proceeded with cycle 2 of cisplatin 100 mg/m??? by IV infusion on 07/03/2020. On 07/16/2020 he was admitted to the hospital with acute upper GI bleeding. His EGD showed multiple benign-appearing ulcers in the duodenum, which appeared to be the likely source for the GI bleed, though no active bleeding was apparent at the time of the procedure. During the hospitalization he became neutropenic, but it resolved uneventfully on antibiotic coverage with cefepime and Levaquin. During the hospitalization, he was able to resume his radiation, and he completed treatment on 07/23/2020 to a total dose of 7000 cGy. He has a history of having previously undergone radical prostatectomy for prostate cancer. He also has a prior history of ITP. His other medical illnesses include hypertension, hyperlipidemia, and type 2 diabetes. He has a past history of smoking, but only for about 6 years. He quit smoking approximately 40 years ago. He had also chewed tobacco, but only for about 1 or 2 years. INTERIM HISTORY: Restaging neck CT on 08/20/2020 showed significant improvement in the cervical chain lymphadenopathy with the largest persistent lymph node measuring 1.7 x 1.6 cm at level III. There appeared to be complete resolution of the left tongue base neoplasm. A restaging PET/CT on 11/24/2020 showed resolution of the base of tongue mass with FDG negative, subcentimeter left sided cervical lymph nodes. The right cervical level 2A node was no longer visualized. A 9 mm left upper lobe pulmonary nodule with SUV 2.3 was noted to have progressed from the prior study and also noted were multiple new bilateral pulmonary nodules, consistent with malignancy. These included a 1 cm anterior medial left upper lobe nodule with SUV 6.7 and a 1.1 cm right upper lobe nodule with SUV 6.4. With those findings he had further evaluation with a next generation sequencing study. It showed no actionable mutations, but the PD-L1 was positive at 10% and the tumor mutation burden was high at 11, suggesting potential benefit with immunotherapy. On 12/24/2020 he began cycle 1 of treatment with pembrolizumab. He was last seen by Dr. Reich on January 14, 2009. He was tolerating pembrolizumab well at every 3 continued the pembrolizumab every 3 weeks and had follow-up again in 6 weeks. Mr. Maldonado is here today for follow-up. He states overall he feels that he is doing well in regards to the treatment. He has had some upper respiratory symptoms and that he is having sinus congestion and cough. He has not been productive this point. He has had some clear to light yellow sinus drainage. He has had some intermittent chest congestion but states it is soft and loose right now. He denies any fever or chills. He states he has had a little bit more short of breath but feels that this is due to the congestion more than anything. He denies any orthopnea. Denies any hemoptysis. He states his bowels and bladder are normal for him. He denies any pain. His ECOG is 1. He is due to see Dr. Heath on Thursday for further evaluation. His last visit there was January 23, 2021. His ECOG is 1. Past Medical History: History of prostate cancer Hypercholesterolemia Hypertension ITP Type II diabetes Past Surgical History: Radical prostatectomy Splenectomy Tonsillectomy Umbilical and abdominal wall hernia repairs Allergies: Keflex, Penicillins, and Pneumococcal 13-[place] Conj Vacc. Medications: Atenolol 1 Tablet (of 25 mg) Oral daily Claritin 1 Tablet (of 10 mg) Oral once D3-1000 1 Tablet (of 25 mcg ) Oral daily Daily Multiple Vitamins 1 Tablet Oral daily Flonase Allergy Relief Suspension Nasal Furosemide 1 Tablet (of 40 mg) Oral at bedtime PRN Lasix (80 mg) Tablet Oral Take as Directed Levothyroxine Sodium 1 Tablet (of 25 mcg) Oral daily metFORMIN HCl 0.5 - 1 Tablet (of 1000 mg) Oral b.i.d. Omeprazole 1 Capsule (of 20 mg) Capsule Delayed Release Oral daily Potassium Chloride ER 1 Tablet (of 10 meq) Capsule, controlled release Oral daily Pravastatin Sodium 1 Tablet (of 20 mg) Oral daily Singulair 1 Tablet (of 10 mg) Oral at bedtime Vitamin B 12 1 Tablet Oral once Family History: Mr. Maldonado's mother at age 85. Mr. Maldonado's father at age 83: pneumonia. Mr. Maldonado has 1 brother who is . He has 1 sister who is alive: melanoma. Father with pneumonia at age 83. Mother at age 85, apparently due to complications of dementia. A brother at age 53, exact cause unknown to the patient. He was told that he had some form of inherited condition that choked him out . A sister has been treated for melanoma. Social History: Mr. Maldonado is and he is retired. Mr. Maldonado quit smoking 39 years ago but had smoked for 5 years. He is a former drinker. Mr. Maldonado reports the following support systems: lives alone, supportive family/friends willing to assist with needs, and adequate transportation available for expected visits. His diet consists of regular meals. He indicates his activity level as: regular exercise. He is retired from [employer]. 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 He has a history of smoking for 6 years. He quit following his splenectomy, which was approximately 40 years ago. He also chewed tobacco, but only for about 1 or 2 years. He had some alcohol use in the . He quit drinking in 1971. Review Of Symptoms: see above Vital Signs: Performed on Feb 25, 2021 13:04 Weight - 190.6 lbs (HIGH) BSA - 0.00 sq.m BMI - 0.00 Temperature - 98.4 F Pulse - 75 /min Respiration - 18 /min BP - 132/79 mm(hg) O2 Sat - 95 % (LOW) Pain - 0 Fatigue - 7 Performed on Feb 25, 2021 11:42 Height - 72.00 in Weight - 191 lbs (LOW) BSA - 2.09 sq.m BMI - 25.90,1 - No physically strenuous activity, but ambulatory and able to carry out light or sedentary work (e.g. office work, light house work). (ECOG) Physical Examination: Constitutional Alert, oriented, no acute distress. Skin pink, warm and dry. Head Normocephalic; atraumatic. Eyes Conjunctivae and sclerae are clear and without icterus. Pupils are reactive and equal. ENMT No oral exudates, ulcers, masses, thrush or mucositis. Oropharynx clear. Tongue normal. Neck Supple without masses or thyromegaly. No jugular venous distension. No supraclavicular or cervical adenopathy. Hematologic/Lymphatic No petechiae or purpura. Respiratory Lungs are clear after cough to auscultation. Prior to cough-bilateral lower lobe wheezing. Cardiovascular Regular rate and rhythm of heart without murmurs,clicks, gallops or rubs. Back/Spine Non-tender to palpation. Extremities No visible deformities, no cyanosis, clubbing or edema. Musculoskeletal No tenderness or swelling, normal range of motion without obvious weakness. Integumentary No rashes or lesions. Neurologic No sensory or motor deficits, normal cerebellar function, normal gait. Psychiatric Alert and oriented times three. Coherent speech. Verbalizes understanding of our discussions today. Laboratory:Test performed on Feb 25, 2021 11:40 Sodium 136 mmol/L TSH 7.91 uIU/mL Potassium 4.1 mmol/L Chloride 96 mmol/L CO2 24 mmol/L Anion Gap 20.1 BUN 18 mg/dL Creatinine 0.9 mg/dL Cr Clearance (Est) 90.73 mL/min Glucose 110 mg/dL Osmolality - Calculated 285 mOsm/kg Calcium 9.5 mg/dL Protein, Total 7.7 g/dL Albumin 4.3 g/dL Globulin 3.4 g/dL Bilirubin, Total 0.4 mg/dL ALT (SGPT) 26 U/L AST (SGOT) 42 U/L Alkaline Phosphatase 64 IU/L WBC 7.7 10 3/uL RBC 4.35 10 6/uL HGB 13.8 g/dL HCT 43.3 % MCV 99.5 fL MCH 31.7 pg MCHC 31.9 g/dL RDW 15.2 % Platelet Count 99 10 3/cmm MPV 12.3 fL Neutrophils 3.84 10 3/uL Lymphocytes 2.4 10 3/uL Monocytes 1.2 10 3/uL Eosinophils 0.2 10 3/uL Basophils 0.1 10 3/uL Neutrophil % 49.9 % Lymphocyte % 30.7 % Monocyte % 15.6 % Eosinophil % 1.9 % Basophils % 1.4 % NRBC % 0 % Impression: 1. HPV positive squamous cell carcinoma involving left base of tongue, by clinical evaluation stage BEVERLY (T2, N2b, M0) at initial diagnosis in March 2020. He had subsequent progression to stage IVC with PET/CT evidence of pulmonary metastatic disease bilaterally. 2. Hypertension. 3. Hyperlipidemia. 4. Type 2 diabetes. 5. He has chronic venous insufficiency. 6. History of prostate cancer for which he underwent radical prostatectomy approximately 5 years ago. 7. 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 Plan: PROBLEMS ADDRESSED TODAY 1. HPV positive squamous cell carcinoma involving left base of tongue, by clinical evaluation stage BEVERLY (T2, N2b, M0) at initial diagnosis in March 2020. He underwent direct laryngoscopy with biopsy and esophagoscopy on 04/05/2020. Staging PET/CT 04/28/2020 showed a 2.8 x 1.5 subcarinal node with SUV 5.3, suspicious for metastatic disease. Smaller FDG positive nodes in the right paratracheal and subaortic territories appeared to be most likely reactive. On 05/15/2020 he underwent bronchoscopy/EBUS with transbronchial FNA biopsy of station 7 and station 4R lymph nodes. Pathology from both sites showed reactive lymph node tissue with no evidence of malignancy. With those findings, he was recommended to undergo radiation concurrently with standard high-dose cisplatin chemotherapy. He began cycle 1 of cisplatin 100 mg/m??? IV infusion concurrently with radiation on 05/31/2020. He tolerated the initial cisplatin infusion with no acute toxicity. At day 22 he had developed moderately severe neutropenia, ANC 1000, and his 2nd cycle of cisplatin was deferred. During that time he had undergone placement of a PEG tube, and he began nutritional support with tube feeding. He was able to continue his radiation, and he was then given cycle 2 of cisplatin on 07/03/2020. On 07/16/2020 he was admitted to the hospital with acute GI bleed, determined by EGD to be due to duodenal ulcers. He stabilized with conservative management. He again became neutropenic, but with uneventful recovery. He was able to continue radiation, and he completed his treatment on 07/23/2020 to a total dose of 7000 cGy. He did appear to have a very good response by follow-up CT in August 2020. Restaging PET/CT on 11/24/2019 showed FDG positive pulmonary nodules bilaterally, consistent with metastatic disease. A next generation sequencing study showed no actionable mutations, but his tumor was found to be PD-L1 positive at 10% with tumor mutation burden high at 11%, suggesting possible benefit with immunotherapy. He then began cycle 1 of pembrolizumab on 12/24/2020. He tolerated it well. Mr. Maldonado has now completed 3 cycles of single agent pembrolizumab at every 3-week dosing. A. We will hold his dose today due to upper respiratory and symptoms and he was following with Dr. Heath on Thursday. B. Today's labs reviewed in detail discussed with Mr. Maldonado and a copy was given to him. WBC 7.7, hemoglobin 13.8, platelets 99,000 neutrophils are 3840. Potassium 4.1 creatinine 0.9 random glucose is 110 LFTs are normal TSH is 7.91. He is asymptomatic. C. We will plan to see him back in 1 week with out labs for consideration of treatment with a 3-week dosing of pembrolizumab. D. Mr. Maldonado is instructed to call us in the interim if questions or problems arise. Signed By: CHERRY Llamas AOCNP <<Signature on File>>
== END 2021-03-01 23:59 | disposition home or self-care (01) ==
LOC: ONCMED 05:28
PROVIDERS: PCP Family Medicine; Visit Provider Nurse Practitioner
DX: Z51.12 Encounter for antineoplastic immunotherapy (principal); C01 Malignant neoplasm of base of tongue; C78.01 Secondary malignant neoplasm of right lung; C78.02 Secondary malignant neoplasm of left lung; E78.00 Pure hypercholesterolemia, unspecified; I10 Essential (primary) hypertension; E11.9 Type 2 diabetes mellitus without complications; I87.2 Venous insufficiency (chronic) (peripheral); Z79.899 Other long term (current) drug therapy
CPT/HCPCS: 36415; 80053; 84443; 85025; 96413; 99214; J7050; J9271

== ENCOUNTER 2021-03-29 05:33 | Outpatient (RCR) | payer MEDICARE, OTHER, SELFPAY ==
[2021-03-04] MEDS: sodium chloride 0.9% 250 ML 125 ML IV (12:40)
--- NOTE | 2021-03-12 22:10 | ONC FU_ITS ---
[facility] Patient Note Patient: Demarcus Maldonado Unit #: [id number]: 1950 Dictated By: Willy LlamasDate of Visit: March 04, 2021 Onc MED Follow-Up/Prog Note Chief Complaint: Base of tongue cancer. 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 He had subsequent progression to stage IVC with PET/CT evidence of pulmonary metastatic disease bilaterally. He had presented with left cervical lymphadenopathy. He had associated pain in the left side of the neck and throat. He had been seen initially by Dr. James. CT of the neck on 03/27/2020 showed a soft tissue enhancing mass centered in the left tongue base along the lingual tonsil. It was noted to extend over a length of 2.6 x 2.2 x 1.3 cm. There appeared to be enhancement across the midline and there was suspected involvement in the lingular surface of the right tongue. Also noted was enlargement and abnormal enhancement and thickening of the uvula. There was extensive, confluent adenopathy i involving the left neck. The largest cluster of nodes measured 8.4 cm in length by 2.8 cm, beginning at the level of the hyoid bone and extending inferiorly to the supraclavicular region. Additional clusters of lymph nodes were present at level IIa, IIb, III, Va, and in the supraclavicular area. The largest necrotic lymph node measured 2.5 x 2.2 cm at the level of the thyroid cartilage. Smaller lymph nodes were noted along the right cervical chain, but without definite adenopathy. The lung apices were noted to be clear. He was seen by Dr. Praneeth Thompson on 03/30/2020. His exam showed an exophytic mass and papillomatous mass at the left tongue base as well as papillomatous mass at the left paramedian tongue base. The remainder of the oral cavity and oropharyngeal exam was reported to be normal. The laryngeal exam showed erythema and edema of the arytenoid mucosa. He then underwent direct laryngoscopy with biopsy and esophagoscopy on 04/05/2020. Findings included an exophytic lesion involving the left tongue base extending to the right of the midline. It also was noted to extend into the vallecula. There was no involvement of the lateral pharyngeal wall or the larynx. The esophagus was noted to be free of lesions. Biopsy showed infiltrating moderately differentiated squamous cell carcinoma which was confirmed to be HPV positive. Dr Reich had seen him initially on 04/19/2020. Staging PET/CT on 04/28/2020 showed a 2.4 x 1.7 cm left base of tongue mass with SUV 24.5, consistent with primary malignancy. There were FDG positive nodes from cervical levels II through IV and V levels on the left consistent with local metastatic disease. A 1.2 cm right level 2A node had SUV 4.2 indicating a high probability of contralateral cervical disease. A subpleural solid nodule in the lateral left upper lobe measuring 8 mm had SUV 1.9, suspicious but not definitive for distant metastatic disease. A 2.8 x 1.5 cm subcarinal lymph node had SUV 5.3, suspicious for metastatic disease. Smaller FDG positive nodes in the right pretracheal and subaortic territories were felt to be most likely reactive. He was referred to Dr. Kingsley. On 05/15/2020 he underwent bronchoscopy/EBUS with transbronchial FNA biopsy of station 7 and station 4R lymph nodes. Pathology from both sites showed reactive lymph node tissue with no evidence of malignancy. With those findings, he was recommended to undergo radiation concurrently with standard high-dose cisplatin chemotherapy. He began cycle 1 of cisplatin at 100 mg/m??? by IV infusion concurrently with radiation on 05/31/2020. He experienced no acute toxicity with the initial cisplatin infusion. Her further chemotherapy was held due to neutropenia. He completed radiation on 06/19/2020 to a total dose of 6540 cGy. He then continued with radiation. At his day 22 visit he had moderately severe neutropenia with absolute neutrophil count at just under 1000, and his second dose of cisplatin was deferred. Subsequent to that visit, he began having more difficulty with swallowing and with oral intake, and he did opt undergo placement of the PEG tube. He was able to continue his radiation, and he proceeded with cycle 2 of cisplatin 100 mg/m??? by IV infusion on 07/03/2020. On 07/16/2020 he was admitted to the hospital with acute upper GI bleeding. His EGD showed multiple benign-appearing ulcers in the duodenum, which appeared to be the likely source for the GI bleed, though no active bleeding was apparent at the time of the procedure. During the hospitalization he became neutropenic, but it resolved uneventfully on antibiotic coverage with cefepime and Levaquin. During the hospitalization, he was able to resume his radiation, and he completed treatment on 07/23/2020 to a total dose of 7000 cGy. He has a history of having previously undergone radical prostatectomy for prostate cancer. He also has a prior history of ITP. His other medical illnesses include hypertension, hyperlipidemia, and type 2 diabetes. He has a past history of smoking, but only for about 6 years. He quit smoking approximately 40 years ago. He had also chewed tobacco, but only for about 1 or 2 years. INTERIM HISTORY: Restaging neck CT on 08/20/2020 showed significant improvement in the cervical chain lymphadenopathy with the largest persistent lymph node measuring 1.7 x 1.6 cm at level III. There appeared to be complete resolution of the left tongue base neoplasm. A restaging PET/CT on 11/24/2020 showed resolution of the base of tongue mass with FDG negative, subcentimeter left sided cervical lymph nodes. The right cervical level 2A node was no longer visualized. A 9 mm left upper lobe pulmonary nodule with SUV 2.3 was noted to have progressed from the prior study and also noted were multiple new bilateral pulmonary nodules, consistent with malignancy. These included a 1 cm anterior medial left upper lobe nodule with SUV 6.7 and a 1.1 cm right upper lobe nodule with SUV 6.4. With those findings he had further evaluation with a next generation sequencing study. It showed no actionable mutations, but the PD-L1 was positive at 10% and the tumor mutation burden was high at 11, suggesting potential benefit with immunotherapy. On 12/24/2020 he began cycle 1 of treatment with pembrolizumab. He was last seen by Dr. Reich on January 14, 2009. He was tolerating pembrolizumab well at every 3 continued the pembrolizumab every 3 weeks and had follow-up again in 6 weeks. Mr. Maldonado is here today for follow-up. He states overall he feels that he is doing well in regards to the treatment. He has had some upper respiratory symptoms and that he is having sinus congestion and cough. He has not been productive this point. He has had some clear to light yellow sinus drainage. He has had some intermittent chest congestion but states it is soft and loose right now. He denies any fever or chills. He states he has had a little bit more short of breath but feels that this is due to the congestion more than anything. He denies any orthopnea. Denies any hemoptysis. He states his bowels and bladder are normal for him. He denies any pain. His ECOG is 1. He did see Dr. Heath on Thursday, February 27, 2021, for further evaluation. Mr. Maldonado reports that he was started on Singulair and had no further recommendations. He states he is ready for treatment today. His ECOG is 1. Past Medical History: History of prostate cancer Hypercholesterolemia Hypertension ITP Type II diabetes Past Surgical History: Radical prostatectomy Splenectomy Tonsillectomy Umbilical and abdominal wall hernia repairs Allergies: Keflex, Penicillins, and Pneumococcal 13-[place] Conj Vacc. Medications: Atenolol 1 Tablet (of 25 mg) Oral daily Claritin 1 Tablet (of 10 mg) Oral once D3-1000 1 Tablet (of 25 mcg ) Oral daily Daily Multiple Vitamins 1 Tablet Oral daily Flonase Allergy Relief Suspension Nasal Furosemide 1 Tablet (of 40 mg) Oral at bedtime PRN Lasix (80 mg) Tablet Oral Take as Directed Levothyroxine Sodium 1 Tablet (of 25 mcg) Oral daily metFORMIN HCl 0.5 - 1 Tablet (of 1000 mg) Oral b.i.d. Omeprazole 1 Capsule (of 20 mg) Capsule Delayed Release Oral daily Potassium Chloride ER 1 Tablet (of 10 meq) Capsule, controlled release Oral daily Pravastatin Sodium 1 Tablet (of 20 mg) Oral daily Singulair 1 Tablet (of 10 mg) Oral at bedtime Vitamin B 12 1 Tablet Oral once Family History: Mr. Maldonado's mother at age 85. Mr. Maldonado's father at age 83: pneumonia. Mr. Maldonado has 1 brother who is . He has 1 sister who is alive: melanoma. Father with pneumonia at age 83. Mother at age 85, apparently due to complications of dementia. A brother at age 53, exact cause unknown to the patient. He was told that he had some form of inherited condition that choked him out . A sister has been treated for melanoma. Social History: Mr. Maldonado is and he is retired. Mr. Maldonado quit smoking 39 years ago but had smoked for 5 years. He is a former drinker. Mr. Maldonado reports the following support systems: lives alone, supportive family/friends willing to assist with needs, and adequate transportation available for expected visits. His diet consists of regular meals. He indicates his activity level as: regular exercise. He is retired from [employer] He also had done work on the side [employer]. He has a history of smoking for 6 years. He quit following his splenectomy, which was approximately 40 years ago. He also chewed tobacco, but only for about 1 or 2 years. He had some alcohol use in the . He quit drinking in 1971. Review Of Symptoms: <See Above> Vital Signs: Performed on March 04, 2021 11:57 Height - 72.00 in Weight - 185.6 lbs (LOW) BSA - 2.06 sq.m BMI - 25.17 Temperature - 97.5 F (LOW) Pulse - 77 /min Respiration - 18 /min BP - 111/73 mm(hg) O2 Sat - 96 % Pain - 0,1 - No physically strenuous activity, but ambulatory and able to carry out light or sedentary work (e.g. office work, light house work). (ECOG) Physical Examination: Constitutional Alert, oriented, no acute distress. Skin pink, warm and dry. Head Normocephalic; atraumatic. Eyes Conjunctivae and sclerae are clear and without icterus. Pupils are reactive and equal. Hematologic/Lymphatic No petechiae or purpura. Respiratory Lungs are clear after cough to auscultation. Prior to cough-bilateral lower lobe wheezing. Cardiovascular Regular rate and rhythm of heart without murmurs,clicks, gallops or rubs. Back/Spine Non-tender to palpation. Extremities No visible deformities, no cyanosis, clubbing or edema. Musculoskeletal No tenderness or swelling, normal range of motion without obvious weakness. Integumentary No rashes or lesions. Neurologic No sensory or motor deficits, normal cerebellar function, normal gait. Psychiatric Alert and oriented times three. Coherent speech. Verbalizes understanding of our discussions today. Laboratory:Test performed on Feb 25, 2021 11:40 Sodium 136 mmol/L TSH 7.91 uIU/mL Potassium 4.1 mmol/L Chloride 96 mmol/L CO2 24 mmol/L Anion Gap 20.1 BUN 18 mg/dL Creatinine 0.9 mg/dL Cr Clearance (Est) 90.73 mL/min Glucose 110 mg/dL Osmolality - Calculated 285 mOsm/kg Calcium 9.5 mg/dL Protein, Total 7.7 g/dL Albumin 4.3 g/dL Globulin 3.4 g/dL Bilirubin, Total 0.4 mg/dL ALT (SGPT) 26 U/L AST (SGOT) 42 U/L Alkaline Phosphatase 64 IU/L WBC 7.7 10 3/uL RBC 4.35 10 6/uL HGB 13.8 g/dL HCT 43.3 % MCV 99.5 fL MCH 31.7 pg MCHC 31.9 g/dL RDW 15.2 % Platelet Count 99 10 3/cmm MPV 12.3 fL Neutrophils 3.84 10 3/uL Lymphocytes 2.4 10 3/uL Monocytes 1.2 10 3/uL Eosinophils 0.2 10 3/uL Basophils 0.1 10 3/uL Neutrophil % 49.9 % Lymphocyte % 30.7 % Monocyte % 15.6 % Eosinophil % 1.9 % Basophils % 1.4 % NRBC % 0 % Test performed on Jan 14, 2021 14:08 Vitamin B12 > 2000 pg/mL Test performed on Nov 05, 2020 09:16 Homocysteine 13.81 umol/L Test performed on Sep 20, 2020 08:45 CBC Slide Review Slide Review Perform SLIDE REVIEW AGREES WITH AUTOMATED RESULTS ST Impression: 1. HPV positive squamous cell carcinoma involving left base of tongue, by clinical evaluation stage BEVERLY (T2, N2b, M0) at initial diagnosis in March 2020. He had subsequent progression to stage IVC with PET/CT evidence of pulmonary metastatic disease bilaterally. 2. Hypertension. 3. Hyperlipidemia. 4. Type 2 diabetes. 5. He has chronic venous insufficiency. 6. History of prostate cancer for which he underwent radical prostatectomy approximately 5 years ago. 7. 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 Plan/Problems Addressed at this Visit: PROBLEMS ADDRESSED TODAY 1. HPV positive squamous cell carcinoma involving left base of tongue, by clinical evaluation stage BEVERLY (T2, N2b, M0) at initial diagnosis in March 2020. He underwent direct laryngoscopy with biopsy and esophagoscopy on 04/05/2020. Staging PET/CT 04/28/2020 showed a 2.8 x 1.5 subcarinal node with SUV 5.3, suspicious for metastatic disease. Smaller FDG positive nodes in the right paratracheal and subaortic territories appeared to be most likely reactive. On 05/15/2020 he underwent bronchoscopy/EBUS with transbronchial FNA biopsy of station 7 and station 4R lymph nodes. Pathology from both sites showed reactive lymph node tissue with no evidence of malignancy. With those findings, he was recommended to undergo radiation concurrently with standard high-dose cisplatin chemotherapy. He began cycle 1 of cisplatin 100 mg/m??? IV infusion concurrently with radiation on 05/31/2020. He tolerated the initial cisplatin infusion with no acute toxicity. At day 22 he had developed moderately severe neutropenia, ANC 1000, and his 2nd cycle of cisplatin was deferred. During that time he had undergone placement of a PEG tube, and he began nutritional support with tube feeding. He was able to continue his radiation, and he was then given cycle 2 of cisplatin on 07/03/2020. On 07/16/2020 he was admitted to the hospital with acute GI bleed, determined by EGD to be due to duodenal ulcers. He stabilized with conservative management. He again became neutropenic, but with uneventful recovery. He was able to continue radiation, and he completed his treatment on 07/23/2020 to a total dose of 7000 cGy. He did appear to have a very good response by follow-up CT in August 2020. Restaging PET/CT on 11/24/2019 showed FDG positive pulmonary nodules bilaterally, consistent with metastatic disease. A next generation sequencing study showed no actionable mutations, but his tumor was found to be PD-L1 positive at 10% with tumor mutation burden high at 11%, suggesting possible benefit with immunotherapy. He then began cycle 1 of pembrolizumab on 12/24/2020. He tolerated it well. Mr. Maldonado has now completed 3 cycles of single agent pembrolizumab at every 3-week dosing. A. Proceed with cycle 4 pembrolizumab at 200 mg. B. Labs from February 25, 2021 reviewed in detail discussed with Mr. Maldonado and a copy was given to him. WBC 7.7, hemoglobin 13.8, platelets 99,000 neutrophils are 3840. Potassium 4.1 creatinine 0.9 random glucose is 110 LFTs are normal TSH is 7.91. He is asymptomatic. C. We will plan to see him back in 3 weeks with CBC, CMP and TSH for consideration of treatment with a 3-week dosing of pembrolizumab-cycle 5. D. He was advised that he could use Mucinex 1200 mg twice daily [id number] if he feels he needs it for congestion. He is feeling some better on the Singulair. E. Mr. Maldonado is instructed to call us in the interim if questions or problems arise. Signed By: Willy Llamas-, [facility] Devendra Reich MD <<Signature on File>>
[2021-03-25 10:06] LABS: Basophils # 0.1 10^3/uL (0.0-0.1); Basophils % 1.4 %; Eosinophils # 0.2 10^3/uL (0.0-0.8); Eosinophils % 3.5 %; Hematocrit 43.4 % (42.0-52.0); Hemoglobin 14.6 g/dL (11.7-16.6); Lymphocytes # 2.2 10^3/uL (0.8-4.8); Lymphocytes % 42.9 %; Mean Corpuscular HGB Conc 33.6 g/dL (30.0-36.0); Mean Corpuscular Hemoglobin 32.3 pg (28.0-34.0); Mean Platelet Volume 13.2 fL (7.4-10.4); Monocytes # 0.9 10^3/uL (0.2-0.9); Monocytes % 17.8 %; Neutrophils # 1.78 10^3/uL (1.8-7.7); Neutrophils % 34.2 %; Nucleated Red Blood Cells % 0 %; Platelet Count 60 10^3/cmm (130-400); Red Blood Count 4.52 10^6/uL (4.1-5.3); White Blood Count 5.2 10^3/uL (4.0-10.0)
[2021-03-25 10:24] LABS: Alanine Aminotransferase 15 U/L (0-41); Albumin Level 4.2 g/dL (3.5-5.2); Alkaline Phosphatase 59 IU/L (40-130); Anion Gap 19.3 (5-19); Aspartate Amino Transferase 31 U/L (0-40); Blood Urea Nitrogen 26 mg/dL (8-23); Calcium 9.5 mg/dL (8.5-10.5); Carbon Dioxide 26 mmol/L (22-29); Chloride 95 mmol/L (98-107); Globulin 3.1 g/dL (1.3-4.6); Glucose 141 mg/dL (65-115); Lactate Dehydrogenase 202 U/L (135-225); Osmolality Calculated 291 mOsm/kg (285-295); Potassium 3.3 mmol/L (3.5-5.1); Sodium 137 mmol/L (136-145); Total Bilirubin 0.4 mg/dL (0.15-1.2); Total Protein 7.3 g/dL (6.6-8.7)
[2021-03-25] MEDS: famotidine 20 mg/2 mL INJ IVP (11:55)
[2021-03-25] MEDS: sodium chloride 0.9% 250 ML 125 ML IV (12:00)
[2021-03-25] MEDS: sodium chlor 0.9% + KCl 40 mEq 40 MEQ/1,000 ML BAG 240 MEQ IV (12:19)
--- NOTE | 2021-03-26 07:51 | ONC FU_ITS ---
Dr. Reich Patient Follow-Up Note Patient: Demarcus Maldonado Unit #: [id number]: [id number] Dicatated By: Devendra Reich M.D.Date of Visit:March 25, 2021 Onc Med Follow-up/Prog Note Chief Complaint: Base of tongue cancer. 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 He had subsequent progression to stage IVC with PET/CT evidence of pulmonary metastatic disease bilaterally. He had presented with left cervical lymphadenopathy. He had associated pain in the left side of the neck and throat. He had been seen initially by Dr. James. CT of the neck on 03/27/2020 showed a soft tissue enhancing mass centered in the left tongue base along the lingual tonsil. It was noted to extend over a length of 2.6 x 2.2 x 1.3 cm. There appeared to be enhancement across the midline and there was suspected involvement in the lingular surface of the right tongue. Also noted was enlargement and abnormal enhancement and thickening of the uvula. There was extensive, confluent adenopathy i involving the left neck. The largest cluster of nodes measured 8.4 cm in length by 2.8 cm, beginning at the level of the hyoid bone and extending inferiorly to the supraclavicular region. Additional clusters of lymph nodes were present at level IIa, IIb, III, Va, and in the supraclavicular area. The largest necrotic lymph node measured 2.5 x 2.2 cm at the level of the thyroid cartilage. Smaller lymph nodes were noted along the right cervical chain, but without definite adenopathy. The lung apices were noted to be clear. He was seen by Dr. Praneeth Thompson on 03/30/2020. His exam showed an exophytic mass and papillomatous mass at the left tongue base as well as papillomatous mass at the left paramedian tongue base. The remainder of the oral cavity and oropharyngeal exam was reported to be normal. The laryngeal exam showed erythema and edema of the arytenoid mucosa. He then underwent direct laryngoscopy with biopsy and esophagoscopy on 04/05/2020. Findings included an exophytic lesion involving the left tongue base extending to the right of the midline. It also was noted to extend into the vallecula. There was no involvement of the lateral pharyngeal wall or the larynx. The esophagus was noted to be free of lesions. Biopsy showed infiltrating moderately differentiated squamous cell carcinoma which was confirmed to be HPV positive. I had seen him initially on 04/19/2020. Staging PET/CT on 04/28/2020 showed a 2.4 x 1.7 cm left base of tongue mass with SUV 24.5, consistent with primary malignancy. There were FDG positive nodes from cervical levels II through IV and V levels on the left consistent with local metastatic disease. A 1.2 cm right level 2A node had SUV 4.2 indicating a high probability of contralateral cervical disease. A subpleural solid nodule in the lateral left upper lobe measuring 8 mm had SUV 1.9, suspicious but not definitive for distant metastatic disease. A 2.8 x 1.5 cm subcarinal lymph node had SUV 5.3, suspicious for metastatic disease. Smaller FDG positive nodes in the right pretracheal and subaortic territories were felt to be most likely reactive. He was referred to Dr. Kingsley. On 05/15/2020 he underwent bronchoscopy/EBUS with transbronchial FNA biopsy of station 7 and station 4R lymph nodes. Pathology from both sites showed reactive lymph node tissue with no evidence of malignancy. With those findings, he was recommended to undergo radiation concurrently with standard high-dose cisplatin chemotherapy. He began cycle 1 of cisplatin at 100 mg/m??? by IV infusion concurrently with radiation on 05/31/2020. He experienced no acute toxicity with the initial cisplatin infusion. Her further chemotherapy was held due to neutropenia. He completed radiation on 06/19/2020 to a total dose of 6540 cGy. He then continued with radiation. At his day 22 visit he had moderately severe neutropenia with absolute neutrophil count at just under 1000, and his second dose of cisplatin was deferred. Subsequent to that visit, he began having more difficulty with swallowing and with oral intake, and he did opt undergo placement of the PEG tube. He was able to continue his radiation, and he proceeded with cycle 2 of cisplatin 100 mg/m??? by IV infusion on 07/03/2020. On 07/16/2020 he was admitted to the hospital with acute upper GI bleeding. His EGD showed multiple benign-appearing ulcers in the duodenum, which appeared to be the likely source for the GI bleed, though no active bleeding was apparent at the time of the procedure. During the hospitalization he became neutropenic, but it resolved uneventfully on antibiotic coverage with cefepime and Levaquin. During the hospitalization, he was able to resume his radiation, and he completed treatment on 07/23/2020 to a total dose of 7000 cGy. He has a history of having previously undergone radical prostatectomy for prostate cancer. He also has a prior history of ITP. His other medical illnesses include hypertension, hyperlipidemia, and type 2 diabetes. He has a past history of smoking, but only for about 6 years. He quit smoking approximately 40 years ago. He had also chewed tobacco, but only for about 1 or 2 years. INTERIM HISTORY: Restaging neck CT on 08/20/2020 showed significant improvement in the cervical chain lymphadenopathy with the largest persistent lymph node measuring 1.7 x 1.6 cm at level III. There appeared to be complete resolution of the left tongue base neoplasm. A restaging PET/CT on 11/24/2020 showed resolution of the base of tongue mass with FDG negative, subcentimeter left sided cervical lymph nodes. The right cervical level 2A node was no longer visualized. A 9 mm left upper lobe pulmonary nodule with SUV 2.3 was noted to have progressed from the prior study and also noted were multiple new bilateral pulmonary nodules, consistent with malignancy. These included a 1 cm anterior medial left upper lobe nodule with SUV 6.7 and a 1.1 cm right upper lobe nodule with SUV 6.4. With those findings he had further evaluation with a next generation sequencing study. It showed no actionable mutations, but the PD-L1 was positive at 10% and the tumor mutation burden was high at 11, suggesting potential benefit with immunotherapy. On 12/24/2020 he began cycle 1 of treatment with pembrolizumab. He tolerated it with no adverse effects. He then continued treatment at 3-week intervals. As of 03/04/2021 he completed his 4th cycle. He is seen for a scheduled visit. He says he has been going downhill and getting progressively weaker. He has very limited activity now. His ECOG score is 3. He has no appetite and he is hardly eating. His weight has dropped almost 35 pounds since December. He does not have fever or night sweats. He complains that his mouth is dry. He has cough associated with phlegm in his throat, but he complains that he cannot get rid of it. He does not complain of shortness of breath or chest pain. He sometimes has nausea. He complains of having a lot of intestinal gas, and he has been having pain in the right lower quadrant area. He also has constipation. He has been taking senna. Bladder function has been okay. He has pain in his right knee, which is chronic. He does not complain of headache. He has been feeling unsteady. He has no focal neurologic symptoms. Medications: Atenolol 1 Tablet (of 25 mg) Oral daily, Claritin 1 Tablet (of 10 mg) Oral once, D3-1000 1 Tablet (of 25 mcg ) Oral daily, Daily Multiple Vitamins 1 Tablet Oral daily, Flonase Allergy Relief Suspension Nasal, Furosemide 1 Tablet (of 40 mg) Oral at bedtime PRN, Lasix (80 mg) Tablet Oral Take as Directed, Levothyroxine Sodium 1 Tablet (of 25 mcg) Oral daily, metFORMIN HCl 0.5 - 1 Tablet (of 1000 mg) Oral b.i.d., Omeprazole 1 Capsule (of 20 mg) Capsule Delayed Release Oral daily, Potassium Chloride ER 1 Tablet (of 10 meq) Capsule, controlled release Oral daily, Pravastatin Sodium 1 Tablet (of 20 mg) Oral daily, Singulair 1 Tablet (of 10 mg) Oral at bedtime, Vitamin B 12 1 Tablet Oral once Allergies: Keflex, Penicillins, and Pneumococcal 13-[place] Conj Vacc. Vital Signs: Performed on March 25, 2021 11:16 Height - 72.00 in Weight - 175.8 lbs (LOW) BSA - 2.02 sq.m BMI - 23.84 Temperature - 97.3 F (LOW) Pulse - 88 /min Respiration - 18 /min BP - 104/70 mm(hg) O2 Sat - 98 % Pain - 0 Fatigue - 8 Physical Examination: Constitutional - He appears generally weak, Eyes - Sclerae nonicteric. Conjunctivae clear, ENMT - No lesions noted in the oral cavity, Hematologic/Lymphatic - No cervical, clavicular, or axillary adenopathy, Respiratory - Lungs show diminished air movement bilaterally and slightly coarse breath sounds, Cardiovascular - Heart rhythm is regular. There is no murmur, gallop, or rub noted, Abdomen - Mildly distended but soft. There is a subcutaneous nodule palpable within the midline abdominal scar. Liver is not enlarged. There is no abdominal mass or ascites noted and there is no inguinal adenopathy, Extremities - Mild edema, Neurologic - No focal neurologic deficits noted. Lab/Imaging: Test performed on March 25, 2021 09:43 LDH (Total) 202 U/L Sodium 137 mmol/L Potassium 3.3 mmol/L Chloride 95 mmol/L CO2 26 mmol/L Anion Gap 19.3 BUN 26 mg/dL Creatinine 1.0 mg/dL Cr Clearance (Est) 75.31 mL/min Glucose 141 mg/dL Osmolality - Calculated 291 mOsm/kg Calcium 9.5 mg/dL Protein, Total 7.3 g/dL Albumin 4.2 g/dL Globulin 3.1 g/dL Bilirubin, Total 0.4 mg/dL ALT (SGPT) 15 U/L AST (SGOT) 31 U/L Alkaline Phosphatase 59 IU/L WBC 5.2 10 3/uL RBC 4.52 10 6/uL HGB 14.6 g/dL HCT 43.4 % MCV 96.0 fL MCH 32.3 pg MCHC 33.6 g/dL RDW 15.0 % Platelet Count 60 10 3/cmm MPV 13.2 fL Neutrophils 1.78 10 3/uL Lymphocytes 2.2 10 3/uL Monocytes 0.9 10 3/uL Eosinophils 0.2 10 3/uL Basophils 0.1 10 3/uL Neutrophil % 34.2 % Lymphocyte % 42.9 % Monocyte % 17.8 % Eosinophil % 3.5 % Basophils % 1.4 % NRBC % 0 % Problem List: 1. HPV positive squamous cell carcinoma involving left base of tongue, by clinical evaluation stage BEVERLY (T2, N2b, M0) at initial diagnosis in March 2020. He had subsequent progression to stage IVC with PET/CT evidence of pulmonary metastatic disease bilaterally. 2. Hypertension. 3. Hyperlipidemia. 4. Type 2 diabetes. 5. He has chronic venous insufficiency. 6. History of prostate cancer for which he underwent radical prostatectomy approximately 5 years ago. 7. 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 Problems Addressed with this Encounter and Plan: Patient with HPV positive squamous cell carcinoma involving left base of tongue, by clinical evaluation stage BEVERLY (T2, N2b, M0) at initial diagnosis in March 2020. He underwent direct laryngoscopy with biopsy and esophagoscopy on 04/05/2020. Staging PET/CT 04/28/2020 showed a 2.8 x 1.5 subcarinal node with SUV 5.3, suspicious for metastatic disease. Smaller FDG positive nodes in the right paratracheal and subaortic territories appeared to be most likely reactive. On 05/15/2020 he underwent bronchoscopy/EBUS with transbronchial FNA biopsy of station 7 and station 4R lymph nodes. Pathology from both sites showed reactive lymph node tissue with no evidence of malignancy. With those findings, he was recommended to undergo radiation concurrently with standard high-dose cisplatin chemotherapy. He began cycle 1 of cisplatin 100 mg/m??? IV infusion concurrently with radiation on 05/31/2020. He tolerated the initial cisplatin infusion with no acute toxicity. At day 22 he had developed moderately severe neutropenia, ANC 1000, and his 2nd cycle of cisplatin was deferred. During that time he had undergone placement of a PEG tube, and he began nutritional support with tube feeding. He was able to continue his radiation, and he was then given cycle 2 of cisplatin on 07/03/2020. On 07/16/2020 he was admitted to the hospital with acute GI bleed, determined by EGD to be due to duodenal ulcers. He stabilized with conservative management. He again became neutropenic, but with uneventful recovery. He was able to continue radiation, and he completed his treatment on 07/23/2020 to a total dose of 7000 cGy. He did appear to have a very good response by follow-up CT in August 2020. Restaging PET/CT on 11/24/2019 showed FDG positive pulmonary nodules bilaterally, consistent with metastatic disease. A next generation sequencing study showed no actionable mutations, but his tumor was found to be PD-L1 positive at 10% with tumor mutation burden high at 11%, suggesting possible benefit with immunotherapy. He then began cycle 1 of pembrolizumab on 12/24/2020. And he had continued pembrolizumab 200 mg by IV infusion every 3 weeks. As of 03/04/2021 he completed his 4th cycle. During the past 1 to 2 months he has had a significant decline in his general condition with progressive weakness and declining performance status. He reports having very poor appetite and he has had significant weight loss. He also is having significant GI symptoms. It is uncertain to what extent the symptoms may be due to progression of the cancer, but I suspect that at least some component is treatment related. As such, the pembrolizumab will be put on hold. He will start IV hydration, and I am going to also start empiric steroid therapy. He will need to be monitoring his blood sugars closely. In addition, I will begin empiric prophylaxis with fluconazole 200 mg daily. With his blood pressure relatively low, he is to stop atenolol and he will hold his afternoon dose of furosemide. He will increase his potassium supplement to twice daily. He will return tomorrow for additional IV hydration. He will be scheduled for a follow-up visit in 1 week. Signed By: Devendra Reich M.D. <<Signature on File>>
[2021-03-26] MEDS: famotidine 20 mg/2 mL INJ IVP (09:20)
[2021-03-26 09:30] LABS: Anion Gap 17.9 (5-19); Blood Urea Nitrogen 30 mg/dL (8-23); Calcium 9.1 mg/dL (8.5-10.5); Carbon Dioxide 26 mmol/L (22-29); Chloride 99 mmol/L (98-107); Glucose 123 mg/dL (65-115); Osmolality Calculated 296 mOsm/kg (285-295); Potassium 3.9 mmol/L (3.5-5.1); Sodium 139 mmol/L (136-145)
[2021-03-26] MEDS: sodium chloride 0.9% 1,000 ML 999 ML IV (09:30)
[2021-03-29] MEDS: sodium chloride 0.9% 1,000 ML 999 ML IV (09:30)
[2021-03-29 10:10] LABS: Anion Gap 19.9 (5-19); Blood Urea Nitrogen 32 mg/dL (8-23); Calcium 9.4 mg/dL (8.5-10.5); Carbon Dioxide 22 mmol/L (22-29); Chloride 94 mmol/L (98-107); Glucose 143 mg/dL (65-115); Osmolality Calculated 283 mOsm/kg (285-295); Potassium 3.9 mmol/L (3.5-5.1); Sodium 132 mmol/L (136-145)
== END 2021-04-01 23:59 | disposition home or self-care (01) ==
LOC: ONCMED 05:33
PROVIDERS: PCP Family Medicine; Visit Provider Internal Medicine Medical Oncology
DX: Z51.12 Encounter for antineoplastic immunotherapy (principal); Z51.11 Encounter for antineoplastic chemotherapy; C01 Malignant neoplasm of base of tongue; C78.01 Secondary malignant neoplasm of right lung; C78.02 Secondary malignant neoplasm of left lung; D69.3 Immune thrombocytopenic purpura; I10 Essential (primary) hypertension; E78.5 Hyperlipidemia, unspecified; E11.9 Type 2 diabetes mellitus without complications; I87.2 Venous insufficiency (chronic) (peripheral); Z85.46 Personal history of malignant neoplasm of prostate; Z79.899 Other long term (current) drug therapy
CPT/HCPCS: 80048; 80053; 83615; 85025; 96360; 96361; 96365; 96366; 96367; 96375; 96413; 99214; 99215; J1100; J3490; J7030; J7050; J9271

== ENCOUNTER 2021-04-11 11:41 | Outpatient (RCR) | payer MEDICARE, OTHER, SELFPAY ==
[2021-04-04 14:13] LABS: Basophils % 0.1 %; Hematocrit 44.4 % (42.0-52.0); Hemoglobin 15.2 g/dL (11.7-16.6); Lymphocytes # 1.3 10^3/uL (0.8-4.8); Lymphocytes % 19.9 %; Mean Corpuscular HGB Conc 34.2 g/dL (30.0-36.0); Mean Corpuscular Hemoglobin 32.3 pg (28.0-34.0); Mean Corpuscular Volume 94.5 fL (80-94); Mean Platelet Volume 13.5 fL (7.4-10.4); Monocytes # 0.6 10^3/uL (0.2-0.9); Monocytes % 8.8 %; Neutrophils # 4.74 10^3/uL (1.8-7.7); Neutrophils % 70.3 %; Nucleated Red Blood Cells % 0 %; Platelet Count 125 10^3/cmm (130-400); Red Cell Distribution Width 15.2 % (12.1-15.1); White Blood Count 6.7 10^3/uL (4.0-10.0)
[2021-04-04 14:45] LABS: Alanine Aminotransferase 23 U/L (0-41); Albumin Level 4.1 g/dL (3.5-5.2); Alkaline Phosphatase 61 IU/L (40-130); Aspartate Amino Transferase 27 U/L (0-40); Blood Urea Nitrogen 26 mg/dL (8-23); Calcium 9.2 mg/dL (8.5-10.5); Carbon Dioxide 27 mmol/L (22-29); Chloride 94 mmol/L (98-107); Globulin 2.7 g/dL (1.3-4.6); Glucose 154 mg/dL (65-115); Osmolality Calculated 286 mOsm/kg (285-295); Sodium 134 mmol/L (136-145); Total Bilirubin 0.3 mg/dL (0.15-1.2); Total Protein 6.8 g/dL (6.6-8.7)
[2021-04-04 14:51] LABS: Anion Gap 17.5 (5-19)
[2021-04-04 14:52] LABS: Potassium 4.5 mmol/L (3.5-5.1)
[2021-04-04] MEDS: sodium chloride 0.9% 500 ML 999 ML IV (15:45)
[2021-04-04 16:20] LABS: Free T4 Free Thyroxine 1.55 ng/dL (0.82-1.77); Thyroid Stimulating Hormone 4.36 uIU/mL (0.27-4.20)
--- NOTE | 2021-04-04 18:48 | ONC FU_ITS ---
Dr. Reich Patient Follow-Up Note Patient: Demarcus Maldonado Unit #: [id number]: 1950 Dicatated By: Devendra Reich M.D.Date of Visit:Apr 04, 2021 Onc Med Follow-up/Prog Note Chief Complaint: Base of tongue cancer. 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 He had subsequent progression to stage IVC with PET/CT evidence of pulmonary metastatic disease bilaterally. He had presented with left cervical lymphadenopathy. He had associated pain in the left side of the neck and throat. He had been seen initially by Dr. James. CT of the neck on 03/27/2020 showed a soft tissue enhancing mass centered in the left tongue base along the lingual tonsil. It was noted to extend over a length of 2.6 x 2.2 x 1.3 cm. There appeared to be enhancement across the midline and there was suspected involvement in the lingular surface of the right tongue. Also noted was enlargement and abnormal enhancement and thickening of the uvula. There was extensive, confluent adenopathy i involving the left neck. The largest cluster of nodes measured 8.4 cm in length by 2.8 cm, beginning at the level of the hyoid bone and extending inferiorly to the supraclavicular region. Additional clusters of lymph nodes were present at level IIa, IIb, III, Va, and in the supraclavicular area. The largest necrotic lymph node measured 2.5 x 2.2 cm at the level of the thyroid cartilage. Smaller lymph nodes were noted along the right cervical chain, but without definite adenopathy. The lung apices were noted to be clear. He was seen by Dr. Praneeth Thompson on 03/30/2020. His exam showed an exophytic mass and papillomatous mass at the left tongue base as well as papillomatous mass at the left paramedian tongue base. The remainder of the oral cavity and oropharyngeal exam was reported to be normal. The laryngeal exam showed erythema and edema of the arytenoid mucosa. He then underwent direct laryngoscopy with biopsy and esophagoscopy on 04/05/2020. Findings included an exophytic lesion involving the left tongue base extending to the right of the midline. It also was noted to extend into the vallecula. There was no involvement of the lateral pharyngeal wall or the larynx. The esophagus was noted to be free of lesions. Biopsy showed infiltrating moderately differentiated squamous cell carcinoma which was confirmed to be HPV positive. I had seen him initially on 04/19/2020. Staging PET/CT on 04/28/2020 showed a 2.4 x 1.7 cm left base of tongue mass with SUV 24.5, consistent with primary malignancy. There were FDG positive nodes from cervical levels II through IV and V levels on the left consistent with local metastatic disease. A 1.2 cm right level 2A node had SUV 4.2 indicating a high probability of contralateral cervical disease. A subpleural solid nodule in the lateral left upper lobe measuring 8 mm had SUV 1.9, suspicious but not definitive for distant metastatic disease. A 2.8 x 1.5 cm subcarinal lymph node had SUV 5.3, suspicious for metastatic disease. Smaller FDG positive nodes in the right pretracheal and subaortic territories were felt to be most likely reactive. He was referred to Dr. Kingsley. On 05/15/2020 he underwent bronchoscopy/EBUS with transbronchial FNA biopsy of station 7 and station 4R lymph nodes. Pathology from both sites showed reactive lymph node tissue with no evidence of malignancy. With those findings, he was recommended to undergo radiation concurrently with standard high-dose cisplatin chemotherapy. He began cycle 1 of cisplatin at 100 mg/m??? by IV infusion concurrently with radiation on 05/31/2020. He experienced no acute toxicity with the initial cisplatin infusion. Her further chemotherapy was held due to neutropenia. He completed radiation on 06/19/2020 to a total dose of 6540 cGy. He then continued with radiation. At his day 22 visit he had moderately severe neutropenia with absolute neutrophil count at just under 1000, and his second dose of cisplatin was deferred. Subsequent to that visit, he began having more difficulty with swallowing and with oral intake, and he did opt undergo placement of the PEG tube. He was able to continue his radiation, and he proceeded with cycle 2 of cisplatin 100 mg/m??? by IV infusion on 07/03/2020. On 07/16/2020 he was admitted to the hospital with acute upper GI bleeding. His EGD showed multiple benign-appearing ulcers in the duodenum, which appeared to be the likely source for the GI bleed, though no active bleeding was apparent at the time of the procedure. During the hospitalization he became neutropenic, but it resolved uneventfully on antibiotic coverage with cefepime and Levaquin. During the hospitalization, he was able to resume his radiation, and he completed treatment on 07/23/2020 to a total dose of 7000 cGy. He has a history of having previously undergone radical prostatectomy for prostate cancer. He also has a prior history of ITP. His other medical illnesses include hypertension, hyperlipidemia, and type 2 diabetes. He has a past history of smoking, but only for about 6 years. He quit smoking approximately 40 years ago. He had also chewed tobacco, but only for about 1 or 2 years. INTERIM HISTORY: Restaging neck CT on 08/20/2020 showed significant improvement in the cervical chain lymphadenopathy with the largest persistent lymph node measuring 1.7 x 1.6 cm at level III. There appeared to be complete resolution of the left tongue base neoplasm. A restaging PET/CT on 11/24/2020 showed resolution of the base of tongue mass with FDG negative, subcentimeter left sided cervical lymph nodes. The right cervical level 2A node was no longer visualized. A 9 mm left upper lobe pulmonary nodule with SUV 2.3 was noted to have progressed from the prior study and also noted were multiple new bilateral pulmonary nodules, consistent with malignancy. These included a 1 cm anterior medial left upper lobe nodule with SUV 6.7 and a 1.1 cm right upper lobe nodule with SUV 6.4. With those findings he had further evaluation with a next generation sequencing study. It showed no actionable mutations, but the PD-L1 was positive at 10% and the tumor mutation burden was high at 11, suggesting potential benefit with immunotherapy. On 12/24/2020 he began cycle 1 of treatment with pembrolizumab. He tolerated it with no adverse effects. He then continued treatment at 3-week intervals. As of 03/04/2021 he completed his 4th cycle. I had seen him for a follow-up visit on 03/25/2021. He was feeling very weak generally. His ECOG score had declined to 3. He also had very poor appetite. He was noted to have a weight loss of 35 pounds since December. He was having a lot of intestinal gas and he also reported having pain in his right lower quadrant area. He had some constipation, but no diarrhea. His treatment was put on hold, and he was given IV hydration. I also opted to give him steroid therapy, but with his known diabetes it was limited to a relatively low dose of prednisone. He is seen now for a follow-up visit. He did have some improvement with the IV fluids and with the prednisone, but modest at best. He still complains that his legs are weak and he has very limited activity. ECOG score is still 3. Appetite has improved somewhat, but his says he still eats only a little. He does not have fever or night sweats. He complains of having dry mouth and he also has been having hoarseness. He has just occasional cough. He has had some shortness of breath. He does not complain of chest pain. He is not having nausea. He continues to complain that he is burping a lot and also passing a lot of gas. His bowel function remains adequate with senna. He still has had no diarrhea. Bladder function remains adequate. He has joint pain in his knees and is also had some back pain. He does not complain of headache. He sometimes has lightheadedness. He has no numbness/paresthesia or other focal neurologic symptoms. Medications: Claritin 1 Tablet (of 10 mg) Oral once, D3-1000 1 Tablet (of 25 mcg ) Oral daily, Daily Multiple Vitamins 1 Tablet Oral daily, Diflucan 1 (100 mg) Tablet Oral daily, Flonase Allergy Relief Suspension Nasal, Lasix (80 mg) Tablet Oral Take as Directed, Levothyroxine Sodium 1 Tablet (of 25 mcg) Oral daily, metFORMIN HCl 0.5 - 1 Tablet (of 1000 mg) Oral b.i.d., Omeprazole 1 Capsule (of 20 mg) Capsule Delayed Release Oral daily, Potassium Chloride ER 1 Tablet (of 20 meq) Capsule, controlled release Oral daily, Pravastatin Sodium 1 Tablet (of 20 mg) Oral daily, predniSONE 1 (20 mg) Tablet Oral b.i.d., Singulair 1 Tablet (of 10 mg) Oral at bedtime, Vitamin B 12 1 Tablet Oral once Allergies: Keflex, Penicillins, and Pneumococcal 13-Samaria Conj Vacc. Vital Signs: Performed on Apr 04, 2021 15:05 Height - 72.00 in Weight - 170.4 lbs (LOW) BSA - 1.99 sq.m BMI - 23.11 Temperature - 97.3 F (LOW) Pulse - 147 /min (HIGH) Respiration - 17 /min BP - 134/85 mm(hg) O2 Sat - 98 % Pain - 0 Physical Examination: Constitutional - He appears generally weak, Eyes - Sclerae nonicteric. Conjunctivae clear, ENMT - There is a slight coating on the tongue. There are no other lesions noted in the oral cavity, Hematologic/Lymphatic - No cervical, clavicular, or axillary adenopathy, Respiratory - Lungs sound clear with diminished air movement bilaterally, Cardiovascular - Heart rhythm shows a regular tachycardia with some premature beats. There is no murmur, gallop, or rub noted, Abdomen - Mildly distended and tympanic. Liver is not enlarged. There is no abdominal mass or ascites noted and there is no inguinal adenopathy, Extremities - Mild edema, worse on the right, Neurologic - No focal neurologic deficits noted. Lab/Imaging: Test performed on Apr 04, 2021 13:55 Sodium 134 mmol/L Potassium 4.5 mmol/L Chloride 94 mmol/L CO2 27 mmol/L Anion Gap 17.5 BUN 26 mg/dL Creatinine 0.8 mg/dL Cr Clearance (Est) 91.25 mL/min Glucose 154 mg/dL Osmolality - Calculated 286 mOsm/kg Calcium 9.2 mg/dL Protein, Total 6.8 g/dL Albumin 4.1 g/dL Globulin 2.7 g/dL Bilirubin, Total 0.3 mg/dL ALT (SGPT) 23 U/L AST (SGOT) 27 U/L Alkaline Phosphatase 61 IU/L WBC 6.7 10 3/uL RBC 4.70 10 6/uL HGB 15.2 g/dL HCT 44.4 % MCV 94.5 fL MCH 32.3 pg MCHC 34.2 g/dL RDW 15.2 % Platelet Count 125 10 3/cmm MPV 13.5 fL Neutrophils 4.74 10 3/uL Lymphocytes 1.3 10 3/uL Monocytes 0.6 10 3/uL Eosinophils 0.0 10 3/uL Basophils 0.0 10 3/uL Neutrophil % 70.3 % Lymphocyte % 19.9 % Monocyte % 8.8 % Eosinophil % 0.0 % Basophils % 0.1 % NRBC % 0 % Test performed on Apr 04, 2021 01:55 T4, Free 1.55 ng/dL TSH 4.36 uIU/mL Problem List: 1. HPV positive squamous cell carcinoma involving left base of tongue, by clinical evaluation stage BEVERLY (T2, N2b, M0) at initial diagnosis in March 2020. He had subsequent progression to stage IVC with PET/CT evidence of pulmonary metastatic disease bilaterally. 2. Hypertension. 3. Hyperlipidemia. 4. Type 2 diabetes. 5. He has chronic venous insufficiency. 6. History of prostate cancer for which he underwent radical prostatectomy approximately 5 years ago. 7. 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 Problems Addressed with this Encounter and Plan: Patient with HPV positive squamous cell carcinoma involving left base of tongue, by clinical evaluation stage BEVERLY (T2, N2b, M0) at initial diagnosis in March 2020. He underwent direct laryngoscopy with biopsy and esophagoscopy on 04/05/2020. Staging PET/CT 04/28/2020 showed a 2.8 x 1.5 subcarinal node with SUV 5.3, suspicious for metastatic disease. Smaller FDG positive nodes in the right paratracheal and subaortic territories appeared to be most likely reactive. On 05/15/2020 he underwent bronchoscopy/EBUS with transbronchial FNA biopsy of station 7 and station 4R lymph nodes. Pathology from both sites showed reactive lymph node tissue with no evidence of malignancy. With those findings, he was recommended to undergo radiation concurrently with standard high-dose cisplatin chemotherapy. He began cycle 1 of cisplatin 100 mg/m??? IV infusion concurrently with radiation on 05/31/2020. He tolerated the initial cisplatin infusion with no acute toxicity. At day 22 he had developed moderately severe neutropenia, ANC 1000, and his 2nd cycle of cisplatin was deferred. During that time he had undergone placement of a PEG tube, and he began nutritional support with tube feeding. He was able to continue his radiation, and he was then given cycle 2 of cisplatin on 07/03/2020. On 07/16/2020 he was admitted to the hospital with acute GI bleed, determined by EGD to be due to duodenal ulcers. He stabilized with conservative management. He again became neutropenic, but with uneventful recovery. He was able to continue radiation, and he completed his treatment on 07/23/2020 to a total dose of 7000 cGy. He did appear to have a very good response by follow-up CT in August 2020. Restaging PET/CT on 11/24/2019 showed FDG positive pulmonary nodules bilaterally, consistent with metastatic disease. A next generation sequencing study showed no actionable mutations, but his tumor was found to be PD-L1 positive at 10% with tumor mutation burden high at 11%, suggesting possible benefit with immunotherapy. He then began cycle 1 of pembrolizumab on 12/24/2020. And he had continued pembrolizumab 200 mg by IV infusion every 3 weeks. As of 03/04/2021 he completed his 4th cycle. During the past 1 to 2 months he has had a significant decline in his general condition with progressive weakness and declining performance status. As of last week his treatment was put on hold. He was given IV dehydration and he also started steroid therapy with a relatively low dose of prednisone. He has since then been feeling only slightly better. He continues to complain that his legs feel weak. He has some shortness of breath, but no chest pain. He does have significant tachycardia. He reports having intestinal gas, but he currently is not having abdominal pain and he has had no diarrhea. I am still uncertain as to the underlying cause for his decline. He will be given additional IV hydration today. I will have him continue prednisone at 10 mg daily. He will restart the atenolol, which has been stopped with his last visit. He will be scheduled for CT pulmonary angiogram and for CT abdomen/pelvis. He also will be scheduled for a brain MRI. He will have further evaluation as indicated. Signed By: Devendra Reich M.D. <<Signature on File>>
--- NOTE | 2021-04-10 13:25 | MR_ITS ---
WS: [id number] MRI BRAIN WITH AND WITHOUT CONTRAST HISTORY: HEAD/NECK CANCER;WEAKNESS COMPARISON: None available. TECHNIQUE: Multiplanar imaging performed through the brain with MultiHance 18 ml's IV. No acute infarcts are seen. Haynes-white matter differentiation is well preserved. Very minimal FLAIR a nd T2 signal hyperintensity surrounding the ventricles and chronic ischemic disease. No prior infarct s. No hemorrhage. No susceptibility artifacts or prior lacunar infarcts. Ventricles and extra-axial spaces are normal. Clivus and pituitary gland are normal. Visualized posterior fossa and brainstem are also normal. Cancer, weakness Postcontrast images are negative for masses or vascular malformations. Dural venous sinuses are normal. Paranasal sinuses: Well aerated with no significant disease. Mastoid air cells: Normal. Calvarium and scalp: Normal. MR/MR head wo/w con [id number] IMPRESSION: 1. No evidence for metastatic disease to the brain. 2. Very minimal chronic microvascular ischemic disease in the periventricular white matter. 3. No acute infarct or hemorrhage.
[2021-04-10] MEDS: gadobenate dimeglumine 20 mL vial IV (14:32)
--- NOTE | 2021-04-11 10:31 | CT_ITS ---
WS: [id number] CTA CHEST WITH CT ABDOMEN AND PELVIS. HISTORY: Short of breath, weakness and tachycardia. TECHNIQUE: CT angiogram is performed through the chest. Additional imaging is performed through the a bdomen and pelvis with IV contrast. Sagittal and coronal reformats have been submitted. MIP imaging also reviewed. All CT scans at [facility] use at least one of these dose optimization tech niques: automated exposure control; mA and/or kV adjustment per patient size (includes targeted exams where dose is matched to clinical indication); or iterative reconstruction. Contrast: Omnipaque 350; 95 cc IV. DLP: 1338.25 mGy.cm COMPARISON: 07/14/2019 and prior PET/CT 11/24/2020 Chest CTA: No central pulmonary embolism. Occlusive emboli in the segmental branch of the LEFT upper lobe pulmonary artery. There is mild branching into subsegmental arteries. Additional subsegmental RI GHT lower lobe pulmonary emboli. No RIGHT heart strain. Pulmonary artery size is normal. Very mild at herosclerosis aorta. Mild enlargement of the LEFT heart chambers. Small pericardial effusion. No pleu ral effusion. Numerous bilateral pulmonary nodules are reidentified. These were previously described by PET/CT. RIGHT upper lobe nodule is lobulated measuring 15 mm in short axis diameter. This nodule h as increased in size from 10 mm. Majority of the nodules have decreased in size or resolved. Mediastinal and hilar lymphadenopathy has increased since the prior study. Largest lymph nodes measur e up to 1.6 cm in diameter in the LEFT hilar region and inferior LEFT paratracheal region. Small amount of oral contrast in the esophagus. Abdomen CT: Liver, gallbladder and adrenal glands are normal. Pancreatic atrophy. Prior splenectomy. No renal obstruction. 3.5 cm cyst from the superior posterior LEFT kidney. Mild atherosclerosis aorta . Extensive air distention of the colon. Colon is distended to the level of the rectum. No focal fonseca ge in caliber. Small bowel loops are more normal size. No adenopathy. No ascites. Stable calcified nodule in the anterior abdominal wall fat. Pelvic CT: No free fluid. Small RIGHT hydrocele. No adenopathy. Mild carinatum deformity. Bones are diffusely osteopenic. No fractures or osteoblastic/osteolytic bon e disease. CT/CT angio chest w abd pel w con IMPRESSION: 1. LEFT upper and RIGHT lower lobe pulmonary emboli. No central emboli. 2. Numerous bilateral metastatic pulmonary nodules. One of these nodules has i ncreased in diameter from 10 to 15 mm in the RIGHT upper lobe. Majority of thes e nodules have either decreased in size or resolved. 3. Increasing mediastinal and hilar lymphadenopathy. Largest lymph node at 1.6 cm at the LEFT hilum. 4. Prior splenectomy. 5. No metastatic disease in the liver or adrenal glands. 6. Diffuse air distention throughout the colon. Probably an ileus pattern. No transition zone. Notified Devendra Reich MD at 04/11/2021 12:28 PM.
[2021-04-11] MEDS: iodixanol 320 mg/mL 100mL Btl IV (11:52)
[2021-04-11 17:19] LABS: Glucose Point of Care 146 mg/dL (70-110)
== END 2021-04-11 13:00 | disposition home or self-care (01) ==
LOC: ONCMED 11:41
PROVIDERS: PCP Family Medicine; Visit Provider Internal Medicine Medical Oncology
DX: C01 Malignant neoplasm of base of tongue (principal); C78.01 Secondary malignant neoplasm of right lung; C78.02 Secondary malignant neoplasm of left lung; I10 Essential (primary) hypertension; E78.5 Hyperlipidemia, unspecified; E11.9 Type 2 diabetes mellitus without complications; I87.2 Venous insufficiency (chronic) (peripheral); D47.3 Essential (hemorrhagic) thrombocythemia; Z85.46 Personal history of malignant neoplasm of prostate; Z79.899 Other long term (current) drug therapy
CPT/HCPCS: 36416; 70553; 71275; 74177; 80053; 82962; 84439; 84443; 85025; 96360; 99214; A9577; J7040; Q9967

== ENCOUNTER 2021-04-11 13:16 | Inpatient (IN) | payer MEDICARE, OTHER, SELFPAY ==
[2021-04-11 13:37] VITALS: BMI 23.0
--- NOTE | 2021-04-11 14:38 | P.HP_ITS ---
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 He tolerated it with no adverse effects.He then continued treatment at 3-week intervals. As of 03/04/2021 he completed his 4th cycle.He is being managed by Dr. Reich as an outpatient, but lately there has been progressive decline in his overall functional status, with significantly noted weight loss, poor appetite poor oral intake.ECOG score had declined to 3.His immunotherapy was kept on hold. he will started on IV hydration as well as low-dose steroids. Patient had modest improvement with low-dose steroids and IV hydration, he still has significant generalized weakness , poor appetite , leg weakness.He was sent in from Dr. Reich clinic, for high-dose steroid, IV hydration. Pertinent imaging studies: CT angio chest abdomen and pelvis has shown: 04/11/2021 LEFT upper and RIGHT lower lobe pulmonary emboli. No central emboli. Numerous bilateral metastatic pulmonary nodules. One of these nodules has increased in diameter from 10 to 15 mm in the RIGHT upper lobe. Majority of these nodules have either decreased in size or resolved. Increasing mediastinal and hilar lymphadenopathy. Largest lymph node at 1.6 cm at the LEFT hilum. MR head wo/w con: No evidence for metastatic disease to the brain. Review of Systems Const: Denies: fever(s) Card: Denies: palpitations Resp: Denies: wheezing or pain on inspiration GI: Denies: abdominal pain, nausea or vomiting : Denies: flank pain or difficulty urinating Musc: Denies: extremity pain Neuro: Denies: headache(s) or confusion Medications/Allergies Home Medications Medication Instructions Recorded Confirmed Last Taken Type atenolol 25 mg tablet 25 mg PO DAILY 05/10/20 11/06/20 07/13/20 History cholecalciferol (vitamin D3) 25 25 mcg PO DAILY 05/10/20 11/06/20 07/15/20 History mcg (1,000 unit) capsule fluticasone propionate 50 1 spray INTRANASAL DAILY PRN 05/10/20 11/06/20 06/07/22 History mcg/actuation nasal spray,suspension furosemide 40 mg tablet 40 mg PO DAILY 05/10/20 11/06/20 07/15/20 History hydrochlorothiazide 25 mg tablet 25 mg PO DAILY 05/10/20 11/06/20 07/15/20 History losartan 100 mg tablet 100 mg PO DAILY 05/10/20 11/06/20 07/15/20 History metformin 1,000 mg tablet See Rx Instructions .ROUTE .COMPLEX 05/10/20 11/06/20 07/15/20 History multivitamin,go-erqz-ojxbobjo 1 tab PO DAILY 05/10/20 11/06/20 07/15/20 History pravastatin 20 mg tablet 20 mg PO DAILY 05/10/20 11/06/20 07/15/20 History Xanax 0.5 mg PO TID PRN 07/16/20 11/06/20 Unknown History clotrimazole See Rx Instructions .ROUTE .COMPLEX 07/16/20 11/06/20 07/15/20 History hydrocodone-acetaminophen 1 tab PO Q6H PRN 07/16/20 11/06/20 Unknown History levofloxacin 500 mg PO DAILY 07/16/20 11/06/20 07/15/20 History ferrous sulfate 325 mg PO TIDWM #90 tab 07/24/20 11/06/20 Unknown Rx omeprazole 40 mg PO BID #60 tab 07/25/20 11/06/20 07/15/20 Rx Allergies Allergy/AdvReac Type Severity Reaction Status Date / Time pneumococcal vaccine Allergy Severe ALGY-Swell Verified 11/06/20 13:59 Lip/Tongue/Throat cephalexin [From Keflex] AdvReac Severe ADR-Vomitin Verified 11/06/20 13:59 g Penicillins AdvReac Severe ADR-Vomitin Verified 11/06/20 13:59 g PFSH Acute PFSH: Medical History (Updated 04/11/21 @ 15:03 by Ruben Escobedo MD) Abdominal wall hernia Cervical lymphadenopathy H/O nephrolithotomy with removal of calculi History of ITP HTN (hypertension) Hypercholesterolemia Prostate cancer Squamous cell cancer of tongue Type 2 diabetes mellitus Umbilical hernia Surgical History (Updated 04/11/21 @ 15:02 by Ruben Escobedo MD) H/O arthroscopy of knee H/O circumcision H/O colonoscopy 3-4 yrs ago H/O esophagogastroduodenoscopy years ago H/O hernia repair H/O radical prostatectomy H/O splenectomy Hx of tonsillectomy S/P percutaneous endoscopic gastrostomy (PEG) tube placement (06/27/20) removed on 11/05/2020 Family History Mother Dementia Father Lung disease Bleeding disorder Denies family history of Anesthesia complication Social History Smoking and tobacco status: former smoker Quit status (tobacco): has quit using tobacco Year quit tobacco: 1979 - 1.5 PPD x 10 Years Alcohol intake: never Lives independently: Yes Household members: none Marital status: Current occupational status: retired History of recent travel: No Current gender identity: Male Physical Exam Const: COMMON NORMALS: patient oriented x3 HENMT: COMMON NORMALS: normocephalic and atraumatic HEAD & SCALP: normocephalic and atraumatic Chest: CHEST: Yes Symmetrical chest wall rise Resp: COMMON NORMALS: clear to auscultation bilaterally EFFORT & INSPECTION: Yes symmetric chest movement AUSCULTATION: clear to auscultation bilaterally Cardio: COMMON NORMALS: regular rate, regular rhythm, S1 normal heart sound present, S2 normal heart sound present, No gallops present (Cardio), No murmurs present (Cardio), No rub (Cardio) and Peripheral pulses 2+ throughout RATE: regular rate RHYTHM: regular rhythm HEART SOUNDS: S1 normal heart sound present and S2 normal heart sound present PERIPHERAL PULSES: Peripheral pulses 2+ throughout GI: COMMON NORMALS: Normal to inspection, nondistended, normoactive bowel sounds present, Soft to palpation, non-tender, No hepatosplenomegaly present and no masses AUSCULTATION: Yes normoactive bowel sounds PALPATION: Yes Soft to palpation and Yes No hepatosplenomegaly present RECTAL EXAM: Yes deferred Extremity: COMMON NORMALS: no clubbing, cyanosis or edema and no pedal edema Neuro: COMMON NORMALS: patient oriented x3 A&P Assessment and plan (1) Generalized weakness: Patient presented with chief complaint of generalized weakness poor oral intake severe dehydration, current concern is immunotherapy related side effect. He has been started on high-dose steroids, along with, IV hydration, IV Protonix, medium dose sliding scale insulin. Will encourage oral intake, if needed will start on PPN. Status: Acute (2) Dehydration: IV hydration Status: Acute (3) Acute pulmonary embolism: Acute pulmonary embolism in the setting of malignancy Eliquis 10 mg every 12 hours daily for 5 days, thereafter Eliquis 5 mg every 12 hours daily. Status: Acute (4) HTN (hypertension): Status: Acute (5) Type 2 diabetes mellitus: Status: Acute (6) Squamous cell cancer of tongue: Status: Acute (7) History of ITP: Status: Acute (8) Status post splenectomy: Status: Acute Additional A&P Information CODE STATUS: Full code DVT prophylaxis: On Eliquis Attestations Medical Necessity Statement*: Patient needs to be in hospital for management of generalized weakness poor oral intake severe dehydration need for IV fluids.Anticipated length of stay greater than 2 midnight. Coding Level of Care Code Acute Marketing Officer for g Fwd Exam Detailed Diagnoses Generalized weakness R53.1 Dehydration E86.0 Acute pulmonary embolism I26.99 HTN (hypertension) I10 Type 2 diabetes mellitus E11.9 Squamous cell cancer of tongue C02.9 History of ITP Z86.2 Status post splenectomy Z90.81
[2021-04-11 15:06] VITALS: PULSE 108; O2SAT 98
[2021-04-11 15:35] VITALS: BP 94/67; PULSE 93; RESP 15; TEMP 36.8; O2SAT 96
--- NOTE | 2021-04-11 16:12 | PC.PHAR ---
pt states his cecily stephen takes care of his medications-medications entered are what ext med history shows and what cecily states the pt takes-cecily states the pt is taking kcl 10meq bid states ctc told her to increase to the bid ext med history shows last filled on 04/03/21 30d/s for 10meq daily-cecily states the pt doesnt always take the atenolol depending on what his bp is-ext med history shows lasix 40mg take 80mg qam and 40mg qpm cecily states the pt is only taking 80mg qam-cecily states the pt has norco 5/325mg but doesnt take often cecily states the bottle is dated 07/31/2020-cecily states the pt has 9 tabs left of fluconazole rx filled on 04/05/21 14d/s for 200mg daily-cecily states the pt is on the prednisone 20mg once a day dose-ext med history shows filled on 03/26/21 18d/s for 20mg bid for 5 days and then 20mg daily thereafter
[2021-04-11 16:13] LABS: Basophils % 0.6 %; Eosinophils # 0.1 10^3/uL (0.0-0.8); Eosinophils % 0.7 %; Hematocrit 43.3 % (42.0-52.0); Hemoglobin 15.2 g/dL (11.7-16.6); Lymphocytes # 1.2 10^3/uL (0.8-4.8); Lymphocytes % 17.1 %; Mean Corpuscular HGB Conc 35.1 g/dL (30.0-36.0); Mean Corpuscular Hemoglobin 32.8 pg (28.0-34.0); Mean Corpuscular Volume 93.5 fL (80-94); Mean Platelet Volume 12.5 fL (7.4-10.4); Monocytes # 0.6 10^3/uL (0.2-0.9); Monocytes % 8.5 %; Neutrophils # 5.14 10^3/uL (1.8-7.7); Neutrophils % 72.4 %; Nucleated Red Blood Cells % 0 %; Platelet Count 83 10^3/cmm (130-400); Red Blood Count 4.63 10^6/uL (4.1-5.3); White Blood Count 7.1 10^3/uL (4.0-10.0)
[2021-04-11 16:28] LABS: Alanine Aminotransferase 22 U/L (0-41); Albumin Level 3.9 g/dL (3.5-5.2); Alkaline Phosphatase 68 IU/L (40-130); Aspartate Amino Transferase 28 U/L (0-40); Blood Urea Nitrogen 30 mg/dL (8-23); Calcium 9.4 mg/dL (8.5-10.5); Carbon Dioxide 23 mmol/L (22-29); Chloride 91 mmol/L (98-107); Globulin 2.7 g/dL (1.3-4.6); Glucose 143 mg/dL (65-115); Osmolality Calculated 279 mOsm/kg (285-295); Sodium 130 mmol/L (136-145); Total Bilirubin 0.5 mg/dL (0.15-1.2); Total Protein 6.6 g/dL (6.6-8.7)
[2021-04-11] MEDS: pantoprazole 40 mg SDV IVP (16:49)
[2021-04-11] MEDS: nystatin 100,000 unit/mL UDC 5 mL 100000 UNIT PO ×2 (16:49→21:27)
[2021-04-11] MEDS: sodium chloride 0.9% 1,000 ML 75 ML IV (16:49)
--- NOTE | 2021-04-11 17:24 | PC.NUTR ---
Nutrition consult per Dr. Escobedo completed at this time. Pt reports 80 lb wt loss X 1 year (32%). Recommend vanilla Glucerna TID, and 1 scoop beneprotein per meal when possible. Added pt preferences for no bread, no eggs at breakfast, and no hard/crunchy foods to diet information. See RD assessment for further details.
--- NOTE | 2021-04-11 18:09 | PC.NURSE ---
Patient refused tray but drank one full Ensure and a container of pudding.
[2021-04-11] MEDS: ferrous sulfate EC 325 mg Tablet PO (18:23)
[2021-04-11 19:55] VITALS: BP 110/62; PULSE 84; RESP 16; TEMP 37; O2SAT 95
[2021-04-11 20:45] LABS: Glucose Point of Care 142 mg/dL (70-110)
[2021-04-11] MEDS: apixaban 5 mg Tablet 10 MG PO (21:27)
[2021-04-11] MEDS: mirtazapine 15 mg Tablet PO (21:27)
[2021-04-11 23:43] VITALS: BP 118/76; PULSE 76; RESP 18; TEMP 36.5; O2SAT 97
--- NOTE | 2021-04-12 02:30 | PC.NURSE ---
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 THIS NURSE INFORMED HARP MAKER THAT THEY COULD REMOVE THEM TO MAKE PATIENT MORE COMFORTABLE.
[2021-04-12 04:00] VITALS: BP 104/65; PULSE 73; RESP 18; TEMP 36.4; O2SAT 97
[2021-04-12] MEDS: sodium chloride 0.9% 1,000 ML 75 ML IV ×2 (04:25→22:55)
[2021-04-12 05:24] LABS: Basophils % 0.2 %; Hematocrit 36.9 % (42.0-52.0); Hemoglobin 12.6 g/dL (11.7-16.6); Lymphocytes # 0.9 10^3/uL (0.8-4.8); Lymphocytes % 18.6 %; Mean Corpuscular HGB Conc 34.1 g/dL (30.0-36.0); Mean Corpuscular Hemoglobin 32.3 pg (28.0-34.0); Mean Corpuscular Volume 94.6 fL (80-94); Mean Platelet Volume 12.8 fL (7.4-10.4); Monocytes # 0.1 10^3/uL (0.2-0.9); Monocytes % 1.7 %; Neutrophils # 3.76 10^3/uL (1.8-7.7); Neutrophils % 78.7 %; Nucleated Red Blood Cells % 0 %; Platelet Count 81 10^3/cmm (130-400); Red Cell Distribution Width 15.3 % (12.1-15.1); White Blood Count 4.8 10^3/uL (4.0-10.0)
[2021-04-12 05:46] LABS: Alanine Aminotransferase 21 U/L (0-41); Albumin Level 3.2 g/dL (3.5-5.2); Alkaline Phosphatase 57 IU/L (40-130); Anion Gap 16.2 (5-19); Aspartate Amino Transferase 24 U/L (0-40); Blood Urea Nitrogen 29 mg/dL (8-23); Calcium 8.8 mg/dL (8.5-10.5); Carbon Dioxide 26 mmol/L (22-29); Chloride 95 mmol/L (98-107); Globulin 2.2 g/dL (1.3-4.6); Glucose 165 mg/dL (65-115); Magnesium 1.5 mg/dL (1.7-2.3); Osmolality Calculated 286 mOsm/kg (285-295); Potassium 4.2 mmol/L (3.5-5.1); Sodium 133 mmol/L (136-145); Total Bilirubin 0.3 mg/dL (0.15-1.2); Total Protein 5.4 g/dL (6.6-8.7)
[2021-04-12 06:41] LABS: Glucose Point of Care 166 mg/dL (70-110)
[2021-04-12 07:42] VITALS: BP 124/70; PULSE 74; RESP 18; TEMP 37.1; O2SAT 96
[2021-04-12] MEDS: magnesium sulfate premix 2 GM/50 ML PIGGYBACK IV (08:41)
[2021-04-12] MEDS: cholecalciferol (vitamin D3) 1,000 unit Tablet 1000 UNIT PO (08:42)
[2021-04-12] MEDS: apixaban 5 mg Tablet 10 MG PO ×2 (08:42→21:37)
[2021-04-12] MEDS: atorvastatin 40 mg Tablet 20 MG PO (08:42)
[2021-04-12] MEDS: ferrous sulfate EC 325 mg Tablet PO ×3 (08:42→18:40)
[2021-04-12] MEDS: nystatin 100,000 unit/mL UDC 5 mL 100000 UNIT PO ×4 (08:43→21:37)
--- NOTE | 2021-04-12 09:38 | PM.PN ---
Subjective Subjective: Interval history: Patient was seen and examined this morning,no acute event overnight.Continue to be on high dose steroid,continue to be on I.V Hydration,says that he is trying to eat as much as possible. Vitals/I&O/Wt Last Vital Signs Temp 98.8 F 04/12/21 07:42 Pulse 74 04/12/21 07:42 Resp 18 04/12/21 07:42 BP 124/70 04/12/21 07:42 Pulse Ox 96 04/12/21 07:42 04/11/21 04/12/21 04/12/21 22:59 06:59 14:59 Intake Total 435 / 435 870 / 1305 360 / 360 Output Total 100 / 100 650 / 750 Balance 335 / 335 220 / 555 360 / 360 Weight last 48 hrs Weight 77.111 kg Physical Exam Const: COMMON NORMALS: patient oriented x3 HENMT: COMMON NORMALS: normocephalic and atraumatic HEAD & SCALP: normocephalic and atraumatic Chest: CHEST: Yes Symmetrical chest wall rise Resp: COMMON NORMALS: clear to auscultation bilaterally EFFORT & INSPECTION: Yes symmetric chest movement AUSCULTATION: clear to auscultation bilaterally Cardio: COMMON NORMALS: regular rate, regular rhythm, S1 normal heart sound present, S2 normal heart sound present, No gallops present (Cardio), No murmurs present (Cardio), No rub (Cardio) and Peripheral pulses 2+ throughout RATE: regular rate RHYTHM: regular rhythm HEART SOUNDS: S1 normal heart sound present and S2 normal heart sound present PERIPHERAL PULSES: Peripheral pulses 2+ throughout GI: COMMON NORMALS: Normal to inspection, nondistended, normoactive bowel sounds present, Soft to palpation, non-tender, No hepatosplenomegaly present and no masses AUSCULTATION: Yes normoactive bowel sounds PALPATION: Yes Soft to palpation and Yes No hepatosplenomegaly present RECTAL EXAM: Yes deferred Extremity: COMMON NORMALS: no clubbing, cyanosis or edema and no pedal edema Neuro: COMMON NORMALS: patient oriented x3 Data : 04/12/21 05:10 04/12/21 05:10 A&P Assessment and plan (1) Generalized weakness: Patient presented with chief complaint of generalized weakness poor oral intake severe dehydration, current concern is immunotherapy related side effect. He has been started on high-dose steroids, along with, IV hydration, IV Protonix, medium dose sliding scale insulin. Will encourage oral intake, if needed will start on PPN. PT/OT Evaluation Status: Acute (2) Dehydration: IV hydration Status: Acute (3) Acute pulmonary embolism: Acute pulmonary embolism in the setting of malignancy Eliquis 10 mg every 12 hours daily for 5 days, thereafter Eliquis 5 mg every 12 hours daily. Status: Acute (4) HTN (hypertension): Status: Acute (5) Type 2 diabetes mellitus: Status: Acute (6) Squamous cell cancer of tongue: Status: Acute (7) History of ITP: Status: Acute (8) Status post splenectomy: Status: Acute Additional A&P Information CODE STATUS: Full code DVT prophylaxis: On Eliquis Attestations Medical Necessity Statement*: Patient needs to be in hospital for management of generalized weakness poor oral intake severe dehydration need for IV fluids. Coding Level of Care Code Acute Principle Industrial Hygienist for Chg Fwd Exam Detailed Diagnoses Generalized weakness R53.1 Dehydration E86.0 Acute pulmonary embolism I26.99 HTN (hypertension) I10 Type 2 diabetes mellitus E11.9 Squamous cell cancer of tongue C02.9 History of ITP Z86.2 Status post splenectomy Z90.81
[2021-04-12 10:57] LABS: Glucose Point of Care 266 mg/dL (70-110)
[2021-04-12 11:58] VITALS: BP 112/66; PULSE 83; RESP 16; TEMP 36.9; O2SAT 96
--- NOTE | 2021-04-12 13:03 | PC.CHAP ---
Pastoral Care Encounter/Spiritual Assessment Type of Contact [] Declined ship pilot dispatcher visit [] Patient/Family/Request visit [] Outpatient visit [] Follow-up visit [] Physician referral [] Code/Alert [xx] Routine visit [] Staff referral [] Actively dying [] Patient sleeping [] Family support [] [] Out of room [] Palliative care [] [] Receiving care in room [] Pre-surgical visit [] Trauma [] Long length of stay [] ICU visit [] Other: Relational/Emotional Strength [xx] Patient feels connected with others/family/visitors/staff [] Distress [] Loneliness/isolation [] Abandonment Spirituality of Patient [] Person of Jadyn [] Attends Sikh of their Jadyn [xx] Believes in Prayer [] Reads Bible or Temple materials [] There are Spiritual issues to be addressed Resource Development Director Interventions [xx] Prayer [xx] Active listening [xx] Non-anxious presence [] Spiritual/emotional support [] Crisis/trauma care [] Spiritual counseling [] Bereavement support [] Provided bereavement packet [] Provided Bible/devotional materials [] Provided toy/stuffed animal, coloring book to patient or family member [] Provided Communion [] Anointing/[place] [] Salvation [xx] Completed spiritual assessment [] Other: Impact on Illness or Injury [] Angry [] Fearful [] Anxious [] Often cries [] Exhaustion [] Unable to work [] Unable to attend christian [] Unable to walk/stand [] Unable to read [] Unable to drive [] Unable to eat/drink [] Unable to sleep [] Unable to be with family [] Patient intubated [] Other: Summary Girlfriend present. Resource Development Director prayed for both of them at her request. Time spent with patient 6 minutes
[2021-04-12] MEDS: pantoprazole 40 mg SDV IVP (14:39)
[2021-04-12 15:28] VITALS: BP 123/74; PULSE 91; RESP 16; TEMP 36.8; O2SAT 95
[2021-04-12 16:58] LABS: Glucose Point of Care 210 mg/dL (70-110)
[2021-04-12 20:00] VITALS: BP 107/67; PULSE 82; RESP 20; TEMP 36.7; O2SAT 95
[2021-04-12] MEDS: mirtazapine 15 mg Tablet PO (21:37)
[2021-04-12 22:12] LABS: Glucose Point of Care 216 mg/dL (70-110)
[2021-04-12 23:15] VITALS: BP 94/59; PULSE 78; RESP 16; TEMP 36.7; O2SAT 96
[2021-04-13 03:16] VITALS: BP 111/66; PULSE 73; RESP 18; TEMP 36.6; O2SAT 96
[2021-04-13 06:57] LABS: Glucose Point of Care 224 mg/dL (70-110)
[2021-04-13 07:03] LABS: Basophils % 0.2 %; Hematocrit 33.6 % (42.0-52.0); Hemoglobin 11.7 g/dL (11.7-16.6); Lymphocytes # 0.6 10^3/uL (0.8-4.8); Lymphocytes % 5.3 %; Mean Corpuscular HGB Conc 34.8 g/dL (30.0-36.0); Mean Corpuscular Hemoglobin 32.7 pg (28.0-34.0); Mean Corpuscular Volume 93.9 fL (80-94); Mean Platelet Volume 13.3 fL (7.4-10.4); Monocytes # 0.4 10^3/uL (0.2-0.9); Monocytes % 3.3 %; Neutrophils % 90.1 %; Nucleated Red Blood Cells % 0 %; Platelet Count 105 10^3/cmm (130-400); Red Blood Count 3.58 10^6/uL (4.1-5.3); Red Cell Distribution Width 15.1 % (12.1-15.1)
[2021-04-13 07:33] LABS: Alanine Aminotransferase 19 U/L (0-41); Albumin Level 3.1 g/dL (3.5-5.2); Alkaline Phosphatase 58 IU/L (40-130); Anion Gap 11.8 (5-19); Aspartate Amino Transferase 19 U/L (0-40); Blood Urea Nitrogen 26 mg/dL (8-23); Calcium 8.5 mg/dL (8.5-10.5); Carbon Dioxide 27 mmol/L (22-29); Chloride 100 mmol/L (98-107); Creatinine Clr Calc Pharmacy 91.3802; Glucose 207 mg/dL (65-115); Osmolality Calculated 291 mOsm/kg (285-295); Potassium 3.8 mmol/L (3.5-5.1); Sodium 135 mmol/L (136-145); Total Bilirubin 0.4 mg/dL (0.15-1.2); Total Protein 5.1 g/dL (6.6-8.7)
[2021-04-13 07:44] LABS: Slide Review Slide Review Perform
[2021-04-13 08:00] VITALS: BP 119/68; PULSE 72; RESP 16; TEMP 36.4; O2SAT 96
[2021-04-13] MEDS: atorvastatin 40 mg Tablet 20 MG PO (09:10)
[2021-04-13] MEDS: cholecalciferol (vitamin D3) 1,000 unit Tablet 1000 UNIT PO (09:10)
[2021-04-13] MEDS: apixaban 5 mg Tablet 10 MG PO (09:11)
[2021-04-13] MEDS: ferrous sulfate EC 325 mg Tablet PO (09:11)
[2021-04-13] MEDS: nystatin 100,000 unit/mL UDC 5 mL 100000 UNIT PO (09:11)
--- NOTE | 2021-04-13 10:27 | PM.DCS ---
Discharge Providers Date of Admission: 04/11/21 13:16 Date of Discharge: April 13, 2021 Attending Provider at Admission: Ruben Escobedo MD Attending Provider at Discharge: Ruben Escobedo MD Primary Care Provider: Arik Jmaes MD Diagnoses at Discharge Discharge Diagnosis (1) Generalized weakness: (2) Dehydration: (3) Acute pulmonary embolism: (4) HTN (hypertension): (5) Type 2 diabetes mellitus: (6) Squamous cell cancer of tongue: (7) History of ITP: (8) Status post splenectomy: Reason for Visit Reason for Visit: gen weakness, poor oral intake, dehydration Hospital Course Hospital Course Demarcus Maldonado is a 70 year old male 70 year-old man with past medical history of hypertension , ITP s/p splecnectomy, diabetes , 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 He tolerated it with no adverse effects.He then continued treatment at 3-week intervals. As of 03/04/2021 he completed his 4th cycle.He is being managed by Dr. Reich as an outpatient, but lately there has been progressive decline in his overall functional status, with significantly noted weight loss, poor appetite poor oral intake.ECOG score had declined to 3.His immunotherapy was kept on hold. he will started on IV hydration as well as low-dose steroids. Patient had modest improvement with low-dose steroids and IV hydration, he still has significant generalized weakness , poor appetite , leg weakness.He was sent in from Dr. Reich clinic, for high-dose steroid, IV hydration. Pertinent imaging studies: CT angio chest abdomen and pelvis has shown: 04/11/2021 LEFT upper and RIGHT lower lobe pulmonary emboli. No central emboli. Numerous bilateral metastatic pulmonary nodules. One of these nodules has increased in diameter from 10 to 15 mm in the RIGHT upper lobe. Majority of these nodules have either decreased in size or resolved. Increasing mediastinal and hilar lymphadenopathy. Largest lymph node at 1.6 cm at the LEFT hilum. MR head wo/w con: No evidence for metastatic disease to the brain. He was admitted for Generalized weakness, severe dehydration :likely 2/2 poor oral intake. current concern was immunotherapy related side effect.He was started on high-dose steroids, along with, IV hydration, IV Protonix, medium dose sliding scale insulin.nutrition goals were discussed and explained,physical therapy was involved in the care along with ms sql developer.For his acute P/E he was started on eliquis.Overall he responded well to the above medical management and was discharged on oral prednisone 20 mg TID.He will continue to follow as outpatient. Physical Exam Const: COMMON NORMALS: patient oriented x3 HENMT: COMMON NORMALS: normocephalic and atraumatic HEAD & SCALP: normocephalic and atraumatic Chest: CHEST: Yes Symmetrical chest wall rise Resp: COMMON NORMALS: clear to auscultation bilaterally EFFORT & INSPECTION: Yes symmetric chest movement AUSCULTATION: clear to auscultation bilaterally Cardio: COMMON NORMALS: regular rate, regular rhythm, S1 normal heart sound present, S2 normal heart sound present, No gallops present (Cardio), No murmurs present (Cardio), No rub (Cardio) and Peripheral pulses 2+ throughout RATE: regular rate RHYTHM: regular rhythm HEART SOUNDS: S1 normal heart sound present and S2 normal heart sound present PERIPHERAL PULSES: Peripheral pulses 2+ throughout GI: COMMON NORMALS: Normal to inspection, nondistended, normoactive bowel sounds present, Soft to palpation, non-tender, No hepatosplenomegaly present and no masses AUSCULTATION: Yes normoactive bowel sounds PALPATION: Yes Soft to palpation and Yes No hepatosplenomegaly present RECTAL EXAM: Yes deferred Extremity: COMMON NORMALS: no clubbing, cyanosis or edema and no pedal edema Neuro: COMMON NORMALS: patient oriented x3 Discharge Data Data Completed and Pending: Pending at discharge Category Date Time Status Complete Blood Co unt w/Auto AM LABS Lab 04/14/21 04:00 Ordered Comprehensive Met abolic Panel AM LA BS Lab 04/14/21 04:00 Ordered Labs from last 24 hours 04/13/21 04/13/21 04/13/21 06:34 06:34 06:08 WBC 12.0 H RBC 3.58 L Hgb 11.7 Hct 33.6 L MCV 93.9 MCH 32.7 MCHC 34.8 RDW 15.1 Plt Count 105 L MPV 13.3 H Neut % (Auto) 90.1 Lymph % (Auto) 5.3 [place] % (Auto) 3.3 Eos % (Auto) 0.0 Baso % (Auto) 0.2 Neut # (Auto) 10.80 H Lymph # (Auto) 0.6 L [place] # (Auto) 0.4 Eos # (Auto) 0.0 Baso # (Auto) 0.0 Nucleated RBC % (a uto) 0 Nucleated RBCs # 0.0 Sodium 135 L Potassium 3.8 Chloride 100 Carbon Dioxide 27 Anion Gap 11.8 BUN 26 H Creatinine 0.7 GFR Calculation Not Reportable Glucose 207 H POC Glucose 224 H Calculated Osmolal ity 291 Calcium 8.5 Total Bilirubin 0.4 AST 19 ALT 19 Alkaline Phosphata se 58 Total Protein 5.1 L Albumin 3.1 L Globulin 2.0 04/12/21 04/12/21 04/12/21 21:30 16:53 10:52 WBC RBC Hgb Hct MCV MCH MCHC RDW Plt Count MPV Neut % (Auto) Lymph % (Auto) [place] % (Auto) Eos % (Auto) Baso % (Auto) Neut # (Auto) Lymph # (Auto) [place] # (Auto) Eos # (Auto) Baso # (Auto) Nucleated RBC % (a uto) Nucleated RBCs # Sodium Potassium Chloride Carbon Dioxide Anion Gap BUN Creatinine GFR Calculation Glucose POC Glucose 216 H 210 H 266 H Calculated Osmolal ity Calcium Total Bilirubin AST ALT Alkaline Phosphata se Total Protein Albumin Globulin Vitals: Last Vital Signs Temp 97.6 F 04/13/21 08:00 Pulse 72 04/13/21 08:00 Resp 16 04/13/21 08:00 BP 119/68 04/13/21 08:00 Pulse Ox 96 04/13/21 08:00 Discharge Plan Discharge Patient Disposition: Home Condition: Stable Prescriptions: New Eliquis 5 mg tablet 5 mg PO BID Qty: 60 RF: 3 Continued cholecalciferol (vitamin D3) 25 mcg (1,000 unit) capsule 25 mcg PO QAM RF: 0 fluticasone propionate [Flonase Allergy Relief] 50 mcg/actuation spray,suspension 1 spray INTRANASAL .ONCE TO TWICE A DAY PRN (Reason: allergy symptoms) RF: 0 metformin 1,000 mg tablet See Rx Instructions .ROUTE .COMPLEX RF: 0 pravastatin 20 mg tablet 20 mg PO QPM RF: 0 hydrocodone-acetaminophen 5-325 mg Tablet 1 tab PO Q4H PRN (Reason: Pain) RF: 0 multivitamin Tablet 1 tab PO QAM RF: 0 fluconazole 200 mg tablet 200 mg PO QAM RF: 0 Compazine 10 mg Tablet 10 mg PO Q4H PRN (Reason: Nausea) RF: 0 omeprazole 40 mg Capsule,Delayed Release(Dr/Ec) 40 mg PO QAM RF: 0 Euthyrox 25 mcg tablet 25 mcg PO QAM RF: 0 Tylenol Arthritis Pain 650 mg Tablet Extended Release 1,300 mg PO BID RF: 0 ferrous sulfate 325 mg (65 mg iron) Tablet 325 mg PO QAM RF: 0 montelukast 10 mg tablet 10 mg PO BEDTIME RF: 0 ProAir HFA 90 mcg/actuation Hfa Aerosol Inhaler 2 puff INHALATION QID PRN (Reason: Shortness Of Breath) RF: 0 Mucus Relief 400 mg Tablet 400 mg PO TID RF: 0 Changed prednisone 20 mg tablet 20 mg PO TID Qty: 21 RF: 0 Held atenolol 25 mg tablet 25 mg PO QAM RF: 0 Hold Instructions: Resume on 04/20/21. furosemide 40 mg tablet 80 mg PO QAM RF: 0 Hold Instructions: Resume on 04/20/21. potassium chloride 10 mEq tablet extended release 10 meq PO BID RF: 0 Hold Instructions: Resume on 04/20/21. Discharge Orders: Discharge Order (Routine); Ordered 04/13/21 Ordered By: Ruben Escobedo Referrals: Devendra Reich MD [Hospitalist] - 1 month (Please contact Dr. Reich's office Thursday morning to make a follow-up appointment. ) Discharge Diet: Diabetic Discharge Activity: Resume usual activity Patient Instructions: Apixaban (By mouth), Dehydration (GEN), Opioid Safety Discharge Attestations Time Spent in Discharge Care*: less than 30 min Specific Discharge Activities: educating patient, educating and/or supporting family/caregiver, discussing with pcp/other providers, discussing with lead case manager/social workers/dc planners, documenting/other paperwork and evaluating patient/reviewing data Status at Discharge: Cognitive status at discharge: cognitively intact, Behavioral status at discharge: cooperative, Functional status at discharge: independent ambulation Overall status at discharge: patient is back to baseline Quality Metrics Clinical Quality Measures During this hospital stay, did patient experience: None Coding Level of Care Code Acute Chg FW DC note Diagnoses Generalized weakness R53.1 Dehydration E86.0 Acute pulmonary embolism I26.99 HTN (hypertension) I10 Type 2 diabetes mellitus E11.9 Squamous cell cancer of tongue C02.9 History of ITP Z86.2 Status post splenectomy Z90.81
[2021-04-13 11:00] VITALS: BP 124/73; PULSE 87; RESP 16; TEMP 36.6; O2SAT 96
[2021-04-13 11:07] LABS: Glucose Point of Care 290 mg/dL (70-110)
[2021-04-13 11:51] VITALS: BP 124/73; PULSE 87; RESP 16; TEMP 36.6; O2SAT 96
== END 2021-04-13 11:51 | disposition home or self-care (01) | DRG 640 ==
PROVIDERS: Admitting Provider Internal Medicine; PCP Family Medicine; Visit Provider Internal Medicine
DX: E86.0 Dehydration (principal); I26.99 Other pulmonary embolism without acute cor pulmonale; C78.02 Secondary malignant neoplasm of left lung; C78.01 Secondary malignant neoplasm of right lung; R53.1 Weakness; T45.1X5A Adverse effect of antineoplastic and immunosuppressive drugs, initial encounter; I10 Essential (primary) hypertension; Z90.81 Acquired absence of spleen; C01 Malignant neoplasm of base of tongue; Z92.21 Personal history of antineoplastic chemotherapy; Z92.3 Personal history of irradiation; Z79.899 Other long term (current) drug therapy; Z87.442 Personal history of urinary calculi; E78.00 Pure hypercholesterolemia, unspecified; C61 Malignant neoplasm of prostate; E11.9 Type 2 diabetes mellitus without complications; Z90.79 Acquired absence of other genital organ(s); Z87.891 Personal history of nicotine dependence; Z79.84 Long term (current) use of oral hypoglycemic drugs
CPT/HCPCS: 36415; 36416; 70553; 71275; 74177; 80053; 82962; 83735; 85025; 96372; 97110; 97161; A9577; C9113; J1815; J2930; J3475; J7030; Q9967

== ENCOUNTER 2021-04-29 08:00 | Outpatient (RCR) | payer MEDICARE, OTHER, SELFPAY ==
--- NOTE | 2021-04-27 13:40 | ONC FU_ITS ---
Dr. Reich Patient Follow-Up Note Patient: Demarcus Maldonado Unit #: [id number]: [id number] Dicatated By: Devendra Reich M.D.Date of Visit:Apr 23, 2021 Onc Med Follow-up/Prog Note Chief Complaint: Base of tongue cancer. 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 He had subsequent progression to stage IV with PET/CT evidence of pulmonary metastatic disease bilaterally. He had presented with left cervical lymphadenopathy. He had associated pain in the left side of the neck and throat. He had been seen initially by Dr. James. CT of the neck on 03/27/2020 showed a soft tissue enhancing mass centered in the left tongue base along the lingual tonsil. It was noted to extend over a length of 2.6 x 2.2 x 1.3 cm. There appeared to be enhancement across the midline and there was suspected involvement in the lingular surface of the right tongue. Also noted was enlargement and abnormal enhancement and thickening of the uvula. There was extensive, confluent adenopathy i involving the left neck. The largest cluster of nodes measured 8.4 cm in length by 2.8 cm, beginning at the level of the hyoid bone and extending inferiorly to the supraclavicular region. Additional clusters of lymph nodes were present at level IIa, IIb, III, Va, and in the supraclavicular area. The largest necrotic lymph node measured 2.5 x 2.2 cm at the level of the thyroid cartilage. Smaller lymph nodes were noted along the right cervical chain, but without definite adenopathy. The lung apices were noted to be clear. He was seen by Dr. Praneeth Thompson on 03/30/2020. His exam showed an exophytic mass and papillomatous mass at the left tongue base as well as papillomatous mass at the left paramedian tongue base. The remainder of the oral cavity and oropharyngeal exam was reported to be normal. The laryngeal exam showed erythema and edema of the arytenoid mucosa. He then underwent direct laryngoscopy with biopsy and esophagoscopy on 04/05/2020. Findings included an exophytic lesion involving the left tongue base extending to the right of the midline. It also was noted to extend into the vallecula. There was no involvement of the lateral pharyngeal wall or the larynx. The esophagus was noted to be free of lesions. Biopsy showed infiltrating moderately differentiated squamous cell carcinoma which was confirmed to be HPV positive. I had seen him initially on 04/19/2020. Staging PET/CT on 04/28/2020 showed a 2.4 x 1.7 cm left base of tongue mass with SUV 24.5, consistent with primary malignancy. There were FDG positive nodes from cervical levels II through IV and V levels on the left consistent with local metastatic disease. A 1.2 cm right level 2A node had SUV 4.2 indicating a high probability of contralateral cervical disease. A subpleural solid nodule in the lateral left upper lobe measuring 8 mm had SUV 1.9, suspicious but not definitive for distant metastatic disease. A 2.8 x 1.5 cm subcarinal lymph node had SUV 5.3, suspicious for metastatic disease. Smaller FDG positive nodes in the right pretracheal and subaortic territories were felt to be most likely reactive. He was referred to Dr. Kingsley. On 05/15/2020 he underwent bronchoscopy/EBUS with transbronchial FNA biopsy of station 7 and station 4R lymph nodes. Pathology from both sites showed reactive lymph node tissue with no evidence of malignancy. With those findings, he was recommended to undergo radiation concurrently with standard high-dose cisplatin chemotherapy. He began cycle 1 of cisplatin at 100 mg/m??? by IV infusion concurrently with radiation on 05/31/2020. He experienced no acute toxicity with the initial cisplatin infusion. Her further chemotherapy was held due to neutropenia. He completed radiation on 06/19/2020 to a total dose of 6540 cGy. He then continued with radiation. At his day 22 visit he had moderately severe neutropenia with absolute neutrophil count at just under 1000, and his second dose of cisplatin was deferred. Subsequent to that visit, he began having more difficulty with swallowing and with oral intake, and he did opt undergo placement of the PEG tube. He was able to continue his radiation, and he proceeded with cycle 2 of cisplatin 100 mg/m??? by IV infusion on 07/03/2020. On 07/16/2020 he was admitted to the hospital with acute upper GI bleeding. His EGD showed multiple benign-appearing ulcers in the duodenum, which appeared to be the likely source for the GI bleed, though no active bleeding was apparent at the time of the procedure. During the hospitalization he became neutropenic, but it resolved uneventfully on antibiotic coverage with cefepime and Levaquin. During the hospitalization, he was able to resume his radiation, and he completed treatment on 07/23/2020 to a total dose of 7000 cGy. He has a history of having previously undergone radical prostatectomy for prostate cancer. He also has a prior history of ITP. His other medical illnesses include hypertension, hyperlipidemia, and type 2 diabetes. He has a past history of smoking, but only for about 6 years. He quit smoking approximately 40 years ago. He had also chewed tobacco, but only for about 1 or 2 years. INTERIM HISTORY: Restaging neck CT on 08/20/2020 showed significant improvement in the cervical chain lymphadenopathy with the largest persistent lymph node measuring 1.7 x 1.6 cm at level III. There appeared to be complete resolution of the left tongue base neoplasm. A restaging PET/CT on 11/24/2020 showed resolution of the base of tongue mass with FDG negative, subcentimeter left sided cervical lymph nodes. The right cervical level 2A node was no longer visualized. A 9 mm left upper lobe pulmonary nodule with SUV 2.3 was noted to have progressed from the prior study and also noted were multiple new bilateral pulmonary nodules, consistent with malignancy. These included a 1 cm anterior medial left upper lobe nodule with SUV 6.7 and a 1.1 cm right upper lobe nodule with SUV 6.4. With those findings he had further evaluation with a next generation sequencing study. It showed no actionable mutations, but the PD-L1 was positive at 10% and the tumor mutation burden was high at 11, suggesting potential benefit with immunotherapy. On 12/24/2020 he began cycle 1 of treatment with pembrolizumab. He tolerated it with no adverse effects. He then continued treatment at 3-week intervals. As of 03/04/2021 he completed his 4th cycle. I had seen him for a follow-up visit on 03/25/2021. He was feeling very weak generally. His ECOG score had declined to 3. He also had very poor appetite. He was noted to have a weight loss of 35 pounds since December. He was having a lot of intestinal gas and he also reported having pain in his right lower quadrant area. He had some constipation, but no diarrhea. His treatment was put on hold, and he was given IV hydration. I also opted to give him steroid therapy, but with his known diabetes, it was limited to a relatively low dose of prednisone. During follow-up his symptoms persisted, and on 04/11/2021 he was admitted to the hospital after his CT pulmonary angiogram reported presence of left upper and right lower lobe pulmonary emboli. Also noted were numerous bilateral metastatic pulmonary nodules, the majority of which were either decreased in size or resolved. One was noted to have increased from 10 to 15 mm in the right upper lobe. There was also increasing mediastinal and hilar lymphadenopathy with the largest node at the left hilum measuring 1.6 cm. There was evidence for diffuse air distention throughout the colon felt to be most likely an ileus pattern. He began on anticoagulation with apixaban and at that point he also was placed on higher dose steroid therapy. He is seen for a follow-up visit. He has been feeling a little better generally, though he still has significant fatigue and his activity tolerance remains limited. ECOG score is 3. He is eating a little better now. He does not have fever or night sweats. He has had some blood pressure spikes at home. He does not complain of shortness of breath, cough, or chest pain. He has ongoing problems with intestinal gas and constipation. He is taking laxatives on a regular basis. Bladder function has been okay. He has no significant joint or bone pain. He does complain that his legs are weak. He also has been having depression. Medications: Claritin 1 Tablet (of 10 mg) Oral once, D3-1000 1 Tablet (of 25 mcg ) Oral daily, Daily Multiple Vitamins 1 Tablet Oral daily, Diflucan 1 (100 mg) Tablet Oral daily, Flonase Allergy Relief Suspension Nasal, Lasix (80 mg) Tablet Oral Take as Directed, Levothyroxine Sodium 1 Tablet (of 25 mcg) Oral daily, metFORMIN HCl 0.5 - 1 Tablet (of 1000 mg) Oral b.i.d., Omeprazole 1 Capsule (of 20 mg) Capsule Delayed Release Oral daily, Potassium Chloride ER 1 Tablet (of 20 meq) Capsule, controlled release Oral daily, Pravastatin Sodium 1 Tablet (of 20 mg) Oral daily, predniSONE 1 (20 mg) Tablet Oral b.i.d., Singulair 1 Tablet (of 10 mg) Oral at bedtime, Vitamin B 12 1 Tablet Oral once Allergies: Keflex, Penicillins, and Pneumococcal 13-[place] Conj Vacc. Vital Signs: Performed on Apr 23, 2021 14:14 Height - 72.00 in Weight - 170 lbs (LOW) BSA - 1.99 sq.m BMI - 23.06 Temperature - 97.1 F (LOW) Pulse - 90 /min Respiration - 18 /min BP - 143/93 mm(hg) (HIGH) O2 Sat - 97 % Pain - 0 Fatigue - 6 Physical Examination: Constitutional - He still appears generally weak, Eyes - Sclerae nonicteric. Conjunctivae clear, ENMT - No lesions noted in the oral cavity, Hematologic/Lymphatic - No cervical, clavicular, or axillary adenopathy, Respiratory - Lungs sound clear with diminished air movement bilaterally, Cardiovascular - Heart rhythm shows a regular. There is no murmur, gallop, or rub noted, Abdomen - Mildly distended and tympanic. There are 2 subcutaneous nodules palpable, 1 in the mid and the other in the upper abdomen, both to the left of the midline. Liver is not enlarged. There is no abdominal mass or ascites noted and there is no inguinal adenopathy, Extremities - Mild lower extremity edema, Neurologic - No focal neurologic deficits noted. Lab/Imaging: Test performed on Apr 04, 2021 13:55 Sodium 134 mmol/L Potassium 4.5 mmol/L Chloride 94 mmol/L CO2 27 mmol/L Anion Gap 17.5 BUN 26 mg/dL Creatinine 0.8 mg/dL Cr Clearance (Est) 91.25 mL/min Glucose 154 mg/dL Osmolality - Calculated 286 mOsm/kg Calcium 9.2 mg/dL Protein, Total 6.8 g/dL Albumin 4.1 g/dL Globulin 2.7 g/dL Bilirubin, Total 0.3 mg/dL ALT (SGPT) 23 U/L AST (SGOT) 27 U/L Alkaline Phosphatase 61 IU/L WBC 6.7 10 3/uL RBC 4.70 10 6/uL HGB 15.2 g/dL HCT 44.4 % MCV 94.5 fL MCH 32.3 pg MCHC 34.2 g/dL RDW 15.2 % Platelet Count 125 10 3/cmm MPV 13.5 fL Neutrophils 4.74 10 3/uL Lymphocytes 1.3 10 3/uL Monocytes 0.6 10 3/uL Eosinophils 0.0 10 3/uL Basophils 0.0 10 3/uL Neutrophil % 70.3 % Lymphocyte % 19.9 % Monocyte % 8.8 % Eosinophil % 0.0 % Basophils % 0.1 % NRBC % 0 % Test performed on Apr 04, 2021 01:55 T4, Free 1.55 ng/dL TSH 4.36 uIU/mL Test performed on March 25, 2021 09:43 LDH (Total) 202 U/L Test performed on Jan 14, 2021 14:08 Vitamin B12 > 2000 pg/mL Test performed on Nov 05, 2020 09:16 Homocysteine 13.81 umol/L Problem List: 1. HPV positive squamous cell carcinoma involving left base of tongue, by clinical evaluation stage II (T2, N2, M0) at initial diagnosis in March 2020. He had subsequent progression to stage IV with PET/CT evidence of pulmonary metastatic disease bilaterally. 2. Hypertension. 3. Hyperlipidemia. 4. Type 2 diabetes. 5. He has chronic venous insufficiency. 6. History of prostate cancer for which he underwent radical prostatectomy approximately 5 years ago. 7. 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 Problems Addressed with this Encounter and Plan: 1. Patient with HPV positive squamous cell carcinoma involving left base of tongue, by clinical evaluation stage II (T2, N2b, M0) at initial diagnosis in March 2020. He underwent direct laryngoscopy with biopsy and esophagoscopy on 04/05/2020. Staging PET/CT 04/28/2020 showed a 2.8 x 1.5 subcarinal node with SUV 5.3, suspicious for metastatic disease. Smaller FDG positive nodes in the right paratracheal and subaortic territories appeared to be most likely reactive. On 05/15/2020 he underwent bronchoscopy/EBUS with transbronchial FNA biopsy of station 7 and station 4R lymph nodes. Pathology from both sites showed reactive lymph node tissue with no evidence of malignancy. With those findings, he was recommended to undergo radiation concurrently with standard high-dose cisplatin chemotherapy. He began cycle 1 of cisplatin 100 mg/m??? IV infusion concurrently with radiation on 05/31/2020. He tolerated the initial cisplatin infusion with no acute toxicity. At day 22 he had developed moderately severe neutropenia, ANC 1000, and his 2nd cycle of cisplatin was deferred. During that time he had undergone placement of a PEG tube, and he began nutritional support with tube feeding. He was able to continue his radiation, and he was then given cycle 2 of cisplatin on 07/03/2020. On 07/16/2020 he was admitted to the hospital with acute GI bleed, determined by EGD to be due to duodenal ulcers. He stabilized with conservative management. He again became neutropenic, but with uneventful recovery. He was able to continue radiation, and he completed his treatment on 07/23/2020 to a total dose of 7000 cGy. He did appear to have a very good response by follow-up CT in August 2020. Restaging PET/CT on 11/24/2019 showed FDG positive pulmonary nodules bilaterally, consistent with metastatic disease. A next generation sequencing study showed no actionable mutations, but his tumor was found to be PD-L1 positive at 10% with tumor mutation burden high at 11%, suggesting possible benefit with immunotherapy. He then began cycle 1 of pembrolizumab on 12/24/2020, and he then continued pembrolizumab 200 mg by IV infusion every 3 weeks. As of 03/04/2021 he completed his 4th cycle. He then had a significant decline in his general condition with progressive weakness and declining performance status, and his further treatment was put on hold. On 04/11/2021 he was admitted to the hospital after his CT pulmonary angiogram reported presence of left upper and right lower lobe pulmonary emboli. Also noted were numerous bilateral metastatic pulmonary nodules, the majority of which were either decreased in size or resolved. One was noted to have increased from 10 to 15 mm in the right upper lobe. There was also increasing mediastinal and hilar lymphadenopathy with the largest node at the left hilum measuring 1.6 cm. There was evidence for diffuse air distention throughout the colon felt to be most likely an ileus pattern. He began on anticoagulation with apixaban and at that point he also was placed on higher dose steroid therapy. He has since then been feeling somewhat better, though his activity tolerance remains very limited. At this point I will have him continue the prednisone at 20 mg daily for an additional 7 days, and he will then taper to 10 mg daily. In the meantime, he will be scheduled for restaging PET/CT. He will have further evaluation as indicated. 2. He has hypothyroidism and his TSH is mildly elevated. His levothyroxine dosage will be increased to 37.5 mg daily. 3. He is having significant depression, and he will now be started on citalopram 20 mg daily. Signed By: Devendra Reich M.D. <<Signature on File>>
[2021-04-29] MEDS: sodium chloride 0.9% 1,000 ML 999 ML IV (15:00)
== END 2021-05-01 23:59 | disposition home or self-care (01) ==
LOC: ONCMED 08:00
PROVIDERS: PCP Family Medicine; Visit Provider Internal Medicine Medical Oncology
DX: C01 Malignant neoplasm of base of tongue (principal); C78.01 Secondary malignant neoplasm of right lung; C78.02 Secondary malignant neoplasm of left lung; I10 Essential (primary) hypertension; E78.5 Hyperlipidemia, unspecified; E11.9 Type 2 diabetes mellitus without complications; I87.2 Venous insufficiency (chronic) (peripheral); D69.3 Immune thrombocytopenic purpura; Z85.46 Personal history of malignant neoplasm of prostate; Z79.899 Other long term (current) drug therapy; Z92.21 Personal history of antineoplastic chemotherapy
CPT/HCPCS: 96360; 99214; J7030

== ENCOUNTER 2021-05-13 05:59 | Outpatient (RCR) | payer MEDICARE, OTHER, SELFPAY ==
[2021-05-13 08:57] LABS: Basophils # 0.1 10^3/uL (0.0-0.1); Basophils % 1.4 %; Eosinophils # 0.1 10^3/uL (0.0-0.8); Eosinophils % 3.6 %; Hemoglobin 13.7 g/dL (11.7-16.6); Lymphocytes # 1.3 10^3/uL (0.8-4.8); Lymphocytes % 36.2 %; Mean Corpuscular HGB Conc 35.1 g/dL (30.0-36.0); Mean Corpuscular Hemoglobin 32.9 pg (28.0-34.0); Mean Corpuscular Volume 93.5 fL (80-94); Mean Platelet Volume 11.6 fL (7.4-10.4); Monocytes # 0.6 10^3/uL (0.2-0.9); Monocytes % 15.6 %; Neutrophils # 1.52 10^3/uL (1.8-7.7); Neutrophils % 42.4 %; Nucleated Red Blood Cells % 0 %; Platelet Count 138 10^3/cmm (130-400); Red Blood Count 4.17 10^6/uL (4.1-5.3); Red Cell Distribution Width 14.5 % (12.1-15.1); White Blood Count 3.6 10^3/uL (4.0-10.0)
[2021-05-13 09:07] LABS: Alanine Aminotransferase 25 U/L (0-41); Albumin Level 3.7 g/dL (3.5-5.2); Alkaline Phosphatase 63 IU/L (40-130); Anion Gap 16.8 (5-19); Aspartate Amino Transferase 32 U/L (0-40); Blood Urea Nitrogen 9 mg/dL (8-23); Calcium 8.9 mg/dL (8.5-10.5); Carbon Dioxide 28 mmol/L (22-29); Chloride 86 mmol/L (98-107); Globulin 2.3 g/dL (1.3-4.6); Glucose 115 mg/dL (65-115); Osmolality Calculated 264 mOsm/kg (285-295); Potassium 3.8 mmol/L (3.5-5.1); Sodium 127 mmol/L (136-145); Total Bilirubin 0.3 mg/dL (0.15-1.2)
[2021-05-13 20:22] LABS: Estmated Average Glucose 146; Hemoglobin A1C 6.7 % (4.0-6.0)
[2021-05-13 20:25] LABS: Thyroid Stimulating Hormone 20.38 uIU/mL (0.27-4.20)
[2021-05-13 21:41] LABS: Vitamin B12 > 2000 pg/mL (232-1245)
--- NOTE | 2021-05-14 06:45 | ONC FU_ITS ---
Dr. Reich Patient Follow-Up Note Patient: Demarcus Maldonado Unit #: [id number]: 1950 Dicatated By: Devendra Reich M.D.Date of Visit:May 13, 2021 Onc Med Follow-up/Prog Note Chief Complaint: Base of tongue cancer. 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 He had subsequent progression to stage IV with PET/CT evidence of pulmonary metastatic disease bilaterally. He had presented with left cervical lymphadenopathy. He had associated pain in the left side of the neck and throat. He had been seen initially by Dr. James. CT of the neck on 03/27/2020 showed a soft tissue enhancing mass centered in the left tongue base along the lingual tonsil. It was noted to extend over a length of 2.6 x 2.2 x 1.3 cm. There appeared to be enhancement across the midline and there was suspected involvement in the lingular surface of the right tongue. Also noted was enlargement and abnormal enhancement and thickening of the uvula. There was extensive, confluent adenopathy i involving the left neck. The largest cluster of nodes measured 8.4 cm in length by 2.8 cm, beginning at the level of the hyoid bone and extending inferiorly to the supraclavicular region. Additional clusters of lymph nodes were present at level IIa, IIb, III, Va, and in the supraclavicular area. The largest necrotic lymph node measured 2.5 x 2.2 cm at the level of the thyroid cartilage. Smaller lymph nodes were noted along the right cervical chain, but without definite adenopathy. The lung apices were noted to be clear. He was seen by Dr. Praneeth Thompson on 03/30/2020. His exam showed an exophytic mass and papillomatous mass at the left tongue base as well as papillomatous mass at the left paramedian tongue base. The remainder of the oral cavity and oropharyngeal exam was reported to be normal. The laryngeal exam showed erythema and edema of the arytenoid mucosa. He then underwent direct laryngoscopy with biopsy and esophagoscopy on 04/05/2020. Findings included an exophytic lesion involving the left tongue base extending to the right of the midline. It also was noted to extend into the vallecula. There was no involvement of the lateral pharyngeal wall or the larynx. The esophagus was noted to be free of lesions. Biopsy showed infiltrating moderately differentiated squamous cell carcinoma which was confirmed to be HPV positive. I had seen him initially on 04/19/2020. Staging PET/CT on 04/28/2020 showed a 2.4 x 1.7 cm left base of tongue mass with SUV 24.5, consistent with primary malignancy. There were FDG positive nodes from cervical levels II through IV and V levels on the left consistent with local metastatic disease. A 1.2 cm right level 2A node had SUV 4.2 indicating a high probability of contralateral cervical disease. A subpleural solid nodule in the lateral left upper lobe measuring 8 mm had SUV 1.9, suspicious but not definitive for distant metastatic disease. A 2.8 x 1.5 cm subcarinal lymph node had SUV 5.3, suspicious for metastatic disease. Smaller FDG positive nodes in the right pretracheal and subaortic territories were felt to be most likely reactive. He was referred to Dr. Kingsley. On 05/15/2020 he underwent bronchoscopy/EBUS with transbronchial FNA biopsy of station 7 and station 4R lymph nodes. Pathology from both sites showed reactive lymph node tissue with no evidence of malignancy. With those findings, he was recommended to undergo radiation concurrently with standard high-dose cisplatin chemotherapy. He began cycle 1 of cisplatin at 100 mg/m??? by IV infusion concurrently with radiation on 05/31/2020. He experienced no acute toxicity with the initial cisplatin infusion. Her further chemotherapy was held due to neutropenia. He completed radiation on 06/19/2020 to a total dose of 6540 cGy. He then continued with radiation. At his day 22 visit he had moderately severe neutropenia with absolute neutrophil count at just under 1000, and his second dose of cisplatin was deferred. Subsequent to that visit, he began having more difficulty with swallowing and with oral intake, and he did opt undergo placement of the PEG tube. He was able to continue his radiation, and he proceeded with cycle 2 of cisplatin 100 mg/m??? by IV infusion on 07/03/2020. On 07/16/2020 he was admitted to the hospital with acute upper GI bleeding. His EGD showed multiple benign-appearing ulcers in the duodenum, which appeared to be the likely source for the GI bleed, though no active bleeding was apparent at the time of the procedure. During the hospitalization he became neutropenic, but it resolved uneventfully on antibiotic coverage with cefepime and Levaquin. During the hospitalization, he was able to resume his radiation, and he completed treatment on 07/23/2020 to a total dose of 7000 cGy. He has a history of having previously undergone radical prostatectomy for prostate cancer. He also has a prior history of ITP. His other medical illnesses include hypertension, hyperlipidemia, and type 2 diabetes. He has a past history of smoking, but only for about 6 years. He quit smoking approximately 40 years ago. He had also chewed tobacco, but only for about 1 or 2 years. INTERIM HISTORY: Restaging neck CT on 08/20/2020 showed significant improvement in the cervical chain lymphadenopathy with the largest persistent lymph node measuring 1.7 x 1.6 cm at level III. There appeared to be complete resolution of the left tongue base neoplasm. A restaging PET/CT on 11/24/2020 showed resolution of the base of tongue mass with FDG negative, subcentimeter left sided cervical lymph nodes. The right cervical level 2A node was no longer visualized. A 9 mm left upper lobe pulmonary nodule with SUV 2.3 was noted to have progressed from the prior study and also noted were multiple new bilateral pulmonary nodules, consistent with malignancy. These included a 1 cm anterior medial left upper lobe nodule with SUV 6.7 and a 1.1 cm right upper lobe nodule with SUV 6.4. With those findings he had further evaluation with a next generation sequencing study. It showed no actionable mutations, but the PD-L1 was positive at 10% and the tumor mutation burden was high at 11, suggesting potential benefit with immunotherapy. On 12/24/2020 he began cycle 1 of treatment with pembrolizumab. He tolerated it with no adverse effects. He then continued treatment at 3-week intervals. As of 03/04/2021 he completed his 4th cycle. I had seen him for a follow-up visit on 03/25/2021. He was feeling very weak generally. His ECOG score had declined to 3. He also had very poor appetite. He was noted to have a weight loss of 35 pounds since December. He was having a lot of intestinal gas and he also reported having pain in his right lower quadrant area. He had some constipation, but no diarrhea. His treatment was put on hold, and he was given IV hydration. I also opted to give him steroid therapy, but with his known diabetes, it was limited to a relatively low dose of prednisone. During follow-up his symptoms persisted, and on 04/11/2021 he was admitted to the hospital after his CT pulmonary angiogram reported presence of left upper and right lower lobe pulmonary emboli. Also noted were numerous bilateral metastatic pulmonary nodules, the majority of which were either decreased in size or resolved. One was noted to have increased from 10 to 15 mm in the right upper lobe. There was also increasing mediastinal and hilar lymphadenopathy with the largest node at the left hilum measuring 1.6 cm. There was evidence for diffuse air distention throughout the colon felt to be most likely an ileus pattern. He began on anticoagulation with apixaban and at that point he also was placed on higher dose steroid therapy. I had seen him for a follow-up visit on 04/23/2021. He was still weak, but feeling a little better. At that point I had him gradually taper off prednisone, and I also had him start citalopram for depression. His restaging PET/CT on 05/04/2021 showed improvement or resolution in the majority of the pulmonary nodules, though with a right upper lobe nodule increasing in size from 1.1 to 1.7 cm with SUV 6.7. There was development of multiple new mediastinal lymph nodes including a left paratracheal region node measuring 1.7 cm with SUV 11.8, suspicious for disease progression. He is seen for a scheduled visit. He says that he feels all right except for being weak. He is able to walk to the bathroom. He gets wiped out taking a shower. ECOG score is 3. Appetite is still not good, but it is improving. He does not have fever or night sweats. He does not complain of sore throat or difficulty swallowing. He does have some cough associated with phlegm buildup in his throat. He is not complaining of shortness of breath or chest pain. He still has a lot of intestinal gas. He has no other GI or complaints. He has pain in his knees. He does not complain of headache. He has some orthostatic disequilibrium. He says that when he stands up he has to get his bearings before he takes off. He has no numbness/paresthesia or other focal neurologic symptoms. He has a lot of shaking, but it is intermittent. Medications: Citalopram Hydrobromide 1 (40 mg) Tablet Oral daily, Claritin 1 Tablet (of 10 mg) Oral once, D3-1000 1 Tablet (of 25 mcg ) Oral daily, Daily Multiple Vitamins 1 Tablet Oral daily, Diflucan 1 (100 mg) Tablet Oral daily, Flonase Allergy Relief Suspension Nasal, Lasix (80 mg) Tablet Oral Take as Directed, Levothyroxine Sodium 1 Tablet (of 50 mcg) Oral daily, metFORMIN HCl 0.5 - 1 Tablet (of 1000 mg) Oral b.i.d., Omeprazole 1 Capsule (of 20 mg) Capsule Delayed Release Oral daily, Potassium Chloride ER 1 Tablet (of 20 meq) Capsule, controlled release Oral daily, Pravastatin Sodium 1 Tablet (of 80 mg) Oral daily, predniSONE 1 (20 mg) Tablet Oral b.i.d., Singulair 1 Tablet (of 10 mg) Oral at bedtime, Vitamin B 12 1 Tablet Oral once Allergies: Keflex, Penicillins, and Pneumococcal 13-[place] Conj Vacc. Vital Signs: Performed on May 13, 2021 10:34 Height - 72.00 in Weight - 174.2 lbs (HIGH) BSA - 2.01 sq.m BMI - 23.63 Temperature - 98.2 F (LOW) Pulse - 77 /min Respiration - 18 /min BP - 115/72 mm(hg) O2 Sat - 97 % Pain - 0 Fatigue - 5 Physical Examination: Constitutional - He appears generally weak, but somewhat better, Eyes - Sclerae nonicteric. Conjunctivae clear, ENMT - No lesions noted in the oral cavity, Hematologic/Lymphatic - No cervical, clavicular, or axillary adenopathy, Respiratory - Lungs sound clear with diminished air movement bilaterally, Cardiovascular - Heart rhythm is regular. There is no murmur, gallop, or rub noted, Abdomen - Mildly distended and tympanic. The subcutaneous nodules in the mid and upper abdomen appear unchanged. Liver is not enlarged. There is no abdominal mass or ascites noted and there is no inguinal adenopathy, Extremities - Mild lower extremity edema, Neurologic - No focal neurologic deficits noted. Lab/Imaging: Test performed on May 13, 2021 08:40 Sodium 127 mmol/L TSH 20.38 uIU/mL Vitamin B12 > 2000 pg/mL Potassium 3.8 mmol/L Chloride 86 mmol/L Est Avg Glucose (eAG) 146 mg/dL CO2 28 mmol/L Anion Gap 16.8 BUN 9 mg/dL Creatinine 0.7 mg/dL Cr Clearance (Est) 106.61 mL/min Glucose 115 mg/dL Osmolality - Calculated 264 mOsm/kg Calcium 8.9 mg/dL Protein, Total 6.0 g/dL Albumin 3.7 g/dL Globulin 2.3 g/dL Bilirubin, Total 0.3 mg/dL ALT (SGPT) 25 U/L AST (SGOT) 32 U/L Alkaline Phosphatase 63 IU/L Hemoglobin A1C % 6.7 % WBC 3.6 10 3/uL RBC 4.17 10 6/uL HGB 13.7 g/dL HCT 39.0 % MCV 93.5 fL MCH 32.9 pg MCHC 35.1 g/dL RDW 14.5 % Platelet Count 138 10 3/cmm MPV 11.6 fL Neutrophils 1.52 10 3/uL Lymphocytes 1.3 10 3/uL Monocytes 0.6 10 3/uL Eosinophils 0.1 10 3/uL Basophils 0.1 10 3/uL Neutrophil % 42.4 % Lymphocyte % 36.2 % Monocyte % 15.6 % Eosinophil % 3.6 % Basophils % 1.4 % NRBC % 0 % Problem List: 1. HPV positive squamous cell carcinoma involving left base of tongue, by clinical evaluation stage II (T2, N2, M0) at initial diagnosis in March 2020. He had subsequent progression to stage IV with PET/CT evidence of pulmonary metastatic disease bilaterally. 2. Hypertension. 3. Hyperlipidemia. 4. Type 2 diabetes. 5. He has chronic venous insufficiency. 6. History of prostate cancer for which he underwent radical prostatectomy approximately 5 years ago. 7. 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 Problems Addressed with this Encounter and Plan: 1. Patient with HPV positive squamous cell carcinoma involving left base of tongue, by clinical evaluation stage II (T2, N2b, M0) at initial diagnosis in March 2020. He underwent direct laryngoscopy with biopsy and esophagoscopy on 04/05/2020. Staging PET/CT 04/28/2020 showed a 2.8 x 1.5 subcarinal node with SUV 5.3, suspicious for metastatic disease. Smaller FDG positive nodes in the right paratracheal and subaortic territories appeared to be most likely reactive. On 05/15/2020 he underwent bronchoscopy/EBUS with transbronchial FNA biopsy of station 7 and station 4R lymph nodes. Pathology from both sites showed reactive lymph node tissue with no evidence of malignancy. With those findings, he was recommended to undergo radiation concurrently with standard high-dose cisplatin chemotherapy. He began cycle 1 of cisplatin 100 mg/m??? IV infusion concurrently with radiation on 05/31/2020. He tolerated the initial cisplatin infusion with no acute toxicity. At day 22 he had developed moderately severe neutropenia, ANC 1000, and his 2nd cycle of cisplatin was deferred. During that time he had undergone placement of a PEG tube, and he began nutritional support with tube feeding. He was able to continue his radiation, and he was then given cycle 2 of cisplatin on 07/03/2020. On 07/16/2020 he was admitted to the hospital with acute GI bleed, determined by EGD to be due to duodenal ulcers. He stabilized with conservative management. He again became neutropenic, but with uneventful recovery. He was able to continue radiation, and he completed his treatment on 07/23/2020 to a total dose of 7000 cGy. He did appear to have a very good response by follow-up CT in August 2020. Restaging PET/CT on 11/24/2019 showed FDG positive pulmonary nodules bilaterally, consistent with metastatic disease. A next generation sequencing study showed no actionable mutations, but his tumor was found to be PD-L1 positive at 10% with tumor mutation burden high at 11%, suggesting possible benefit with immunotherapy. He then began cycle 1 of pembrolizumab on 12/24/2020, and he then continued pembrolizumab 200 mg by IV infusion every 3 weeks. As of 03/04/2021 he completed his 4th cycle. He then had a significant decline in his general condition with progressive weakness and declining performance status, and his further treatment was put on hold. On 04/11/2021 he was admitted to the hospital after his CT pulmonary angiogram reported presence of left upper and right lower lobe pulmonary emboli. Also noted were numerous bilateral metastatic pulmonary nodules, the majority of which were either decreased in size or resolved. One was noted to have increased from 10 to 15 mm in the right upper lobe. There was also increasing mediastinal and hilar lymphadenopathy with the largest node at the left hilum measuring 1.6 cm. There was evidence for diffuse air distention throughout the colon felt to be most likely an ileus pattern. He began on anticoagulation with apixaban and at that point he also was placed on higher dose steroid therapy. During follow-up he has felt a little better gradually, though he continues to complain of generalized weakness, and he continues to have very limited activity. He has now tapered off prednisone. His restaging PET/CT shows mixed response. In the absence of any significant disease progression, he will be followed on observation/symptomatic management. I will request physical therapy for general strengthening and mobility. I will see him again in 1 month. 2. He has hypothyroidism and his TSH has continued to increase. His levothyroxine dosage will be increased to 75 mcg daily. 3. He is still complaining of depression. His citalopram dosage will be increased to 40 mg daily. Signed By: Devendra Reich M.D. <<Signature on File>>
== END 2021-06-01 23:59 | disposition home or self-care (01) ==
LOC: ONCMED 05:59
PROVIDERS: PCP Family Medicine; Visit Provider Internal Medicine Medical Oncology
DX: C01 Malignant neoplasm of base of tongue (principal); C78.01 Secondary malignant neoplasm of right lung; C78.02 Secondary malignant neoplasm of left lung; I10 Essential (primary) hypertension; E78.5 Hyperlipidemia, unspecified; E11.9 Type 2 diabetes mellitus without complications; I87.2 Venous insufficiency (chronic) (peripheral); D69.3 Immune thrombocytopenic purpura; Z85.46 Personal history of malignant neoplasm of prostate; Z79.899 Other long term (current) drug therapy
CPT/HCPCS: 36415; 80053; 82607; 83036; 84443; 85025; 99214

== ENCOUNTER 2021-05-21 08:28 | Outpatient (RCR) | payer MEDICARE, OTHER, SELFPAY | END 2021-06-01 23:59 | disposition home or self-care (01) | LOC: SPT 08:28 | PROVIDERS: PCP Family Medicine; Referring Provider Internal Medicine Medical Oncology; Visit Provider Internal Medicine Medical Oncology | DX: M62.81 Muscle weakness (generalized) (principal) | CPT/HCPCS: 97110; 97161 ==

== ENCOUNTER 2021-06-02 06:00 | Outpatient (RCR) | payer MEDICARE, OTHER, SELFPAY | END 2021-07-02 23:59 | disposition home or self-care (01) | LOC: SPT 06:00 | PROVIDERS: PCP Family Medicine; Referring Provider Internal Medicine Medical Oncology; Visit Provider Internal Medicine Medical Oncology | DX: R53.1 Weakness (principal); R53.81 Other malaise | CPT/HCPCS: 97110 ==

== ENCOUNTER 2021-06-13 10:35 | Outpatient (CLI) | payer MEDICARE, OTHER, SELFPAY ==
--- NOTE | 2021-06-13 10:45 | CT_ITS ---
WS: [id number] CT CHEST WITH INTRAVENOUS CONTRAST HISTORY: BASE OF TONGUE, PULMONARY NODULES TECHNIQUE: Contiguous 5 mm axial imaging performed on the thorax. Coronal and sagittal reformats are submitted. All CT scans at [facility] use at least one of these dose optimization techniq ues: automated exposure control; mA and/or kV adjustment per patient size (includes targeted exams wh ere dose is matched to clinical indication); or iterative reconstruction. CONTRAST: Omnipaque 300; 95 mL IV. DLP: 835.67 mGycm COMPARISON: 04/11/2021 and PET/CT 05/04/2021 Lungs and central airway: Progression of size of the multi lobar pulmonary nodules since 05/04/2021. La rgest nodule in the RIGHT upper lobe now measures 17 mm in short axis diameter as compared to 13 mm. There are adjacent smaller satellite nodules. There are multiple additional pulmonary nodules bilater ally which have all increased. Pleura: Normal. No pleural effusion. Heart and pericardium: Mild cardiomegaly with no pericardial effusion. Mediastinum and crow: Increase in size of the mediastinal and hilar lymph nodes. Lymph nodes are roun ded and low-attenuation. The largest lymph node is a maximum long axis diameter of 26 mm as compared to 18. Majority of the lymph nodes which are prevascular, subaortic, bilateral paratracheal and subca rinal have all increased in size. Vessels: Mild atherosclerosis aorta. Chest wall and lower neck: No soft tissue masses. Upper abdomen: No metastatic lesions in the liver or adrenal glands. Visualized gallbladder is negati ve. LEFT renal cyst. Osseous structures: Healed fracture along the RIGHT lateral chest wall. CT/CT chest w con* [id number] IMPRESSION: 1. Significant progression in the size of the FDG positive pulmonary nodules. Increase in size since 04/11/2021 CT and the PET/CT of 05/04/2021. 2. Significant progression of lymphadenopathy within the chest. 3. No metastatic lesions within the liver or adrenal glands.
[2021-06-13] MEDS: iohexol 300 mg/mL 100 mL Btl IV (11:01)
== END 2021-06-13 10:36 | disposition home or self-care (01) ==
PROVIDERS: PCP Family Medicine; Visit Provider Internal Medicine Medical Oncology
DX: C01 Malignant neoplasm of base of tongue (principal); R91.8 Other nonspecific abnormal finding of lung field
CPT/HCPCS: 71260; Q9967

== ENCOUNTER 2021-06-14 12:17 | Emergency (ER) | payer MEDICARE, OTHER, SELFPAY ==
[2021-06-14 12:46] VITALS: BP 98/62; PULSE 90; RESP 15; TEMP 37.2; O2SAT 96; BMI 23.7
--- NOTE | 2021-06-14 14:05 | XR_ITS ---
WS: [id number] Portable AP upright chest, 06/14/2021 Clinical Data: hypotension Comparison: Portable chest, 07/21/2020. Findings: There are several nodules noted throughout the lungs which have appeared since the last exa mination. The heart is normal. The aortic arch and descending aorta are tortuous. No pneumonia or pne umothorax is seen. There are no masses or effusions. There is scarring and elevation of the left cost ophrenic angle. XR/XR chest 1V portable [id number] Impression: 1. Several new nodules which are probably metastatic throughout the lungs. 2. Atherosclerosis.
--- NOTE | 2021-06-14 14:09 | ED_ITS ---
HPI - Weakness General: Chief complaint: Weakness Stated complaint: low bp Time Seen by Provider: 06/14/21 13:41 Source: patient, RN notes reviewed and old records reviewed Mode of arrival: ambulatory Limitations: no limitations History of Present Illness: HPI Narrative: Patient is a 70-year-old male with a history of tongue cancer with lung metastasis who presents to the emergency department from physical therapy department for evaluation of low blood pressure. Patient went to PT today and was riding on a bicycle and when he checked his blood pressure he was 60s systolic. The patient feels dizzy when he stands from a sitting or lying position but otherwise has no symptoms. He denies any chest pain, denies shortness of breath. MD Complaint: generalized weakness Onset (ago): hour(s) Duration: constant Location: generalized Migration: none Severity: mild Exacerbating factors: other (standing) Associated symptoms: Denies chest pain, chills, confusion, melena, decreased appetite, diaphoresis, dysuria, easy bruising, fever(s), headache(s), myalgias, nausea, rash, short of breath, syncope or vomiting Review of Systems General: Reports: 10 or more systems reviewed and unremarkable except in HPI and below Const: Denies: fever(s), chills or diaphoresis Card: Denies: chest pain or syncope GI: Denies: nausea, vomiting or melena : Denies: dysuria Neuro: Denies: headache(s) or confusion Rafi/Lymph: Denies: easy bruising PFSH ED PFSH: Medical History (Reviewed 06/14/21 @ 14:15 by Alejandro Kenney MD, [facility] – [place], [place]) Abdominal wall hernia Acute pulmonary embolism Cervical lymphadenopathy Dehydration Generalized weakness H/O nephrolithotomy with removal of calculi History of ITP History of ITP HTN (hypertension) Hypercholesterolemia Prostate cancer Squamous cell cancer of tongue Type 2 diabetes mellitus Umbilical hernia Surgical History (Reviewed 06/14/21 @ 14:15 by Alejandro Kenney MD, [facility] [place], [place]) H/O arthroscopy of knee H/O circumcision H/O colonoscopy 3-4 yrs ago H/O esophagogastroduodenoscopy years ago H/O hernia repair H/O radical prostatectomy H/O splenectomy Hx of tonsillectomy S/P percutaneous endoscopic gastrostomy (PEG) tube placement (08/26/20) removed on 11/05/2020 Status post splenectomy Family History (Reviewed 06/14/21 @ 14:15 by Alejandro Kenney MD, [facility] [place], [place]) Mother Dementia Father Lung disease Bleeding disorder Denies family history of Anesthesia complication Social History (Reviewed 06/14/21 @ 14:15 by Alejandro Kenney MD, [facility] [place], [place]) Smoking and tobacco status: former smoker Quit status (tobacco): has quit using tobacco Year quit tobacco: 1979 - 1.5 PPD x 10 Years Alcohol intake: never Lives independently: Yes Household members: none Marital status: Current occupational status: retired History of recent travel: No Current gender identity: Male Physical Exam Const: COMMON NORMALS: no acute distress, average body habitus, patient oriented x3, no limitations, healthy appearing, alert and well nourished HENMT: COMMON NORMALS: normocephalic, atraumatic and moist oral mucous membranes HEAD & SCALP: normocephalic and atraumatic Neck/C-Spine: COMMON NORMALS: no meningeal signs and no JVD Resp: COMMON NORMALS: normal respiratory effort, No retractions, No use of accessory muscles, clear to auscultation bilaterally and percussion normal AUSCULTATION: clear to auscultation bilaterally PERCUSSION: percussion normal Cardio: COMMON NORMALS: no JVD, regular rate, regular rhythm, S1 normal heart sound present, S2 normal heart sound present, No gallops present (Cardio), No clicks present (Cardio), No murmurs present (Cardio), No rub (Cardio) and Peripheral pulses 2+ throughout RATE: regular rate RHYTHM: regular rhythm HEART SOUNDS: S1 normal heart sound present and S2 normal heart sound present PERIPHERAL PULSES: Peripheral pulses 2+ throughout GI: COMMON NORMALS: Normal to inspection, nondistended, normoactive bowel sounds present, Soft to palpation, non-tender, No hepatosplenomegaly present, no masses and no bruits PALPATION: Yes Soft to palpation and Yes No hepa tosplenomegaly present Extremity: COMMON NORMALS: normal to inspection, full ROM, capillary refill normal, no calf tenderness and no pedal edema Neuro: COMMON NORMALS: patient oriented x3 SENSORIUM/ORIENTATION: Yes alert MENINGEAL SIGNS: Yes no meningeal signs Skin: COMMON NORMALS: no rashes or lesions noted, no wounds, turgor normal, no jaundice, no petechiae and no mottling GENERAL SKIN EXAM: no rashes or lesions noted and turgor normal Course Reevaluation(s): Reevaluation #1: Discussed his lab and imaging findings with him. Unremarkable. We will discharge him home with no new orders. Orthostatic vital signs trending towards positive with a systolic pressure dropping about 20 points and heart rate increasing about 21 points going from lying down to standing up. He was given 2 L of fluid and he feels much better. Heart score is a 5 meaning he has a 17% risk of major adverse cardiac event within the next 6 weeks. Will order an outpatient stress test and he will follow up with his primary care provider. Time: 17:31 Vital Signs: Vital signs: Vital Signs Temperature 98.9 F 06/14/21 12:46 Pulse Rate 83 06/14/21 17:53 Respiratory Rate 16 06/14/21 17:53 Blood Pressure 122/64 06/14/21 17:53 Pulse Oximetry 98 06/14/21 17:53 MDM - Weakness MDM Narrative: Medical decision making narrative: 70-year-old male who presents emergency department with hypotension. Evaluation is consistent with orthostatic hypotension and symptoms improved following 2 L of saline. He had elevated troponin but a flat 2-hour delta, heart score is a moderate risk for major adverse cardiac event so he is referred for an outpatient stress test. Medical Records: Attestation: I reviewed the patient's medical records. Lab Data: Attestation: I reviewed the patient's lab results. Labs: Lab Results 06/14/21 06/14/21 06/14/21 Range/Units 14:25 14:25 14:25 WBC 6.5 (4.0-10.0) 10^3/ uL RBC 3.79 L (4.1-5.3) 10^6/u L Hgb 12.6 (11.7-16.6) g/dL Hct 37.1 L (42.0-52.0) % MCV 97.9 H (80-94) fl MCH 33.2 (28.0-34.0) pg MCHC 34.0 (30.0-36.0) g/dL RDW 15.6 H (12.1-15.1) % Plt Count 279 (130-400) 10^3/c mm MPV 11.2 H (7.4-10.4) fL Neut % (Auto) 54.4 % Lymph % (Auto) 25.4 % Keith % (Auto) 17.3 % Eos % (Auto) 1.1 % Baso % (Auto) 1.2 % Neut # (Auto) 3.51 (1.8-7.7) 10^3/u L Lymph # (Auto) 1.6 (0.8-4.8) 10^3/u L Keith # (Auto) 1.1 H (0.2-0.9) 10^3/u L Eos # (Auto) 0.1 (0.0-0.8) 10^3/u L Baso # (Auto) 0.1 (0.0-0.1) 10^3/u L Nucleated RBC % (a uto) 0 % Nucleated RBCs # 0.0 /100WBC Sodium 128 L (136-145) mmol/L Potassium 4.5 (3.5-5.1) mmol/L Chloride 90 L (98-107) mmol/L Carbon Dioxide 28 (22-29) mmol/L Anion Gap 14.5 (5-19) BUN 8 (8-23) mg/dL Creatinine 0.7 (0.7-1.2) mg/dL GFR Calculation Not Reportable Glucose 111 (65-115) mg/dL Calculated Osmolal ity 265 L (285-295) mOsm/k g Calcium 9.4 (8.5-10.5) mg/dL Total Bilirubin 0.4 (0.15-1.2) mg/dL AST 21 (0-40) U/L ALT 10 (0-41) U/L Alkaline Phosphata se 64 (40-130) IU/L Troponin T Baselin e 81 H (0-15) ng/L Troponin T 120 Min [place] (0-15) ng/L Delta Troponin T (0-10) ABS# Total Protein 6.2 L (6.6-8.7) g/dL Albumin 4.1 (3.5-5.2) g/dL Globulin 2.1 (1.3-4.6) g/dL Lipase 22 (13-60) U/L Urine Color (Yellow) Urine Appearance (CLEAR) Urine pH (5-7) Ur Specific Gravit y (1.005-1.030) Urine Protein (Negative) Urine Glucose (UA) (Normal) Urine Ketones (Negative) Urine Blood (Negative) Urine Nitrate (Negative) Urine Bilirubin (Negative) Urine Urobilinogen (Negative) mg/dL Ur Leukocyte Skylar ase (Negative) 06/14/21 06/14/21 Range/Units 14:25 16:14 WBC (4.0-10.0) 10^3/ uL RBC (4.1-5.3) 10^6/u L Hgb (11.7-16.6) g/dL Hct (42.0-52.0) % MCV (80-94) fl MCH (28.0-34.0) pg MCHC (30.0-36.0) g/dL RDW (12.1-15.1) % Plt Count (130-400) 10^3/c mm MPV (7.4-10.4) fL Neut % (Auto) % Lymph % (Auto) % Keith % (Auto) % Eos % (Auto) % Baso % (Auto) % Neut # (Auto) (1.8-7.7) 10^3/u L Lymph # (Auto) (0.8-4.8) 10^3/u L Keith # (Auto) (0.2-0.9) 10^3/u L Eos # (Auto) (0.0-0.8) 10^3/u L Baso # (Auto) (0.0-0.1) 10^3/u L Nucleated RBC % (a uto) % Nucleated RBCs # /100WBC Sodium (136-145) mmol/L Potassium (3.5-5.1) mmol/L Chloride (98-107) mmol/L Carbon Dioxide (22-29) mmol/L Anion Gap (5-19) BUN (8-23) mg/dL Creatinine (0.7-1.2) mg/dL GFR Calculation Glucose (65-115) mg/dL Calculated Osmolal ity (285-295) mOsm/k g Calcium (8.5-10.5) mg/dL Total Bilirubin (0.15-1.2) mg/dL AST (0-40) U/L ALT (0-41) U/L Alkaline Phosphata se (40-130) IU/L Troponin T Baselin e (0-15) ng/L Troponin T 120 Min [place] 77.66 H (0-15) ng/L Delta Troponin T -3.34 L (0-10) ABS# Total Protein (6.6-8.7) g/dL Albumin (3.5-5.2) g/dL Globulin (1.3-4.6) g/dL Lipase (13-60) U/L Urine Color Yellow (Yellow) Urine Appearance Clear (CLEAR) Urine pH 5 (5-7) Ur Specific Gravit y 1.015 (1.005-1.030) Urine Protein Neg (Negative) Urine Glucose (UA) Norm (Normal) Urine Ketones Negative (Negative) Urine Blood Neg (Negative) Urine Nitrate Negative (Negative) Urine Bilirubin Neg (Negative) Urine Urobilinogen Norm (Negative) mg/dL Ur Leukocyte Skylar ase Negative (Negative) Imaging Data^: CXR: Attestation: I personally reviewed and interpreted this imaging study as follows: Radiologist's impression: [address] [id number] ReportSigned Patient: Timoteo Maldonado #: [id number]: [id number]#:[id number]/Sex: 70 / MADM Date: 06/14/21Loc: ERRoom/Bed:Attending Dr: Ordering Provider/Ordering MD: Alejandro Kenney MD, [facility] [place], [place] Date of Service: 06/14/21 Procedure(s): XR chest 1V portable [id number] Accession Number(s): [id number] Report Number: [id number] WS: [id number] Portable AP upright chest, 06/14/2021 Clinical Data: hypotension Comparison: Portable chest, 07/21/2020. Findings: There are several nodules noted throughout the lungs which have appeared since the last examination. The heart is normal. The aortic arch and descending aorta are tortuous. No pneumonia or pneumothorax is seen. There are no masses or effusions. There is scarring and elevation of the left costophrenic angle. XR/XR chest 1V portable [id number] Impression: 1. Several new nodules which are probably metastatic throughout the lungs. 2. Atherosclerosis. Dictated By:Sherly Ibarra MDSigned By:Sherly Ibarra MDSigned Date/Time:06/14/21 1441DD/ 1437 EKG Data^: EKG 1: Attestation: I personally reviewed and interpreted this EKG as follows: EKG interpretation date: 06/14/21 EKG interpretation time: 16:55 Prior EKG tracings: not available for review Interpretation: Sinus rhythm with first-degree AV block. Heart rate [address] changes. Discharge Plan Discharge Patient Disposition: Home Clinical Impression: Orthostatic hypotension, Elevated troponin Condition: Stable Prescriptions: Continued atenolol 25 mg tablet 25 mg PO QAM RF: 0 Hold Instructions: Resume on 04/20/21. cholecalciferol (vitamin D3) 25 mcg (1,000 unit) capsule 25 mcg PO DAILY RF: 0 fluticasone propionate [Flonase Allergy Relief] 50 mcg/actuation spray,suspension See Rx Instructions .ROUTE .COMPLEX PRN (Reason: allergy symptoms) RF: 0 furosemide 40 mg tablet 80 mg PO QAM RF: 0 Hold Instructions: Resume on 04/20/21. metformin 1,000 mg tablet See Rx Instructions .ROUTE .COMPLEX RF: 0 hydrocodone-acetaminophen 5-325 mg Tablet 1 tab PO Q4H PRN (Reason: Pain) RF: 0 multivitamin Tablet 1 tab PO DAILY RF: 0 fluconazole 200 mg tablet 200 mg PO DAILY RF: 0 potassium chloride 10 mEq tablet extended release 10 meq PO BID RF: 0 Hold Instructions: Resume on 04/20/21. prochlorperazine maleate [Compazine] 10 mg Tablet 10 mg PO Q4H PRN (Reason: Nausea) RF: 0 omeprazole 40 mg Capsule,Delayed Release(Dr/Ec) 40 mg PO DAILY RF: 0 acetaminophen [Tylenol Arthritis Pain] 650 mg Tablet Extended Release 1,300 mg PO BID RF: 0 montelukast 10 mg tablet 10 mg PO BEDTIME RF: 0 albuterol sulfate [ProAir HFA] 90 mcg/actuation Hfa Aerosol Inhaler 2 puff INHALATION QID PRN (Reason: Shortness Of Breath) RF: 0 guaifenesin [Mucus Relief] 400 mg Tablet 400 mg PO TID RF: 0 Eliquis 5 mg tablet 5 mg PO BID Qty: 60 RF: 3 Euthyrox 100 mcg tablet 100 mcg PO DAILY RF: 0 citalopram 20 mg Tablet 20 mg PO DAILY RF: 0 pravastatin 80 mg tablet 80 mg PO DAILY RF: 0 Discharge Orders: Discharge ED (Routine); Ordered 06/14/21 Ordered By: Alejandro Kenney Referrals: Arik James MD [Primary Care Provider] - 1-3 days Discharge Diet: Usual diet Discharge Activity: Increase activity as tolerated Patient Instructions: Hypotension (ED) Activity Restrictions/Additional Instructions: Return for any new or worsening symptoms. Drink plenty of fluids to keep well-hydrated. You will be contacted by case management to schedule an outpatient stress test. Follow-up with your primary care provider within 3 days. Coding Level of Care Code ED Burner Technician for Rolando Fwd Exam Comprehensive
[2021-06-14 14:42] LABS: Add Urine Microscopic? NO; Charge for UA Resulting for Rev
[2021-06-14 14:43] LABS: Basophils # 0.1 10^3/uL (0.0-0.1); Basophils % 1.2 %; Eosinophils # 0.1 10^3/uL (0.0-0.8); Eosinophils % 1.1 %; Hematocrit 37.1 % (42.0-52.0); Hemoglobin 12.6 g/dL (11.7-16.6); Lymphocytes # 1.6 10^3/uL (0.8-4.8); Lymphocytes % 25.4 %; Mean Corpuscular Hemoglobin 33.2 pg (28.0-34.0); Mean Corpuscular Volume 97.9 fl (80-94); Mean Platelet Volume 11.2 fL (7.4-10.4); Monocytes # 1.1 10^3/uL (0.2-0.9); Monocytes % 17.3 %; Neutrophils # 3.51 10^3/uL (1.8-7.7); Neutrophils % 54.4 %; Nucleated Red Blood Cells % 0 %; Platelet Count 279 10^3/cmm (130-400); Red Blood Count 3.79 10^6/uL (4.1-5.3); Red Cell Distribution Width 15.6 % (12.1-15.1); White Blood Count 6.5 10^3/uL (4.0-10.0)
[2021-06-14 14:45] LABS: Bilirubin Urine Neg (Negative); Blood Urine Neg (Negative); Glucose Urine UA Norm (Normal); Ketones Urine Negative (Negative); Nitrate Urine Negative (Negative); Protein Urine Neg (Negative); Specific Gravity, Urine 1.015 (1.005-1.030); Urine Appearance Clear (CLEAR); Urine Color Yellow (Yellow); pH Urine 5 (5-7)
[2021-06-14 14:46] LABS: Leukocyte Esterase Urine Negative (Negative); Urobilinogen Urine Norm (Negative)
[2021-06-14] MEDS: sodium chloride 0.9% 1,000 ML 999 ML IV ×2 (14:54→16:59)
[2021-06-14 15:11] LABS: Alanine Aminotransferase 10 U/L (0-41); Albumin Level 4.1 g/dL (3.5-5.2); Alkaline Phosphatase 64 IU/L (40-130); Anion Gap 14.5 (5-19); Aspartate Amino Transferase 21 U/L (0-40); Blood Urea Nitrogen 8 mg/dL (8-23); Calcium 9.4 mg/dL (8.5-10.5); Carbon Dioxide 28 mmol/L (22-29); Chloride 90 mmol/L (98-107); Globulin 2.1 g/dL (1.3-4.6); Glucose 111 mg/dL (65-115); Lipase 22 U/L (13-60); Osmolality Calculated 265 mOsm/kg (285-295); Potassium 4.5 mmol/L (3.5-5.1); Sodium 128 mmol/L (136-145); Total Bilirubin 0.4 mg/dL (0.15-1.2); Total Protein 6.2 g/dL (6.6-8.7)
[2021-06-14 15:19] VITALS: BP 112/63; O2SAT 97
[2021-06-14 15:24] LABS: Troponin(5th) Baseline 81 ng/L (0-15)
[2021-06-14 16:03] VITALS: BP 100/55; BP 100/70; BP 120/57; PULSE 68; PULSE 81; PULSE 89
[2021-06-14 16:50] LABS: Troponin 5 2HR 77.66 ng/L (0-15)
[2021-06-14 16:51] LABS: Troponin 5 2HR Delta -3.34 ABS# (0-10)
[2021-06-14 17:53] VITALS: BP 122/64; PULSE 83; RESP 16; O2SAT 98
--- NOTE | 2021-06-17 15:14 | DCPLANNER ---
sales team manager had message to schedule a follow up appointment for patient with an outpatient stress test. sales team manager faxed signed order to centralized scheduling, who will call patient with appointment information.
--- NOTE | 2021-06-19 15:34 | DCPLANNER ---
Patient has a follow up appointment scheduled for Thursday, July 01, 2021 at 1:00 for an outpatient stress test.
--- NOTE | 2021-07-03 12:28 | DCPLANNER ---
Patient had a stress test scheduled for 07.01.21 - appointment was cancelled.
== END 2021-06-14 17:56 | disposition home or self-care (01) ==
PROVIDERS: Emergency Provider Family Medicine; PCP Family Medicine
DX: I95.1 Orthostatic hypotension (principal); R77.8 Other specified abnormalities of plasma proteins; I10 Essential (primary) hypertension; E11.9 Type 2 diabetes mellitus without complications; E78.00 Pure hypercholesterolemia, unspecified; Z87.891 Personal history of nicotine dependence; Z79.84 Long term (current) use of oral hypoglycemic drugs
CPT/HCPCS: 71045; 80053; 81003; 83690; 84484; 85025; 96360; 96361; 99284; J7030

== ENCOUNTER 2021-07-02 08:13 | Outpatient (RCR) | payer MEDICARE, OTHER, SELFPAY ==
[2021-06-25] MEDS: sodium chloride 0.9% 1,000 ML 999 ML IV (09:15)
[2021-07-02] MEDS: sodium chloride 0.9% 500 ML 999 ML IV (14:25)
[2021-07-02 14:44] LABS: Basophils # 0.1 10^3/uL (0.0-0.1); Basophils % 1.2 %; Eosinophils # 0.1 10^3/uL (0.0-0.8); Eosinophils % 1.2 %; Hematocrit 34.1 % (42.0-52.0); Hemoglobin 11.7 g/dL (11.7-16.6); Lymphocytes # 1.4 10^3/uL (0.8-4.8); Lymphocytes % 27.9 %; Mean Corpuscular HGB Conc 34.3 g/dL (30.0-36.0); Mean Corpuscular Hemoglobin 34.7 pg (28.0-34.0); Mean Corpuscular Volume 101.2 fl (80-94); Mean Platelet Volume 10.8 fL (7.4-10.4); Monocytes # 0.8 10^3/uL (0.2-0.9); Neutrophils # 2.75 10^3/uL (1.8-7.7); Neutrophils % 54.3 %; Nucleated Red Blood Cells % 0 %; Platelet Count 282 10^3/cmm (130-400); Red Blood Count 3.37 10^6/uL (4.1-5.3); Red Cell Distribution Width 14.9 % (12.1-15.1); White Blood Count 5.1 10^3/uL (4.0-10.0)
[2021-07-02 15:23] LABS: Alanine Aminotransferase 10 U/L (0-41); Albumin Level 3.7 g/dL (3.5-5.2); Alkaline Phosphatase 63 IU/L (40-130); Anion Gap 15.4 (5-19); Aspartate Amino Transferase 20 U/L (0-40); Blood Urea Nitrogen 8 mg/dL (8-23); Calcium 9.5 mg/dL (8.5-10.5); Carbon Dioxide 24 mmol/L (22-29); Chloride 96 mmol/L (98-107); Free T4 Free Thyroxine 1.52 ng/dL (0.82-1.77); Globulin 2.5 g/dL (1.3-4.6); Glucose 102 mg/dL (65-115); Osmolality Calculated 271 mOsm/kg (285-295); Potassium 4.4 mmol/L (3.5-5.1); Sodium 131 mmol/L (136-145); Thyroid Stimulating Hormone 2.29 uIU/mL (0.27-4.20); Total Bilirubin 0.3 mg/dL (0.15-1.2); Total Protein 6.2 g/dL (6.6-8.7)
--- NOTE | 2021-07-04 07:57 | ONC FU_ITS ---
Dr. Reich Patient Follow-Up Note Patient: Demarcus Maldonado Unit #: [id number]: [id number] Dicatated By: Devendra Reich M.D.Date of Visit:Jul 01, 2021 Onc Med Follow-up/Prog Note Chief Complaint: Base of tongue cancer. 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 He had subsequent progression to stage IV with PET/CT evidence of pulmonary metastatic disease bilaterally. He had presented with left cervical lymphadenopathy. He had associated pain in the left side of the neck and throat. He had been seen initially by Dr. James. CT of the neck on 03/27/2020 showed a soft tissue enhancing mass centered in the left tongue base along the lingual tonsil. It was noted to extend over a length of 2.6 x 2.2 x 1.3 cm. There appeared to be enhancement across the midline and there was suspected involvement in the lingular surface of the right tongue. Also noted was enlargement and abnormal enhancement and thickening of the uvula. There was extensive, confluent adenopathy i involving the left neck. The largest cluster of nodes measured 8.4 cm in length by 2.8 cm, beginning at the level of the hyoid bone and extending inferiorly to the supraclavicular region. Additional clusters of lymph nodes were present at level IIa, IIb, III, Va, and in the supraclavicular area. The largest necrotic lymph node measured 2.5 x 2.2 cm at the level of the thyroid cartilage. Smaller lymph nodes were noted along the right cervical chain, but without definite adenopathy. The lung apices were noted to be clear. He was seen by Dr. Praneeth Thompson on 03/30/2020. His exam showed an exophytic mass and papillomatous mass at the left tongue base as well as papillomatous mass at the left paramedian tongue base. The remainder of the oral cavity and oropharyngeal exam was reported to be normal. The laryngeal exam showed erythema and edema of the arytenoid mucosa. He then underwent direct laryngoscopy with biopsy and esophagoscopy on 04/05/2020. Findings included an exophytic lesion involving the left tongue base extending to the right of the midline. It also was noted to extend into the vallecula. There was no involvement of the lateral pharyngeal wall or the larynx. The esophagus was noted to be free of lesions. Biopsy showed infiltrating moderately differentiated squamous cell carcinoma which was confirmed to be HPV positive. I had seen him initially on 04/19/2020. Staging PET/CT on 04/28/2020 showed a 2.4 x 1.7 cm left base of tongue mass with SUV 24.5, consistent with primary malignancy. There were FDG positive nodes from cervical levels II through IV and V levels on the left consistent with local metastatic disease. A 1.2 cm right level 2A node had SUV 4.2 indicating a high probability of contralateral cervical disease. A subpleural solid nodule in the lateral left upper lobe measuring 8 mm had SUV 1.9, suspicious but not definitive for distant metastatic disease. A 2.8 x 1.5 cm subcarinal lymph node had SUV 5.3, suspicious for metastatic disease. Smaller FDG positive nodes in the right pretracheal and subaortic territories were felt to be most likely reactive. He was referred to Dr. Kingsley. On 05/15/2020 he underwent bronchoscopy/EBUS with transbronchial FNA biopsy of station 7 and station 4R lymph nodes. Pathology from both sites showed reactive lymph node tissue with no evidence of malignancy. With those findings, he was recommended to undergo radiation concurrently with standard high-dose cisplatin chemotherapy. He began cycle 1 of cisplatin at 100 mg/m??? by IV infusion concurrently with radiation on 05/31/2020. He experienced no acute toxicity with the initial cisplatin infusion. Her further chemotherapy was held due to neutropenia. He completed radiation on 06/19/2020 to a total dose of 6540 cGy. He then continued with radiation. At his day 22 visit he had moderately severe neutropenia with absolute neutrophil count at just under 1000, and his second dose of cisplatin was deferred. Subsequent to that visit, he began having more difficulty with swallowing and with oral intake, and he did opt undergo placement of the PEG tube. He was able to continue his radiation, and he proceeded with cycle 2 of cisplatin 100 mg/m??? by IV infusion on 07/03/2020. On 07/16/2020 he was admitted to the hospital with acute upper GI bleeding. His EGD showed multiple benign-appearing ulcers in the duodenum, which appeared to be the likely source for the GI bleed, though no active bleeding was apparent at the time of the procedure. During the hospitalization he became neutropenic, but it resolved uneventfully on antibiotic coverage with cefepime and Levaquin. During the hospitalization, he was able to resume his radiation, and he completed treatment on 07/23/2020 to a total dose of 7000 cGy. He has a history of having previously undergone radical prostatectomy for prostate cancer. He also has a prior history of ITP. His other medical illnesses include hypertension, hyperlipidemia, and type 2 diabetes. He has a past history of smoking, but only for about 6 years. He quit smoking approximately 40 years ago. He had also chewed tobacco, but only for about 1 or 2 years. INTERIM HISTORY: Restaging neck CT on 08/20/2020 showed significant improvement in the cervical chain lymphadenopathy with the largest persistent lymph node measuring 1.7 x 1.6 cm at level III. There appeared to be complete resolution of the left tongue base neoplasm. A restaging PET/CT on 11/24/2020 showed resolution of the base of tongue mass with FDG negative, subcentimeter left sided cervical lymph nodes. The right cervical level 2A node was no longer visualized. A 9 mm left upper lobe pulmonary nodule with SUV 2.3 was noted to have progressed from the prior study and also noted were multiple new bilateral pulmonary nodules, consistent with malignancy. These included a 1 cm anterior medial left upper lobe nodule with SUV 6.7 and a 1.1 cm right upper lobe nodule with SUV 6.4. With those findings he had further evaluation with a next generation sequencing study. It showed no actionable mutations, but the PD-L1 was positive at 10% and the tumor mutation burden was high at 11, suggesting potential benefit with immunotherapy. On 12/24/2020 he began cycle 1 of treatment with pembrolizumab. He tolerated it with no adverse effects. He then continued treatment at 3-week intervals. As of 03/04/2021 he completed his 4th cycle. I had seen him for a follow-up visit on 03/25/2021. He was feeling very weak generally. His ECOG score had declined to 3. He also had very poor appetite. He was noted to have a weight loss of 35 pounds since December. He was having a lot of intestinal gas and he also reported having pain in his right lower quadrant area. He had some constipation, but no diarrhea. His treatment was put on hold, and he was given IV hydration. I also opted to give him steroid therapy, but with his known diabetes, it was limited to a relatively low dose of prednisone. During follow-up his symptoms persisted, and on 04/11/2021 he was admitted to the hospital after his CT pulmonary angiogram reported presence of left upper and right lower lobe pulmonary emboli. Also noted were numerous bilateral metastatic pulmonary nodules, the majority of which were either decreased in size or resolved. One was noted to have increased from 10 to 15 mm in the right upper lobe. There was also increasing mediastinal and hilar lymphadenopathy with the largest node at the left hilum measuring 1.6 cm. There was evidence for diffuse air distention throughout the colon felt to be most likely an ileus pattern. He began on anticoagulation with apixaban and at that point he also was placed on higher dose steroid therapy. I had seen him for a follow-up visit on 04/23/2021. He was still weak, but feeling a little better. At that point I had him gradually taper off prednisone, and I also had him start citalopram for depression. His restaging PET/CT on 05/04/2021 showed improvement or resolution in the majority of the pulmonary nodules, though with a right upper lobe nodule increasing in size from 1.1 to 1.7 cm with SUV 6.7. There was development of multiple new mediastinal lymph nodes including a left paratracheal region node measuring 1.7 cm with SUV 11.8, suspicious for disease progression. His repeat chest CT on 06/13/2021 showed significant progression in the size of bilateral pulmonary nodules as well as significant progression of the lymphadenopathy within the chest. The following day he was seen in the emergency room after he became hypotensive during his physical therapy treatment. He was given hydration and discharged home. He is seen now for a follow-up visit. He has still been very weak generally. He is trying to walk more, but his activity remains very limited. ECOG score is 3. His appetite has been okay most of the time. He does not have fever or night sweats. He reports having mucus drainage in his throat and he does have associated cough. His breathing has been okay and he has not been having any chest pain. 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 He had one episode of diarrhea after taking senna for constipation. He has no other GI or complaints. He has some pain in his shoulders and knees, which is not new. He does not complain of headache. He has not recently been dizzy or lightheaded. He has no numbness/paresthesia or other focal neurologic symptoms. Medications: Citalopram Hydrobromide 1 (40 mg) Tablet Oral daily, Claritin 1 Tablet (of 10 mg) Oral once, D3-1000 1 Tablet (of 25 mcg ) Oral daily, Daily Multiple Vitamins 1 Tablet Oral daily, Diflucan 1 (100 mg) Tablet Oral daily, Flonase Allergy Relief Suspension Nasal, Levothyroxine Sodium 1 Tablet (of 50 mcg) Oral daily, metFORMIN HCl 0.5 - 1 Tablet (of 1000 mg) Oral b.i.d., Omeprazole 1 Capsule (of 20 mg) Capsule Delayed Release Oral daily, Potassium Chloride ER 1 Tablet (of 20 meq) Capsule, controlled release Oral daily, Pravastatin Sodium 1 Tablet (of 80 mg) Oral daily, predniSONE 1 (20 mg) Tablet Oral b.i.d., Singulair 1 Tablet (of 10 mg) Oral at bedtime, Vitamin B 12 1 Tablet Oral once Allergies: Keflex, Penicillins, and Pneumococcal 13-[place] Conj Vacc. Vital Signs: Performed on Jul 01, 2021 15:46 Height - 72.00 in Weight - 181 lbs (HIGH) BSA - 2.04 sq.m BMI - 24.55 Temperature - 98.6 F Pulse - 105 /min (HIGH) Respiration - 18 /min BP - 135/78 mm(hg) O2 Sat - 95 % (LOW) Pain - 0 Fatigue - 6 Physical Examination: Constitutional - He appears generally weak, but not acutely ill, Eyes - Sclerae nonicteric. Conjunctivae clear, ENMT - No lesions noted in the oral cavity, Hematologic/Lymphatic - No cervical, clavicular, or axillary adenopathy, Respiratory - Lungs sound clear with diminished air movement bilaterally, Cardiovascular - Heart rhythm is regular. There is no murmur, gallop, or rub noted, Abdomen - Mildly distended but soft. The subcutaneous nodules in the mid and upper abdomen appear unchanged. Liver is not enlarged. There is no abdominal mass or ascites noted and there is no inguinal adenopathy, Extremities - There is 2+ lower extremity edema, Neurologic - No focal neurologic deficits noted. Problem List: 1. HPV positive squamous cell carcinoma involving left base of tongue, by clinical evaluation stage II (T2, N2, M0) at initial diagnosis in March 2020. He had subsequent progression to stage IV with PET/CT evidence of pulmonary metastatic disease bilaterally. 2. Hypertension. 3. Hyperlipidemia. 4. Type 2 diabetes. 5. He has chronic venous insufficiency. 6. History of prostate cancer for which he underwent radical prostatectomy approximately 5 years ago. 7. 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 Problems Addressed with this Encounter and Plan: Patient with HPV positive squamous cell carcinoma involving left base of tongue, by clinical evaluation stage II (T2, N2b, M0) at initial diagnosis in March 2020. He underwent direct laryngoscopy with biopsy and esophagoscopy on 04/05/2020. Staging PET/CT 04/28/2020 showed a 2.8 x 1.5 subcarinal node with SUV 5.3, suspicious for metastatic disease. Smaller FDG positive nodes in the right paratracheal and subaortic territories appeared to be most likely reactive. On 05/15/2020 he underwent bronchoscopy/EBUS with transbronchial FNA biopsy of station 7 and station 4R lymph nodes. Pathology from both sites showed reactive lymph node tissue with no evidence of malignancy. With those findings, he was recommended to undergo radiation concurrently with standard high-dose cisplatin chemotherapy. He began cycle 1 of cisplatin 100 mg/m??? IV infusion concurrently with radiation on 05/31/2020. He tolerated the initial cisplatin infusion with no acute toxicity. At day 22 he had developed moderately severe neutropenia, ANC 1000, and his 2nd cycle of cisplatin was deferred. During that time he had undergone placement of a PEG tube, and he began nutritional support with tube feeding. He was able to continue his radiation, and he was then given cycle 2 of cisplatin on 07/03/2020. On 07/16/2020 he was admitted to the hospital with acute GI bleed, determined by EGD to be due to duodenal ulcers. He stabilized with conservative management. He again became neutropenic, but with uneventful recovery. He was able to continue radiation, and he completed his treatment on 07/23/2020 to a total dose of 7000 cGy. He did appear to have a very good response by follow-up CT in August 2020. Restaging PET/CT on 11/24/2019 showed FDG positive pulmonary nodules bilaterally, consistent with metastatic disease. A next generation sequencing study showed no actionable mutations, but his tumor was found to be PD-L1 positive at 10% with tumor mutation burden high at 11%, suggesting possible benefit with immunotherapy. He then began cycle 1 of pembrolizumab on 12/24/2020, and he then continued pembrolizumab 200 mg by IV infusion every 3 weeks. As of 03/04/2021 he completed his 4th cycle. He then had a significant decline in his general condition with progressive weakness and declining performance status, and his further treatment was put on hold. On 04/11/2021 he was admitted to the hospital after his CT pulmonary angiogram reported presence of left upper and right lower lobe pulmonary emboli. Also noted were numerous bilateral metastatic pulmonary nodules, the majority of which were either decreased in size or resolved. One was noted to have increased from 10 to 15 mm in the right upper lobe. There was also increasing mediastinal and hilar lymphadenopathy with the largest node at the left hilum measuring 1.6 cm. There was evidence for diffuse air distention throughout the colon felt to be most likely an ileus pattern. He began on anticoagulation with apixaban and at that point he also was placed on higher dose steroid therapy. During follow-up he has felt a little better gradually, though he has remained generally weak and he continues to have very limited activity tolerance. He recently was treated in the emergency room for orthostatic hypotension. The exact cause of his decline remains uncertain, though it did occur while on immunotherapy with pembrolizumab and it is presumed to be treatment related. His recent CT scan did show further progression of his metastatic disease. His other options for treatment unfortunately are going to be limited. With his performance status being poor, the likelihood of benefit with chemotherapy will be low with high risk for side effects. In that regard, continuing symptomatic/supportive care with hospice would be very appropriate, though one other option would be a trial of therapy with cetuximab. However, in this area there would be a significant risk for associated anaphylaxis. At this point I will obtain additional laboratory studies including CBC, comprehensive metabolic profile, thyroid profile, and a random cortisol. I will then plan to see him again for additional discussion regarding his further management. Signed By: Devendra Reich M.D. <<Signature on File>>
== END 2021-07-02 23:59 | disposition home or self-care (01) ==
LOC: ONCMED 08:13
PROVIDERS: PCP Family Medicine; Visit Provider Internal Medicine Medical Oncology
DX: C01 Malignant neoplasm of base of tongue (principal); C78.01 Secondary malignant neoplasm of right lung; C78.02 Secondary malignant neoplasm of left lung; I10 Essential (primary) hypertension; E78.5 Hyperlipidemia, unspecified; E11.9 Type 2 diabetes mellitus without complications; I87.2 Venous insufficiency (chronic) (peripheral); D69.3 Immune thrombocytopenic purpura; Z85.46 Personal history of malignant neoplasm of prostate; Z79.899 Other long term (current) drug therapy; Z92.21 Personal history of antineoplastic chemotherapy
CPT/HCPCS: 80053; 82533; 84439; 84443; 85025; 96360; 99215; J7030; J7040

== ENCOUNTER 2021-07-03 06:00 | Outpatient (RCR) | payer MEDICARE, OTHER, SELFPAY | END 2021-08-01 23:59 | disposition home or self-care (01) | LOC: SPT 06:00 | PROVIDERS: PCP Family Medicine; Referring Provider Internal Medicine Medical Oncology; Visit Provider Internal Medicine Medical Oncology | DX: M62.81 Muscle weakness (generalized) (principal) | CPT/HCPCS: 97110 ==

== ENCOUNTER 2021-08-01 06:25 | Outpatient (RCR) | payer MEDICARE, OTHER, SELFPAY ==
[2021-07-10 09:40] LABS: Basophils # 0.1 10^3/uL (0.0-0.1); Basophils % 1.4 %; Eosinophils # 0.1 10^3/uL (0.0-0.8); Eosinophils % 2.4 %; Hematocrit 33.4 % (42.0-52.0); Hemoglobin 11.1 g/dL (11.7-16.6); Lymphocytes % 23.6 %; Mean Corpuscular HGB Conc 33.2 g/dL (30.0-36.0); Mean Corpuscular Hemoglobin 33.4 pg (28.0-34.0); Mean Corpuscular Volume 100.6 fl (80-94); Mean Platelet Volume 11.3 fL (7.4-10.4); Monocytes # 0.7 10^3/uL (0.2-0.9); Monocytes % 17.4 %; Nucleated Red Blood Cells % 0 %; Platelet Count 231 10^3/cmm (130-400); Red Blood Count 3.32 10^6/uL (4.1-5.3); Red Cell Distribution Width 14.5 % (12.1-15.1); White Blood Count 4.2 10^3/uL (4.0-10.0)
[2021-07-10 10:31] LABS: Alanine Aminotransferase 8 U/L (0-41); Albumin Level 3.5 g/dL (3.5-5.2); Alkaline Phosphatase 56 IU/L (40-130); Anion Gap 14.8 (5-19); Aspartate Amino Transferase 17 U/L (0-40); Blood Urea Nitrogen 8 mg/dL (8-23); Calcium 9.3 mg/dL (8.5-10.5); Carbon Dioxide 26 mmol/L (22-29); Chloride 96 mmol/L (98-107); Globulin 2.4 g/dL (1.3-4.6); Glucose 83 mg/dL (65-115); Osmolality Calculated 271 mOsm/kg (285-295); Potassium 4.8 mmol/L (3.5-5.1); Sodium 132 mmol/L (136-145); Total Bilirubin 0.3 mg/dL (0.15-1.2); Total Protein 5.9 g/dL (6.6-8.7)
[2021-07-11 16:38] LABS: Iron 60 ug/dL (59-158); Percent Saturation 27.5 % (20-50); Total Iron Binding Capacity 218 mcg/dl; Unsaturated Iron Binding 158 ug/dL (112-347)
--- NOTE | 2021-07-12 08:39 | ONC FU_ITS ---
Dr. Reich Patient Follow-Up Note Patient: Demarcus Maldonado Unit #: [id number]: [id number] Dicatated By: Devendra Reich M.D.Date of Visit:Jul 11, 2021 Onc Med Follow-up/Prog Note Chief Complaint: Base of tongue cancer. 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 He had subsequent progression to stage IV with PET/CT evidence of pulmonary metastatic disease bilaterally. He had presented with left cervical lymphadenopathy. He had associated pain in the left side of the neck and throat. He had been seen initially by Dr. James. CT of the neck on 03/27/2020 showed a soft tissue enhancing mass centered in the left tongue base along the lingual tonsil. It was noted to extend over a length of 2.6 x 2.2 x 1.3 cm. There appeared to be enhancement across the midline and there was suspected involvement in the lingular surface of the right tongue. Also noted was enlargement and abnormal enhancement and thickening of the uvula. There was extensive, confluent adenopathy i involving the left neck. The largest cluster of nodes measured 8.4 cm in length by 2.8 cm, beginning at the level of the hyoid bone and extending inferiorly to the supraclavicular region. Additional clusters of lymph nodes were present at level IIa, IIb, III, Va, and in the supraclavicular area. The largest necrotic lymph node measured 2.5 x 2.2 cm at the level of the thyroid cartilage. Smaller lymph nodes were noted along the right cervical chain, but without definite adenopathy. The lung apices were noted to be clear. He was seen by Dr. Praneeth Thompson on 03/30/2020. His exam showed an exophytic mass and papillomatous mass at the left tongue base as well as papillomatous mass at the left paramedian tongue base. The remainder of the oral cavity and oropharyngeal exam was reported to be normal. The laryngeal exam showed erythema and edema of the arytenoid mucosa. He then underwent direct laryngoscopy with biopsy and esophagoscopy on 04/05/2020. Findings included an exophytic lesion involving the left tongue base extending to the right of the midline. It also was noted to extend into the vallecula. There was no involvement of the lateral pharyngeal wall or the larynx. The esophagus was noted to be free of lesions. Biopsy showed infiltrating moderately differentiated squamous cell carcinoma which was confirmed to be HPV positive. I had seen him initially on 04/19/2020. Staging PET/CT on 04/28/2020 showed a 2.4 x 1.7 cm left base of tongue mass with SUV 24.5, consistent with primary malignancy. There were FDG positive nodes from cervical levels II through IV and V levels on the left consistent with local metastatic disease. A 1.2 cm right level 2A node had SUV 4.2 indicating a high probability of contralateral cervical disease. A subpleural solid nodule in the lateral left upper lobe measuring 8 mm had SUV 1.9, suspicious but not definitive for distant metastatic disease. A 2.8 x 1.5 cm subcarinal lymph node had SUV 5.3, suspicious for metastatic disease. Smaller FDG positive nodes in the right pretracheal and subaortic territories were felt to be most likely reactive. He was referred to Dr. Kingsley. On 05/15/2020 he underwent bronchoscopy/EBUS with transbronchial FNA biopsy of station 7 and station 4R lymph nodes. Pathology from both sites showed reactive lymph node tissue with no evidence of malignancy. With those findings, he was recommended to undergo radiation concurrently with standard high-dose cisplatin chemotherapy. He began cycle 1 of cisplatin at 100 mg/m??? by IV infusion concurrently with radiation on 05/31/2020. He experienced no acute toxicity with the initial cisplatin infusion. Her further chemotherapy was held due to neutropenia. He completed radiation on 06/19/2020 to a total dose of 6540 cGy. He then continued with radiation. At his day 22 visit he had moderately severe neutropenia with absolute neutrophil count at just under 1000, and his second dose of cisplatin was deferred. Subsequent to that visit, he began having more difficulty with swallowing and with oral intake, and he did opt undergo placement of the PEG tube. He was able to continue his radiation, and he proceeded with cycle 2 of cisplatin 100 mg/m??? by IV infusion on 07/03/2020. On 07/16/2020 he was admitted to the hospital with acute upper GI bleeding. His EGD showed multiple benign-appearing ulcers in the duodenum, which appeared to be the likely source for the GI bleed, though no active bleeding was apparent at the time of the procedure. During the hospitalization he became neutropenic, but it resolved uneventfully on antibiotic coverage with cefepime and Levaquin. During the hospitalization, he was able to resume his radiation, and he completed treatment on 07/23/2020 to a total dose of 7000 cGy. He has a history of having previously undergone radical prostatectomy for prostate cancer. He also has a prior history of ITP. His other medical illnesses include hypertension, hyperlipidemia, and type 2 diabetes. He has a past history of smoking, but only for about 6 years. He quit smoking approximately 40 years ago. He had also chewed tobacco, but only for about 1 or 2 years. INTERIM HISTORY: Restaging neck CT on 08/20/2020 showed significant improvement in the cervical chain lymphadenopathy with the largest persistent lymph node measuring 1.7 x 1.6 cm at level III. There appeared to be complete resolution of the left tongue base neoplasm. A restaging PET/CT on 11/24/2020 showed resolution of the base of tongue mass with FDG negative, subcentimeter left sided cervical lymph nodes. The right cervical level 2A node was no longer visualized. A 9 mm left upper lobe pulmonary nodule with SUV 2.3 was noted to have progressed from the prior study and also noted were multiple new bilateral pulmonary nodules, consistent with malignancy. These included a 1 cm anterior medial left upper lobe nodule with SUV 6.7 and a 1.1 cm right upper lobe nodule with SUV 6.4. With those findings he had further evaluation with a next generation sequencing study. It showed no actionable mutations, but the PD-L1 was positive at 10% and the tumor mutation burden was high at 11, suggesting potential benefit with immunotherapy. On 12/24/2020 he began cycle 1 of treatment with pembrolizumab. He tolerated it with no adverse effects. He then continued treatment at 3-week intervals. As of 03/04/2021 he completed his 4th cycle. I had seen him for a follow-up visit on 03/25/2021. He was feeling very weak generally. His ECOG score had declined to 3. He also had very poor appetite. He was noted to have a weight loss of 35 pounds since December. He was having a lot of intestinal gas and he also reported having pain in his right lower quadrant area. He had some constipation, but no diarrhea. His treatment was put on hold, and he was given IV hydration. I also opted to give him steroid therapy, but with his known diabetes, it was limited to a relatively low dose of prednisone. During follow-up his symptoms persisted, and on 04/11/2021 he was admitted to the hospital after his CT pulmonary angiogram reported presence of left upper and right lower lobe pulmonary emboli. Also noted were numerous bilateral metastatic pulmonary nodules, the majority of which were either decreased in size or resolved. One was noted to have increased from 10 to 15 mm in the right upper lobe. There was also increasing mediastinal and hilar lymphadenopathy with the largest node at the left hilum measuring 1.6 cm. There was evidence for diffuse air distention throughout the colon felt to be most likely an ileus pattern. He began on anticoagulation with apixaban and at that point he also was placed on higher dose steroid therapy. I had seen him for a follow-up visit on 04/23/2021. He was still weak, but feeling a little better. At that point I had him gradually taper off prednisone, and I also had him start citalopram for depression. His restaging PET/CT on 05/04/2021 showed improvement or resolution in the majority of the pulmonary nodules, though with a right upper lobe nodule increasing in size from 1.1 to 1.7 cm with SUV 6.7. There was development of multiple new mediastinal lymph nodes including a left paratracheal region node measuring 1.7 cm with SUV 11.8, suspicious for disease progression. His repeat chest CT on 06/13/2021 showed significant progression in the size of bilateral pulmonary nodules as well as significant progression of the lymphadenopathy within the chest. The following day he was seen in the emergency room after he became hypotensive during his physical therapy treatment. He was given hydration and discharged home. He was seen for a follow-up visit on 07/01/2021. At that point he was still very weak generally, and his performance status remained. He indicated a desire to continue further treatment, though his options appeared to be very limited. Since then he has been getting additional IV hydration, which has helped him feel a little better. He does complain, though, that his legs are shaky when he gets up to walk. His arms also feel shaky, though not as much. His appetite has been okay, though not good. He does not have fever or night sweats. His breathing has been okay. He has no GI or complaints. He has just mild joint pain. He has been having significant despite taking citalopram 40 mg daily. He previously has had poor tolerance for both alprazolam and lorazepam. Medications: Citalopram Hydrobromide 1 (40 mg) Tablet Oral daily, Claritin 1 Tablet (of 10 mg) Oral once, D3-1000 1 Tablet (of 25 mcg ) Oral daily, Daily Multiple Vitamins 1 Tablet Oral daily, Diflucan 1 (100 mg) Tablet Oral daily, Flonase Allergy Relief Suspension Nasal, Levothyroxine Sodium 1 Tablet (of 50 mcg) Oral daily, metFORMIN HCl 0.5 - 1 Tablet (of 1000 mg) Oral b.i.d., Omeprazole 1 Capsule (of 20 mg) Capsule Delayed Release Oral daily, Potassium Chloride ER 1 Tablet (of 20 meq) Capsule, controlled release Oral daily, Pravastatin Sodium 1 Tablet (of 80 mg) Oral daily, predniSONE 1 (20 mg) Tablet Oral b.i.d., Singulair 1 Tablet (of 10 mg) Oral at bedtime, Vitamin B 12 1 Tablet Oral once Allergies: Keflex, Penicillins, and Pneumococcal 13-[place] Conj Vacc. Vital Signs: Performed on Jul 11, 2021 15:25 Height - 72.00 in BSA - 0.00 sq.m BMI - 0.00 Temperature - 99.2 F (HIGH) Pulse - 92 /min Respiration - 18 /min BP - 110/70 mm(hg) O2 Sat - 96 % Pain - 0 Fatigue - 6 Physical Examination: Constitutional - He appears generally weak, particularly in the lower extremities, but he does not appear to have any focal neurologic deficit. Lab/Imaging: Test performed on Jul 02, 2021 14:22 Sodium 131 mmol/L T4, Free 1.52 ng/dL TSH 2.29 uIU/mL Potassium 4.4 mmol/L Chloride 96 mmol/L CO2 24 mmol/L Anion Gap 15.4 BUN 8 mg/dL Creatinine 0.5 mg/dL Cr Clearance (Est) 155.0800 mL/min Glucose 102 mg/dL Osmolality - Calculated 271 mOsm/kg Calcium 9.5 mg/dL Protein, Total 6.2 g/dL Albumin 3.7 g/dL Globulin 2.5 g/dL Bilirubin, Total 0.3 mg/dL ALT (SGPT) 10 U/L AST (SGOT) 20 U/L Alkaline Phosphatase 63 IU/L WBC 5.1 10 3/uL RBC 3.37 10 6/uL HGB 11.7 g/dL HCT 34.1 % MCV 101.2 fl MCH 34.7 pg MCHC 34.3 g/dL RDW 14.9 % Platelet Count 282 10 3/cmm MPV 10.8 fL Neutrophils 2.75 10 3/uL Lymphocytes 1.4 10 3/uL Monocytes 0.8 10 3/uL Eosinophils 0.1 10 3/uL Basophils 0.1 10 3/uL Neutrophil % 54.3 % Lymphocyte % 27.9 % Monocyte % 15.0 % Eosinophil % 1.2 % Basophils % 1.2 % NRBC % 0 % Problem List: 1. HPV positive squamous cell carcinoma involving left base of tongue, by clinical evaluation stage II (T2, N2, M0) at initial diagnosis in March 2020. He had subsequent progression to stage IV with PET/CT evidence of pulmonary metastatic disease bilaterally. 2. Hypertension. 3. Hyperlipidemia. 4. Type 2 diabetes. 5. He has chronic venous insufficiency. 6. History of prostate cancer for which he underwent radical prostatectomy approximately 5 years ago. 7. 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 Problems Addressed with this Encounter and Plan: 1. Patient with HPV positive squamous cell carcinoma involving left base of tongue, by clinical evaluation stage II (T2, N2b, M0) at initial diagnosis in March 2020. He underwent direct laryngoscopy with biopsy and esophagoscopy on 04/05/2020. Staging PET/CT 04/28/2020 showed a 2.8 x 1.5 subcarinal node with SUV 5.3, suspicious for metastatic disease. Smaller FDG positive nodes in the right paratracheal and subaortic territories appeared to be most likely reactive. On 05/15/2020 he underwent bronchoscopy/EBUS with transbronchial FNA biopsy of station 7 and station 4R lymph nodes. Pathology from both sites showed reactive lymph node tissue with no evidence of malignancy. With those findings, he was recommended to undergo radiation concurrently with standard high-dose cisplatin chemotherapy. He began cycle 1 of cisplatin 100 mg/m??? IV infusion concurrently with radiation on 05/31/2020. He tolerated the initial cisplatin infusion with no acute toxicity. At day 22 he had developed moderately severe neutropenia, ANC 1000, and his 2nd cycle of cisplatin was deferred. During that time he had undergone placement of a PEG tube, and he began nutritional support with tube feeding. He was able to continue his radiation, and he was then given cycle 2 of cisplatin on 07/03/2020. On 07/16/2020 he was admitted to the hospital with acute GI bleed, determined by EGD to be due to duodenal ulcers. He stabilized with conservative management. He again became neutropenic, but with uneventful recovery. He was able to continue radiation, and he completed his treatment on 07/23/2020 to a total dose of 7000 cGy. He did appear to have a very good response by follow-up CT in August 2020. Restaging PET/CT on 11/24/2019 showed FDG positive pulmonary nodules bilaterally, consistent with metastatic disease. A next generation sequencing study showed no actionable mutations, but his tumor was found to be PD-L1 positive at 10% with tumor mutation burden high at 11%, suggesting possible benefit with immunotherapy. He then began cycle 1 of pembrolizumab on 12/24/2020, and he then continued pembrolizumab 200 mg by IV infusion every 3 weeks. As of 03/04/2021 he completed his 4th cycle. He then had a significant decline in his general condition with progressive weakness and declining performance status, and his further treatment was put on hold. On 04/11/2021 he was admitted to the hospital after his CT pulmonary angiogram reported presence of left upper and right lower lobe pulmonary emboli. Also noted were numerous bilateral metastatic pulmonary nodules, the majority of which were either decreased in size or resolved. One was noted to have increased from 10 to 15 mm in the right upper lobe. There was also increasing mediastinal and hilar lymphadenopathy with the largest node at the left hilum measuring 1.6 cm. There was evidence for diffuse air distention throughout the colon felt to be most likely an ileus pattern. He began on anticoagulation with apixaban and at that point he also was placed on higher dose steroid therapy. During follow-up he continued to have very marginal performance status. The exact cause of his decline was uncertain. However, as it had occurred while on immunotherapy with pembrolizumab, it was presumed to be treatment related. His repeat CT scan on 06/13/2021 showed further progression of his metastatic disease. The following day he required treatment in the emergency room for orthostatic hypotension. He was seen for a follow-up visit on 07/01/2021. He remained very weak generally. He had indicated a desire to continue further treatment, though with very poor performance status his options appeared to be very limited. He has since then been getting some symptomatic benefit with IV hydration, though his performance status remains poor. I reviewed some further treatment options. He had specifically inquired about restarting pembrolizumab, which in my view is not going to be an option. I talked to him about trying cetuximab, which predictably causes a skin eruption. It is not tend to have a lot of other side effects, but there is a significant risk for anaphylactic reaction with the initial infusion. It can be administered either as monotherapy or in combination with chemotherapy, which would likely have more benefit but with risk for additional toxicities, which would potentially be very significant.. We also discussed the fact that any further treatment will have a relatively low likelihood of benefit, and continue with supportive treatment measures is also very reasonable option. As his disease does not appear to be progressing rapidly, he prefers for the time being to discontinue with supportive care. I will have him come in twice weekly for scheduled hydration, I also will see if I can restart his physical therapy. I will tentatively plan a follow-up visit in 1 month. In the meantime, as a precaution, I also will schedule him for a cosyntropin stimulation test. 2. He has having significant anxiety despite taking citalopram 40 mg daily. He previously has had poor tolerance for both alprazolam and lorazepam. He will now be given a prescription for buspirone 10 mg tid. Signed By: Devendra Reich M.D. <<Signature on File>>
[2021-07-15] MEDS: sodium chloride 0.9% 500 ML 999 ML IV (08:35)
[2021-07-18] MEDS: sodium chloride 0.9% 500 ML 999 ML IV ×2 (13:40→16:38)
[2021-07-22] MEDS: sodium chloride 0.9% 500 ML 999 ML IV (13:08)
[2021-07-25] MEDS: sodium chloride 0.9% 500 ML 999 ML IV (13:45)
[2021-07-29] MEDS: sodium chloride 0.9% 500 ML 999 ML IV (09:15)
[2021-08-01] MEDS: sodium chloride 0.9% 500 ML 999 ML IV (13:45)
== END 2021-08-01 23:59 | disposition home or self-care (01) ==
LOC: ONCMED 06:25
PROVIDERS: PCP Family Medicine; Visit Provider Internal Medicine Medical Oncology
DX: C01 Malignant neoplasm of base of tongue (principal); C78.01 Secondary malignant neoplasm of right lung; C78.02 Secondary malignant neoplasm of left lung; I10 Essential (primary) hypertension; E78.5 Hyperlipidemia, unspecified; E11.9 Type 2 diabetes mellitus without complications; I87.2 Venous insufficiency (chronic) (peripheral); Z85.46 Personal history of malignant neoplasm of prostate; Z90.81 Acquired absence of spleen; Z79.899 Other long term (current) drug therapy
CPT/HCPCS: 80053; 83540; 83550; 85025; 96360; 99214; J7040

== ENCOUNTER 2021-08-02 06:00 | Outpatient (RCR) | payer MEDICARE, OTHER, SELFPAY | END 2021-09-01 23:59 | disposition home or self-care (01) | LOC: SPT 06:00 | PROVIDERS: PCP Family Medicine; Referring Provider Internal Medicine Medical Oncology; Visit Provider Internal Medicine Medical Oncology | DX: M62.81 Muscle weakness (generalized) (principal) | CPT/HCPCS: 97110; 97112 ==

== ENCOUNTER 2021-08-29 06:15 | Outpatient (RCR) | payer MEDICARE, OTHER, SELFPAY ==
[2021-08-05] MEDS: sodium chloride 0.9% 500 ML 999 ML IV (09:20)
[2021-08-05 09:43] LABS: Basophils # 0.1 10^3/uL (0.0-0.1); Basophils % 1.3 %; Eosinophils # 0.1 10^3/uL (0.0-0.8); Eosinophils % 2.6 %; Hematocrit 36.3 % (42.0-52.0); Hemoglobin 11.9 g/dL (11.7-16.6); Lymphocytes # 1.4 10^3/uL (0.8-4.8); Lymphocytes % 31.1 %; Mean Corpuscular HGB Conc 32.8 g/dL (30.0-36.0); Mean Corpuscular Hemoglobin 33.8 pg (28.0-34.0); Mean Corpuscular Volume 103.1 fl (80-94); Mean Platelet Volume 11.2 fL (7.4-10.4); Monocytes # 0.7 10^3/uL (0.2-0.9); Monocytes % 14.7 %; Neutrophils % 50.3 %; Nucleated Red Blood Cells % 0 %; Platelet Count 248 10^3/cmm (130-400); Red Blood Count 3.52 10^6/uL (4.1-5.3); Red Cell Distribution Width 13.3 % (12.1-15.1); White Blood Count 4.6 10^3/uL (4.0-10.0)
[2021-08-05 10:09] LABS: Alanine Aminotransferase 10 U/L (0-41); Alkaline Phosphatase 62 IU/L (40-130); Anion Gap 16.3 (5-19); Aspartate Amino Transferase 16 U/L (0-40); Blood Urea Nitrogen 10 mg/dL (8-23); Calcium 9.6 mg/dL (8.5-10.5); Carbon Dioxide 25 mmol/L (22-29); Chloride 93 mmol/L (98-107); Globulin 2.6 g/dL (1.3-4.6); Glucose 158 mg/dL (65-115); Osmolality Calculated 272 mOsm/kg (285-295); Potassium 4.3 mmol/L (3.5-5.1); Sodium 130 mmol/L (136-145); Total Bilirubin 0.3 mg/dL (0.15-1.2); Total Protein 6.6 g/dL (6.6-8.7)
[2021-08-08] MEDS: sodium chloride 0.9% 500 ML 999 ML IV (09:25)
[2021-08-13] MEDS: sodium chloride 0.9% 500 ML 999 ML IV (10:50)
[2021-08-15] MEDS: sodium chloride 0.9% 500 ML 999 ML IV (09:18)
[2021-08-19] MEDS: sodium chloride 0.9% 500 ML 999 ML IV (08:45)
[2021-08-26] MEDS: sodium chloride 0.9% 500 ML 999 ML IV (09:20)
[2021-08-29] MEDS: sodium chloride 0.9% 500 ML 999 ML IV (09:30)
== END 2021-09-01 23:59 | disposition home or self-care (01) ==
LOC: ONCMED 06:15
PROVIDERS: PCP Family Medicine; Visit Provider Internal Medicine Medical Oncology
DX: C01 Malignant neoplasm of base of tongue (principal); C78.01 Secondary malignant neoplasm of right lung; C78.02 Secondary malignant neoplasm of left lung; Z79.899 Other long term (current) drug therapy
CPT/HCPCS: 80053; 85025; 90471; 90686; 96360; J7040

== ENCOUNTER 2021-09-02 06:00 | Outpatient (RCR) | payer MEDICARE, OTHER, SELFPAY | END 2021-10-01 23:59 | disposition home or self-care (01) | LOC: SPT 06:00 | PROVIDERS: PCP Family Medicine; Visit Provider Internal Medicine Medical Oncology | DX: M62.81 Muscle weakness (generalized) (principal) | CPT/HCPCS: 97110; 97112 ==

== ENCOUNTER 2021-09-03 06:32 | Outpatient (RCR) | payer MEDICARE, OTHER, SELFPAY ==
[2021-09-03 13:21] LABS: Basophils # 0.1 10^3/uL (0.0-0.1); Basophils % 1.4 %; Eosinophils # 0.2 10^3/uL (0.0-0.8); Eosinophils % 3.5 %; Hematocrit 37.9 % (42.0-52.0); Hemoglobin 12.5 g/dL (11.7-16.6); Lymphocytes # 1.9 10^3/uL (0.8-4.8); Lymphocytes % 36.8 %; Mean Corpuscular Hemoglobin 33.7 pg (28.0-34.0); Mean Corpuscular Volume 102.2 fl (80-94); Mean Platelet Volume 11.1 fL (7.4-10.4); Monocytes # 0.8 10^3/uL (0.2-0.9); Neutrophils # 2.21 10^3/uL (1.8-7.7); Neutrophils % 43.1 %; Nucleated Red Blood Cells % 0 %; Platelet Count 255 10^3/cmm (130-400); Red Blood Count 3.71 10^6/uL (4.1-5.3); Red Cell Distribution Width 13.1 % (12.1-15.1); White Blood Count 5.1 10^3/uL (4.0-10.0)
[2021-09-03 13:41] LABS: Alanine Aminotransferase 8 U/L (0-41); Albumin Level 4.3 g/dL (3.5-5.2); Alkaline Phosphatase 74 IU/L (40-130); Anion Gap 12.2 (5-19); Aspartate Amino Transferase 16 U/L (0-40); Blood Urea Nitrogen 11 mg/dL (8-23); Calcium 9.8 mg/dL (8.5-10.5); Carbon Dioxide 30 mmol/L (22-29); Chloride 95 mmol/L (98-107); Globulin 2.5 g/dL (1.3-4.6); Glucose 107 mg/dL (65-115); Osmolality Calculated 276 mOsm/kg (285-295); Potassium 4.2 mmol/L (3.5-5.1); Sodium 133 mmol/L (136-145); Total Bilirubin 0.2 mg/dL (0.15-1.2); Total Protein 6.8 g/dL (6.6-8.7)
--- NOTE | 2021-09-07 09:10 | ONC FU_ITS ---
Dr. Reich Patient Follow-Up Note Patient: Demarcus Maldonado Unit #: [id number]: 1950 Dicatated By: Devendra Reich M.D.Date of Visit:Sep 03, 2021 Onc Med Follow-up/Prog Note Chief Complaint: Base of tongue cancer. 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 He had subsequent progression to stage IV with PET/CT evidence of pulmonary metastatic disease bilaterally. He had presented with left cervical lymphadenopathy. He had associated pain in the left side of the neck and throat. He had been seen initially by Dr. James. CT of the neck on 03/27/2020 showed a soft tissue enhancing mass centered in the left tongue base along the lingual tonsil. It was noted to extend over a length of 2.6 x 2.2 x 1.3 cm. There appeared to be enhancement across the midline and there was suspected involvement in the lingular surface of the right tongue. Also noted was enlargement and abnormal enhancement and thickening of the uvula. There was extensive, confluent adenopathy i involving the left neck. The largest cluster of nodes measured 8.4 cm in length by 2.8 cm, beginning at the level of the hyoid bone and extending inferiorly to the supraclavicular region. Additional clusters of lymph nodes were present at level IIa, IIb, III, Va, and in the supraclavicular area. The largest necrotic lymph node measured 2.5 x 2.2 cm at the level of the thyroid cartilage. Smaller lymph nodes were noted along the right cervical chain, but without definite adenopathy. The lung apices were noted to be clear. He was seen by Dr. Praneeth Thompson on 03/30/2020. His exam showed an exophytic mass and papillomatous mass at the left tongue base as well as papillomatous mass at the left paramedian tongue base. The remainder of the oral cavity and oropharyngeal exam was reported to be normal. The laryngeal exam showed erythema and edema of the arytenoid mucosa. He then underwent direct laryngoscopy with biopsy and esophagoscopy on 04/05/2020. Findings included an exophytic lesion involving the left tongue base extending to the right of the midline. It also was noted to extend into the vallecula. There was no involvement of the lateral pharyngeal wall or the larynx. The esophagus was noted to be free of lesions. Biopsy showed infiltrating moderately differentiated squamous cell carcinoma which was confirmed to be HPV positive. I had seen him initially on 04/19/2020. Staging PET/CT on 04/28/2020 showed a 2.4 x 1.7 cm left base of tongue mass with SUV 24.5, consistent with primary malignancy. There were FDG positive nodes from cervical levels II through IV and V levels on the left consistent with local metastatic disease. A 1.2 cm right level 2A node had SUV 4.2 indicating a high probability of contralateral cervical disease. A subpleural solid nodule in the lateral left upper lobe measuring 8 mm had SUV 1.9, suspicious but not definitive for distant metastatic disease. A 2.8 x 1.5 cm subcarinal lymph node had SUV 5.3, suspicious for metastatic disease. Smaller FDG positive nodes in the right pretracheal and subaortic territories were felt to be most likely reactive. He was referred to Dr. Kingsley. On 05/15/2020 he underwent bronchoscopy/EBUS with transbronchial FNA biopsy of station 7 and station 4R lymph nodes. Pathology from both sites showed reactive lymph node tissue with no evidence of malignancy. With those findings, he was recommended to undergo radiation concurrently with standard high-dose cisplatin chemotherapy. He began cycle 1 of cisplatin at 100 mg/m??? by IV infusion concurrently with radiation on 05/31/2020. He experienced no acute toxicity with the initial cisplatin infusion. Her further chemotherapy was held due to neutropenia. He completed radiation on 06/19/2020 to a total dose of 6540 cGy. He then continued with radiation. At his day 22 visit he had moderately severe neutropenia with absolute neutrophil count at just under 1000, and his second dose of cisplatin was deferred. Subsequent to that visit, he began having more difficulty with swallowing and with oral intake, and he did opt undergo placement of the PEG tube. He was able to continue his radiation, and he proceeded with cycle 2 of cisplatin 100 mg/m??? by IV infusion on 07/03/2020. On 07/16/2020 he was admitted to the hospital with acute upper GI bleeding. His EGD showed multiple benign-appearing ulcers in the duodenum, which appeared to be the likely source for the GI bleed, though no active bleeding was apparent at the time of the procedure. During the hospitalization he became neutropenic, but it resolved uneventfully on antibiotic coverage with cefepime and Levaquin. During the hospitalization, he was able to resume his radiation, and he completed treatment on 07/23/2020 to a total dose of 7000 cGy. He has a history of having previously undergone radical prostatectomy for prostate cancer. He also has a prior history of ITP. His other medical illnesses include hypertension, hyperlipidemia, and type 2 diabetes. He has a past history of smoking, but only for about 6 years. He quit smoking approximately 40 years ago. He had also chewed tobacco, but only for about 1 or 2 years. INTERIM HISTORY: Restaging neck CT on 08/20/2020 showed significant improvement in the cervical chain lymphadenopathy with the largest persistent lymph node measuring 1.7 x 1.6 cm at level III. There appeared to be complete resolution of the left tongue base neoplasm. A restaging PET/CT on 11/24/2020 showed resolution of the base of tongue mass with FDG negative, subcentimeter left sided cervical lymph nodes. The right cervical level 2A node was no longer visualized. A 9 mm left upper lobe pulmonary nodule with SUV 2.3 was noted to have progressed from the prior study and also noted were multiple new bilateral pulmonary nodules, consistent with malignancy. These included a 1 cm anterior medial left upper lobe nodule with SUV 6.7 and a 1.1 cm right upper lobe nodule with SUV 6.4. With those findings he had further evaluation with a next generation sequencing study. It showed no actionable mutations, but the PD-L1 was positive at 10% and the tumor mutation burden was high at 11, suggesting potential benefit with immunotherapy. On 12/24/2020 he began cycle 1 of treatment with pembrolizumab. He tolerated it with no adverse effects. He then continued treatment at 3-week intervals. As of 03/04/2021 he completed his 4th cycle. I had seen him for a follow-up visit on 03/25/2021. He was feeling very weak generally. His ECOG score had declined to 3. He also had very poor appetite. He was noted to have a weight loss of 35 pounds since December. He was having a lot of intestinal gas and he also reported having pain in his right lower quadrant area. He had some constipation, but no diarrhea. His treatment was put on hold, and he was given IV hydration. I also opted to give him steroid therapy, but with his known diabetes, it was limited to a relatively low dose of prednisone. During follow-up his symptoms persisted, and on 04/11/2021 he was admitted to the hospital after his CT pulmonary angiogram reported presence of left upper and right lower lobe pulmonary emboli. Also noted were numerous bilateral metastatic pulmonary nodules, the majority of which were either decreased in size or resolved. One was noted to have increased from 10 to 15 mm in the right upper lobe. There was also increasing mediastinal and hilar lymphadenopathy with the largest node at the left hilum measuring 1.6 cm. There was evidence for diffuse air distention throughout the colon felt to be most likely an ileus pattern. He began on anticoagulation with apixaban and at that point he also was placed on higher dose steroid therapy. I had seen him for a follow-up visit on 04/23/2021. He was still weak, but feeling a little better. At that point I had him gradually taper off prednisone, and I also had him start citalopram for depression. His restaging PET/CT on 05/04/2021 showed improvement or resolution in the majority of the pulmonary nodules, though with a right upper lobe nodule increasing in size from 1.1 to 1.7 cm with SUV 6.7. There was development of multiple new mediastinal lymph nodes including a left paratracheal region node measuring 1.7 cm with SUV 11.8, suspicious for disease progression. His repeat chest CT on 06/13/2021 showed significant progression in the size of bilateral pulmonary nodules as well as significant progression of the lymphadenopathy within the chest. The following day he was seen in the emergency room after he became hypotensive during his physical therapy treatment. He was given hydration and discharged home. He was seen for follow-up on 07/01/2021. At that point he was still very weak generally, and his performance status remained poor. He indicated a desire to continue further treatment, though his options appeared to be very limited. Subsequent to that visit, he continued getting outpatient IV hydration, which did help him feel better. As of his follow-up visit on 07/11/2021 he was continuing to show gradual improvement, and we opted to continue with symptomatic/supportive care measures. He is seen for a scheduled visit. He has continued to receive IV hydration as an outpatient twice a week and with that he has showed continual gradual improvement in his energy and activity tolerance, to the point that he is at least up and around at home now. His ECOG score is 2. He has pretty good appetite. He does not have fever or night sweats. He has some sinus drainage and he does have to cough up phlegm. He is swallowing okay and he says his breathing is pretty good. He does not complain of chest pain. He has no GI complaints other than some constipation, which he manages adequately with senna. He has frequent urination. He has some joint pain, mainly in the right shoulder and both knees. He does not complain of headache. He has some orthostatic lightheadedness. He has no numbness/paresthesia or other focal neurologic symptoms. Medications: Citalopram Hydrobromide 1 (40 mg) Tablet Oral daily, D3-1000 1 Tablet (of 25 mcg ) Oral daily, Daily Multiple Vitamins 1 Tablet Oral daily, Flonase Allergy Relief Suspension Nasal, Levothyroxine Sodium 1 Tablet (of 50 mcg) Oral daily, metFORMIN HCl 0.5 - 1 Tablet (of 1000 mg) Oral b.i.d., Omeprazole 1 Capsule (of 20 mg) Capsule Delayed Release Oral daily, Potassium Chloride ER 1 Tablet (of 20 meq) Capsule, controlled release Oral daily, Pravastatin Sodium 1 Tablet (of 80 mg) Oral daily, Singulair 1 Tablet (of 10 mg) Oral at bedtime, Vitamin B 12 1 Tablet Oral once Allergies: Keflex, Penicillins, and Pneumococcal 13-[place] Conj Vacc. Vital Signs: Performed on Sep 03, 2021 15:25 Height - 72.00 in Weight - 187.2 lbs (HIGH) BSA - 2.07 sq.m BMI - 25.39 Temperature - 97.1 F (LOW) Pulse - 84 /min Respiration - 18 /min BP - 158/81 mm(hg) (HIGH) O2 Sat - 98 % Pain - 0 Fatigue - 5 Physical Examination: Constitutional - He still appears weak generally, but improved, Eyes - Sclerae nonicteric. Conjunctivae clear, ENMT - No lesions noted in the oral cavity, Hematologic/Lymphatic - No cervical, clavicular, or axillary adenopathy, Respiratory - Lungs sound clear with diminished air movement bilaterally, Cardiovascular - Heart rhythm is regular. There is no murmur, gallop, or rub noted, Abdomen - Mildly distended but soft. The subcutaneous nodules in the mid and upper abdomen appear unchanged. Liver is not enlarged. There is no abdominal mass or ascites noted and there is no inguinal adenopathy, Extremities - There is mild lower extremity edema, Neurologic - No focal neurologic deficits noted. Lab/Imaging: Test performed on Sep 03, 2021 13:06 Sodium 133 mmol/L Potassium 4.2 mmol/L Chloride 95 mmol/L CO2 30 mmol/L Anion Gap 12.2 BUN 11 mg/dL Creatinine 0.7 mg/dL Cr Clearance (Est) 114.57 mL/min Glucose 107 mg/dL Osmolality - Calculated 276 mOsm/kg Calcium 9.8 mg/dL Protein, Total 6.8 g/dL Albumin 4.3 g/dL Globulin 2.5 g/dL Bilirubin, Total 0.2 mg/dL ALT (SGPT) 8 U/L AST (SGOT) 16 U/L Alkaline Phosphatase 74 IU/L WBC 5.1 10 3/uL RBC 3.71 10 6/uL HGB 12.5 g/dL HCT 37.9 % MCV 102.2 fl MCH 33.7 pg MCHC 33.0 g/dL RDW 13.1 % Platelet Count 255 10 3/cmm MPV 11.1 fL Neutrophils 2.21 10 3/uL Lymphocytes 1.9 10 3/uL Monocytes 0.8 10 3/uL Eosinophils 0.2 10 3/uL Basophils 0.1 10 3/uL Neutrophil % 43.1 % Lymphocyte % 36.8 % Monocyte % 15.0 % Eosinophil % 3.5 % Basophils % 1.4 % NRBC % 0 % Problem List: 1. HPV positive squamous cell carcinoma involving left base of tongue, by clinical evaluation stage II (T2, N2, M0) at initial diagnosis in March 2020. He had subsequent progression to stage IV with PET/CT evidence of pulmonary metastatic disease bilaterally. 2. Hypertension. 3. Hyperlipidemia. 4. Type 2 diabetes. 5. He has chronic venous insufficiency. 6. History of prostate cancer for which he underwent radical prostatectomy approximately 5 years ago. 7. 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 Problems Addressed with this Encounter and Plan: 1. Patient with HPV positive squamous cell carcinoma involving left base of tongue, by clinical evaluation stage II (T2, N2b, M0) at initial diagnosis in March 2020. He underwent direct laryngoscopy with biopsy and esophagoscopy on 04/05/2020. Staging PET/CT 04/28/2020 showed a 2.8 x 1.5 subcarinal node with SUV 5.3, suspicious for metastatic disease. Smaller FDG positive nodes in the right paratracheal and subaortic territories appeared to be most likely reactive. On 05/15/2020 he underwent bronchoscopy/EBUS with transbronchial FNA biopsy of station 7 and station 4R lymph nodes. Pathology from both sites showed reactive lymph node tissue with no evidence of malignancy. With those findings, he was recommended to undergo radiation concurrently with standard high-dose cisplatin chemotherapy. He began cycle 1 of cisplatin 100 mg/m??? IV infusion concurrently with radiation on 05/31/2020. He tolerated the initial cisplatin infusion with no acute toxicity. At day 22 he had developed moderately severe neutropenia, ANC 1000, and his 2nd cycle of cisplatin was deferred. During that time he had undergone placement of a PEG tube, and he began nutritional support with tube feeding. He was able to continue his radiation, and he was then given cycle 2 of cisplatin on 07/03/2020. On 07/16/2020 he was admitted to the hospital with acute GI bleed, determined by EGD to be due to duodenal ulcers. He stabilized with conservative management. He again became neutropenic, but with uneventful recovery. He was able to continue radiation, and he completed his treatment on 07/23/2020 to a total dose of 7000 cGy. He did appear to have a very good response by follow-up CT in August 2020. Restaging PET/CT on 11/24/2019 showed FDG positive pulmonary nodules bilaterally, consistent with metastatic disease. A next generation sequencing study showed no actionable mutations, but his tumor was found to be PD-L1 positive at 10% with tumor mutation burden high at 11%, suggesting possible benefit with immunotherapy. He then began cycle 1 of pembrolizumab on 12/24/2020, and he then continued pembrolizumab 200 mg by IV infusion every 3 weeks. As of 03/04/2021 he completed his 4th cycle. He then had a significant decline in his general condition with progressive weakness and declining performance status, and his further treatment was put on hold. On 04/11/2021 he was admitted to the hospital after his CT pulmonary angiogram reported presence of left upper and right lower lobe pulmonary emboli. Also noted were numerous bilateral metastatic pulmonary nodules, the majority of which were either decreased in size or resolved. One was noted to have increased from 10 to 15 mm in the right upper lobe. There was also increasing mediastinal and hilar lymphadenopathy with the largest node at the left hilum measuring 1.6 cm. There was evidence for diffuse air distention throughout the colon felt to be most likely an ileus pattern. He began on anticoagulation with apixaban and at that point he also was placed on higher dose steroid therapy. During follow-up he continued to have very marginal performance status. The exact cause of his decline was uncertain. However, as it had occurred while on immunotherapy with pembrolizumab, it was presumed to be treatment related. His repeat CT scan on 06/13/2021 showed further progression of his metastatic disease. The following day he required treatment in the emergency room for orthostatic hypotension. He was seen for a follow-up visit on 07/01/2021. He remained very weak generally. He had indicated a desire to continue further treatment, though with very poor performance status his options appeared to be very limited. Ultimately he opted to just continue with symptomatic/supportive care measures. He has continued IV outpatient hydration, as it did provide significant symptomatic benefit for him. Since his last visit he has been showing gradual improvement in his performance status, though his activity remains limited. He prefers to continue some outpatient IV hydration, but it will be reduced to once a week. He will now be scheduled for restaging CT scans, and I will consider further treatment with those results are available. Signed By: Devendra Reich M.D. <<Signature on File>>
== END 2021-09-10 08:00 | disposition home or self-care (01) ==
LOC: ONCMED 06:32
PROVIDERS: PCP Family Medicine; Visit Provider Internal Medicine Medical Oncology
DX: C01 Malignant neoplasm of base of tongue (principal); C78.01 Secondary malignant neoplasm of right lung; C78.02 Secondary malignant neoplasm of left lung; I10 Essential (primary) hypertension; E78.5 Hyperlipidemia, unspecified; E11.9 Type 2 diabetes mellitus without complications; I87.2 Venous insufficiency (chronic) (peripheral); Z85.46 Personal history of malignant neoplasm of prostate; Z90.81 Acquired absence of spleen; Z79.899 Other long term (current) drug therapy; Z92.3 Personal history of irradiation; Z92.21 Personal history of antineoplastic chemotherapy
CPT/HCPCS: 36415; 80053; 85025; 99214

== ENCOUNTER 2021-09-10 08:03 | Outpatient (CLI) | payer MEDICARE, OTHER, SELFPAY ==
--- NOTE | 2021-09-10 08:30 | CT_ITS ---
WS: [id number] CT CHEST, ABDOMEN, AND PELVIS TECHNIQUE: Contrast-enhanced CT of the chest, abdomen, and pelvis with coronal and sagittal reformatt ed images. CLINICAL INFORMATION: HEAD/NECK CANCER COMPARISON: Multiple prior CTs including June [address], April [address], [address] abdomen pelvis July 2019. PET/CT 05/04/2021 and 11/24/2020 DLP: 2333.[address] [facility] use at least one of these dose optimization techniques: automated e xposure control; mA and/or kV adjustment per patient size (includes targeted exams where dose is matc hed to clinical indication); or iterative reconstruction. CT CHEST: Small left pleural effusion is new from previous. Bibasilar atelectasis. Again seen are multiple nonc alcified metastatic lobulated pulmonary nodules progressed in size and number compared to June 13, 2021. Largest nodules in the right upper lobe, left upper lobe anteriorly, and left upper lobe adjace nt to the pericardium measuring approximately 2.7 x 2.1 cm, 2.3 x 2.1 cm, and 2.8 x 2.8 cm respective ly. Multiple new metastatic pulmonary nodules today throughout both lungs. Tiny right pleural effusion with trace atelectasis right lower lobe. Small pericardial effusion. Norm al caliber thoracic aorta. Proximal main pulmonary arteries are normal. Mediastinal and peribronchial lymphadenopathy. Left hilar lymphadenopathy measuring 1.9 x 2.0 cm similar to previous. Mediastinal lymphadenopathy appears stable. No axillary lymphadenopathy. Hypertrophic changes thoracic spine. CT ABDOMEN AND PELVIS: Diffuse fatty infiltration of the liver. Hepatomegaly. Prior splenectomy. Normal GE junction. Adrenal glands are normal. Normal renal parenchymal enhancement. Stable left renal cyst measuring 4.5 CM. No hydronephrosis in either kidney. Fatty atrophy of the pancreas. Gallbladder is contracted. Normal po rtal vein and splenic vein. Prior ventral abdominal wall hernia repair. Tiny fat-containing left para sagittal supraumbilical hernia unchanged. No herniated bowel. Normal caliber abdominal aorta. Aortic calcification. No evidence of high-grade small or large bowel obstruction. Mild body wall anasarca in the abdomen an d pelvis. No adenopathy in the abdomen or pelvis. No inguinal lymphadenopathy. Fat-containing left um bilical hernia. Hypertrophic changes lumbar spine L3-4. CT/CT chest abd pel w con* IMPRESSION: 1. Progressed metastatic disease within the chest with multiple new and enlarg ed pulmonary nodules described above. 2. Stable prominent mediastinal, peribronchial and left hilar lymphadenopathy. 3. Small left greater than right pleural effusions. Left pleural effusions pro gressed compared to previous. Slight bibasilar atelectasis. 4. No evidence of metastatic disease in the abdomen or pelvis. 5. Prior splenectomy. Prior prostatectomy.
[2021-09-10] MEDS: iohexol 300 mg/mL 100 mL Btl IV (10:11)
[2021-09-10] MEDS: iohexol 300 mg/mL 50 mL Btl PO (10:11)
== END 2021-09-10 08:04 | disposition home or self-care (01) ==
PROVIDERS: PCP Family Medicine; Visit Provider Internal Medicine Medical Oncology
DX: C76.0 Malignant neoplasm of head, face and neck (principal); J90 Pleural effusion, not elsewhere classified; Z90.81 Acquired absence of spleen; Z90.79 Acquired absence of other genital organ(s)
CPT/HCPCS: 71260; 74177; Q9967

== ENCOUNTER 2021-09-25 06:37 | Outpatient (RCR) | payer MEDICARE, OTHER, SELFPAY ==
[2021-09-12] MEDS: sodium chloride 0.9% 500 ML 999 ML IV (10:00)
[2021-09-19] MEDS: sodium chloride 0.9% 500 ML 999 ML IV (12:58)
--- NOTE | 2021-09-22 14:39 | ONC FU_ITS ---
Dr. Reich Patient Follow-Up Note Patient: Demarcus Maldonado Unit #: [id number]: 1950 Dicatated By: Devendra Reich M.D.Date of Visit:Sep 19, 2021 Onc Med Follow-up/Prog Note Chief Complaint: Base of tongue cancer. 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 He had subsequent progression to stage IV with PET/CT evidence of pulmonary metastatic disease bilaterally. He had presented with left cervical lymphadenopathy. He had associated pain in the left side of the neck and throat. He had been seen initially by Dr. James. CT of the neck on 03/27/2020 showed a soft tissue enhancing mass centered in the left tongue base along the lingual tonsil. It was noted to extend over a length of 2.6 x 2.2 x 1.3 cm. There appeared to be enhancement across the midline and there was suspected involvement in the lingular surface of the right tongue. Also noted was enlargement and abnormal enhancement and thickening of the uvula. There was extensive, confluent adenopathy i involving the left neck. The largest cluster of nodes measured 8.4 cm in length by 2.8 cm, beginning at the level of the hyoid bone and extending inferiorly to the supraclavicular region. Additional clusters of lymph nodes were present at level IIa, IIb, III, Va, and in the supraclavicular area. The largest necrotic lymph node measured 2.5 x 2.2 cm at the level of the thyroid cartilage. Smaller lymph nodes were noted along the right cervical chain, but without definite adenopathy. The lung apices were noted to be clear. He was seen by Dr. Praneeth Thompson on 03/30/2020. His exam showed an exophytic mass and papillomatous mass at the left tongue base as well as papillomatous mass at the left paramedian tongue base. The remainder of the oral cavity and oropharyngeal exam was reported to be normal. The laryngeal exam showed erythema and edema of the arytenoid mucosa. He then underwent direct laryngoscopy with biopsy and esophagoscopy on 04/05/2020. Findings included an exophytic lesion involving the left tongue base extending to the right of the midline. It also was noted to extend into the vallecula. There was no involvement of the lateral pharyngeal wall or the larynx. The esophagus was noted to be free of lesions. Biopsy showed infiltrating moderately differentiated squamous cell carcinoma which was confirmed to be HPV positive. I had seen him initially on 04/19/2020. Staging PET/CT on 04/28/2020 showed a 2.4 x 1.7 cm left base of tongue mass with SUV 24.5, consistent with primary malignancy. There were FDG positive nodes from cervical levels II through IV and V levels on the left consistent with local metastatic disease. A 1.2 cm right level 2A node had SUV 4.2 indicating a high probability of contralateral cervical disease. A subpleural solid nodule in the lateral left upper lobe measuring 8 mm had SUV 1.9, suspicious but not definitive for distant metastatic disease. A 2.8 x 1.5 cm subcarinal lymph node had SUV 5.3, suspicious for metastatic disease. Smaller FDG positive nodes in the right pretracheal and subaortic territories were felt to be most likely reactive. He was referred to Dr. Kingsley. On 05/15/2020 he underwent bronchoscopy/EBUS with transbronchial FNA biopsy of station 7 and station 4R lymph nodes. Pathology from both sites showed reactive lymph node tissue with no evidence of malignancy. With those findings, he was recommended to undergo radiation concurrently with standard high-dose cisplatin chemotherapy. He began cycle 1 of cisplatin at 100 mg/m??? by IV infusion concurrently with radiation on 05/31/2020. He experienced no acute toxicity with the initial cisplatin infusion. Her further chemotherapy was held due to neutropenia. He completed radiation on 06/19/2020 to a total dose of 6540 cGy. He then continued with radiation. At his day 22 visit he had moderately severe neutropenia with absolute neutrophil count at just under 1000, and his second dose of cisplatin was deferred. Subsequent to that visit, he began having more difficulty with swallowing and with oral intake, and he did opt undergo placement of the PEG tube. He was able to continue his radiation, and he proceeded with cycle 2 of cisplatin 100 mg/m??? by IV infusion on 07/03/2020. On 07/16/2020 he was admitted to the hospital with acute upper GI bleeding. His EGD showed multiple benign-appearing ulcers in the duodenum, which appeared to be the likely source for the GI bleed, though no active bleeding was apparent at the time of the procedure. During the hospitalization he became neutropenic, but it resolved uneventfully on antibiotic coverage with cefepime and Levaquin. During the hospitalization, he was able to resume his radiation, and he completed treatment on 07/23/2020 to a total dose of 7000 cGy. He has a history of having previously undergone radical prostatectomy for prostate cancer. He also has a prior history of ITP. His other medical illnesses include hypertension, hyperlipidemia, and type 2 diabetes. He has a past history of smoking, but only for about 6 years. He quit smoking approximately 40 years ago. He had also chewed tobacco, but only for about 1 or 2 years. INTERIM HISTORY: Restaging neck CT on 08/20/2020 showed significant improvement in the cervical chain lymphadenopathy with the largest persistent lymph node measuring 1.7 x 1.6 cm at level III. There appeared to be complete resolution of the left tongue base neoplasm. A restaging PET/CT on 11/24/2020 showed resolution of the base of tongue mass with FDG negative, subcentimeter left sided cervical lymph nodes. The right cervical level 2A node was no longer visualized. A 9 mm left upper lobe pulmonary nodule with SUV 2.3 was noted to have progressed from the prior study and also noted were multiple new bilateral pulmonary nodules, consistent with malignancy. These included a 1 cm anterior medial left upper lobe nodule with SUV 6.7 and a 1.1 cm right upper lobe nodule with SUV 6.4. With those findings he had further evaluation with a next generation sequencing study. It showed no actionable mutations, but the PD-L1 was positive at 10% and the tumor mutation burden was high at 11, suggesting potential benefit with immunotherapy. On 12/24/2020 he began cycle 1 of treatment with pembrolizumab. He tolerated it with no adverse effects. He then continued treatment at 3-week intervals. As of 03/04/2021 he completed his 4th cycle. I had seen him for a follow-up visit on 03/25/2021. He was feeling very weak generally. His ECOG score had declined to 3. He also had very poor appetite. He was noted to have a weight loss of 35 pounds since December. He was having a lot of intestinal gas and he also reported having pain in his right lower quadrant area. He had some constipation, but no diarrhea. His treatment was put on hold, and he was given IV hydration. I also opted to give him steroid therapy, but with his known diabetes, it was limited to a relatively low dose of prednisone. During follow-up his symptoms persisted, and on 04/11/2021 he was admitted to the hospital after his CT pulmonary angiogram reported presence of left upper and right lower lobe pulmonary emboli. Also noted were numerous bilateral metastatic pulmonary nodules, the majority of which were either decreased in size or resolved. One was noted to have increased from 10 to 15 mm in the right upper lobe. There was also increasing mediastinal and hilar lymphadenopathy with the largest node at the left hilum measuring 1.6 cm. There was evidence for diffuse air distention throughout the colon felt to be most likely an ileus pattern. He began on anticoagulation with apixaban and at that point he also was placed on higher dose steroid therapy. I had seen him for a follow-up visit on 04/23/2021. He was still weak, but feeling a little better. At that point I had him gradually taper off prednisone, and I also had him start citalopram for depression. His restaging PET/CT on 05/04/2021 showed improvement or resolution in the majority of the pulmonary nodules, though with a right upper lobe nodule increasing in size from 1.1 to 1.7 cm with SUV 6.7. There was development of multiple new mediastinal lymph nodes including a left paratracheal region node measuring 1.7 cm with SUV 11.8, suspicious for disease progression. His repeat chest CT on 06/13/2021 showed significant progression in the size of bilateral pulmonary nodules as well as significant progression of the lymphadenopathy within the chest. The following day he was seen in the emergency room after he became hypotensive during his physical therapy treatment. He was given hydration and discharged home. He was seen for follow-up on 07/01/2021. At that point he was still very weak generally, and his performance status remained poor. He indicated a desire to continue further treatment, though his options appeared to be very limited. Subsequent to that visit, he continued getting outpatient IV hydration, which did help him feel better. As of his follow-up visit on 07/11/2021 he was continuing to show gradual improvement, and we opted to continue with symptomatic/supportive care measures. Restaging CT scans on 09/10/2021 showed progression of metastatic disease within the chest with multiple new and enlarging pulmonary nodules. Prominent mediastinal, peribronchial, and left hilar lymphadenopathy appeared stable. There were small pleural effusions bilaterally, greater on the left, which did appear to have worsened. There is no evidence of metastatic disease in the abdomen or pelvis. He is seen for a scheduled visit. He has continued to show gradual improvement, the point that he is able to walk around more. He still feels weak in his arms. He has been able to cut back his IV hydration to once a week. His ECOG score is 2. His appetite is better. He does not have fever or night sweats. He has some sinus drainage and he has cough associated with it. His breathing, though, is still okay. He does not complain of chest pain. He has no GI complaints. He has frequent urination. He has joint pain, mainly in his knees, but that is chronic. He does not complain of headache or dizziness. He has no numbness/paresthesia or other focal neurologic symptoms. Medications: busPIRone HCl 0.5 Tablet (of 5 mg) Oral b.i.d., Citalopram Hydrobromide 1 (40 mg) Tablet Oral daily, D3-1000 1 Tablet (of 25 mcg ) Oral daily, Daily Multiple Vitamins 1 Tablet Oral daily, Eliquis 1 (5 mg) Tablet Oral daily, Euthyrox 1 (100 mcg) Tablet Oral at bedtime, Ferrous Sulfate 1 (325 (65 fe) mg) Tablet Oral daily, Flonase Allergy Relief Suspension Nasal, metFORMIN HCl 0.5 - 1 Tablet (of 1000 mg) Oral b.i.d., Omeprazole 1 Capsule (of 20 mg) Capsule Delayed Release Oral daily, Potassium Chloride ER 1 Tablet (of 20 meq) Capsule, controlled release Oral daily, Pravastatin Sodium 1 Tablet (of 80 mg) Oral daily, Singulair 1 Tablet (of 10 mg) Oral at bedtime, Vitamin B 12 1 Tablet Oral once Allergies: Keflex, Penicillins, and Pneumococcal 13-[place] Conj Vacc. Vital Signs: Performed on Sep 19, 2021 12:09 Height - 72.00 in Weight - 184.4 lbs (LOW) BSA - 2.06 sq.m BMI - 25.01 Temperature - 97.7 F (LOW) Pulse - 82 /min Respiration - 20 /min BP - 154/79 mm(hg) (HIGH) O2 Sat - 99 % Pain - 0 Fatigue - 5 Physical Examination: Constitutional - He appears somewhat weak generally, Eyes - Sclerae nonicteric. Conjunctivae clear, ENMT - No lesions noted in the oral cavity, Hematologic/Lymphatic - No cervical, clavicular, or axillary adenopathy, Respiratory - Lungs sound clear with diminished air movement bilaterally, Cardiovascular - Heart rhythm is regular. There is no murmur, gallop, or rub noted, Abdomen - Mildly distended but soft. The subcutaneous nodules in the mid and upper abdomen appear unchanged. Liver is not enlarged. There is no abdominal mass or ascites noted and there is no inguinal adenopathy, Extremities - There is 1-2+ lower extremity edema, Neurologic - No focal neurologic deficits noted. Lab/Imaging: Test performed on Sep 03, 2021 13:06 Sodium 133 mmol/L Potassium 4.2 mmol/L Chloride 95 mmol/L CO2 30 mmol/L Anion Gap 12.2 BUN 11 mg/dL Creatinine 0.7 mg/dL Cr Clearance (Est) 114.57 mL/min Glucose 107 mg/dL Osmolality - Calculated 276 mOsm/kg Calcium 9.8 mg/dL Protein, Total 6.8 g/dL Albumin 4.3 g/dL Globulin 2.5 g/dL Bilirubin, Total 0.2 mg/dL ALT (SGPT) 8 U/L AST (SGOT) 16 U/L Alkaline Phosphatase 74 IU/L WBC 5.1 10 3/uL RBC 3.71 10 6/uL HGB 12.5 g/dL HCT 37.9 % MCV 102.2 fl MCH 33.7 pg MCHC 33.0 g/dL RDW 13.1 % Platelet Count 255 10 3/cmm MPV 11.1 fL Neutrophils 2.21 10 3/uL Lymphocytes 1.9 10 3/uL Monocytes 0.8 10 3/uL Eosinophils 0.2 10 3/uL Basophils 0.1 10 3/uL Neutrophil % 43.1 % Lymphocyte % 36.8 % Monocyte % 15.0 % Eosinophil % 3.5 % Basophils % 1.4 % NRBC % 0 % Problem List: 1. HPV positive squamous cell carcinoma involving left base of tongue, by clinical evaluation stage II (T2, N2, M0) at initial diagnosis in March 2020. He had subsequent progression to stage IV with PET/CT evidence of pulmonary metastatic disease bilaterally. 2. Hypertension. 3. Hyperlipidemia. 4. Type 2 diabetes. 5. He has chronic venous insufficiency. 6. History of prostate cancer for which he underwent radical prostatectomy approximately 5 years ago. 7. 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 Problems Addressed with this Encounter and Plan: Patient with HPV positive squamous cell carcinoma involving left base of tongue, by clinical evaluation stage II (T2, N2b, M0) at initial diagnosis in March 2020. He underwent direct laryngoscopy with biopsy and esophagoscopy on 04/05/2020. Staging PET/CT 04/28/2020 showed a 2.8 x 1.5 subcarinal node with SUV 5.3, suspicious for metastatic disease. Smaller FDG positive nodes in the right paratracheal and subaortic territories appeared to be most likely reactive. On 05/15/2020 he underwent bronchoscopy/EBUS with transbronchial FNA biopsy of station 7 and station 4R lymph nodes. Pathology from both sites showed reactive lymph node tissue with no evidence of malignancy. With those findings, he was recommended to undergo radiation concurrently with standard high-dose cisplatin chemotherapy. He began cycle 1 of cisplatin 100 mg/m??? IV infusion concurrently with radiation on 05/31/2020. He tolerated the initial cisplatin infusion with no acute toxicity. At day 22 he had developed moderately severe neutropenia, ANC 1000, and his 2nd cycle of cisplatin was deferred. During that time he had undergone placement of a PEG tube, and he began nutritional support with tube feeding. He was able to continue his radiation, and he was then given cycle 2 of cisplatin on 07/03/2020. On 07/16/2020 he was admitted to the hospital with acute GI bleed, determined by EGD to be due to duodenal ulcers. He stabilized with conservative management. He again became neutropenic, but with uneventful recovery. He was able to continue radiation, and he completed his treatment on 07/23/2020 to a total dose of 7000 cGy. He did appear to have a very good response by follow-up CT in August 2020. Restaging PET/CT on 11/24/2019 showed FDG positive pulmonary nodules bilaterally, consistent with metastatic disease. A next generation sequencing study showed no actionable mutations, but his tumor was found to be PD-L1 positive at 10% with tumor mutation burden high at 11%, suggesting possible benefit with immunotherapy. He then began cycle 1 of pembrolizumab on 12/24/2020, and he then continued pembrolizumab 200 mg by IV infusion every 3 weeks. As of 03/04/2021 he completed his 4th cycle. He then had a significant decline in his general condition with progressive weakness and declining performance status, and his further treatment was put on hold. On 04/11/2021 he was admitted to the hospital after his CT pulmonary angiogram reported presence of left upper and right lower lobe pulmonary emboli. Also noted were numerous bilateral metastatic pulmonary nodules, the majority of which were either decreased in size or resolved. One was noted to have increased from 10 to 15 mm in the right upper lobe. There was also increasing mediastinal and hilar lymphadenopathy with the largest node at the left hilum measuring 1.6 cm. There was evidence for diffuse air distention throughout the colon felt to be most likely an ileus pattern. He began on anticoagulation with apixaban and at that point he also was placed on higher dose steroid therapy. During follow-up he continued to have very marginal performance status. The exact cause of his decline was uncertain. However, as it had occurred while on immunotherapy with pembrolizumab, it was presumed to be treatment related. His repeat CT scan on 06/13/2021 showed further progression of his metastatic disease. The following day he required treatment in the emergency room for orthostatic hypotension. He was seen for a follow-up visit on 07/01/2021. He remained very weak generally. He had indicated a desire to continue further treatment, though with very poor performance status his options appeared to be very limited. Ultimately he opted to just continue with symptomatic/supportive care measures. He has continued IV outpatient hydration, as it did provide significant symptomatic benefit for him. His restaging CT scans on 09/10/2021 showed progression of metastatic disease within the chest with multiple new and enlarging pulmonary nodules. The CT findings and images were reviewed with the patient and his . We discussed the clinical implications. His cancer has continued to show gradual progression, which is expected, as he has not been on any specific treatment. His performance status, though, has continued to gradually improve during this time. His further treatment options are limited, as the likelihood of benefit with second line chemotherapy will be low, and there would be potential for significant toxicity. He indicates that he would still like to consider going back on the pembrolizumab, as it did appear showing benefit. The obvious concern is the risk for toxicity, which I think will be high, as it is still presumed to be the cause for the decline in his clinical status. He is going to give it some further consideration. In the meantime, he will be given the option to come in next week for hydration again if he feels that he needs it. Signed By: Devendra Reich M.D. <<Signature on File>>
[2021-09-25] MEDS: sodium chloride 0.9% 500 ML 999 ML IV (09:19)
== END 2021-10-01 23:59 | disposition home or self-care (01) ==
LOC: ONCMED 06:37
PROVIDERS: PCP Family Medicine; Visit Provider Internal Medicine Medical Oncology
DX: C01 Malignant neoplasm of base of tongue (principal); C78.01 Secondary malignant neoplasm of right lung; C78.02 Secondary malignant neoplasm of left lung; I10 Essential (primary) hypertension; E78.5 Hyperlipidemia, unspecified; E11.9 Type 2 diabetes mellitus without complications; I87.2 Venous insufficiency (chronic) (peripheral); Z85.46 Personal history of malignant neoplasm of prostate; Z90.81 Acquired absence of spleen; Z79.899 Other long term (current) drug therapy; Z92.21 Personal history of antineoplastic chemotherapy; Z92.3 Personal history of irradiation
CPT/HCPCS: 96360; 99214; J7040

== ENCOUNTER 2021-10-02 06:00 | Outpatient (RCR) | payer MEDICARE, OTHER, SELFPAY | END 2021-11-01 23:59 | disposition home or self-care (01) | LOC: SPT 06:00 | PROVIDERS: PCP Family Medicine; Visit Provider Internal Medicine Medical Oncology | DX: M62.81 Muscle weakness (generalized) (principal); M62.50 Muscle wasting and atrophy, not elsewhere classified, unspecified site | CPT/HCPCS: 97110 ==

== ENCOUNTER 2021-10-31 06:16 | Outpatient (RCR) | payer MEDICARE, OTHER, SELFPAY ==
[2021-10-03] MEDS: sodium chloride 0.9% 500 ML 999 ML IV (10:12)
[2021-10-10] MEDS: sodium chloride 0.9% 500 ML 999 ML IV (09:30)
[2021-10-17] MEDS: sodium chloride 0.9% 500 ML 999 ML IV (09:40)
[2021-10-17 09:51] LABS: Basophils # 0.1 10^3/uL (0.0-0.1); Basophils % 1.6 %; Eosinophils # 0.3 10^3/uL (0.0-0.8); Eosinophils % 5.2 %; Hematocrit 35.1 % (42.0-52.0); Hemoglobin 11.9 g/dL (11.7-16.6); Lymphocytes # 1.6 10^3/uL (0.8-4.8); Mean Corpuscular HGB Conc 33.9 g/dL (30.0-36.0); Mean Corpuscular Hemoglobin 32.3 pg (28.0-34.0); Mean Corpuscular Volume 95.4 fl (80-94); Mean Platelet Volume 11.6 fL (7.4-10.4); Monocytes # 0.8 10^3/uL (0.2-0.9); Monocytes % 13.2 %; Neutrophils # 3.39 10^3/uL (1.8-7.7); Neutrophils % 54.7 %; Nucleated Red Blood Cells % 0 %; Platelet Count 235 10^3/cmm (130-400); Red Blood Count 3.68 10^6/uL (4.1-5.3); Red Cell Distribution Width 13.2 % (12.1-15.1); White Blood Count 6.2 10^3/uL (4.0-10.0)
[2021-10-17 10:12] LABS: Alanine Aminotransferase 10 U/L (0-41); Alkaline Phosphatase 81 IU/L (40-130); Anion Gap 20.4 (5-19); Aspartate Amino Transferase 20 U/L (0-40); Blood Urea Nitrogen 15 mg/dL (8-23); Carbon Dioxide 21 mmol/L (22-29); Chloride 97 mmol/L (98-107); Globulin 2.5 g/dL (1.3-4.6); Glucose 98 mg/dL (65-115); Osmolality Calculated 279 mOsm/kg (285-295); Potassium 4.4 mmol/L (3.5-5.1); Sodium 134 mmol/L (136-145); Total Bilirubin 0.3 mg/dL (0.15-1.2); Total Protein 6.5 g/dL (6.6-8.7)
[2021-10-17] MEDS: sodium chloride 0.9% 250 ML 125 ML IV (11:00)
[2021-10-17 11:33] LABS: Thyroid Stimulating Hormone 2.27 uIU/mL (0.27-4.20)
[2021-10-17 11:35] LABS: Estmated Average Glucose 108; Hemoglobin A1C 5.4 % (4.0-6.0)
[2021-10-24] MEDS: sodium chloride 0.9% 500 ML 999 ML IV (10:34)
[2021-10-31] MEDS: sodium chloride 0.9% 500 ML 999 ML IV (09:35)
== END 2021-11-01 23:59 | disposition home or self-care (01) ==
LOC: ONCMED 06:16
PROVIDERS: Nurse Practitioner Family; PCP Family Medicine; Visit Provider Internal Medicine Medical Oncology
DX: Z51.12 Encounter for antineoplastic immunotherapy (principal); C01 Malignant neoplasm of base of tongue; C78.01 Secondary malignant neoplasm of right lung; C78.02 Secondary malignant neoplasm of left lung; I10 Essential (primary) hypertension; E78.5 Hyperlipidemia, unspecified; E11.9 Type 2 diabetes mellitus without complications; I87.2 Venous insufficiency (chronic) (peripheral); Z85.46 Personal history of malignant neoplasm of prostate; D69.3 Immune thrombocytopenic purpura; Z79.899 Other long term (current) drug therapy; Z90.81 Acquired absence of spleen
CPT/HCPCS: 80053; 83036; 84443; 85025; 96360; 99215; J7040; J7050; J9271

== ENCOUNTER 2021-11-02 06:00 | Outpatient (RCR) | payer MEDICARE, OTHER, SELFPAY | END 2021-12-02 23:59 | disposition home or self-care (01) | LOC: SPT 06:00 | PROVIDERS: PCP Family Medicine; Visit Provider Internal Medicine Medical Oncology | DX: R53.1 Weakness (principal) | CPT/HCPCS: 97110 ==

== ENCOUNTER 2021-11-28 06:26 | Outpatient (RCR) | payer MEDICARE, OTHER, SELFPAY ==
[2021-11-07 09:31] LABS: Basophils # 0.1 10^3/uL (0.0-0.1); Basophils % 1.5 %; Eosinophils # 0.6 10^3/uL (0.0-0.8); Eosinophils % 8.8 %; Hematocrit 37.7 % (42.0-52.0); Hemoglobin 12.6 g/dL (11.7-16.6); Lymphocytes # 2.1 10^3/uL (0.8-4.8); Lymphocytes % 29.1 %; Mean Corpuscular HGB Conc 33.4 g/dL (30.0-36.0); Mean Corpuscular Hemoglobin 31.7 pg (28.0-34.0); Mean Platelet Volume 11.1 fL (7.4-10.4); Monocytes % 13.5 %; Neutrophils # 3.42 10^3/uL (1.8-7.7); Neutrophils % 46.8 %; Nucleated Red Blood Cells % 0 %; Platelet Count 276 10^3/cmm (130-400); Red Blood Count 3.97 10^6/uL (4.1-5.3); Red Cell Distribution Width 13.5 % (12.1-15.1); White Blood Count 7.3 10^3/uL (4.0-10.0)
[2021-11-07 09:49] LABS: Alanine Aminotransferase 12 U/L (0-41); Albumin Level 4.3 g/dL (3.5-5.2); Alkaline Phosphatase 104 IU/L (40-130); Anion Gap 19.4 (5-19); Aspartate Amino Transferase 21 U/L (0-40); Blood Urea Nitrogen 14 mg/dL (8-23); Calcium 10.2 mg/dL (8.5-10.5); Carbon Dioxide 23 mmol/L (22-29); Chloride 95 mmol/L (98-107); Globulin 2.8 g/dL (1.3-4.6); Glucose 122 mg/dL (65-115); Osmolality Calculated 278 mOsm/kg (285-295); Potassium 4.4 mmol/L (3.5-5.1); Sodium 133 mmol/L (136-145); Total Bilirubin 0.3 mg/dL (0.15-1.2); Total Protein 7.1 g/dL (6.6-8.7)
[2021-11-07] MEDS: sodium chloride 0.9% 500 ML 999 ML IV (11:22)
[2021-11-14] MEDS: sodium chloride 0.9% 500 ML 999 ML IV (09:15)
[2021-11-21] MEDS: sodium chloride 0.9% 500 ML 999 ML IV (09:14)
[2021-11-28 08:37] LABS: Basophils # 0.1 10^3/uL (0.0-0.1); Basophils % 1.5 %; Eosinophils # 0.3 10^3/uL (0.0-0.8); Eosinophils % 4.7 %; Hematocrit 37.7 % (42.0-52.0); Hemoglobin 12.4 g/dL (11.7-16.6); Lymphocytes # 1.9 10^3/uL (0.8-4.8); Lymphocytes % 28.1 %; Mean Corpuscular HGB Conc 32.9 g/dL (30.0-36.0); Mean Corpuscular Hemoglobin 31.9 pg (28.0-34.0); Mean Corpuscular Volume 96.9 fl (80-94); Mean Platelet Volume 11.4 fL (7.4-10.4); Monocytes # 0.9 10^3/uL (0.2-0.9); Monocytes % 12.7 %; Neutrophils # 3.57 10^3/uL (1.8-7.7); Neutrophils % 52.7 %; Nucleated Red Blood Cells % 0 %; Platelet Count 265 10^3/cmm (130-400); Red Blood Count 3.89 10^6/uL (4.1-5.3); Red Cell Distribution Width 13.6 % (12.1-15.1); White Blood Count 6.8 10^3/uL (4.0-10.0)
[2021-11-28] MEDS: sodium chloride 0.9% 500 ML 999 ML IV (08:40)
[2021-11-28 09:00] LABS: Alanine Aminotransferase 11 U/L (0-41); Albumin Level 4.2 g/dL (3.5-5.2); Alkaline Phosphatase 105 IU/L (40-130); Anion Gap 14.6 (5-19); Aspartate Amino Transferase 23 U/L (0-40); Blood Urea Nitrogen 18 mg/dL (8-23); Calcium 9.5 mg/dL (8.5-10.5); Carbon Dioxide 27 mmol/L (22-29); Chloride 96 mmol/L (98-107); Globulin 2.6 g/dL (1.3-4.6); Glucose 108 mg/dL (65-115); Osmolality Calculated 278 mOsm/kg (285-295); Potassium 4.6 mmol/L (3.5-5.1); Sodium 133 mmol/L (136-145); Total Bilirubin 0.3 mg/dL (0.15-1.2); Total Protein 6.8 g/dL (6.6-8.7)
--- NOTE | 2021-11-28 17:50 | ONC FU_ITS ---
Dr. Reich Patient Follow-Up Note Patient: Demarcus Maldonado Unit #: [id number]: 1950 Dicatated By: Devendra Reich M.D.Date of Visit:Nov 28, 2021 Onc Med Follow-up/Prog Note Chief Complaint: Base of tongue cancer. 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 He had subsequent progression to stage IV with PET/CT evidence of pulmonary metastatic disease bilaterally. He had presented with left cervical lymphadenopathy. He had associated pain in the left side of the neck and throat. He had been seen initially by Dr. James. CT of the neck on 03/27/2020 showed a soft tissue enhancing mass centered in the left tongue base along the lingual tonsil. It was noted to extend over a length of 2.6 x 2.2 x 1.3 cm. There appeared to be enhancement across the midline and there was suspected involvement in the lingular surface of the right tongue. Also noted was enlargement and abnormal enhancement and thickening of the uvula. There was extensive, confluent adenopathy i involving the left neck. The largest cluster of nodes measured 8.4 cm in length by 2.8 cm, beginning at the level of the hyoid bone and extending inferiorly to the supraclavicular region. Additional clusters of lymph nodes were present at level IIa, IIb, III, Va, and in the supraclavicular area. The largest necrotic lymph node measured 2.5 x 2.2 cm at the level of the thyroid cartilage. Smaller lymph nodes were noted along the right cervical chain, but without definite adenopathy. The lung apices were noted to be clear. He was seen by Dr. Praneeth Thompson on 03/30/2020. His exam showed an exophytic mass and papillomatous mass at the left tongue base as well as papillomatous mass at the left paramedian tongue base. The remainder of the oral cavity and oropharyngeal exam was reported to be normal. The laryngeal exam showed erythema and edema of the arytenoid mucosa. He then underwent direct laryngoscopy with biopsy and esophagoscopy on 04/05/2020. Findings included an exophytic lesion involving the left tongue base extending to the right of the midline. It also was noted to extend into the vallecula. There was no involvement of the lateral pharyngeal wall or the larynx. The esophagus was noted to be free of lesions. Biopsy showed infiltrating moderately differentiated squamous cell carcinoma which was confirmed to be HPV positive. I had seen him initially on 04/19/2020. Staging PET/CT on 04/28/2020 showed a 2.4 x 1.7 cm left base of tongue mass with SUV 24.5, consistent with primary malignancy. There were FDG positive nodes from cervical levels II through IV and V levels on the left consistent with local metastatic disease. A 1.2 cm right level 2A node had SUV 4.2 indicating a high probability of contralateral cervical disease. A subpleural solid nodule in the lateral left upper lobe measuring 8 mm had SUV 1.9, suspicious but not definitive for distant metastatic disease. A 2.8 x 1.5 cm subcarinal lymph node had SUV 5.3, suspicious for metastatic disease. Smaller FDG positive nodes in the right pretracheal and subaortic territories were felt to be most likely reactive. He was referred to Dr. Kingsley. On 05/15/2020 he underwent bronchoscopy/EBUS with transbronchial FNA biopsy of station 7 and station 4R lymph nodes. Pathology from both sites showed reactive lymph node tissue with no evidence of malignancy. With those findings, he was recommended to undergo radiation concurrently with standard high-dose cisplatin chemotherapy. He began cycle 1 of cisplatin at 100 mg/m??? by IV infusion concurrently with radiation on 05/31/2020. He experienced no acute toxicity with the initial cisplatin infusion. Her further chemotherapy was held due to neutropenia. He completed radiation on 06/19/2020 to a total dose of 6540 cGy. He then continued with radiation. At his day 22 visit he had moderately severe neutropenia with absolute neutrophil count at just under 1000, and his second dose of cisplatin was deferred. Subsequent to that visit, he began having more difficulty with swallowing and with oral intake, and he did opt undergo placement of the PEG tube. He was able to continue his radiation, and he proceeded with cycle 2 of cisplatin 100 mg/m??? by IV infusion on 07/03/2020. On 07/16/2020 he was admitted to the hospital with acute upper GI bleeding. His EGD showed multiple benign-appearing ulcers in the duodenum, which appeared to be the likely source for the GI bleed, though no active bleeding was apparent at the time of the procedure. During the hospitalization he became neutropenic, but it resolved uneventfully on antibiotic coverage with cefepime and Levaquin. During the hospitalization, he was able to resume his radiation, and he completed treatment on 07/23/2020 to a total dose of [address] on 08/20/2020 showed significant improvement in the cervical chain lymphadenopathy with the largest persistent lymph node measuring 1.7 x 1.6 cm at level III. There appeared to be complete resolution of the left tongue base neoplasm. A restaging PET/CT on 11/24/2020 showed resolution of the base of tongue mass with FDG negative, subcentimeter left sided cervical lymph nodes. The right cervical level 2A node was no longer visualized. A 9 mm left upper lobe pulmonary nodule with SUV 2.3 was noted to have progressed from the prior study and also noted were multiple new bilateral pulmonary nodules, consistent with malignancy. These included a 1 cm anterior medial left upper lobe nodule with SUV 6.7 and a 1.1 cm right upper lobe nodule with SUV 6.4. With those findings he had further evaluation with a next generation sequencing study. It showed no actionable mutations, but the PD-L1 was positive at 10% and the tumor mutation burden was high at 11, suggesting potential benefit with immunotherapy. On 12/24/2020 he began cycle 1 of treatment with pembrolizumab. He tolerated it with no adverse effects. He then continued treatment at 3-week intervals. As of 03/04/2021 he completed his 4th cycle. I had seen him for a follow-up visit on 03/25/2021. He was feeling very weak generally. His ECOG score had declined to 3. He also had very poor appetite. He was noted to have a weight loss of 35 pounds since December. He was having a lot of intestinal gas and he also reported having pain in his right lower quadrant area. He had some constipation, but no diarrhea. His treatment was put on hold, and he was given IV hydration. I also opted to give him steroid therapy, but with his known diabetes, it was limited to a relatively low dose of prednisone. During follow-up his symptoms persisted, and on 04/11/2021 he was admitted to the hospital after his CT pulmonary angiogram reported presence of left upper and right lower lobe pulmonary emboli. Also noted were numerous bilateral metastatic pulmonary nodules, the majority of which were either decreased in size or resolved. One was noted to have increased from 10 to 15 mm in the right upper lobe. There was also increasing mediastinal and hilar lymphadenopathy with the largest node at the left hilum measuring 1.6 cm. There was evidence for diffuse air distention throughout the colon felt to be most likely an ileus pattern. He began on anticoagulation with apixaban and at that point he also was placed on higher dose steroid therapy. I had seen him for a follow-up visit on 04/23/2021. He was still weak, but feeling a little better. At that point I had him gradually taper off prednisone, and I also had him start citalopram for depression. His restaging PET/CT on 05/04/2021 showed improvement or resolution in the majority of the pulmonary nodules, though with a right upper lobe nodule increasing in size from 1.1 to 1.7 cm with SUV 6.7. There was development of multiple new mediastinal lymph nodes including a left paratracheal region node measuring 1.7 cm with SUV 11.8, suspicious for disease progression. His repeat chest CT on 06/13/2021 showed significant progression in the size of bilateral pulmonary nodules as well as significant progression of the lymphadenopathy within the chest. The following day he was seen in the emergency room after he became hypotensive during his physical therapy treatment. He was given hydration and discharged home. He was seen for follow-up on 07/01/2021. At that point he was still very weak generally, and his performance status remained poor. He indicated a desire to continue further treatment, though his options appeared to be very limited. Subsequent to that visit, he continued getting outpatient IV hydration, which did help him feel better. As of his follow-up visit on 07/11/2021 he was continuing to show gradual improvement, and we opted to continue with symptomatic/supportive care measures. He has a history of having previously undergone radical prostatectomy for prostate cancer. He also has a prior history of ITP. His other medical illnesses include hypertension, hyperlipidemia, and type 2 diabetes. He has a past history of smoking, but only for about 6 years. He quit smoking approximately 40 years ago. He had also chewed tobacco, but only for about 1 or 2 years. INTERIM HISTORY: Restaging CT scans on 09/10/2021 showed progression of metastatic disease within the chest with multiple new and enlarging pulmonary nodules. Prominent mediastinal, peribronchial, and left hilar lymphadenopathy appeared stable. There were small pleural effusions bilaterally, greater on the left, which did appear to have worsened. There was no evidence of metastatic disease in the abdomen or pelvis. With those findings, he opted to restart immunotherapy with pembrolizumab. He continued with his 5th cycle of treatment on 10/17/2021. He tolerated without significant toxicity, and he proceeded with cycle 6 on 11/07/2021. He is seen for a follow-up visit. He says that he has actually felt a little better since restarting the immunotherapy. He still has limited activity, but he is doing physical therapy, and he has started doing a little bit of light house work. ECOG score is 2. Appetite has been okay. He has no fever or night sweats. He has sinus drainage and he has some cough associated with it. He is not having sore throat or difficulty swallowing. His breathing has been okay. He does not complain of chest pain. He has no GI/ complaints other than some heartburn. He has no significant joint or bone pain. He does not complain of headache, and he has not been dizzy or lightheaded. He has no numbness/paresthesia or other focal neurologic symptoms. Medications: busPIRone HCl 0.5 Tablet (of 5 mg) Oral b.i.d., Citalopram Hydrobromide 1 (40 mg) Tablet Oral daily, D3-1000 1 Tablet (of 25 mcg ) Oral daily, Daily Multiple Vitamins 1 Tablet Oral daily, Eliquis 1 (5 mg) Tablet Oral daily, Euthyrox 1 (100 mcg) Tablet Oral at bedtime, Ferrous Sulfate 1 (325 (65 fe) mg) Tablet Oral daily, Flonase Allergy Relief Suspension Nasal, metFORMIN HCl 0.5 - 1 Tablet (of 1000 mg) Oral b.i.d., Omeprazole 1 Capsule (of 20 mg) Capsule Delayed Release Oral daily, Potassium Chloride ER 1 Tablet (of 20 meq) Capsule, controlled release Oral daily, Pravastatin Sodium 1 Tablet (of 80 mg) Oral daily, Singulair 1 Tablet (of 10 mg) Oral b.i.d., Vitamin B 12 1 Tablet Oral once Allergies: Keflex, Penicillins, and Pneumococcal 13-[place] Conj Vacc. Vital Signs: Performed on Nov 28, 2021 10:54 Height - 72.00 in Weight - 182.2 lbs (LOW) BSA - 2.05 sq.m BMI - 24.71 Temperature - 98.3 F (LOW) Pulse - 79 /min Respiration - 18 /min BP - 146/73 mm(hg) (HIGH) O2 Sat - 96 % Pain - 0 Fatigue - 5 Physical Examination: Constitutional - He appears somewhat weak generally, Eyes - Sclerae nonicteric. Conjunctivae clear, ENMT - No lesions noted in the oral cavity, Neck - Neck is soft with no mass palpable, Hematologic/Lymphatic - There is no cervical, clavicular, or axillary adenopathy noted, Respiratory - Lungs sound clear with diminished air movement bilaterally, Cardiovascular - Heart rhythm is regular. There is no murmur, gallop, or rub noted, Abdomen - Mildly distended and somewhat firm. The subcutaneous nodules in the mid and upper abdomen appear unchanged. Liver is not enlarged. There is no abdominal mass or ascites noted and there is no inguinal adenopathy, Extremities - There is mild lower extremity edema, Neurologic - No focal neurologic deficits noted. Lab/Imaging: Test performed on Nov 28, 2021 08:16 Sodium 133 mmol/L Potassium 4.6 mmol/L Chloride 96 mmol/L CO2 27 mmol/L Anion Gap 14.6 BUN 18 mg/dL Creatinine 0.8 mg/dL Cr Clearance (Est) 96.13 mL/min Glucose 108 mg/dL Osmolality - Calculated 278 mOsm/kg Calcium 9.5 mg/dL Protein, Total 6.8 g/dL Albumin 4.2 g/dL Globulin 2.6 g/dL Bilirubin, Total 0.3 mg/dL ALT (SGPT) 11 U/L AST (SGOT) 23 U/L Alkaline Phosphatase 105 IU/L WBC 6.8 10 3/uL RBC 3.89 10 6/uL HGB 12.4 g/dL HCT 37.7 % MCV 96.9 fl MCH 31.9 pg MCHC 32.9 g/dL RDW 13.6 % Platelet Count 265 10 3/cmm MPV 11.4 fL Neutrophils 3.57 10 3/uL Lymphocytes 1.9 10 3/uL Monocytes 0.9 10 3/uL Eosinophils 0.3 10 3/uL Basophils 0.1 10 3/uL Neutrophil % 52.7 % Lymphocyte % 28.1 % Monocyte % 12.7 % Eosinophil % 4.7 % Basophils % 1.5 % NRBC % 0 % Problem List: 1. HPV positive squamous cell carcinoma involving left base of tongue, by clinical evaluation stage II (T2, N2, M0) at initial diagnosis in March 2020. He had subsequent progression to stage IV with PET/CT evidence of pulmonary metastatic disease bilaterally. 2. Hypertension. 3. Hyperlipidemia. 4. Type 2 diabetes. 5. He has chronic venous insufficiency. 6. History of prostate cancer for which he underwent radical prostatectomy approximately 5 years ago. 7. 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 Problems Addressed with this Encounter and Plan: Patient with HPV positive squamous cell carcinoma involving left base of tongue, by clinical evaluation stage II (T2, N2b, M0) at initial diagnosis in March 2020. He underwent direct laryngoscopy with biopsy and esophagoscopy on 04/05/2020. Staging PET/CT 04/28/2020 showed a 2.8 x 1.5 subcarinal node with SUV 5.3, suspicious for metastatic disease. Smaller FDG positive nodes in the right paratracheal and subaortic territories appeared to be most likely reactive. On 05/15/2020 he underwent bronchoscopy/EBUS with transbronchial FNA biopsy of station 7 and station 4R lymph nodes. Pathology from both sites showed reactive lymph node tissue with no evidence of malignancy. With those findings, he was recommended to undergo radiation concurrently with standard high-dose cisplatin chemotherapy. He began cycle 1 of cisplatin 100 mg/m??? IV infusion concurrently with radiation on 05/31/2020. He tolerated the initial cisplatin infusion with no acute toxicity. At day 22 he had developed moderately severe neutropenia, ANC 1000, and his 2nd cycle of cisplatin was deferred. During that time he had undergone placement of a PEG tube, and he began nutritional support with tube feeding. He was able to continue his radiation, and he was then given cycle 2 of cisplatin on 07/03/2020. On 07/16/2020 he was admitted to the hospital with acute GI bleed, determined by EGD to be due to duodenal ulcers. He stabilized with conservative management. He again became neutropenic, but with uneventful recovery. He was able to continue radiation, and he completed his treatment on 07/23/2020 to a total dose of 7000 cGy. He did appear to have a very good response by follow-up CT in August 2020. Restaging PET/CT on 11/24/2019 showed FDG positive pulmonary nodules bilaterally, consistent with metastatic disease. A next generation sequencing study showed no actionable mutations, but his tumor was found to be PD-L1 positive at 10% with tumor mutation burden high at 11%, suggesting possible benefit with immunotherapy. He then began cycle 1 of pembrolizumab on 12/24/2020, and he then continued pembrolizumab 200 mg by IV infusion every 3 weeks. As of 03/04/2021 he completed his 4th cycle. He then had a significant decline in his general condition with progressive weakness and declining performance status, and his further treatment was put on hold. On 04/11/2021 he was admitted to the hospital after his CT pulmonary angiogram reported presence of left upper and right lower lobe pulmonary emboli. Also noted were numerous bilateral metastatic pulmonary nodules, the majority of which were either decreased in size or resolved. One was noted to have increased from 10 to 15 mm in the right upper lobe. There was also increasing mediastinal and hilar lymphadenopathy with the largest node at the left hilum measuring 1.6 cm. There was evidence for diffuse air distention throughout the colon felt to be most likely an ileus pattern. He began on anticoagulation with apixaban and at that point he also was placed on higher dose steroid therapy. During follow-up he continued to have very marginal performance status. The exact cause of his decline was uncertain. However, as it had occurred while on immunotherapy with pembrolizumab, it was presumed to be treatment related. His repeat CT scan on 06/13/2021 showed further progression of his metastatic disease. The following day he required treatment in the emergency room for orthostatic hypotension. He was seen for a follow-up visit on 07/01/2021. He remained very weak generally. He had indicated a desire to continue further treatment, though with very poor performance status his options appeared to be very limited. Ultimately he opted to just continue with symptomatic/supportive care measures. He has continued IV outpatient hydration, as it did provide significant symptomatic benefit for him. His restaging CT scans on 09/10/2021 showed progression of metastatic disease within the chest with multiple new and enlarging pulmonary nodules. With those findings, he opted to restart immunotherapy with pembrolizumab. He continued with his 5th cycle on 10/17/2021. He tolerated it well and then proceeded with cycle 6 on 11/07/2021. At this point he appears to be tolerating the pembrolizumab with no significant adverse effects. He has actually been doing a little better clinically, though he has still required IV hydration on an occasional basis. He will continue now with cycle 7 of pembrolizumab at 200 mg by IV infusion. He returns in 3 weeks. Signed By: Devendra Reich M.D. <<Signature on File>>
== END 2021-12-02 23:59 | disposition home or self-care (01) ==
LOC: ONCMED 06:26
PROVIDERS: PCP Family Medicine; Visit Provider Internal Medicine Medical Oncology
DX: Z51.12 Encounter for antineoplastic immunotherapy (principal); C02.9 Malignant neoplasm of tongue, unspecified; C78.01 Secondary malignant neoplasm of right lung; C78.02 Secondary malignant neoplasm of left lung; I10 Essential (primary) hypertension; E78.5 Hyperlipidemia, unspecified; E11.9 Type 2 diabetes mellitus without complications; I87.2 Venous insufficiency (chronic) (peripheral); Z85.46 Personal history of malignant neoplasm of prostate; Z90.81 Acquired absence of spleen; Z79.899 Other long term (current) drug therapy
CPT/HCPCS: 80053; 85025; 96360; 96361; 96413; 99215; J7040; J7050; J9271

== ENCOUNTER 2021-12-03 06:00 | Outpatient (RCR) | payer MEDICARE, OTHER, SELFPAY | END 2021-12-30 23:59 | disposition home or self-care (01) | LOC: SPT 06:00 | PROVIDERS: PCP Family Medicine; Visit Provider Internal Medicine Medical Oncology | DX: R53.1 Weakness (principal); R53.81 Other malaise | CPT/HCPCS: 97110 ==

== ENCOUNTER 2021-12-19 06:48 | Outpatient (RCR) | payer OTHER, SELFPAY ==
[2021-12-12] MEDS: sodium chloride 0.9% 500 ML 999 ML IV (09:28)
[2021-12-19] MEDS: sodium chloride 0.9% 500 ML IV ×2 (09:15→09:20)
[2021-12-19 09:25] LABS: Basophils # 0.1 10^3/uL (0.0-0.1); Eosinophils # 0.2 10^3/uL (0.0-0.8); Eosinophils % 3.2 %; Hematocrit 36.4 % (42.0-52.0); Hemoglobin 12.1 g/dL (11.7-16.6); Lymphocytes # 2.2 10^3/uL (0.8-4.8); Lymphocytes % 30.2 %; Mean Corpuscular HGB Conc 33.2 g/dL (30.0-36.0); Mean Corpuscular Hemoglobin 31.7 pg (28.0-34.0); Mean Corpuscular Volume 95.3 fl (80-94); Mean Platelet Volume 10.8 fL (7.4-10.4); Monocytes # 0.9 10^3/uL (0.2-0.9); Monocytes % 12.4 %; Neutrophils # 3.83 10^3/uL (1.8-7.7); Neutrophils % 52.9 %; Nucleated Red Blood Cells % 0 %; Platelet Count 258 10^3/cmm (130-400); Red Blood Count 3.82 10^6/uL (4.1-5.3); Red Cell Distribution Width 14.1 % (12.1-15.1); White Blood Count 7.2 10^3/uL (4.0-10.0)
[2021-12-19 09:51] LABS: Alanine Aminotransferase 13 U/L (0-41); Albumin Level 4.3 g/dL (3.5-5.2); Alkaline Phosphatase 108 IU/L (40-130); Aspartate Amino Transferase 26 U/L (0-40); Blood Urea Nitrogen 16 mg/dL (8-23); Calcium 10.1 mg/dL (8.5-10.5); Carbon Dioxide 21 mmol/L (22-29); Chloride 96 mmol/L (98-107); Globulin 2.9 g/dL (1.3-4.6); Glucose 119 mg/dL (65-115); Osmolality Calculated 274 mOsm/kg (285-295); Sodium 131 mmol/L (136-145); Total Bilirubin 0.3 mg/dL (0.15-1.2); Total Protein 7.2 g/dL (6.6-8.7)
[2021-12-19 09:56] LABS: Anion Gap 18.6 (5-19); Potassium 4.6 mmol/L (3.5-5.1)
--- NOTE | 2021-12-19 10:32 | ONC FU_ITS ---
Donna Lieberman Progress Note Patient: Demarcus Maldonado Unit #: [id number]: [id number] Dicatated By: Donna Lieberman N.P.Date of Visit:Dec 19, 2021 Onc MED Follow-up/Prog Note Chief Complaint: Base of tongue cancer. 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 He had subsequent progression to stage IV with PET/CT evidence of pulmonary metastatic disease bilaterally. He had presented with left cervical lymphadenopathy. He had associated pain in the left side of the neck and throat. He had been seen initially by Dr. James. CT of the neck on 03/27/2020 showed a soft tissue enhancing mass centered in the left tongue base along the lingual tonsil. It was noted to extend over a length of 2.6 x 2.2 x 1.3 cm. There appeared to be enhancement across the midline and there was suspected involvement in the lingular surface of the right tongue. Also noted was enlargement and abnormal enhancement and thickening of the uvula. There was extensive, confluent adenopathy i involving the left neck. The largest cluster of nodes measured 8.4 cm in length by 2.8 cm, beginning at the level of the hyoid bone and extending inferiorly to the supraclavicular region. Additional clusters of lymph nodes were present at level IIa, IIb, III, Va, and in the supraclavicular area. The largest necrotic lymph node measured 2.5 x 2.2 cm at the level of the thyroid cartilage. Smaller lymph nodes were noted along the right cervical chain, but without definite adenopathy. The lung apices were noted to be clear. He was seen by Dr. Praneeth Thompson on 03/30/2020. His exam showed an exophytic mass and papillomatous mass at the left tongue base as well as papillomatous mass at the left paramedian tongue base. The remainder of the oral cavity and oropharyngeal exam was reported to be normal. The laryngeal exam showed erythema and edema of the arytenoid mucosa. He then underwent direct laryngoscopy with biopsy and esophagoscopy on 04/05/2020. Findings included an exophytic lesion involving the left tongue base extending to the right of the midline. It also was noted to extend into the vallecula. There was no involvement of the lateral pharyngeal wall or the larynx. The esophagus was noted to be free of lesions. Biopsy showed infiltrating moderately differentiated squamous cell carcinoma which was confirmed to be HPV positive. I had seen him initially on 04/19/2020. Staging PET/CT on 04/28/2020 showed a 2.4 x 1.7 cm left base of tongue mass with SUV 24.5, consistent with primary malignancy. There were FDG positive nodes from cervical levels II through IV and V levels on the left consistent with local metastatic disease. A 1.2 cm right level 2A node had SUV 4.2 indicating a high probability of contralateral cervical disease. A subpleural solid nodule in the lateral left upper lobe measuring 8 mm had SUV 1.9, suspicious but not definitive for distant metastatic disease. A 2.8 x 1.5 cm subcarinal lymph node had SUV 5.3, suspicious for metastatic disease. Smaller FDG positive nodes in the right pretracheal and subaortic territories were felt to be most likely reactive. He was referred to Dr. Kingsley. On 05/15/2020 he underwent bronchoscopy/EBUS with transbronchial FNA biopsy of station 7 and station 4R lymph nodes. Pathology from both sites showed reactive lymph node tissue with no evidence of malignancy. With those findings, he was recommended to undergo radiation concurrently with standard high-dose cisplatin chemotherapy. He began cycle 1 of cisplatin at 100 mg/m??? by IV infusion concurrently with radiation on 05/31/2020. He experienced no acute toxicity with the initial cisplatin infusion. Her further chemotherapy was held due to neutropenia. He completed radiation on 06/19/2020 to a total dose of 6540 cGy. He then continued with radiation. At his day 22 visit he had moderately severe neutropenia with absolute neutrophil count at just under 1000, and his second dose of cisplatin was deferred. Subsequent to that visit, he began having more difficulty with swallowing and with oral intake, and he did opt undergo placement of the PEG tube. He was able to continue his radiation, and he proceeded with cycle 2 of cisplatin 100 mg/m??? by IV infusion on 07/03/2020. On 07/16/2020 he was admitted to the hospital with acute upper GI bleeding. His EGD showed multiple benign-appearing ulcers in the duodenum, which appeared to be the likely source for the GI bleed, though no active bleeding was apparent at the time of the procedure. During the hospitalization he became neutropenic, but it resolved uneventfully on antibiotic coverage with cefepime and Levaquin. During the hospitalization, he was able to resume his radiation, and he completed treatment on 07/23/2020 to a total dose of [address] on 08/20/2020 showed significant improvement in the cervical chain lymphadenopathy with the largest persistent lymph node measuring 1.7 x 1.6 cm at level III. There appeared to be complete resolution of the left tongue base neoplasm. A restaging PET/CT on 11/24/2020 showed resolution of the base of tongue mass with FDG negative, subcentimeter left sided cervical lymph nodes. The right cervical level 2A node was no longer visualized. A 9 mm left upper lobe pulmonary nodule with SUV 2.3 was noted to have progressed from the prior study and also noted were multiple new bilateral pulmonary nodules, consistent with malignancy. These included a 1 cm anterior medial left upper lobe nodule with SUV 6.7 and a 1.1 cm right upper lobe nodule with SUV 6.4. With those findings he had further evaluation with a next generation sequencing study. It showed no actionable mutations, but the PD-L1 was positive at 10% and the tumor mutation burden was high at 11, suggesting potential benefit with immunotherapy. On 12/24/2020 he began cycle 1 of treatment with pembrolizumab. He tolerated it with no adverse effects. He then continued treatment at 3-week intervals. As of 03/04/2021 he completed his 4th cycle. I had seen him for a follow-up visit on 03/25/2021. He was feeling very weak generally. His ECOG score had declined to 3. He also had very poor appetite. He was noted to have a weight loss of 35 pounds since December. He was having a lot of intestinal gas and he also reported having pain in his right lower quadrant area. He had some constipation, but no diarrhea. His treatment was put on hold, and he was given IV hydration. I also opted to give him steroid therapy, but with his known diabetes, it was limited to a relatively low dose of prednisone. During follow-up his symptoms persisted, and on 04/11/2021 he was admitted to the hospital after his CT pulmonary angiogram reported presence of left upper and right lower lobe pulmonary emboli. Also noted were numerous bilateral metastatic pulmonary nodules, the majority of which were either decreased in size or resolved. One was noted to have increased from 10 to 15 mm in the right upper lobe. There was also increasing mediastinal and hilar lymphadenopathy with the largest node at the left hilum measuring 1.6 cm. There was evidence for diffuse air distention throughout the colon felt to be most likely an ileus pattern. He began on anticoagulation with apixaban and at that point he also was placed on higher dose steroid therapy. I had seen him for a follow-up visit on 04/23/2021. He was still weak, but feeling a little better. At that point I had him gradually taper off prednisone, and I also had him start citalopram for depression. His restaging PET/CT on 05/04/2021 showed improvement or resolution in the majority of the pulmonary nodules, though with a right upper lobe nodule increasing in size from 1.1 to 1.7 cm with SUV 6.7. There was development of multiple new mediastinal lymph nodes including a left paratracheal region node measuring 1.7 cm with SUV 11.8, suspicious for disease progression. His repeat chest CT on 06/13/2021 showed significant progression in the size of bilateral pulmonary nodules as well as significant progression of the lymphadenopathy within the chest. The following day he was seen in the emergency room after he became hypotensive during his physical therapy treatment. He was given hydration and discharged home. He was seen for follow-up on 07/01/2021. At that point he was still very weak generally, and his performance status remained poor. He indicated a desire to continue further treatment, though his options appeared to be very limited. Subsequent to that visit, he continued getting outpatient IV hydration, which did help him feel better. As of his follow-up visit on 07/11/2021 he was continuing to show gradual improvement, and we opted to continue with symptomatic/supportive care measures. He has a history of having previously undergone radical prostatectomy for prostate cancer. He also has a prior history of ITP. His other medical illnesses include hypertension, hyperlipidemia, and type 2 diabetes. He has a past history of smoking, but only for about 6 years. He quit smoking approximately 40 years ago. He had also chewed tobacco, but only for about 1 or 2 years. INTERIM HISTORY: Restaging CT scans on 09/10/2021 showed progression of metastatic disease within the chest with multiple new and enlarging pulmonary nodules. Prominent mediastinal, peribronchial, and left hilar lymphadenopathy appeared stable. There were small pleural effusions bilaterally, greater on the left, which did appear to have worsened. There was no evidence of metastatic disease in the abdomen or pelvis. With those findings, he opted to restart immunotherapy with pembrolizumab. He continued with his 5th cycle of treatment on 10/17/2021. He tolerated without significant toxicity, and he proceeded with cycle 6 on 11/07/2021. Cycle 7 was on 11/28/2021. Patient presents today for his Keytruda. He states he still experiences fatigue but it has improved. States his appetite is good. He denies fever, chills, night sweats. No shortness of breath, cough or chest pain. No GI or symptoms. He does have bilateral knee pain which is a chronic condition and hopes to someday be able to have his knee replacement. Review Of Symptoms:see above Past Medical History: History of prostate cancer Hypercholesterolemia Hypertension ITP Type II diabetes Past Surgical History: Radical prostatectomy Splenectomy Tonsillectomy Umbilical and abdominal wall hernia repairs Flu Vaccine in 2020 Covid vaccine # 3 in 2020 Covid vaccine #2 in 2020 Covid vaccine #1 in 2020 Allergies: Keflex, Penicillins, and Pneumococcal 13-[place] Conj Vacc. Medications: busPIRone HCl 0.5 Tablet (of 5 mg) Oral b.i.d. Citalopram Hydrobromide 1 (40 mg) Tablet Oral daily D3-1000 1 Tablet (of 25 mcg ) Oral daily Daily Multiple Vitamins 1 Tablet Oral daily Eliquis 1 (5 mg) Tablet Oral daily Euthyrox 1 (100 mcg) Tablet Oral at bedtime Ferrous Sulfate 1 (325 (65 fe) mg) Tablet Oral daily Flonase Allergy Relief Suspension Nasal metFORMIN HCl 0.5 - 1 Tablet (of 1000 mg) Oral b.i.d. Omeprazole 1 Capsule (of 20 mg) Capsule Delayed Release Oral daily Potassium Chloride ER 1 Tablet (of 20 meq) Capsule, controlled release Oral daily Pravastatin Sodium 1 Tablet (of 80 mg) Oral daily Singulair 1 Tablet (of 10 mg) Oral b.i.d. Vitamin B 12 1 Tablet Oral once Family History: Mr. Maldonado's mother at age 85. Mr. Maldonado's father at age 83: pneumonia. Mr. Maldonado has 1 brother who is . He has 1 sister who is alive: melanoma. Father with pneumonia at age 83. Mother at age 85, apparently due to complications of dementia. A brother at age 53, exact cause unknown to the patient. He was told that he had some form of inherited condition that choked him out . A sister has been treated for melanoma. Social History: Mr. Maldonado is and he is retired. Mr. Maldonado quit smoking 40 years ago but had smoked for 5 years. He is a former drinker. Mr. Maldonado reports the following support systems: lives alone, supportive family/friends willing to assist with needs, and adequate transportation available for expected visits. His diet consists of regular meals. He indicates his activity level as: regular exercise. He is retired from [employer]. He also had done work on the side [employer]. He has a history of smoking for 6 years. He quit following his splenectomy, which was approximately 40 years ago. He also chewed tobacco, but only for about 1 or 2 years. He had some alcohol use in the . He quit drinking in 1971. Physical Examination: Performed on Dec 19, 2021 10:02: Height - 72.00 in, Weight - 185.0 lbs (HIGH), BSA - 2.06 sq.m, BMI - 25.09, Temperature - 98.0 F (LOW), Pulse - 86 /min, Respiration - 18 /min, BP - 137/74 mm(hg), O2 Sat - 96 %, Pain - 7, and Fatigue - 5. Performance Status: 2 - Ambulatory/capable of all self-care, unable to perform any work activities. Up and about more than 50% of waking hours. (ECOG) Constitutional Alert, cooperative, oriented. Mood and affect appropriate. Appears close to chronological age. Well nourished. Well developed. Respiratory Lungs are clear to auscultation without rhonchi or wheezing. Cardiovascular Regular rate and rhythm of heart without murmurs, gallops or rubs. Abdomen Non-tender, non-distended, no masses, ascites or hepatosplenomegaly. Good bowel sounds. No guarding or rebound tenderness. Extremities No visible deformities, no cyanosis, clubbing or edema. Pulses 3+ and equal bilaterally. Psychiatric Alert and oriented times three. Coherent speech. Verbalizes understanding of our discussions today. Laboratory: Test performed on Dec 19, 2021 09:10 Sodium 131 mmol/L Potassium 4.6 mmol/L Chloride 96 mmol/L CO2 21 mmol/L Anion Gap 18.6 BUN 16 mg/dL Creatinine 0.8 mg/dL Cr Clearance (Est) 97.61 mL/min Glucose 119 mg/dL Osmolality - Calculated 274 mOsm/kg Calcium 10.1 mg/dL Protein, Total 7.2 g/dL Albumin 4.3 g/dL Globulin 2.9 g/dL Bilirubin, Total 0.3 mg/dL ALT (SGPT) 13 U/L AST (SGOT) 26 U/L Alkaline Phosphatase 108 IU/L WBC 7.2 10 3/uL RBC 3.82 10 6/uL HGB 12.1 g/dL HCT 36.4 % MCV 95.3 fl MCH 31.7 pg MCHC 33.2 g/dL RDW 14.1 % Platelet Count 258 10 3/cmm MPV 10.8 fL Neutrophils 3.83 10 3/uL Lymphocytes 2.2 10 3/uL Monocytes 0.9 10 3/uL Eosinophils 0.2 10 3/uL Basophils 0.1 10 3/uL Neutrophil % 52.9 % Lymphocyte % 30.2 % Monocyte % 12.4 % Eosinophil % 3.2 % Basophils % 1.0 % NRBC % 0 % Test performed on Oct 17, 2021 12:27 TSH 2.27 uU/mL Hemoglobin A1C 5.4 % Test performed on Oct 17, 2021 12:21 NRBC 0 /100 WBC Test performed on Aug 29, 2021 00:00 Manual Diff Cancelled via OM: Cancelled in Connected System Test performed on Jul 10, 2021 09:10 Iron 60 mcg/dL Iron Binding Capacity (TIBC) 218 mcg/dl % Iron Saturation 27.5 % UIBC 158 mcg/dL Test performed on Jul 02, 2021 14:22 T4, Free 1.52 ng/dL Impression: 1. HPV positive squamous cell carcinoma involving left base of tongue, by clinical evaluation stage II (T2, N2, M0) at initial diagnosis in March 2020. He had subsequent progression to stage IV with PET/CT evidence of pulmonary metastatic disease bilaterally. 2. Hypertension. 3. Hyperlipidemia. 4. Type 2 diabetes. 5. He has chronic venous insufficiency. 6. History of prostate cancer for which he underwent radical prostatectomy approximately 5 years ago. 7. 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 Plan: Patient with HPV positive squamous cell carcinoma involving left base of tongue, by clinical evaluation stage II (T2, N2b, M0) at initial diagnosis in March 2020. He underwent direct laryngoscopy with biopsy and esophagoscopy on 04/05/2020. Staging PET/CT 04/28/2020 showed a 2.8 x 1.5 subcarinal node with SUV 5.3, suspicious for metastatic disease. Smaller FDG positive nodes in the right paratracheal and subaortic territories appeared to be most likely reactive. On 05/15/2020 he underwent bronchoscopy/EBUS with transbronchial FNA biopsy of station 7 and station 4R lymph nodes. Pathology from both sites showed reactive lymph node tissue with no evidence of malignancy. With those findings, he was recommended to undergo radiation concurrently with standard high-dose cisplatin chemotherapy. He began cycle 1 of cisplatin 100 mg/m??? IV infusion concurrently with radiation on 05/31/2020. He tolerated the initial cisplatin infusion with no acute toxicity. At day 22 he had developed moderately severe neutropenia, ANC 1000, and his 2nd cycle of cisplatin was deferred. During that time he had undergone placement of a PEG tube, and he began nutritional support with tube feeding. He was able to continue his radiation, and he was then given cycle 2 of cisplatin on 07/03/2020. On 07/16/2020 he was admitted to the hospital with acute GI bleed, determined by EGD to be due to duodenal ulcers. He stabilized with conservative management. He again became neutropenic, but with uneventful recovery. He was able to continue radiation, and he completed his treatment on 07/23/2020 to a total dose of 7000 cGy. He did appear to have a very good response by follow-up CT in August 2020. Restaging PET/CT on 11/24/2019 showed FDG positive pulmonary nodules bilaterally, consistent with metastatic disease. A next generation sequencing study showed no actionable mutations, but his tumor was found to be PD-L1 positive at 10% with tumor mutation burden high at 11%, suggesting possible benefit with immunotherapy. He then began cycle 1 of pembrolizumab on 12/24/2020, and he then continued pembrolizumab 200 mg by IV infusion every 3 weeks. As of 03/04/2021 he completed his 4th cycle. He then had a significant decline in his general condition with progressive weakness and declining performance status, and his further treatment was put on hold. On 04/11/2021 he was admitted to the hospital after his CT pulmonary angiogram reported presence of left upper and right lower lobe pulmonary emboli. Also noted were numerous bilateral metastatic pulmonary nodules, the majority of which were either decreased in size or resolved. One was noted to have increased from 10 to 15 mm in the right upper lobe. There was also increasing mediastinal and hilar lymphadenopathy with the largest node at the left hilum measuring 1.6 cm. There was evidence for diffuse air distention throughout the colon felt to be most likely an ileus pattern. He began on anticoagulation with apixaban and at that point he also was placed on higher dose steroid therapy. During follow-up he continued to have very marginal performance status. The exact cause of his decline was uncertain. However, as it had occurred while on immunotherapy with pembrolizumab, it was presumed to be treatment related. His repeat CT scan on 06/13/2021 showed further progression of his metastatic disease. The following day he required treatment in the emergency room for orthostatic hypotension. He was seen for a follow-up visit on 07/01/2021. He remained very weak generally. He had indicated a desire to continue further treatment, though with very poor performance status his options appeared to be very limited. Ultimately he opted to just continue with symptomatic/supportive care measures. He has continued IV outpatient hydration, as it did provide significant symptomatic benefit for him. His restaging CT scans on 09/10/2021 showed progression of metastatic disease within the chest with multiple new and enlarging pulmonary nodules. With those findings, he opted to restart immunotherapy with pembrolizumab. He continued with his 5th cycle on 10/17/2021. He tolerated it well and then proceeded with cycle 6 on 11/07/2021. At this point he appears to be tolerating the pembrolizumab with no significant adverse effects. He has actually been doing a little better clinically, though he has still required IV hydration on an occasional basis. We will order a CT chest, abdomen, pelvis to be performed for reevaluation prior to next appointment. He will receive his Keytruda cycle 8 today. He has been tolerating Keytruda well. He will follow up in 3 weeks with CBC and CMP and results of CT scans. Signed By: Donna Lieberman N.P. <<Signature on File>>
== END 2021-12-30 23:59 | disposition home or self-care (01) ==
LOC: ONCMED 06:48
PROVIDERS: PCP Family Medicine; Visit Provider Nurse Practitioner Family
DX: Z51.12 Encounter for antineoplastic immunotherapy (principal); C01 Malignant neoplasm of base of tongue; C78.01 Secondary malignant neoplasm of right lung; C78.02 Secondary malignant neoplasm of left lung; I10 Essential (primary) hypertension; E78.5 Hyperlipidemia, unspecified; E11.9 Type 2 diabetes mellitus without complications; I87.2 Venous insufficiency (chronic) (peripheral); Z85.46 Personal history of malignant neoplasm of prostate; Z86.39 Personal history of other endocrine, nutritional and metabolic disease; Z79.899 Other long term (current) drug therapy
CPT/HCPCS: 80053; 85025; 96360; 96361; 96413; 99215; J7040; J7050; J9271

== ENCOUNTER 2021-12-31 06:00 | Outpatient (RCR) | payer MEDICARE, OTHER, SELFPAY | END 2022-01-30 23:59 | disposition home or self-care (01) | LOC: SPT 06:00 | PROVIDERS: PCP Family Medicine; Visit Provider Internal Medicine Medical Oncology | DX: M62.81 Muscle weakness (generalized) (principal) | CPT/HCPCS: 97110 ==

== ENCOUNTER 2022-01-01 07:56 | Outpatient (CLI) | payer MEDICARE, OTHER, SELFPAY ==
--- NOTE | 2022-01-01 08:09 | CT_ITS ---
WS: [id number] CT CHEST, ABDOMEN AND PELVIS WITH CONTRAST HISTORY: TONGUE CANCER REEVALUATION TECHNIQUE: Contiguous 5 mm axial imaging performed through the chest, abdomen and pelvis with IV cont rast, oral contrast has been provided. Coronal and sagittal reformats chest. Coronal and sagittal ref ormats through the abdomen and pelvis. All CT scans at [facility] use at least one of these d ose optimization techniques: automated exposure control; mA and/or kV adjustment per patient size (in cludes targeted exams where dose is matched to clinical indication); or iterative reconstruction. CONTRAST: Omnipaque 300; 95 mL IV. DLP: 1577.79 mGy.cm COMPARISON: 09/10/[address]: There has been significant progression of metastatic disease throughout the chest since the prior study. There are numerous pulmonary nodules and masses which have increased in size and number in all lobes. Largest confluent mass is lobulated in the RIGHT upper lobe measuring 4.0 x 2.9 cm. Th ere is extensive progressive lymphadenopathy throughout the chest. LEFT supraclavicular lymph node 2. 0 x 2.9 cm. Probably present on the prior studies but very small. There is extensive lymphadenopathy throughout the mediastinum and hilar regions. All of these lymph node groups have increased in size. There is a large mass in the LEFT paratracheal region extending into the AP window measuring 2.0 x 4. 4 cm. Numerous RIGHT paratracheal lymph nodes. Lymph nodes extend precarinal and subcarinal. Largest inferior RIGHT paratracheal lymph node is 1.9 cm. Largest RIGHT hilar lymph node 2.2 x 2.4 cm. There is a large solid mass with lobulated borders invading into the anterior mediastinum on the LEFT. Mass invades into the lung and mediastinal mass measuring 6.7 x 2.9 cm which has significantly increased in size. Heart is enlarged with a small effusion. There are numerous enlarged distal para-aortic lymph nodes. The largest measures 1.5 cm. These lymph nodes have all increased in size and number. Retrocrural lym ph nodes with the largest on the RIGHT measuring 1.7 cm. Very small LEFT pleural effusion has slightl y improved in size. Thoracic aorta is normal caliber. Normal caliber of the pulmonary artery. Centrally no filling defect . Mild soft tissue anasarca. Abdomen CT: Subtle area of decreased attenuation in the inferior RIGHT lobe of the liver. Could be an early subcentimeter metastatic lesion. Portal vein is normal. No bile duct dilatation. Negative gall bladder. Spleen is been removed. No adrenal mass. Pancreas is atrophic. No abnormality is identified. No renal obstruction. Nonobstructing RIGHT renal calcifications. Stable cysts in the LEFT kidney. At herosclerosis aorta. Small retrocrural lymph nodes continue into the upper abdomen. There are numerous mesenteric and retr operitoneal lymph nodes which have all increased in size and number. Largest mesenteric lymph node me asures 1.6 cm. Largest retrocaval lymph node measures 1.6 cm. No significant lymphadenopathy along th e iliac chains. There are small lymph nodes which are less than a centimeter. No GI tract obstruction. Pelvic CT: No free fluid in the pelvis. Mild bladder wall hypertrophy. No adenopathy. No osteoblastic or osteolytic bone lesions are identified. CT/CT chest abd pel w con* IMPRESSION: 1. Significant progression of metastatic masses and nodules throughout the cam gs since 09/10/2021. 2. Significant progression of lymphadenopathy within the chest and abdomen as described above since the prior study. 3. No ascites. 4. Possible subcentimeter early metastatic lesion in the inferior RIGHT lobe o f the liver. 5. Prior splenectomy and prostatectomy. 6. Small LEFT pleural effusion has slightly improved.
[2022-01-01] MEDS: iohexol 300 mg/mL 50 mL Btl PO (09:00)
[2022-01-01] MEDS: iohexol 300 mg/mL 100 mL Btl IV (09:44)
== END 2022-01-01 07:57 | disposition home or self-care (01) ==
LOC: RAD 08:00
PROVIDERS: PCP Family Medicine; Visit Provider Nurse Practitioner Family
DX: C01 Malignant neoplasm of base of tongue (principal); C78.01 Secondary malignant neoplasm of right lung; Z90.81 Acquired absence of spleen; Z90.79 Acquired absence of other genital organ(s); J90 Pleural effusion, not elsewhere classified
CPT/HCPCS: 71260; 74177

== ENCOUNTER → 2022-01-20 12:02 | Outpatient (BNVA) | payer MEDICARE, OTHER, SELFPAY | PROVIDERS: PCP Family Medicine; Visit Provider Surgery | DX: Z20.822 Contact with and (suspected) exposure to COVID-19 (principal); Z11.52 Encounter for screening for COVID-19 | CPT/HCPCS: 87635 ==

== ENCOUNTER 2022-01-23 06:07 | Day surgery (SDC) | payer MEDICARE, OTHER, SELFPAY ==
[2022-01-22 12:43] VITALS: BMI 24.9
--- NOTE | 2022-01-23 | SCC_ITS ---
Procedure done: Placement of PowerPort in the left subclavian vein 25.2 seconds of fluoroscopic guidance, for a cumulative dose of - mGy, was provided to Dr. Goodwin by the radiology department. C-arm images of the chest were saved for the patient's permanent record. [facility]
[2022-01-23 06:42] LABS: Glucose Point of Care 103 mg/dL (70-110)
[2022-01-23] MEDS: vancomycin 1,500 MG/300 ML PIGGYBACK 200 MG IV (06:45)
[2022-01-23 06:48] VITALS: BP 137/73; PULSE 83; RESP 20; TEMP 36.7; O2SAT 97
[2022-01-23] MEDS: sodium chloride 0.9% 1,000 ML 30 ML IV (06:51)
--- NOTE | 2022-01-23 06:51 | W.PM.OPSFHP ---
Same Day Surgery H&P Indication for Procedure/HPI DATE OF PROCEDURE: January 23, 2022 CHIEF COMPLAINT/INDICATIONFOR SURGICAL PROCEDURE: port placement PREOP DIAGNOSIS: port PLANNED PROCEDURE: Operation Date: 01/23/22 07:40 Proposed Procedures p Portacath Placement 63085/r59.0(Not Applicable) - Praveen Goodwin MD Medications/Allergies* Home Medications Medication Instructions Recorded Confirmed Type cholecalciferol (vitamin D3) 25 25 mcg PO DAILY 05/10/20 01/23/22 History mcg (1,000 unit) capsule fluticasone propionate 50 See Rx Instructions .ROUTE 05/10/20 01/23/22 History mcg/actuation nasal .COMPLEX PRN spray,suspension (Flonase Allergy Relief) furosemide 40 mg tablet 80 mg PO QAM 05/10/20 01/23/22 History metformin 1,000 mg tablet See Rx Instructions .ROUTE .COMPLEX 05/10/20 01/23/22 History hydrocodone 5 mg-acetaminophen 325 1 tab PO Q4H PRN 07/16/20 01/23/22 History mg tablet acetaminophen 650 mg 1,300 mg PO BID 04/11/21 01/23/22 History tablet,extended release (Tylenol Arthritis Pain) albuterol sulfate 90 mcg/actuation 2 puff INHALATION QID PRN 04/11/21 01/23/22 History aerosol inhaler (ProAir HFA) guaifenesin 400 mg tablet (Mucus 400 mg PO TID 04/11/21 01/23/22 History Relief) montelukast 10 mg tablet 10 mg PO BID 04/11/21 01/23/22 History multivitamin 1 tab PO DAILY 04/11/21 01/23/22 History omeprazole 40 mg capsule,delayed 40 mg PO DAILY 04/11/21 01/23/22 History release potassium chloride 10 mEq 10 meq PO DAILY 04/11/21 01/23/22 History tablet,extended release citalopram 20 mg tablet 20 mg PO DAILY 06/14/21 01/23/22 History levothyroxine 100 mcg tablet 100 mcg PO DAILY 06/14/21 01/23/22 History (Euthyrox) pravastatin 80 mg tablet 80 mg PO DAILY 06/14/21 01/23/22 History Allergies/Adverse Reactions Allergy/AdvReac Type Severity Reaction Status Date / Time pneumococcal vaccine Allergy Severe ALGY-Swell Verified 01/23/22 06:20 Lip/Tongue/Throat cephalexin [From Keflex] AdvReac Severe ADR-Vomitin Verified 01/23/22 06:20 g Penicillins AdvReac Severe ADR-Vomitin Verified 01/23/22 06:20 g Pertinent History/Comorbid Conditions* Medical History (Updated 06/22/21 @ 00:01 by ) Abdominal wall hernia Acute pulmonary embolism Cervical lymphadenopathy Dehydration Generalized weakness H/O nephrolithotomy with removal of calculi History of ITP History of ITP HTN (hypertension) Hypercholesterolemia Prostate cancer Squamous cell cancer of tongue Type 2 diabetes mellitus Umbilical hernia Surgical History (Updated 04/14/21 @ 00:01 by ) H/O arthroscopy of knee H/O circumcision H/O colonoscopy 3-4 yrs ago H/O esophagogastroduodenoscopy years ago H/O hernia repair H/O radical prostatectomy H/O splenectomy Hx of tonsillectomy S/P percutaneous endoscopic gastrostomy (PEG) tube placement (06/27/20) removed on 11/05/2020 Status post splenectomy Family History (Updated 06/08/20 @ 13:39 by Sofi Goyal LPN) Dementia Mother Bleeding disorder Father Lung disease Father Denies family history of Anesthesia complication Social History Smoking and tobacco status: never smoked Quit status (tobacco): has quit using tobacco Year quit tobacco: 1979 - 1.5 PPD x 10 Years Alcohol intake: never Lives independently: Yes Household members: none Marital status: Current occupational status: retired History of recent travel: No Current gender identity: Male Pertinent Exam Findings alert, oriented x 3 and regular rate & rhythm Recommendations Surgery/Procedure today Coding Level of Care Code Acute [employer] 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
--- NOTE | 2022-01-23 07:07 | ANES.PREANE2 ---
Pre-Anesthetic Assessment Height/Weight: Height 1.83 m Weight 83.461 kg Temp Pulse Resp BP Pulse Ox 98.0 F 83 20 H 137/73 97 01/23/22 06:48 01/23/22 06:48 01/23/22 06:48 01/23/22 06:48 01/23/22 06:48 Preop Diagnosis: port Operation Date: 01/23/22 07:40 Proposed Procedures p Portacath Placement 78613/[id number](Not Applicable) - Praveen Goodwin MD Familial anesthetic complications: none Was Beta Pako taken within 24 hours: N/A Was Clonidine taken within 24 hours: N/A Last intake: Intake Last Liquid Date 01/22/22 Last Liquid Time 22:00 Last Solid Date 01/22/22 Last Solid Time 18:00 Social No alcohol and No tobacco Exam alert, oriented x 3, clear to auscultation bilaterally and regular rate & rhythm Airway Mallampati: Class I Dentition: full Comments: Comments: hoarse voice Pulmonary Lung cancer Metabolic Diabetes Mellitus and Hyperlipidemia Anesthetic Plan ASA status: 3 Anesthesia: MAC Other Pertinent Information Hx HPV cancer of throat Medications/Allergies Home Medications Medication Instructions Recorded Confirmed Last Taken Type cholecalciferol (vitamin D3) 25 25 mcg PO DAILY 05/10/20 01/23/22 01/22/22 History mcg (1,000 unit) capsule fluticasone propionate 50 See Rx Instructions .ROUTE 05/10/20 01/23/22 01/22/22 History mcg/actuation nasal .COMPLEX PRN spray,suspension (Flonase Allergy Relief) furosemide 40 mg tablet 80 mg PO QAM 05/10/20 01/23/22 01/22/22 History metformin 1,000 mg tablet See Rx Instructions .ROUTE .COMPLEX 05/10/20 01/23/22 01/22/22 History hydrocodone 5 mg-acetaminophen 325 1 tab PO Q4H PRN 07/16/20 01/23/22 01/22/22 History mg tablet acetaminophen 650 mg 1,300 mg PO BID 04/11/21 01/23/22 01/22/22 History tablet,extended release (Tylenol Arthritis Pain) albuterol sulfate 90 mcg/actuation 2 puff INHALATION QID PRN 04/11/21 01/23/22 01/22/22 History aerosol inhaler (ProAir HFA) guaifenesin 400 mg tablet (Mucus 400 mg PO TID 04/11/21 01/23/22 01/22/22 History Relief) montelukast 10 mg tablet 10 mg PO BID 04/11/21 01/23/22 01/22/22 History multivitamin 1 tab PO DAILY 04/11/21 01/23/22 01/22/22 History omeprazole 40 mg capsule,delayed 40 mg PO DAILY 04/11/21 01/23/22 01/22/22 History release potassium chloride 10 mEq 10 meq PO DAILY 04/11/21 01/23/22 01/22/22 History tablet,extended release apixaban 5 mg tablet (Eliquis) 5 mg PO BID #60 tab 04/13/21 01/23/22 01/20/22 Rx citalopram 20 mg tablet 20 mg PO DAILY 06/14/21 01/23/22 01/22/22 History levothyroxine 100 mcg tablet 100 mcg PO DAILY 06/14/21 01/23/22 01/22/22 History (Euthyrox) pravastatin 80 mg tablet 80 mg PO DAILY 06/14/21 01/23/22 01/22/22 History Allergies Allergy/AdvReac Type Severity Reaction Status Date / Time pneumococcal vaccine Allergy Severe ALGY-Swell Verified 01/23/22 06:20 Lip/Tongue/Throat cephalexin [From Keflex] AdvReac Severe ADR-Vomitin Verified 01/23/22 06:20 g Penicillins AdvReac Severe ADR-Vomitin Verified 01/23/22 06:20 g Current Medications Generic Name Dose Route Start Last Admin Trade Name Rikkiq PRN Reason Stop Dose Admin Sodium Chloride 1,000 mls @ 30 mls/hr 01/23/22 06:30 01/23/22 06:51 Sodium Chloride 0.9% IV 01/24/22 06:29 30 mls/hr .Q24H CLAUDY Administration Vancomycin/PEG/NADA/Lysine/Water 1,500 mg in 300 mls @ 200 mls/hr 01/23/22 06:22 01/23/22 06:45 Vancocin IV 01/23/22 07:51 200 mls/hr [employer] Administration Protocol [facility] Anesthesia Medical History Abdominal wall hernia Acute pulmonary embolism Cervical lymphadenopathy Dehydration Generalized weakness H/O nephrolithotomy with removal of calculi History of ITP History of ITP HTN (hypertension) Hypercholesterolemia Prostate cancer Squamous cell cancer of tongue Type 2 diabetes mellitus Umbilical hernia Surgical History H/O arthroscopy of knee H/O circumcision H/O colonoscopy 3-4 yrs ago H/O esophagogastroduodenoscopy years ago H/O hernia repair H/O radical prostatectomy H/O splenectomy Hx of tonsillectomy S/P percutaneous endoscopic gastrostomy (PEG) tube placement (06/27/20) removed on 11/05/2020 Status post splenectomy Family History Mother Dementia Father Lung disease Bleeding disorder Denies family history of Anesthesia complication Social History Smoking and tobacco status: never smoked Quit status (tobacco): has quit using tobacco Year quit tobacco: 1979 - 1.5 PPD x 10 Years Alcohol intake: never Lives independently: Yes Household members: none Marital status: Current occupational status: retired History of recent travel: No Current gender identity: Male Data Anesthesia Cardiac Studies: No Data to Display
--- NOTE | 2022-01-23 07:35 | SC_ITS ---
WS: [id number] Left Port-A-Cath insertion, 01/23/2022 Clinical Data: intra-op Comparison: None. Findings: Dr. Goodwin inserted a left Port-A-Cath. SC/C-arm FL for CVA [id number] Impression: Left Port-A-Cath insertion.
[2022-01-23] MEDS: lidocaine 1% INJ 20 mL INJECTION (08:27)
[2022-01-23] MEDS: heparin, porcine 1,000 unit/mL INJ 10 mL 10000 UNIT INJECTION (08:27)
--- NOTE | 2022-01-23 08:32 | PM.OP ---
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 A total of 10 mL of 1% lidocaine with 0.5% Marcaine was infiltrated under the clavicle on the left side at the site of the planned entry into the subclavian vein. An introducer needle was then used to access the subclavian vein under the clavicle and after withdrawing blood syringe was removed and a guidewire passed under fluoroscopy into the superior vena cava. The site of the planned port was then marked on the chest and a 15 blade was used to make a 3 cm skin incision this was extended into the subcutaneous tissue using electrocautery and a subcutaneous pocket over the pectoralis fascia was created 2-0 Vicryl suture was used to suture the port to the pectoral fascia in the pocket on 3 sides. The catheter, after having been flushed with hep saline, was attached to the tunneler and a tunnel created between the port site and the subclavian vein entry site. Under fluoroscopy the dilator sheath was passed over the guidewire into the proximal superior vena cava. The inner dilator was removed and the sheath left behind and~ the catheter was introduced through the peel-away sheath with the tip in the superior vena cava. The peel-away sheath was removed. The proximal end of the catheter was cut to the right size and was attached to the port. Using a Kumar needle the port was accessed, it withdrew blood easily and flushed easily. A final 5cc of heparin was used to flush the PowerPort. The subcutaneous tissue was approximated using interrupted 3-0 Vicryl sutures and the skin at the introducer site and the port site was closed using subcuticular running 4-0 Monocryl sutures. Surgical glue was applied and the patient was stable throughout the procedure. Fluoroscopic guidance and interpretation was performed for introduction of the guidewire in the left vein, passage of dilator and placement of catheter tip in the distal superior vena cava.
[2022-01-23 08:34] VITALS: BP 117/66; PULSE 85; RESP 12; TEMP 36.8; O2SAT 98
[2022-01-23 08:39] VITALS: BP 118/64; PULSE 78; RESP 16; O2SAT 98
[2022-01-23 08:44] VITALS: BP 119/72; PULSE 70; RESP 18; O2SAT 98
[2022-01-23 08:49] VITALS: BP 112/70; BP 117/65; PULSE 72; PULSE 80; RESP 16; RESP 20; TEMP 36.6; TEMP 36.7; O2SAT 97; O2SAT 98
[2022-01-23 09:13] VITALS: BP 132/77; PULSE 83; RESP 18; O2SAT 98
== END 2022-01-23 09:43 | disposition home or self-care (01) ==
PROVIDERS: PCP Family Medicine; Visit Provider Surgery
PROC: (CPT 36561; principal; 2022-01-23 07:40)
DX: C09.9 Malignant neoplasm of tonsil, unspecified (principal); Z85.118 Personal history of other malignant neoplasm of bronchus and lung; E11.9 Type 2 diabetes mellitus without complications; E78.5 Hyperlipidemia, unspecified; Z79.84 Long term (current) use of oral hypoglycemic drugs; E78.00 Pure hypercholesterolemia, unspecified; Z85.810 Personal history of malignant neoplasm of tongue; Z87.891 Personal history of nicotine dependence
CPT/HCPCS: 36561; 36416; 76000; 77001; 82962; C1788; J1644; J2704; J3010; J3370; J3490; J7030

== ENCOUNTER 2022-01-30 06:43 | Outpatient (RCR) | payer MEDICARE, OTHER, SELFPAY ==
[2022-01-02] MEDS: sodium chloride 0.9% 500 ML 999 ML IV (09:18)
[2022-01-09 10:07] LABS: Basophils # 0.1 10^3/uL (0.0-0.1); Basophils % 0.6 %; Eosinophils # 0.1 10^3/uL (0.0-0.8); Eosinophils % 0.9 %; Hematocrit 36.8 % (42.0-52.0); Hemoglobin 12.1 g/dL (11.7-16.6); Lymphocytes # 1.7 10^3/uL (0.8-4.8); Lymphocytes % 21.5 %; Mean Corpuscular HGB Conc 32.9 g/dL (30.0-36.0); Mean Corpuscular Hemoglobin 30.9 pg (28.0-34.0); Mean Corpuscular Volume 94.1 fl (80-94); Mean Platelet Volume 11.2 fL (7.4-10.4); Monocytes # 0.8 10^3/uL (0.2-0.9); Monocytes % 10.4 %; Neutrophils # 5.28 10^3/uL (1.8-7.7); Neutrophils % 66.2 %; Nucleated Red Blood Cells % 0 %; Platelet Count 303 10^3/cmm (130-400); Red Blood Count 3.91 10^6/uL (4.1-5.3); Red Cell Distribution Width 14.4 % (12.1-15.1)
[2022-01-09 10:49] LABS: Alanine Aminotransferase 12 U/L (0-41); Albumin Level 4.4 g/dL (3.5-5.2); Alkaline Phosphatase 107 IU/L (40-130); Anion Gap 15.5 (5-19); Aspartate Amino Transferase 23 U/L (0-40); Blood Urea Nitrogen 17 mg/dL (8-23); Calcium 10.4 mg/dL (8.5-10.5); Carbon Dioxide 28 mmol/L (22-29); Chloride 94 mmol/L (98-107); Globulin 2.7 g/dL (1.3-4.6); Glucose 160 mg/dL (65-115); Osmolality Calculated 281 mOsm/kg (285-295); Potassium 4.5 mmol/L (3.5-5.1); Sodium 133 mmol/L (136-145); Thyroid Stimulating Hormone 5.88 uIU/mL (0.27-4.20); Total Bilirubin 0.2 mg/dL (0.15-1.2); Total Protein 7.1 g/dL (6.6-8.7)
[2022-01-09 10:57] LABS: Estmated Average Glucose 120; Hemoglobin A1C 5.8 % (4.0-6.0)
[2022-01-09] MEDS: sodium chloride 0.9% 1,000 ML 999 ML IV (11:37)
--- NOTE | 2022-01-12 13:14 | ONC FU_ITS ---
Dr. Reich Patient Follow-Up Note Patient: Demarcus Maldonado Unit #: [id number]: [id number] Dicatated By: Devendra Reich M.D.Date of Visit:Jan 09, 2022 Onc Med Follow-up/Prog Note Chief Complaint: Base of tongue cancer. 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 He had subsequent progression to stage IV with PET/CT evidence of pulmonary metastatic disease bilaterally. He had presented with left cervical lymphadenopathy. He had associated pain in the left side of the neck and throat. He had been seen initially by Dr. James. CT of the neck on 03/27/2020 showed a soft tissue enhancing mass centered in the left tongue base along the lingual tonsil. It was noted to extend over a length of 2.6 x 2.2 x 1.3 cm. There appeared to be enhancement across the midline and there was suspected involvement in the lingular surface of the right tongue. Also noted was enlargement and abnormal enhancement and thickening of the uvula. There was extensive, confluent adenopathy i involving the left neck. The largest cluster of nodes measured 8.4 cm in length by 2.8 cm, beginning at the level of the hyoid bone and extending inferiorly to the supraclavicular region. Additional clusters of lymph nodes were present at level IIa, IIb, III, Va, and in the supraclavicular area. The largest necrotic lymph node measured 2.5 x 2.2 cm at the level of the thyroid cartilage. Smaller lymph nodes were noted along the right cervical chain, but without definite adenopathy. The lung apices were noted to be clear. He was seen by Dr. Praneeth Thompson on 03/30/2020. His exam showed an exophytic mass and papillomatous mass at the left tongue base as well as papillomatous mass at the left paramedian tongue base. The remainder of the oral cavity and oropharyngeal exam was reported to be normal. The laryngeal exam showed erythema and edema of the arytenoid mucosa. He then underwent direct laryngoscopy with biopsy and esophagoscopy on 04/05/2020. Findings included an exophytic lesion involving the left tongue base extending to the right of the midline. It also was noted to extend into the vallecula. There was no involvement of the lateral pharyngeal wall or the larynx. The esophagus was noted to be free of lesions. Biopsy showed infiltrating moderately differentiated squamous cell carcinoma which was confirmed to be HPV positive. I had seen him initially on 04/19/2020. Staging PET/CT on 04/28/2020 showed a 2.4 x 1.7 cm left base of tongue mass with SUV 24.5, consistent with primary malignancy. There were FDG positive nodes from cervical levels II through IV and V levels on the left consistent with local metastatic disease. A 1.2 cm right level 2A node had SUV 4.2 indicating a high probability of contralateral cervical disease. A subpleural solid nodule in the lateral left upper lobe measuring 8 mm had SUV 1.9, suspicious but not definitive for distant metastatic disease. A 2.8 x 1.5 cm subcarinal lymph node had SUV 5.3, suspicious for metastatic disease. Smaller FDG positive nodes in the right pretracheal and subaortic territories were felt to be most likely reactive. He was referred to Dr. Kingsley. On 05/15/2020 he underwent bronchoscopy/EBUS with transbronchial FNA biopsy of station 7 and station 4R lymph nodes. Pathology from both sites showed reactive lymph node tissue with no evidence of malignancy. With those findings, he was recommended to undergo radiation concurrently with standard high-dose cisplatin chemotherapy. He began cycle 1 of cisplatin at 100 mg/m??? by IV infusion concurrently with radiation on 05/31/2020. He experienced no acute toxicity with the initial cisplatin infusion. Her further chemotherapy was held due to neutropenia. He completed radiation on 06/19/2020 to a total dose of 6540 cGy. He then continued with radiation. At his day 22 visit he had moderately severe neutropenia with absolute neutrophil count at just under 1000, and his second dose of cisplatin was deferred. Subsequent to that visit, he began having more difficulty with swallowing and with oral intake, and he did opt undergo placement of the PEG tube. He was able to continue his radiation, and he proceeded with cycle 2 of cisplatin 100 mg/m??? by IV infusion on 07/03/2020. On 07/16/2020 he was admitted to the hospital with acute upper GI bleeding. His EGD showed multiple benign-appearing ulcers in the duodenum, which appeared to be the likely source for the GI bleed, though no active bleeding was apparent at the time of the procedure. During the hospitalization he became neutropenic, but it resolved uneventfully on antibiotic coverage with cefepime and Levaquin. During the hospitalization, he was able to resume his radiation, and he completed treatment on 07/23/2020 to a total dose of [address] on 08/20/2020 showed significant improvement in the cervical chain lymphadenopathy with the largest persistent lymph node measuring 1.7 x 1.6 cm at level III. There appeared to be complete resolution of the left tongue base neoplasm. A restaging PET/CT on 11/24/2020 showed resolution of the base of tongue mass with FDG negative, subcentimeter left sided cervical lymph nodes. The right cervical level 2A node was no longer visualized. A 9 mm left upper lobe pulmonary nodule with SUV 2.3 was noted to have progressed from the prior study and also noted were multiple new bilateral pulmonary nodules, consistent with malignancy. These included a 1 cm anterior medial left upper lobe nodule with SUV 6.7 and a 1.1 cm right upper lobe nodule with SUV 6.4. With those findings he had further evaluation with a next generation sequencing study. It showed no actionable mutations, but the PD-L1 was positive at 10% and the tumor mutation burden was high at 11, suggesting potential benefit with immunotherapy. On 12/24/2020 he began cycle 1 of treatment with pembrolizumab. He tolerated it with no adverse effects. He then continued treatment at 3-week intervals. As of 03/04/2021 he completed his 4th cycle. I had seen him for a follow-up visit on 03/25/2021. He was feeling very weak generally. His ECOG score had declined to 3. He also had very poor appetite. He was noted to have a weight loss of 35 pounds since December. He was having a lot of intestinal gas and he also reported having pain in his right lower quadrant area. He had some constipation, but no diarrhea. His treatment was put on hold, and he was given IV hydration. I also opted to give him steroid therapy, but with his known diabetes, it was limited to a relatively low dose of prednisone. During follow-up his symptoms persisted, and on 04/11/2021 he was admitted to the hospital after his CT pulmonary angiogram reported presence of left upper and right lower lobe pulmonary emboli. Also noted were numerous bilateral metastatic pulmonary nodules, the majority of which were either decreased in size or resolved. One was noted to have increased from 10 to 15 mm in the right upper lobe. There was also increasing mediastinal and hilar lymphadenopathy with the largest node at the left hilum measuring 1.6 cm. There was evidence for diffuse air distention throughout the colon felt to be most likely an ileus pattern. He began on anticoagulation with apixaban and at that point he also was placed on higher dose steroid therapy. I had seen him for a follow-up visit on 04/23/2021. He was still weak, but feeling a little better. At that point I had him gradually taper off prednisone, and I also had him start citalopram for depression. His restaging PET/CT on 05/04/2021 showed improvement or resolution in the majority of the pulmonary nodules, though with a right upper lobe nodule increasing in size from 1.1 to 1.7 cm with SUV 6.7. There was development of multiple new mediastinal lymph nodes including a left paratracheal region node measuring 1.7 cm with SUV 11.8, suspicious for disease progression. His repeat chest CT on 06/13/2021 showed significant progression in the size of bilateral pulmonary nodules as well as significant progression of the lymphadenopathy within the chest. The following day he was seen in the emergency room after he became hypotensive during his physical therapy treatment. He was given hydration and discharged home. He was seen for follow-up on 07/01/2021. At that point he was still very weak generally, and his performance status remained poor. He indicated a desire to continue further treatment, though his options appeared to be very limited. Subsequent to that visit, he continued getting outpatient IV hydration, which did help him feel better. As of his follow-up visit on 07/11/2021 he was continuing to show gradual improvement, and we opted to continue with symptomatic/supportive care measures. He has a history of having previously undergone radical prostatectomy for prostate cancer. He also has a prior history of ITP. His other medical illnesses include hypertension, hyperlipidemia, and type 2 diabetes. He has a past history of smoking, but only for about 6 years. He quit smoking approximately 40 years ago. He had also chewed tobacco, but only for about 1 or 2 years. INTERIM HISTORY: Restaging CT scans on 09/10/2021 showed progression of metastatic disease within the chest with multiple new and enlarging pulmonary nodules. Prominent mediastinal, peribronchial, and left hilar lymphadenopathy appeared stable. There were small pleural effusions bilaterally, greater on the left, which did appear to have worsened. There was no evidence of metastatic disease in the abdomen or pelvis. With those findings, he opted to restart immunotherapy with pembrolizumab. He continued with his 5th cycle of treatment on 10/17/2021. He tolerated without significant toxicity, and he continued treatment at 3-week intervals. As of 12/19/2021 he completed his 8th cycle. Restaging CT scans of the chest, abdomen, and pelvis on 01/01/2022 showed significant progression of metastatic masses and nodules throughout both lungs compared to the September 2021 study. The largest confluent mass in the right upper lobe measured 4.0 x 2.9 cm. There was also significant progression of lymphadenopathy including a large mass in the left paratracheal region extending into the AP window measuring 2.0 x 4.4 cm. A large solid mass with lobulated borders was noted to invade into the anterior mediastinum on the left measuring 6.7 x 2.9 cm. He is seen for a follow-up visit. He has not been feeling good. Since Thursday he has lost his voice. He has also become aware of a new knot on the left side of his back. He continues to have poor energy and he has very limited activity. ECOG score is 3. His appetite is down a little. He continues to require IV hydration on a fairly regular basis. He does not have fever or night sweats. He has sinus drainage. He is having some trouble swallowing pills. He has cough associated with clearing his throat. He does not complain of shortness of breath or chest pain. He has no GI/ complaints other than occasional acid reflux. He has pain in his back and knees. He has some headaches. He does not complain of dizziness and he has no focal neurologic symptoms. Medications: busPIRone HCl 0.5 Tablet (of 5 mg) Oral b.i.d., Citalopram Hydrobromide 1 (40 mg) Tablet Oral daily, D3-1000 1 Tablet (of 25 mcg ) Oral daily, Daily Multiple Vitamins 1 Tablet Oral daily, Doxycycline Hyclate Tablet Oral b.i.d., Eliquis 1 (5 mg) Tablet Oral daily, Euthyrox 1 (100 mcg) Tablet Oral at bedtime, Ferrous Sulfate 1 (325 (65 fe) mg) Tablet Oral daily, Flonase Allergy Relief Suspension Nasal, metFORMIN HCl 0.5 - 1 Tablet (of 1000 mg) Oral b.i.d., Omeprazole 1 Capsule (of 20 mg) Capsule Delayed Release Oral daily, Potassium Chloride ER 1 Tablet (of 20 meq) Capsule, controlled release Oral daily, Pravastatin Sodium 1 Tablet (of 80 mg) Oral daily, predniSONE Tablet Oral daily, Singulair 1 Tablet (of 10 mg) Oral b.i.d., Vitamin B 12 1 Tablet Oral once Allergies: Keflex, Penicillins, and Pneumococcal 13-[place] Conj Vacc. Vital Signs: Performed on Jan 09, 2022 10:37 Height - 72.00 in Weight - 181.8 lbs (LOW) BSA - 2.05 sq.m BMI - 24.66 Temperature - 97.6 F (LOW) Pulse - 97 /min Respiration - 18 /min BP - 168/92 mm(hg) (HIGH) O2 Sat - 99 % Pain - 0 Fatigue - 6 Physical Examination: Constitutional - He appears generally weak, Eyes - Sclerae nonicteric. Conjunctivae clear, ENMT - No lesions noted in the oral cavity, Hematologic/Lymphatic - There is no cervical, clavicular, or axillary adenopathy noted, Respiratory - Lungs sound clear with diminished air movement bilaterally, Cardiovascular - Heart rhythm is regular. There is no murmur, gallop, or rub noted, Abdomen - Mildly distended and somewhat firm. The subcutaneous nodules in the mid and upper abdomen appear unchanged. Liver is not enlarged. There is no abdominal mass or ascites noted and there is no inguinal adenopathy, Extremities - Mild edema, Integumentary - There is a subcutaneous nodule palpable in the left flank area, measuring in the range of 2 to 3 cm, Neurologic - No focal neurologic deficits noted. Lab/Imaging: Test performed on Jan 09, 2022 09:36 Sodium 133 mmol/L TSH 5.88 uIU/mL Potassium 4.5 mmol/L Chloride 94 mmol/L Est Avg Glucose (eAG) 120 mg/dL CO2 28 mmol/L Anion Gap 15.5 BUN 17 mg/dL Creatinine 0.8 mg/dL Cr Clearance (Est) 95.9200 mL/min Glucose 160 mg/dL Osmolality - Calculated 281 mOsm/kg Calcium 10.4 mg/dL Protein, Total 7.1 g/dL Albumin 4.4 g/dL Globulin 2.7 g/dL Bilirubin, Total 0.2 mg/dL ALT (SGPT) 12 U/L AST (SGOT) 23 U/L Alkaline Phosphatase 107 IU/L Hemoglobin A1C % 5.8 % WBC 8.0 10 3/uL RBC 3.91 10 6/uL HGB 12.1 g/dL HCT 36.8 % MCV 94.1 fl MCH 30.9 pg MCHC 32.9 g/dL RDW 14.4 % Platelet Count 303 10 3/cmm MPV 11.2 fL Neutrophils 5.28 10 3/uL Lymphocytes 1.7 10 3/uL Monocytes 0.8 10 3/uL Eosinophils 0.1 10 3/uL Basophils 0.1 10 3/uL Neutrophil % 66.2 % Lymphocyte % 21.5 % Monocyte % 10.4 % Eosinophil % 0.9 % Basophils % 0.6 % NRBC % 0 % Problem List: 1. HPV positive squamous cell carcinoma involving left base of tongue, by clinical evaluation stage II (T2, N2, M0) at initial diagnosis in March 2020. He had subsequent progression to stage IV with PET/CT evidence of pulmonary metastatic disease bilaterally. 2. Hypertension. 3. Hyperlipidemia. 4. Type 2 diabetes. 5. He has chronic venous insufficiency. 6. History of prostate cancer for which he underwent radical prostatectomy approximately 5 years ago. 7. 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 Problems Addressed with this Encounter and Plan: Patient with HPV positive squamous cell carcinoma involving left base of tongue, by clinical evaluation stage II (T2, N2b, M0) at initial diagnosis in March 2020. He underwent direct laryngoscopy with biopsy and esophagoscopy on 04/05/2020. Staging PET/CT 04/28/2020 showed a 2.8 x 1.5 subcarinal node with SUV 5.3, suspicious for metastatic disease. Smaller FDG positive nodes in the right paratracheal and subaortic territories appeared to be most likely reactive. On 05/15/2020 he underwent bronchoscopy/EBUS with transbronchial FNA biopsy of station 7 and station 4R lymph nodes. Pathology from both sites showed reactive lymph node tissue with no evidence of malignancy. With those findings, he was recommended to undergo radiation concurrently with standard high-dose cisplatin chemotherapy. He began cycle 1 of cisplatin 100 mg/m??? IV infusion concurrently with radiation on 05/31/2020. He tolerated the initial cisplatin infusion with no acute toxicity. At day 22 he had developed moderately severe neutropenia, ANC 1000, and his 2nd cycle of cisplatin was deferred. During that time he had undergone placement of a PEG tube, and he began nutritional support with tube feeding. He was able to continue his radiation, and he was then given cycle 2 of cisplatin on 07/03/2020. On 07/16/2020 he was admitted to the hospital with acute GI bleed, determined by EGD to be due to duodenal ulcers. He stabilized with conservative management. He again became neutropenic, but with uneventful recovery. He was able to continue radiation, and he completed his treatment on 07/23/2020 to a total dose of 7000 cGy. He did appear to have a very good response by follow-up CT in August 2020. Restaging PET/CT on 11/24/2019 showed FDG positive pulmonary nodules bilaterally, consistent with metastatic disease. A next generation sequencing study showed no actionable mutations, but his tumor was found to be PD-L1 positive at 10% with tumor mutation burden high at 11%, suggesting possible benefit with immunotherapy. He then began cycle 1 of pembrolizumab on 12/24/2020, and he then continued pembrolizumab 200 mg by IV infusion every 3 weeks. As of 03/04/2021 he completed his 4th cycle. He then had a significant decline in his general condition with progressive weakness and declining performance status, and his further treatment was put on hold. On 04/11/2021 he was admitted to the hospital after his CT pulmonary angiogram reported presence of left upper and right lower lobe pulmonary emboli. Also noted were numerous bilateral metastatic pulmonary nodules, the majority of which were either decreased in size or resolved. One was noted to have increased from 10 to 15 mm in the right upper lobe. There was also increasing mediastinal and hilar lymphadenopathy with the largest node at the left hilum measuring 1.6 cm. There was evidence for diffuse air distention throughout the colon felt to be most likely an ileus pattern. He began on anticoagulation with apixaban and at that point he also was placed on higher dose steroid therapy. During follow-up he continued to have very marginal performance status. The exact cause of his decline was uncertain. However, as it had occurred while on immunotherapy with pembrolizumab, it was presumed to be treatment related. His repeat CT scan on 06/13/2021 showed further progression of his metastatic disease. The following day he required treatment in the emergency room for orthostatic hypotension. He was seen for a follow-up visit on 07/01/2021. He remained very weak generally. He had indicated a desire to continue further treatment, though with very poor performance status his options appeared to be very limited. Ultimately he opted to just continue with symptomatic/supportive care measures. He has continued IV outpatient hydration, as it did provide significant symptomatic benefit for him. His restaging CT scans on 09/10/2021 showed progression of metastatic disease within the chest with multiple new and enlarging pulmonary nodules. With those findings, he opted to restart immunotherapy with pembrolizumab. He continued with his 5th cycle on 10/17/2021. He tolerated it well and then proceeded with cycle 6 on 11/07/2021, with cycle 7 on 11/28/2021 and with cycle 8 on 12/19/2021. His restaging CT scans on 01/01/2022 show significant progression of pulmonary metastatic disease and metastatic lymph node disease in the chest and upper abdomen. He continues to have very poor performance status. He has recent onset of hoarseness, which is almost certainly due to left vocal cord paralysis. The CT findings reviewed with the patient and his . We discussed the fact that his disease is showing significant progression, indicating that the immunotherapy is not helping. The only other option for treatment would be a second line chemotherapy. The probability of benefit would be low and there would be risk for significant treatment-related toxicity, particularly with his poor performance status. The other option is to just continue with symptomatic/supportive care, in which case hospice referral would be appropriate. He is going to think about it. In the meantime, over the the short-term I will have him try prednisone at 20 mg twice daily for 7 days, then decreasing to 10 mg twice daily. He will continue IV hydration as needed. Signed By: Devendra Reich M.D. <<Signature on File>>
[2022-01-21] MEDS: sodium chloride 0.9% 1,000 ML 999 ML IV (10:55)
[2022-01-27 08:36] LABS: Basophils # 0.1 10^3/uL (0.0-0.1); Eosinophils # 0.2 10^3/uL (0.0-0.8); Hematocrit 35.6 % (42.0-52.0); Hemoglobin 11.8 g/dL (11.7-16.6); Lymphocytes # 2.1 10^3/uL (0.8-4.8); Lymphocytes % 30.9 %; Mean Corpuscular HGB Conc 33.1 g/dL (30.0-36.0); Mean Corpuscular Hemoglobin 30.6 pg (28.0-34.0); Mean Corpuscular Volume 92.5 fl (80-94); Mean Platelet Volume 10.9 fL (7.4-10.4); Monocytes # 0.9 10^3/uL (0.2-0.9); Monocytes % 13.5 %; Neutrophils # 3.42 10^3/uL (1.8-7.7); Neutrophils % 51.2 %; Nucleated Red Blood Cells % 0 %; Platelet Count 301 10^3/cmm (130-400); Red Blood Count 3.85 10^6/uL (4.1-5.3); White Blood Count 6.7 10^3/uL (4.0-10.0)
[2022-01-27 09:11] LABS: Alanine Aminotransferase 11 U/L (0-41); Albumin Level 4.1 g/dL (3.5-5.2); Alkaline Phosphatase 112 IU/L (40-130); Anion Gap 16.8 (5-19); Aspartate Amino Transferase 29 U/L (0-40); Blood Urea Nitrogen 14 mg/dL (8-23); Calcium 10.4 mg/dL (8.5-10.5); Carbon Dioxide 25 mmol/L (22-29); Chloride 94 mmol/L (98-107); Globulin 3.3 g/dL (1.3-4.6); Glucose 112 mg/dL (65-115); Osmolality Calculated 273 mOsm/kg (285-295); Potassium 4.8 mmol/L (3.5-5.1); Sodium 131 mmol/L (136-145); Total Bilirubin 0.3 mg/dL (0.15-1.2); Total Protein 7.4 g/dL (6.6-8.7)
[2022-01-27] MEDS: diphenhydrAMINE 50 mg/mL SDV 1mL 25 MG IV (11:45)
[2022-01-27] MEDS: sodium chloride 0.9% 1,000 ML 999 ML IV (11:45)
[2022-01-27] MEDS: sodium chloride 0.9% 250 ML 999 ML IV (11:45)
[2022-01-27] MEDS: sodium chloride 0.9% (100 ml) 100 ML 999 ML (11:45)
[2022-01-27] MEDS: famotidine 20 mg/2 mL INJ IVP (11:47)
[2022-01-27] MEDS: palonosetron 0.25 mg/5 mL SDV IV (11:50)
[2022-01-27] MEDS: fosaprepitant 150 MG in sodium chloride 0.9% 150 ML 300 MG IV (12:25)
--- NOTE | 2022-02-04 20:17 | ONC FU_ITS ---
Donna Lieberman Progress Note Patient: Demarcus Maldonado Unit #: [id number]: 1950 Dicatated By: Donna Lieberman N.P.Date of Visit:Jan 27, 2022 Onc MED Follow-up/Prog Note Chief Complaint: Base of tongue cancer. 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 He had subsequent progression to stage IV with PET/CT evidence of pulmonary metastatic disease bilaterally. He had presented with left cervical lymphadenopathy. He had associated pain in the left side of the neck and throat. He had been seen initially by Dr. James. CT of the neck on 03/27/2020 showed a soft tissue enhancing mass centered in the left tongue base along the lingual tonsil. It was noted to extend over a length of 2.6 x 2.2 x 1.3 cm. There appeared to be enhancement across the midline and there was suspected involvement in the lingular surface of the right tongue. Also noted was enlargement and abnormal enhancement and thickening of the uvula. There was extensive, confluent adenopathy i involving the left neck. The largest cluster of nodes measured 8.4 cm in length by 2.8 cm, beginning at the level of the hyoid bone and extending inferiorly to the supraclavicular region. Additional clusters of lymph nodes were present at level IIa, IIb, III, Va, and in the supraclavicular area. The largest necrotic lymph node measured 2.5 x 2.2 cm at the level of the thyroid cartilage. Smaller lymph nodes were noted along the right cervical chain, but without definite adenopathy. The lung apices were noted to be clear. He was seen by Dr. Praneeth Thompson on 03/30/2020. His exam showed an exophytic mass and papillomatous mass at the left tongue base as well as papillomatous mass at the left paramedian tongue base. The remainder of the oral cavity and oropharyngeal exam was reported to be normal. The laryngeal exam showed erythema and edema of the arytenoid mucosa. He then underwent direct laryngoscopy with biopsy and esophagoscopy on 04/05/2020. Findings included an exophytic lesion involving the left tongue base extending to the right of the midline. It also was noted to extend into the vallecula. There was no involvement of the lateral pharyngeal wall or the larynx. The esophagus was noted to be free of lesions. Biopsy showed infiltrating moderately differentiated squamous cell carcinoma which was confirmed to be HPV positive. I had seen him initially on 04/19/2020. Staging PET/CT on 04/28/2020 showed a 2.4 x 1.7 cm left base of tongue mass with SUV 24.5, consistent with primary malignancy. There were FDG positive nodes from cervical levels II through IV and V levels on the left consistent with local metastatic disease. A 1.2 cm right level 2A node had SUV 4.2 indicating a high probability of contralateral cervical disease. A subpleural solid nodule in the lateral left upper lobe measuring 8 mm had SUV 1.9, suspicious but not definitive for distant metastatic disease. A 2.8 x 1.5 cm subcarinal lymph node had SUV 5.3, suspicious for metastatic disease. Smaller FDG positive nodes in the right pretracheal and subaortic territories were felt to be most likely reactive. He was referred to Dr. Kingsley. On 05/15/2020 he underwent bronchoscopy/EBUS with transbronchial FNA biopsy of station 7 and station 4R lymph nodes. Pathology from both sites showed reactive lymph node tissue with no evidence of malignancy. With those findings, he was recommended to undergo radiation concurrently with standard high-dose cisplatin chemotherapy. He began cycle 1 of cisplatin at 100 mg/m??? by IV infusion concurrently with radiation on 05/31/2020. He experienced no acute toxicity with the initial cisplatin infusion. Her further chemotherapy was held due to neutropenia. He completed radiation on 06/19/2020 to a total dose of 6540 cGy. He then continued with radiation. At his day 22 visit he had moderately severe neutropenia with absolute neutrophil count at just under 1000, and his second dose of cisplatin was deferred. Subsequent to that visit, he began having more difficulty with swallowing and with oral intake, and he did opt undergo placement of the PEG tube. He was able to continue his radiation, and he proceeded with cycle 2 of cisplatin 100 mg/m??? by IV infusion on 07/03/2020. On 07/16/2020 he was admitted to the hospital with acute upper GI bleeding. His EGD showed multiple benign-appearing ulcers in the duodenum, which appeared to be the likely source for the GI bleed, though no active bleeding was apparent at the time of the procedure. During the hospitalization he became neutropenic, but it resolved uneventfully on antibiotic coverage with cefepime and Levaquin. During the hospitalization, he was able to resume his radiation, and he completed treatment on 07/23/2020 to a total dose of [address] on 08/20/2020 showed significant improvement in the cervical chain lymphadenopathy with the largest persistent lymph node measuring 1.7 x 1.6 cm at level III. There appeared to be complete resolution of the left tongue base neoplasm. A restaging PET/CT on 11/24/2020 showed resolution of the base of tongue mass with FDG negative, subcentimeter left sided cervical lymph nodes. The right cervical level 2A node was no longer visualized. A 9 mm left upper lobe pulmonary nodule with SUV 2.3 was noted to have progressed from the prior study and also noted were multiple new bilateral pulmonary nodules, consistent with malignancy. These included a 1 cm anterior medial left upper lobe nodule with SUV 6.7 and a 1.1 cm right upper lobe nodule with SUV 6.4. With those findings he had further evaluation with a next generation sequencing study. It showed no actionable mutations, but the PD-L1 was positive at 10% and the tumor mutation burden was high at 11, suggesting potential benefit with immunotherapy. On 12/24/2020 he began cycle 1 of treatment with pembrolizumab. He tolerated it with no adverse effects. He then continued treatment at 3-week intervals. As of 03/04/2021 he completed his 4th cycle. I had seen him for a follow-up visit on 03/25/2021. He was feeling very weak generally. His ECOG score had declined to 3. He also had very poor appetite. He was noted to have a weight loss of 35 pounds since December. He was having a lot of intestinal gas and he also reported having pain in his right lower quadrant area. He had some constipation, but no diarrhea. His treatment was put on hold, and he was given IV hydration. I also opted to give him steroid therapy, but with his known diabetes, it was limited to a relatively low dose of prednisone. During follow-up his symptoms persisted, and on 04/11/2021 he was admitted to the hospital after his CT pulmonary angiogram reported presence of left upper and right lower lobe pulmonary emboli. Also noted were numerous bilateral metastatic pulmonary nodules, the majority of which were either decreased in size or resolved. One was noted to have increased from 10 to 15 mm in the right upper lobe. There was also increasing mediastinal and hilar lymphadenopathy with the largest node at the left hilum measuring 1.6 cm. There was evidence for diffuse air distention throughout the colon felt to be most likely an ileus pattern. He began on anticoagulation with apixaban and at that point he also was placed on higher dose steroid therapy. I had seen him for a follow-up visit on 04/23/2021. He was still weak, but feeling a little better. At that point I had him gradually taper off prednisone, and I also had him start citalopram for depression. His restaging PET/CT on 05/04/2021 showed improvement or resolution in the majority of the pulmonary nodules, though with a right upper lobe nodule increasing in size from 1.1 to 1.7 cm with SUV 6.7. There was development of multiple new mediastinal lymph nodes including a left paratracheal region node measuring 1.7 cm with SUV 11.8, suspicious for disease progression. His repeat chest CT on 06/13/2021 showed significant progression in the size of bilateral pulmonary nodules as well as significant progression of the lymphadenopathy within the chest. The following day he was seen in the emergency room after he became hypotensive during his physical therapy treatment. He was given hydration and discharged home. He was seen for follow-up on 07/01/2021. At that point he was still very weak generally, and his performance status remained poor. He indicated a desire to continue further treatment, though his options appeared to be very limited. Subsequent to that visit, he continued getting outpatient IV hydration, which did help him feel better. As of his follow-up visit on 07/11/2021 he was continuing to show gradual improvement, and we opted to continue with symptomatic/supportive care measures. He has a history of having previously undergone radical prostatectomy for prostate cancer. He also has a prior history of ITP. His other medical illnesses include hypertension, hyperlipidemia, and type 2 diabetes. He has a past history of smoking, but only for about 6 years. He quit smoking approximately 40 years ago. He had also chewed tobacco, but only for about 1 or 2 years. INTERIM HISTORY: Restaging CT scans on 09/10/2021 showed progression of metastatic disease within the chest with multiple new and enlarging pulmonary nodules. Prominent mediastinal, peribronchial, and left hilar lymphadenopathy appeared stable. There were small pleural effusions bilaterally, greater on the left, which did appear to have worsened. There was no evidence of metastatic disease in the abdomen or pelvis. With those findings, he opted to restart immunotherapy with pembrolizumab. He continued with his 5th cycle of treatment on 10/17/2021. He tolerated without significant toxicity, and he continued treatment at 3-week intervals. As of 12/19/2021 he completed his 8th cycle. Restaging CT scans of the chest, abdomen, and pelvis on 01/01/2022 showed significant progression of metastatic masses and nodules throughout both lungs compared to the September 2021 study. The largest confluent mass in the right upper lobe measured 4.0 x 2.9 cm. There was also significant progression of lymphadenopathy including a large mass in the left paratracheal region extending into the AP window measuring 2.0 x 4.4 cm. A large solid mass with lobulated borders was noted to invade into the anterior mediastinum on the left measuring 6.7 x 2.9 cm. Patient presents today for a follow-up visit. He is here for education for 5-FU, carboplatin and cetuximab. He is experiencing a moderate amount of fatigue. His ECOG is 3. His appetite has not been very good. He denies fever, chills, night sweats. He denies sinus drainage or mouth sores. No shortness of breath or wheezing. He does have some cough. No GI or problems. And he denies pain at present. Review Of Symptoms:See above. Past Medical History: History of prostate cancer Hypercholesterolemia Hypertension ITP Type II diabetes Past Surgical History: Radical prostatectomy Splenectomy Tonsillectomy Umbilical and abdominal wall hernia repairs Flu Vaccine in 2020 Covid vaccine # 3 in 2020 Covid vaccine #2 in 2020 Covid vaccine #1 in 2020 Allergies: Keflex, Penicillins, and Pneumococcal 13-[place] Conj Vacc. Medications: busPIRone HCl 0.5 Tablet (of 5 mg) Oral b.i.d. Citalopram Hydrobromide 1 (40 mg) Tablet Oral daily D3-1000 1 Tablet (of 25 mcg ) Oral daily Daily Multiple Vitamins 1 Tablet Oral daily Eliquis 1 (5 mg) Tablet Oral daily Euthyrox 1 (100 mcg) Tablet Oral at bedtime Ferrous Sulfate 1 (325 (65 fe) mg) Tablet Oral daily Flonase Allergy Relief Suspension Nasal Furosemide 1 Tablet (of 40 mg) Oral daily PRN metFORMIN HCl 0.5 - 1 Tablet (of 1000 mg) Oral b.i.d. Omeprazole 1 Capsule (of 20 mg) Capsule Delayed Release Oral daily Potassium Chloride ER 1 Tablet (of 20 meq) Capsule, controlled release Oral daily Pravastatin Sodium 1 Tablet (of 80 mg) Oral daily Singulair 1 Tablet (of 10 mg) Oral b.i.d. Vitamin B 12 1 Tablet Oral once Family History: Mr. Maldonado's mother at age 85. Mr. Maldonado's father at age 83: pneumonia. Mr. Maldonado has 1 brother who is . He has 1 sister who is alive: melanoma. Father with pneumonia at age 83. Mother at age 85, apparently due to complications of dementia. A brother at age 53, exact cause unknown to the patient. He was told that he had some form of inherited condition that choked him out . A sister has been treated for melanoma. Social History: Mr. Maldonado is and he is retired. Mr. Maldonado quit smoking 40 years ago but had smoked for 5 years. He is a former drinker. Mr. Maldonado reports the following support systems: lives alone, supportive family/friends willing to assist with needs, and adequate transportation available for expected visits. His diet consists of regular meals. He indicates his activity level as: regular exercise. He is retired from [employer]. He also had done work on the side [employer]. He has a history of smoking for 6 years. He quit following his splenectomy, which was approximately 40 years ago. He also chewed tobacco, but only for about 1 or 2 years. He had some alcohol use in the . He quit drinking in 1971. Physical Examination: Performed on Jan 27, 2022 10:42: Height - 72.00 in, Weight - 180.2 lbs (LOW), BSA - 2.04 sq.m, BMI - 24.44, Temperature - 98.7 F, Pulse - 84 /min, Respiration - 18 /min, BP - 156/76 mm(hg) (HIGH), O2 Sat - 96 %, Pain - 0, and Fatigue - 7. Performance Status: 3 - Capable of only limited self-care, confined to bed or chair more than 50% of waking hours. (ECOG) Constitutional Alert, cooperative, oriented. Mood and affect appropriate. Appears close to chronological age. Well nourished. Well developed. Respiratory Lungs are clear to auscultation without rhonchi or wheezing. Cardiovascular Regular rate and rhythm of heart without murmurs, gallops or rubs. Abdomen Non-tender, non-distended, no masses, ascites or hepatosplenomegaly. Good bowel sounds. No guarding or rebound tenderness. Extremities No visible deformities, no cyanosis, clubbing or edema. Pulses 3+ and equal bilaterally. Musculoskeletal No tenderness or swelling, normal range of motion without obvious weakness. Psychiatric Alert and oriented times three. Coherent speech. Verbalizes understanding of our discussions today. Laboratory: Test performed on Feb 04, 2022 08:15 Sodium 132 mmol/L Potassium 4.7 mmol/L Chloride 97 mmol/L CO2 24 mmol/L Anion Gap 15.7 BUN 16 mg/dL Creatinine 0.8 mg/dL Cr Clearance (Est) 95.0800 mL/min Glucose 130 mg/dL Osmolality - Calculated 277 mOsm/kg Calcium 10.0 mg/dL Protein, Total 6.7 g/dL Albumin 4.1 g/dL Globulin 2.6 g/dL Bilirubin, Total 0.3 mg/dL ALT (SGPT) 23 U/L AST (SGOT) 35 U/L Alkaline Phosphatase 110 IU/L WBC 4.5 10 3/uL RBC 3.96 10 6/uL HGB 12.1 g/dL HCT 36.6 % MCV 92.4 fl MCH 30.6 pg MCHC 33.1 g/dL RDW 13.7 % Platelet Count 226 10 3/cmm MPV 10.7 fL Neutrophils 2.26 10 3/uL Lymphocytes 1.3 10 3/uL Monocytes 0.3 10 3/uL Eosinophils 0.5 10 3/uL Basophils 0.1 10 3/uL Neutrophil % 50.5 % Lymphocyte % 28.2 % Monocyte % 7.6 % Eosinophil % 11.2 % Basophils % 1.8 % NRBC % 0 % Test performed on Jan 27, 2022 08:20 TSH 4.30 uIU/mL Test performed on Jan 09, 2022 09:36 Est Avg Glucose (eAG) 120 mg/dL Hemoglobin A1C % 5.8 % Test performed on Oct 17, 2021 12:21 NRBC 0 /100 WBC Test performed on Aug 29, 2021 00:00 Manual Diff Cancelled via OM: Cancelled in Connected System Impression: 1. HPV positive squamous cell carcinoma involving left base of tongue, by clinical evaluation stage II (T2, N2, M0) at initial diagnosis in March 2020. He had subsequent progression to stage IV with PET/CT evidence of pulmonary metastatic disease bilaterally. 2. Hypertension. 3. Hyperlipidemia. 4. Type 2 diabetes. 5. He has chronic venous insufficiency. 6. History of prostate cancer for which he underwent radical prostatectomy approximately 5 years ago. 7. 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 Plan: Patient with HPV positive squamous cell carcinoma involving left base of tongue, by clinical evaluation stage II (T2, N2b, M0) at initial diagnosis in March 2020. He underwent direct laryngoscopy with biopsy and esophagoscopy on 04/05/2020. Staging PET/CT 04/28/2020 showed a 2.8 x 1.5 subcarinal node with SUV 5.3, suspicious for metastatic disease. Smaller FDG positive nodes in the right paratracheal and subaortic territories appeared to be most likely reactive. On 05/15/2020 he underwent bronchoscopy/EBUS with transbronchial FNA biopsy of station 7 and station 4R lymph nodes. Pathology from both sites showed reactive lymph node tissue with no evidence of malignancy. With those findings, he was recommended to undergo radiation concurrently with standard high-dose cisplatin chemotherapy. He began cycle 1 of cisplatin 100 mg/m??? IV infusion concurrently with radiation on 05/31/2020. He tolerated the initial cisplatin infusion with no acute toxicity. At day 22 he had developed moderately severe neutropenia, ANC 1000, and his 2nd cycle of cisplatin was deferred. During that time he had undergone placement of a PEG tube, and he began nutritional support with tube feeding. He was able to continue his radiation, and he was then given cycle 2 of cisplatin on 07/03/2020. On 07/16/2020 he was admitted to the hospital with acute GI bleed, determined by EGD to be due to duodenal ulcers. He stabilized with conservative management. He again became neutropenic, but with uneventful recovery. He was able to continue radiation, and he completed his treatment on 07/23/2020 to a total dose of 7000 cGy. He did appear to have a very good response by follow-up CT in August 2020. Restaging PET/CT on 11/24/2019 showed FDG positive pulmonary nodules bilaterally, consistent with metastatic disease. A next generation sequencing study showed no actionable mutations, but his tumor was found to be PD-L1 positive at 10% with tumor mutation burden high at 11%, suggesting possible benefit with immunotherapy. He then began cycle 1 of pembrolizumab on 12/24/2020, and he then continued pembrolizumab 200 mg by IV infusion every 3 weeks. As of 03/04/2021 he completed his 4th cycle. He then had a significant decline in his general condition with progressive weakness and declining performance status, and his further treatment was put on hold. On 04/11/2021 he was admitted to the hospital after his CT pulmonary angiogram reported presence of left upper and right lower lobe pulmonary emboli. Also noted were numerous bilateral metastatic pulmonary nodules, the majority of which were either decreased in size or resolved. One was noted to have increased from 10 to 15 mm in the right upper lobe. There was also increasing mediastinal and hilar lymphadenopathy with the largest node at the left hilum measuring 1.6 cm. There was evidence for diffuse air distention throughout the colon felt to be most likely an ileus pattern. He began on anticoagulation with apixaban and at that point he also was placed on higher dose steroid therapy. During follow-up he continued to have very marginal performance status. The exact cause of his decline was uncertain. However, as it had occurred while on immunotherapy with pembrolizumab, it was presumed to be treatment related. His repeat CT scan on 06/13/2021 showed further progression of his metastatic disease. The following day he required treatment in the emergency room for orthostatic hypotension. He was seen for a follow-up visit on 07/01/2021. He remained very weak generally. He had indicated a desire to continue further treatment, though with very poor performance status his options appeared to be very limited. Ultimately he opted to just continue with symptomatic/supportive care measures. He has continued IV outpatient hydration, as it did provide significant symptomatic benefit for him. His restaging CT scans on 09/10/2021 showed progression of metastatic disease within the chest with multiple new and enlarging pulmonary nodules. With those findings, he opted to restart immunotherapy with pembrolizumab. He continued with his 5th cycle on 10/17/2021. He tolerated it well and then proceeded with cycle 6 on 11/07/2021, with cycle 7 on 11/28/2021 and with cycle 8 on 12/19/2021. His restaging CT scans on 01/01/2022 show significant progression of pulmonary metastatic disease and metastatic lymph node disease in the chest and upper abdomen. He continues to have very poor performance status. He has recent onset of hoarseness, which is almost certainly due to left vocal cord paralysis. The CT findings reviewed with the patient and his . We discussed the fact that his disease is showing significant progression, indicating that the immunotherapy is not helping. The only other option for treatment would be a second line chemotherapy. The probability of benefit would be low and there would be risk for significant treatment-related toxicity, particularly with his poor performance status. The other option is to just continue with symptomatic/supportive care, in which case hospice referral would be appropriate. He is going to think about it. In the meantime, over the the short-term Dr. Reich had him try prednisone at 20 mg twice daily for 7 days, then decreasing to 10 mg twice daily. He will continue IV hydration as needed. Patient presents today accompanied by his . He has decided to try chemotherapy regimen with carboplatin, 5-FU and cetuximab. He is here for education. Handouts were provided and side effects were discussed in detail. Information provided including how to manage nausea and vomiting, diarrhea, and mouth sores. He will receive his first treatment today and he will return to the clinic in 1 week with CBC and CMP. Signed By: Donna Lieberman N.Mervin. <<Signature on File>>
== END 2022-01-30 23:59 | disposition home or self-care (01) ==
LOC: ONCMED 06:43
PROVIDERS: Nurse Practitioner Family; PCP Family Medicine; Visit Provider Internal Medicine Medical Oncology
DX: Z51.11 Encounter for antineoplastic chemotherapy (principal); C01 Malignant neoplasm of base of tongue; C78.02 Secondary malignant neoplasm of left lung; C78.01 Secondary malignant neoplasm of right lung; I10 Essential (primary) hypertension; E78.5 Hyperlipidemia, unspecified; E11.9 Type 2 diabetes mellitus without complications; I87.2 Venous insufficiency (chronic) (peripheral); Z86.2 Personal history of diseases of the blood and blood-forming organs and certain disorders involving the immune mechanism; Z85.46 Personal history of malignant neoplasm of prostate; Z79.899 Other long term (current) drug therapy
CPT/HCPCS: 80053; 83036; 84443; 85025; 96360; 96367; 96368; 96375; 96411; 96413; 96415; 96417; 99215; J1100; J1200; J1453; J2469; J3490; J7030; J7040; J7050; J9045; J9055; J9190

== ENCOUNTER 2022-01-31 06:00 | Outpatient (RCR) | payer MEDICARE, OTHER, SELFPAY | END 2022-03-01 23:55 | disposition home or self-care (01) | LOC: SPT 06:00 | PROVIDERS: PCP Family Medicine; Visit Provider Internal Medicine Medical Oncology | DX: M62.81 Muscle weakness (generalized) (principal); R53.81 Other malaise | CPT/HCPCS: 97110 ==

== ENCOUNTER 2022-02-12 11:44 | Emergency (ER) | payer MEDICARE, OTHER, SELFPAY ==
[2022-02-12 11:49] VITALS: BP 130/78; PULSE 91; RESP 18; TEMP 36.6; O2SAT 98; BMI 36.8
[2022-02-12 12:32] LABS: Basophils % 0.6 %; Eosinophils # 0.4 10^3/uL (0.0-0.8); Eosinophils % 10.7 %; Hematocrit 35.8 % (42.0-52.0); Hemoglobin 12.1 g/dL (11.7-16.6); Lymphocytes # 1.7 10^3/uL (0.8-4.8); Lymphocytes % 51.8 %; Mean Corpuscular HGB Conc 33.8 g/dL (30.0-36.0); Mean Corpuscular Hemoglobin 31.2 pg (28.0-34.0); Mean Corpuscular Volume 92.3 fl (80-94); Mean Platelet Volume 10.1 fL (7.4-10.4); Monocytes # 0.6 10^3/uL (0.2-0.9); Monocytes % 17.2 %; Neutrophils % 19.7 %; Nucleated Red Blood Cells % 0.6 %; Platelet Count 50 10^3/cmm (130-400); Red Blood Count 3.88 10^6/uL (4.1-5.3); Red Cell Distribution Width 14.5 % (12.1-15.1); White Blood Count 3.3 10^3/uL (4.0-10.0)
[2022-02-12] MEDS: oxymetazoline 0.05% Nasal Spray 15 mL 2 SPRAY NOSTRIL-L (12:34)
--- NOTE | 2022-02-12 12:34 | W.ED.GENADLT ---
HPI - General Adult General: Chief complaint: Epistaxis Stated complaint: nose bleed, abnormal labs Time Seen by Provider: 02/12/22 12:00 History of Present Illness: Patient is a 71-year-old male with history of Eliquis, metastatic lung cancer on chemotherapy (last round was 4 days ago followed by Dr. Reich) presented to the emergency room for concerns of left-sided nosebleed. Patient says about 5:30 this morning, she has been having left-sided nosebleed. Patient says the nosebleeds intermittent, stopped with pressure and gauze. Patient tells me that he has had intermittent nosebleed throughout this morning. Patient says that he is compliant with his Eliquis. No complaints of nose bleeding currently. In addition, patient had routine blood work that was done recently which showed low platelet. Patient would like to get that evaluated today. Patient has no other focal complaints at this time. Onset: 5:30am Duration:ongoing, intermittent Location:home Severity:mild Associated symptoms: Deny chest pain, dyspnea, nausea, rash, palpitations or vomiting Review of Systems Const: Denies: fever(s) or chills Eyes: Denies: change in vision ENMT: Reports: other (+nose bleed); Denies: mouth pain Card: Denies: chest pain or palpitations Resp: Denies: dyspnea or non-productive cough GI: Denies: abdominal pain, nausea, vomiting or diarrhea : Denies: dysuria Musc: Denies: extremity pain Skin/Breast: Denies: rash or new lesions Neuro: Denies: weakness in extremities Psych: Reports: other (Normal mood) Rafi/Lymph: Denies: easy bruising PFS ED PFSH: Medical History Abdominal wall hernia Acute pulmonary embolism Cervical lymphadenopathy Dehydration Generalized weakness H/O nephrolithotomy with removal of calculi History of ITP History of ITP HTN (hypertension) Hypercholesterolemia Prostate cancer Squamous cell cancer of tongue Type 2 diabetes mellitus Umbilical hernia Surgical History H/O arthroscopy of knee H/O circumcision H/O colonoscopy 3-4 yrs ago H/O esophagogastroduodenoscopy years ago H/O hernia repair H/O radical prostatectomy H/O splenectomy Hx of tonsillectomy Port-A-Cath in place (01/23/22) left subclavian S/P percutaneous endoscopic gastrostomy (PEG) tube placement (06/27/20) removed on 11/05/2020 Status post splenectomy Family History Mother Dementia Father Lung disease Bleeding disorder Denies family history of Anesthesia complication Social History Smoking and tobacco status: never smoked Quit status (tobacco): has quit using tobacco Year quit tobacco: 1979 - 1.5 PPD x 10 Years Alcohol intake: never Lives independently: Yes Household members: none Marital status: Current occupational status: retired History of recent travel: No Current gender identity: Male Physical Exam Const: COMMON NORMALS: alert HENMT: COMMON NORMALS: atraumatic HEAD & SCALP: atraumatic MOUTH: moist mucous membranes not abnormal OTHER: +Dried blood in the L nare, no active nose bleed Eye: COMMON NORMALS: EOMs intact bilaterally and conjunctivae normal CONJUNCTIVA: Yes conjunctivae normal Neck/C-Spine: COMMON NORMALS: full ROM and supple Resp: COMMON NORMALS: normal respiratory effort and clear to auscultation bilaterally AUSCULTATION: clear to auscultation bilaterally Cardio: COMMON NORMALS: regular rate RATE: regular rate GI: COMMON NORMALS: Soft to palpation and non-tender PALPATION: Yes Soft to palpation Extremity: COMMON NORMALS: full ROM Neuro: SENSORIUM/ORIENTATION: Yes alert MOTOR EXAM: No Abnormal motor strength present and Other motor observations present (no focal motor deficits) Psych: COMMON NORMALS: speech normal SPEECH: Yes normal speech MOOD & AFFECT: Yes euthymic mood Course Vital Signs: Vital signs: Vital Signs Temperature 97.9 F 02/12/22 11:49 Pulse Rate 91 02/12/22 11:49 Respiratory Rate 18 02/12/22 11:49 Blood Pressure 130/78 02/12/22 11:49 Pulse Oximetry 98 02/12/22 11:49 [facility] - General Adult Medical Decision Making 71-year-old male with history of being on Eliquis presenting to the emergency room with complaints of left-sided nosebleed. Patient is not actively bleeding. There is dried blood noted left nare. Patient had routine blood work from 02/10/2022 which showed a platelet of 78K down from 226K from 02/04/2022. Repeat blood work showed today of platelet of 50. Patient is neutropenic as expected from chemotherapy but currently afebrile. I do not suspect any other emergent pathology at this time. 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 Reich who recommended discontinuing eliquis and repeat blood workup on 02/14/2022 in oncology clinic. Patient reassures me that he will follow-up and repeat blood work in the next few days. Patient received Afrin nasal inhalation puffs. Patient received Vaseline coated gauze which was inserted to the nose to moisturize the dried blood. Patient has not any observed nosebleed since observation in the emergency room. Patient stable for discharge from the standpoint. Rx afrin to go home with Disposition: Discharge. Patient counseled regarding diagnostic impression, treatment plan. Patient given ED strict return precautions to return for continuation, worsening, or development of new symptoms. Instructed to f/u w/ Dr. Reich regarding symptoms today and for repeating blood work in the next few days. Patient verbalized understanding. Lab Data : 02/12/22 12:20 02/12/22 12:20 Laboratory Results WBC 3.3 10^3/uL (4.0-10.0) L 02/12/22 12:20 RBC 3.88 10^6/uL (4.1-5.3) L 02/12/22 12:20 Hgb 12.1 g/dL (11.7-16.6) 02/12/22 12:20 Hct 35.8 % (42.0-52.0) L 02/12/22 12:20 MCV 92.3 fl (80-94) 02/12/22 12:20 MCH 31.2 pg (28.0-34.0) 02/12/22 12:20 MCHC 33.8 g/dL (30.0-36.0) 02/12/22 12:20 RDW 14.5 % (12.1-15.1) 02/12/22 12:20 Plt Count 50 10^3/cmm (130-400) L 02/12/22 12:20 MPV 10.1 fL (7.4-10.4) 02/12/22 12:20 Neut % (Auto) 19.7 % 02/12/22 12:20 Lymph % (Auto) 51.8 % 02/12/22 12:20 [place] % (Auto) 17.2 % 02/12/22 12:20 Eos % (Auto) 10.7 % 02/12/22 12:20 Baso % (Auto) 0.6 % 02/12/22 12:20 Neut # (Auto) 0.64 10^3/uL (1.8-7.7) L* 02/12/22 12:20 Lymph # (Auto) 1.7 10^3/uL (0.8-4.8) 02/12/22 12:20 [place] # (Auto) 0.6 10^3/uL (0.2-0.9) 02/12/22 12:20 Eos # (Auto) 0.4 10^3/uL (0.0-0.8) 02/12/22 12:20 Baso # (Auto) 0.0 10^3/uL (0.0-0.1) 02/12/22 12:20 Nucleated RBC % (auto) 0.6 % 02/12/22 12: Nucleated RBCs # 0.0 /100WBC 02/12/22 12:20 Sodium 130 mmol/L (136-145) L 02/12/22 12:20 Potassium 4.9 mmol/L (3.5-5.1) 02/12/22 12:20 Chloride 96 mmol/L (98-107) L 02/12/22 12:20 Carbon Dioxide 25 mmol/L (22-29) 02/12/22 12:20 Anion Gap 13.9 (5-19) 02/12/22 12:20 BUN 12 mg/dL (8-23) 02/12/22 12:20 Creatinine 0.7 mg/dL (0.7-1.2) 02/12/22 12:20 GFR Calculation Not Reportable 02/12/22 12:20 Glucose 109 mg/dL (65-115) 02/12/22 12:20 Calculated Osmolality 270 mOsm/kg (285-295) L 02/12/22 12:20 Calcium 10.0 mg/dL (8.5-10.5) 02/12/22 12:20 Discharge Plan Discharge Condition: Stable Prescriptions: No Action cholecalciferol (vitamin D3) 25 mcg (1,000 unit) capsule 25 mcg PO DAILY 0RF fluticasone propionate [Flonase Allergy Relief] 50 mcg/actuation spray,suspension See Rx Instructions .ROUTE .COMPLEX PRN (Reason: allergy symptoms) 0RF Rx Instructions: 1 spray intranasally as needed ;administer into each nostril furosemide 40 mg tablet 80 mg PO QAM 0RF Hold Instructions: Resume on 04/20/21. metformin 1,000 mg tablet See Rx Instructions .ROUTE .COMPLEX 0RF Rx Instructions: 1,000 mg orally in the morning & 500 mg orally in the evening hydrocodone-acetaminophen 5-325 mg Tablet 1 tab PO Q4H PRN (Reason: Pain) 0RF multivitamin Tablet 1 tab PO DAILY 0RF potassium chloride 10 mEq tablet extended release 10 meq PO DAILY 0RF Hold Instructions: Resume on 04/20/21. omeprazole 40 mg Capsule,Delayed Release(Dr/Ec) 40 mg PO DAILY 0RF acetaminophen [Tylenol Arthritis Pain] 650 mg Tablet Extended Release 1,300 mg PO BID 0RF montelukast 10 mg tablet 10 mg PO BID 0RF albuterol sulfate [ProAir HFA] 90 mcg/actuation Hfa Aerosol Inhaler 2 puff INHALATION QID PRN (Reason: Shortness Of Breath) 0RF guaifenesin [Mucus Relief] 400 mg Tablet 400 mg PO TID 0RF Eliquis 5 mg tablet 5 mg PO BID Qty: 60 3RF Hold Instructions: Resume on 01/26/22. Rx Instructions: Take 10 MG BID TILL 05/17 and then continue 5 mg BID levothyroxine [Euthyrox] 100 mcg tablet 100 mcg PO DAILY 0RF Rx Instructions: DOSE CHANGE citalopram 20 mg Tablet 20 mg PO DAILY 0RF pravastatin 80 mg tablet 80 mg PO DAILY 0RF Zofran 4 mg tablet 4 mg PO Q6H PRN (Reason: nausea and vomiting) Qty: 20 0RF Colace 100 mg capsule 100 mg PO BID Qty: 30 0RF Referrals: Arik James MD [Primary Care Provider] - Coding Level of Care Code ED Clinical Team Lead for Chg Fwd Exam Comprehensive
[2022-02-12 12:38] LABS: Neutrophils # 0.64 10^3/uL (1.8-7.7)
[2022-02-12 13:01] LABS: Anion Gap 13.9 (5-19); Blood Urea Nitrogen 12 mg/dL (8-23); Carbon Dioxide 25 mmol/L (22-29); Chloride 96 mmol/L (98-107); Glucose 109 mg/dL (65-115); Osmolality Calculated 270 mOsm/kg (285-295); Potassium 4.9 mmol/L (3.5-5.1); Sodium 130 mmol/L (136-145)
[2022-02-12 14:02] VITALS: BP 138/66; PULSE 85; RESP 17; O2SAT 98
== END 2022-02-12 14:06 | disposition home or self-care (01) ==
PROVIDERS: Emergency Provider Emergency Medicine; PCP Family Medicine
DX: D70.1 Agranulocytosis secondary to cancer chemotherapy (principal); R04.0 Epistaxis; C78.00 Secondary malignant neoplasm of unspecified lung; Z79.899 Other long term (current) drug therapy; Z87.891 Personal history of nicotine dependence; T45.1X5A Adverse effect of antineoplastic and immunosuppressive drugs, initial encounter; C61 Malignant neoplasm of prostate; E11.9 Type 2 diabetes mellitus without complications; Z79.84 Long term (current) use of oral hypoglycemic drugs; Z79.891 Long term (current) use of opiate analgesic
CPT/HCPCS: 80048; 85025; 99283

== ENCOUNTER 2022-02-28 06:40 | Outpatient (RCR) | payer MEDICARE, OTHER, SELFPAY ==
[2022-02-04 08:23] LABS: Basophils # 0.1 10^3/uL (0.0-0.1); Basophils % 1.8 %; Eosinophils # 0.5 10^3/uL (0.0-0.8); Eosinophils % 11.2 %; Hematocrit 36.6 % (42.0-52.0); Hemoglobin 12.1 g/dL (11.7-16.6); Lymphocytes # 1.3 10^3/uL (0.8-4.8); Lymphocytes % 28.2 %; Mean Corpuscular HGB Conc 33.1 g/dL (30.0-36.0); Mean Corpuscular Hemoglobin 30.6 pg (28.0-34.0); Mean Corpuscular Volume 92.4 fl (80-94); Mean Platelet Volume 10.7 fL (7.4-10.4); Monocytes # 0.3 10^3/uL (0.2-0.9); Monocytes % 7.6 %; Neutrophils # 2.26 10^3/uL (1.8-7.7); Neutrophils % 50.5 %; Nucleated Red Blood Cells % 0 %; Platelet Count 226 10^3/cmm (130-400); Red Blood Count 3.96 10^6/uL (4.1-5.3); Red Cell Distribution Width 13.7 % (12.1-15.1); White Blood Count 4.5 10^3/uL (4.0-10.0)
[2022-02-04] MEDS: sodium chloride 0.9% 500 ML 999 ML IV (08:30)
[2022-02-04 08:42] LABS: Alanine Aminotransferase 23 U/L (0-41); Albumin Level 4.1 g/dL (3.5-5.2); Alkaline Phosphatase 110 IU/L (40-130); Anion Gap 15.7 (5-19); Aspartate Amino Transferase 35 U/L (0-40); Blood Urea Nitrogen 16 mg/dL (8-23); Carbon Dioxide 24 mmol/L (22-29); Chloride 97 mmol/L (98-107); Globulin 2.6 g/dL (1.3-4.6); Glucose 130 mg/dL (65-115); Osmolality Calculated 277 mOsm/kg (285-295); Potassium 4.7 mmol/L (3.5-5.1); Sodium 132 mmol/L (136-145); Total Bilirubin 0.3 mg/dL (0.15-1.2); Total Protein 6.7 g/dL (6.6-8.7)
[2022-02-06] MEDS: sodium chloride 0.9% 500 ML 999 ML IV (09:35)
[2022-02-10 09:37] LABS: Basophils % 1.2 %; Eosinophils # 0.4 10^3/uL (0.0-0.8); Eosinophils % 11.6 %; Hematocrit 39.4 % (42.0-52.0); Hemoglobin 13.2 g/dL (11.7-16.6); Lymphocytes # 1.4 10^3/uL (0.8-4.8); Mean Corpuscular HGB Conc 33.5 g/dL (30.0-36.0); Mean Corpuscular Hemoglobin 30.9 pg (28.0-34.0); Mean Corpuscular Volume 92.3 fl (80-94); Mean Platelet Volume 10.8 fL (7.4-10.4); Monocytes # 0.4 10^3/uL (0.2-0.9); Monocytes % 11.3 %; Neutrophils # 1.12 10^3/uL (1.8-7.7); Neutrophils % 33.3 %; Nucleated Red Blood Cells % 0 %; Platelet Count 78 10^3/cmm (130-400); Red Blood Count 4.27 10^6/uL (4.1-5.3); Red Cell Distribution Width 13.9 % (12.1-15.1); White Blood Count 3.4 10^3/uL (4.0-10.0)
[2022-02-10 10:20] LABS: Alanine Aminotransferase 23 U/L (0-41); Albumin Level 4.4 g/dL (3.5-5.2); Alkaline Phosphatase 147 IU/L (40-130); Anion Gap 18.5 (5-19); Aspartate Amino Transferase 31 U/L (0-40); Blood Urea Nitrogen 13 mg/dL (8-23); Calcium 10.5 mg/dL (8.5-10.5); Carbon Dioxide 22 mmol/L (22-29); Chloride 94 mmol/L (98-107); Globulin 2.8 g/dL (1.3-4.6); Glucose 122 mg/dL (65-115); Osmolality Calculated 271 mOsm/kg (285-295); Potassium 4.5 mmol/L (3.5-5.1); Sodium 130 mmol/L (136-145); Total Bilirubin 0.2 mg/dL (0.15-1.2); Total Protein 7.2 g/dL (6.6-8.7)
[2022-02-10] MEDS: diphenhydrAMINE 50 mg/mL SDV 1mL 25 MG IV (10:55)
[2022-02-10] MEDS: sodium chloride 0.9% 250 ML IV (10:55)
[2022-02-10] MEDS: famotidine 20 mg/2 mL INJ IVP (10:56)
--- NOTE | 2022-02-12 17:05 | ONC FU_ITS ---
Dr. Reich Patient Follow-Up Note Patient: Demarcus Maldonado Unit #: [id number]: [id number] Dicatated By: Devendra Reich M.D.Date of Visit:Feb 04, 2022 Onc Med Follow-up/Prog Note Chief Complaint: Base of tongue cancer. 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 He had subsequent progression to stage IV with PET/CT evidence of pulmonary metastatic disease bilaterally. He had presented with left cervical lymphadenopathy. He had associated pain in the left side of the neck and throat. He had been seen initially by Dr. James. CT of the neck on 03/27/2020 showed a soft tissue enhancing mass centered in the left tongue base along the lingual tonsil. It was noted to extend over a length of 2.6 x 2.2 x 1.3 cm. There appeared to be enhancement across the midline and there was suspected involvement in the lingular surface of the right tongue. Also noted was enlargement and abnormal enhancement and thickening of the uvula. There was extensive, confluent adenopathy i involving the left neck. The largest cluster of nodes measured 8.4 cm in length by 2.8 cm, beginning at the level of the hyoid bone and extending inferiorly to the supraclavicular region. Additional clusters of lymph nodes were present at level IIa, IIb, III, Va, and in the supraclavicular area. The largest necrotic lymph node measured 2.5 x 2.2 cm at the level of the thyroid cartilage. Smaller lymph nodes were noted along the right cervical chain, but without definite adenopathy. The lung apices were noted to be clear. He was seen by Dr. Praneeth Thompson on 03/30/2020. His exam showed an exophytic mass and papillomatous mass at the left tongue base as well as papillomatous mass at the left paramedian tongue base. The remainder of the oral cavity and oropharyngeal exam was reported to be normal. The laryngeal exam showed erythema and edema of the arytenoid mucosa. He then underwent direct laryngoscopy with biopsy and esophagoscopy on 04/05/2020. Findings included an exophytic lesion involving the left tongue base extending to the right of the midline. It also was noted to extend into the vallecula. There was no involvement of the lateral pharyngeal wall or the larynx. The esophagus was noted to be free of lesions. Biopsy showed infiltrating moderately differentiated squamous cell carcinoma which was confirmed to be HPV positive. I had seen him initially on 04/19/2020. Staging PET/CT on 04/28/2020 showed a 2.4 x 1.7 cm left base of tongue mass with SUV 24.5, consistent with primary malignancy. There were FDG positive nodes from cervical levels II through IV and V levels on the left consistent with local metastatic disease. A 1.2 cm right level 2A node had SUV 4.2 indicating a high probability of contralateral cervical disease. A subpleural solid nodule in the lateral left upper lobe measuring 8 mm had SUV 1.9, suspicious but not definitive for distant metastatic disease. A 2.8 x 1.5 cm subcarinal lymph node had SUV 5.3, suspicious for metastatic disease. Smaller FDG positive nodes in the right pretracheal and subaortic territories were felt to be most likely reactive. He was referred to Dr. Kingsley. On 05/15/2020 he underwent bronchoscopy/EBUS with transbronchial FNA biopsy of station 7 and station 4R lymph nodes. Pathology from both sites showed reactive lymph node tissue with no evidence of malignancy. With those findings, he was recommended to undergo radiation concurrently with standard high-dose cisplatin chemotherapy. He began cycle 1 of cisplatin at 100 mg/m??? by IV infusion concurrently with radiation on 05/31/2020. He experienced no acute toxicity with the initial cisplatin infusion. Her further chemotherapy was held due to neutropenia. He completed radiation on 06/19/2020 to a total dose of 6540 cGy. He then continued with radiation. At his day 22 visit he had moderately severe neutropenia with absolute neutrophil count at just under 1000, and his second dose of cisplatin was deferred. Subsequent to that visit, he began having more difficulty with swallowing and with oral intake, and he did opt undergo placement of the PEG tube. He was able to continue his radiation, and he proceeded with cycle 2 of cisplatin 100 mg/m??? by IV infusion on 07/03/2020. On 07/16/2020 he was admitted to the hospital with acute upper GI bleeding. His EGD showed multiple benign-appearing ulcers in the duodenum, which appeared to be the likely source for the GI bleed, though no active bleeding was apparent at the time of the procedure. During the hospitalization he became neutropenic, but it resolved uneventfully on antibiotic coverage with cefepime and Levaquin. During the hospitalization, he was able to resume his radiation, and he completed treatment on 07/23/2020 to a total dose of [address] on 08/20/2020 showed significant improvement in the cervical chain lymphadenopathy with the largest persistent lymph node measuring 1.7 x 1.6 cm at level III. There appeared to be complete resolution of the left tongue base neoplasm. A restaging PET/CT on 11/24/2020 showed resolution of the base of tongue mass with FDG negative, subcentimeter left sided cervical lymph nodes. The right cervical level 2A node was no longer visualized. A 9 mm left upper lobe pulmonary nodule with SUV 2.3 was noted to have progressed from the prior study and also noted were multiple new bilateral pulmonary nodules, consistent with malignancy. These included a 1 cm anterior medial left upper lobe nodule with SUV 6.7 and a 1.1 cm right upper lobe nodule with SUV 6.4. With those findings he had further evaluation with a next generation sequencing study. It showed no actionable mutations, but the PD-L1 was positive at 10% and the tumor mutation burden was high at 11, suggesting potential benefit with immunotherapy. On 12/24/2020 he began cycle 1 of treatment with pembrolizumab. He tolerated it with no adverse effects. He then continued treatment at 3-week intervals. As of 03/04/2021 he completed his 4th cycle. I had seen him for a follow-up visit on 03/25/2021. He was feeling very weak generally. His ECOG score had declined to 3. He also had very poor appetite. He was noted to have a weight loss of 35 pounds since December. He was having a lot of intestinal gas and he also reported having pain in his right lower quadrant area. He had some constipation, but no diarrhea. His treatment was put on hold, and he was given IV hydration. I also opted to give him steroid therapy, but with his known diabetes, it was limited to a relatively low dose of prednisone. During follow-up his symptoms persisted, and on 04/11/2021 he was admitted to the hospital after his CT pulmonary angiogram reported presence of left upper and right lower lobe pulmonary emboli. Also noted were numerous bilateral metastatic pulmonary nodules, the majority of which were either decreased in size or resolved. One was noted to have increased from 10 to 15 mm in the right upper lobe. There was also increasing mediastinal and hilar lymphadenopathy with the largest node at the left hilum measuring 1.6 cm. There was evidence for diffuse air distention throughout the colon felt to be most likely an ileus pattern. He began on anticoagulation with apixaban and at that point he also was placed on higher dose steroid therapy. I had seen him for a follow-up visit on 04/23/2021. He was still weak, but feeling a little better. At that point I had him gradually taper off prednisone, and I also had him start citalopram for depression. His restaging PET/CT on 05/04/2021 showed improvement or resolution in the majority of the pulmonary nodules, though with a right upper lobe nodule increasing in size from 1.1 to 1.7 cm with SUV 6.7. There was development of multiple new mediastinal lymph nodes including a left paratracheal region node measuring 1.7 cm with SUV 11.8, suspicious for disease progression. His repeat chest CT on 06/13/2021 showed significant progression in the size of bilateral pulmonary nodules as well as significant progression of the lymphadenopathy within the chest. The following day he was seen in the emergency room after he became hypotensive during his physical therapy treatment. He was given hydration and discharged home. He was seen for follow-up on 07/01/2021. At that point he was still very weak generally, and his performance status remained poor. He indicated a desire to continue further treatment, though his options appeared to be very limited. Subsequent to that visit, he continued getting outpatient IV hydration, which did help him feel better. As of his follow-up visit on 07/11/2021 he was continuing to show gradual improvement, and we opted to continue with symptomatic/supportive care measures. He has a history of having previously undergone radical prostatectomy for prostate cancer. He also has a prior history of ITP. His other medical illnesses include hypertension, hyperlipidemia, and type 2 diabetes. He has a past history of smoking, but only for about 6 years. He quit smoking approximately 40 years ago. He had also chewed tobacco, but only for about 1 or 2 years. INTERIM HISTORY: Restaging CT scans on 09/10/2021 showed progression of metastatic disease within the chest with multiple new and enlarging pulmonary nodules. Prominent mediastinal, peribronchial, and left hilar lymphadenopathy appeared stable. There were small pleural effusions bilaterally, greater on the left, which did appear to have worsened. There was no evidence of metastatic disease in the abdomen or pelvis. With those findings, he opted to restart immunotherapy with pembrolizumab. He continued with his 5th cycle of treatment on 10/17/2021. He tolerated without significant toxicity, and he continued treatment at 3-week intervals. As of 12/19/2021 he completed his [address]th cycle. Restaging CT scans of the chest, abdomen, and pelvis on 01/01/2022 showed significant progression of metastatic masses and nodules throughout both lungs compared to the September 2021 study. The largest confluent mass in the right upper lobe measured 4.0 x 2.9 cm. There was also significant progression of lymphadenopathy including a large mass in the left paratracheal region extending into the AP window measuring 2.0 x 4.4 cm. A large solid mass with lobulated borders was noted to invade into the anterior mediastinum on the left measuring 6.7 x 2.9 cm. I had seen him for a follow-up visit on 01/09/2022. Given the CT findings, he was recommended to stop the pembrolizumab. We discussed the possibility of contributing treatment with a second line chemotherapy regimen versus transitioning to symptomatic/supportive care and hospice. He was advised that the success rate with further chemotherapy would be low, and that there would be potential for significant treatment-related toxicity. That said, he opted to continue with more treatment. On 01/27/2022 he began cycle 1 of second line chemotherapy with carboplatin/5-FU in combination with cetuximab. He experienced no acute toxicity with the initial infusions. He is seen for a day 8 toxicity check. He has developed a skin eruption, as expected. He is very weak now, to the point that he is virtually unable to walk. His ECOG score is 3. His appetite is poor. He is not having fever or night sweats. He did develop a bad headache after his treatment. It seems to have resolved now, and it may have been related to his antiemetic regimen. He is complaining of sore mouth. He started fluconazole yesterday for suspected Sanjuana. He continues to have hoarseness. He coughs a lot, mainly just to clear his throat. His breathing is okay. He is not having chest pain. He is not complaining of nausea, but he has had some belching. Bowel function has been okay. He has not had diarrhea. His urination has slowed down. He has had some joint pain, mainly in the wrists. He has orthostatic lightheadedness. He has no numbness/paresthesia or other focal neurologic symptoms. Medications: busPIRone HCl 0.5 Tablet (of 5 mg) Oral b.i.d., Citalopram Hydrobromide 1 (40 mg) Tablet Oral daily, D3-1000 1 Tablet (of 25 mcg ) Oral daily, Daily Multiple Vitamins 1 Tablet Oral daily, Eliquis 1 (5 mg) Tablet Oral daily, Euthyrox 1 (100 mcg) Tablet Oral at bedtime, Ferrous Sulfate 1 (325 (65 fe) mg) Tablet Oral daily, Flonase Allergy Relief Suspension Nasal, Furosemide 1 Tablet (of 40 mg) Oral daily PRN, metFORMIN HCl 0.5 - 1 Tablet (of 1000 mg) Oral b.i.d., Omeprazole 1 Capsule (of 20 mg) Capsule Delayed Release Oral daily, Potassium Chloride ER 1 Tablet (of 20 meq) Capsule, controlled release Oral daily, Pravastatin Sodium 1 Tablet (of 80 mg) Oral daily, Singulair 1 Tablet (of 10 mg) Oral b.i.d., Vitamin B 12 1 Tablet Oral once Allergies: Keflex, Penicillins, and Pneumococcal 13-[place] Conj Vacc. Vital Signs: Performed on Feb 04, 2022 09:11 Height - 72.00 in Weight - 172.8 lbs (LOW) BSA - 2.00 sq.m BMI - 23.44 Temperature - 97.2 F (LOW) Pulse - 86 /min Respiration - 17 /min BP - 147/71 mm(hg) (HIGH) O2 Sat - 98 % Pain - 8 Fatigue - 7 Physical Examination: Constitutional - He appears generally weak, Eyes - Sclerae nonicteric. Conjunctivae clear, ENMT - There is mild residual mucositis involving the buccal mucosa. Candidiasis appears to have resolved, Hematologic/Lymphatic - There is no cervical, clavicular, or axillary adenopathy noted, Respiratory - Lungs sound clear with diminished air movement bilaterally, Cardiovascular - Heart rhythm is regular. There is no murmur, gallop, or rub noted, Abdomen - Mildly distended and tympanic. The subcutaneous nodules in the mid and upper abdomen appear unchanged. Liver is not enlarged. There is no abdominal mass or ascites noted and there is no inguinal adenopathy, Extremities - There is 1-2+ lower extremity edema, Integumentary - He has developed a maculopapular skin eruption, mainly on the facial area, Neurologic - No focal neurologic deficits noted. Lab/Imaging: Test performed on Feb 04, 2022 08:15 Sodium 132 mmol/L Potassium 4.7 mmol/L Chloride 97 mmol/L CO2 24 mmol/L Anion Gap 15.7 BUN 16 mg/dL Creatinine 0.8 mg/dL Cr Clearance (Est) 95.0800 mL/min Glucose 130 mg/dL Osmolality - Calculated 277 mOsm/kg Calcium 10.0 mg/dL Protein, Total 6.7 g/dL Albumin 4.1 g/dL Globulin 2.6 g/dL Bilirubin, Total 0.3 mg/dL ALT (SGPT) 23 U/L AST (SGOT) 35 U/L Alkaline Phosphatase 110 IU/L WBC 4.5 10 3/uL RBC 3.96 10 6/uL HGB 12.1 g/dL HCT 36.6 % MCV 92.4 fl MCH 30.6 pg MCHC 33.1 g/dL RDW 13.7 % Platelet Count 226 10 3/cmm MPV 10.7 fL Neutrophils 2.26 10 3/uL Lymphocytes 1.3 10 3/uL Monocytes 0.3 10 3/uL Eosinophils 0.5 10 3/uL Basophils 0.1 10 3/uL Neutrophil % 50.5 % Lymphocyte % 28.2 % Monocyte % 7.6 % Eosinophil % 11.2 % Basophils % 1.8 % NRBC % 0 % Problem List: 1. HPV positive squamous cell carcinoma involving left base of tongue, by clinical evaluation stage II (T2, N2, M0) at initial diagnosis in March 2020. He had subsequent progression to stage IV with PET/CT evidence of pulmonary metastatic disease bilaterally. 2. Hypertension. 3. Hyperlipidemia. 4. Type 2 diabetes. 5. He has chronic venous insufficiency. 6. History of prostate cancer for which he underwent radical prostatectomy approximately 5 years ago. 7. 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 Problems Addressed with this Encounter and Plan: Patient with HPV positive squamous cell carcinoma involving left base of tongue, by clinical evaluation stage II (T2, N2b, M0) at initial diagnosis in March 2020. He underwent direct laryngoscopy with biopsy and esophagoscopy on 04/05/2020. Staging PET/CT 04/28/2020 showed a 2.8 x 1.5 subcarinal node with SUV 5.3, suspicious for metastatic disease. Smaller FDG positive nodes in the right paratracheal and subaortic territories appeared to be most likely reactive. On 05/15/2020 he underwent bronchoscopy/EBUS with transbronchial FNA biopsy of station 7 and station 4R lymph nodes. Pathology from both sites showed reactive lymph node tissue with no evidence of malignancy. With those findings, he was recommended to undergo radiation concurrently with standard high-dose cisplatin chemotherapy. He began cycle 1 of cisplatin 100 mg/m??? IV infusion concurrently with radiation on 05/31/2020. He tolerated the initial cisplatin infusion with no acute toxicity. At day 22 he had developed moderately severe neutropenia, ANC 1000, and his 2nd cycle of cisplatin was deferred. During that time he had undergone placement of a PEG tube, and he began nutritional support with tube feeding. He was able to continue his radiation, and he was then given cycle 2 of cisplatin on 07/03/2020. On 07/16/2020 he was admitted to the hospital with acute GI bleed, determined by EGD to be due to duodenal ulcers. He stabilized with conservative management. He again became neutropenic, but with uneventful recovery. He was able to continue radiation, and he completed his treatment on 07/23/2020 to a total dose of 7000 cGy. He did appear to have a very good response by follow-up CT in August 2020. Restaging PET/CT on 11/24/2019 showed FDG positive pulmonary nodules bilaterally, consistent with metastatic disease. A next generation sequencing study showed no actionable mutations, but his tumor was found to be PD-L1 positive at 10% with tumor mutation burden high at 11%, suggesting possible benefit with immunotherapy. He then began cycle 1 of pembrolizumab on 12/24/2020, and he then continued pembrolizumab 200 mg by IV infusion every 3 weeks. As of 03/04/2021 he completed his 4th cycle. He then had a significant decline in his general condition with progressive weakness and declining performance status, and his further treatment was put on hold. On 04/11/2021 he was admitted to the hospital after his CT pulmonary angiogram reported presence of left upper and right lower lobe pulmonary emboli. Also noted were numerous bilateral metastatic pulmonary nodules, the majority of which were either decreased in size or resolved. One was noted to have increased from 10 to 15 mm in the right upper lobe. There was also increasing mediastinal and hilar lymphadenopathy with the largest node at the left hilum measuring 1.6 cm. There was evidence for diffuse air distention throughout the colon felt to be most likely an ileus pattern. He began on anticoagulation with apixaban and at that point he also was placed on higher dose steroid therapy. During follow-up he continued to have very marginal performance status. The exact cause of his decline was uncertain. However, as it had occurred while on immunotherapy with pembrolizumab, it was presumed to be treatment related. His repeat CT scan on 06/13/2021 showed further progression of his metastatic disease. The following day he required treatment in the emergency room for orthostatic hypotension. He was seen for a follow-up visit on 07/01/2021. He remained very weak generally. He had indicated a desire to continue further treatment, though with very poor performance status his options appeared to be very limited. Ultimately he opted to just continue with symptomatic/supportive care measures. He has continued IV outpatient hydration, as it did provide significant symptomatic benefit for him. His restaging CT scans on 09/10/2021 showed progression of metastatic disease within the chest with multiple new and enlarging pulmonary nodules. With those findings, he opted to restart immunotherapy with pembrolizumab. He continued with his 5th cycle on 10/17/2021. He tolerated it well and then proceeded with cycle 6 on 11/07/2021, with cycle 7 on 11/28/2021 and with cycle 8 on 12/19/2021. His restaging CT scans on 01/01/2022 show significant progression of pulmonary metastatic disease and metastatic lymph node disease in the chest and upper abdomen. He continues to have very poor performance status. He has recent onset of hoarseness, which is almost certainly due to left vocal cord paralysis. I had seen him for a follow-up visit on 01/09/2022. At that point he was showing further decline in performance status. He had developed hoarseness, which appeared to be almost certainly due to left vocal cord paralysis. I had discussed options for further management. He decided to proceed with a trial of second line chemotherapy. On 01/27/2022 he began cycle 1 of carboplatin/5-FU in combination with cetuximab. He experienced no acute toxicity with the initial infusions. However, he has since then had increasing weakness, to the point that he is now virtually unable to ambulate. He is having a skin eruption with the cetuximab, as expected, and he is having some mucositis from the chemotherapy. His overall condition is very poor. He is being given IV hydration today. He continues treatment with acyclovir and fluconazole for the mucositis. He will return in 1 week. Depending on how he is feeling, he will have the option to have day 15 cetuximab, as the major associated side effect is just the skin eruption. I will tentatively plan a follow-up visit in 3 weeks, and we can decide then whether to attempt any further chemotherapy. In the meantime, he has gotten significantly weaker, his is having more difficulty caring for him at home. As such, I will [facility]. Signed By: Devendra Reich M.D. <<Signature on File>>
[2022-02-14 10:05] LABS: Basophils % 0.7 %; Eosinophils # 0.4 10^3/uL (0.0-0.8); Eosinophils % 13.2 %; Hematocrit 35.5 % (42.0-52.0); Hemoglobin 11.9 g/dL (11.7-16.6); Lymphocytes # 1.4 10^3/uL (0.8-4.8); Lymphocytes % 49.8 %; Mean Corpuscular HGB Conc 33.5 g/dL (30.0-36.0); Mean Corpuscular Hemoglobin 31.3 pg (28.0-34.0); Mean Corpuscular Volume 93.4 fl (80-94); Mean Platelet Volume 11.4 fL (7.4-10.4); Monocytes # 0.5 10^3/uL (0.2-0.9); Monocytes % 16.5 %; Neutrophils % 19.4 %; Nucleated Red Blood Cells % 0.7 %; Platelet Count 66 10^3/cmm (130-400); Red Cell Distribution Width 14.7 % (12.1-15.1); White Blood Count 2.7 10^3/uL (4.0-10.0)
[2022-02-14 10:24] LABS: Neutrophils # 0.53 10^3/uL (1.8-7.7)
[2022-02-17] MEDS: sodium chloride 0.9% 500 ML 999 ML IV (09:21)
[2022-02-24 08:50] LABS: Basophils # 0.1 10^3/uL (0.0-0.1); Basophils % 1.3 %; Eosinophils # 0.2 10^3/uL (0.0-0.8); Eosinophils % 3.9 %; Hematocrit 34.6 % (42.0-52.0); Hemoglobin 11.4 g/dL (11.7-16.6); Lymphocytes % 36.3 %; Mean Corpuscular HGB Conc 32.9 g/dL (30.0-36.0); Mean Corpuscular Volume 97.2 fl (80-94); Mean Platelet Volume 10.9 fL (7.4-10.4); Monocytes # 0.8 10^3/uL (0.2-0.9); Monocytes % 14.6 %; Neutrophils # 2.36 10^3/uL (1.8-7.7); Neutrophils % 43.7 %; Nucleated Red Blood Cells % 0 %; Platelet Count 339 10^3/cmm (130-400); Red Blood Count 3.56 10^6/uL (4.1-5.3); White Blood Count 5.4 10^3/uL (4.0-10.0)
[2022-02-24 09:09] LABS: Alanine Aminotransferase 13 U/L (0-41); Albumin Level 3.9 g/dL (3.5-5.2); Alkaline Phosphatase 113 IU/L (40-130); Aspartate Amino Transferase 21 U/L (0-40); Blood Urea Nitrogen 16 mg/dL (8-23); Calcium 9.4 mg/dL (8.5-10.5); Carbon Dioxide 23 mmol/L (22-29); Chloride 102 mmol/L (98-107); Globulin 3.1 g/dL (1.3-4.6); Glucose 152 mg/dL (65-115); Osmolality Calculated 288 mOsm/kg (285-295); Sodium 137 mmol/L (136-145); Total Bilirubin 0.3 mg/dL (0.15-1.2)
[2022-02-24] MEDS: sodium chloride 0.9% 1,000 ML 999 ML IV (10:37)
[2022-02-24] MEDS: fosaprepitant 150 MG in sodium chloride 0.9% 150 ML 300 MG IV (10:59)
[2022-02-24] MEDS: famotidine 20 mg/2 mL INJ IVP (11:00)
[2022-02-24] MEDS: diphenhydrAMINE 50 mg/mL SDV 1mL 25 MG IV (11:30)
[2022-02-24] MEDS: palonosetron 0.25 mg/5 mL SDV IV (11:34)
--- NOTE | 2022-02-25 08:32 | ONC FU_ITS ---
Dr. Reich Patient Follow-Up Note Patient: Demarcus Maldonado < Unit #: [id number]: 1950 Dicatated By: Devendra Reich M.D.Date of Visit:Feb 24, 2022 Onc Med Follow-up/Prog Note Chief Complaint: Base of tongue cancer. 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 He had subsequent progression to stage IV with PET/CT evidence of pulmonary metastatic disease bilaterally. He had presented with left cervical lymphadenopathy. He had associated pain in the left side of the neck and throat. He had been seen initially by Dr. James. CT of the neck on 03/27/2020 showed a soft tissue enhancing mass centered in the left tongue base along the lingual tonsil. It was noted to extend over a length of 2.6 x 2.2 x 1.3 cm. There appeared to be enhancement across the midline and there was suspected involvement in the lingular surface of the right tongue. Also noted was enlargement and abnormal enhancement and thickening of the uvula. There was extensive, confluent adenopathy i involving the left neck. The largest cluster of nodes measured 8.4 cm in length by 2.8 cm, beginning at the level of the hyoid bone and extending inferiorly to the supraclavicular region. Additional clusters of lymph nodes were present at level IIa, IIb, III, Va, and in the supraclavicular area. The largest necrotic lymph node measured 2.5 x 2.2 cm at the level of the thyroid cartilage. Smaller lymph nodes were noted along the right cervical chain, but without definite adenopathy. The lung apices were noted to be clear. He was seen by Dr. Praneeth Thompson on 03/30/2020. His exam showed an exophytic mass and papillomatous mass at the left tongue base as well as papillomatous mass at the left paramedian tongue base. The remainder of the oral cavity and oropharyngeal exam was reported to be normal. The laryngeal exam showed erythema and edema of the arytenoid mucosa. He then underwent direct laryngoscopy with biopsy and esophagoscopy on 04/05/2020. Findings included an exophytic lesion involving the left tongue base extending to the right of the midline. It also was noted to extend into the vallecula. There was no involvement of the lateral pharyngeal wall or the larynx. The esophagus was noted to be free of lesions. Biopsy showed infiltrating moderately differentiated squamous cell carcinoma which was confirmed to be HPV positive. I had seen him initially on 04/19/2020. Staging PET/CT on 04/28/2020 showed a 2.4 x 1.7 cm left base of tongue mass with SUV 24.5, consistent with primary malignancy. There were FDG positive nodes from cervical levels II through IV and V levels on the left consistent with local metastatic disease. A 1.2 cm right level 2A node had SUV 4.2 indicating a high probability of contralateral cervical disease. A subpleural solid nodule in the lateral left upper lobe measuring 8 mm had SUV 1.9, suspicious but not definitive for distant metastatic disease. A 2.8 x 1.5 cm subcarinal lymph node had SUV 5.3, suspicious for metastatic disease. Smaller FDG positive nodes in the right pretracheal and subaortic territories were felt to be most likely reactive. He was referred to Dr. Kingsley. On 05/15/2020 he underwent bronchoscopy/EBUS with transbronchial FNA biopsy of station 7 and station 4R lymph nodes. Pathology from both sites showed reactive lymph node tissue with no evidence of malignancy. With those findings, he was recommended to undergo radiation concurrently with standard high-dose cisplatin chemotherapy. He began cycle 1 of cisplatin at 100 mg/m??? by IV infusion concurrently with radiation on 05/31/2020. He experienced no acute toxicity with the initial cisplatin infusion. Her further chemotherapy was held due to neutropenia. He completed radiation on 06/19/2020 to a total dose of 6540 cGy. He then continued with radiation. At his day 22 visit he had moderately severe neutropenia with absolute neutrophil count at just under 1000, and his second dose of cisplatin was deferred. Subsequent to that visit, he began having more difficulty with swallowing and with oral intake, and he did opt undergo placement of the PEG tube. He was able to continue his radiation, and he proceeded with cycle 2 of cisplatin 100 mg/m??? by IV infusion on 07/03/2020. On 07/16/2020 he was admitted to the hospital with acute upper GI bleeding. His EGD showed multiple benign-appearing ulcers in the duodenum, which appeared to be the likely source for the GI bleed, though no active bleeding was apparent at the time of the procedure. During the hospitalization he became neutropenic, but it resolved uneventfully on antibiotic coverage with cefepime and Levaquin. During the hospitalization, he was able to resume his radiation, and he completed treatment on 07/23/2020 to a total dose of [address] on 08/20/2020 showed significant improvement in the cervical chain lymphadenopathy with the largest persistent lymph node measuring 1.7 x 1.6 cm at level III. There appeared to be complete resolution of the left tongue base neoplasm. A restaging PET/CT on 11/24/2020 showed resolution of the base of tongue mass with FDG negative, subcentimeter left sided cervical lymph nodes. The right cervical level 2A node was no longer visualized. A 9 mm left upper lobe pulmonary nodule with SUV 2.3 was noted to have progressed from the prior study and also noted were multiple new bilateral pulmonary nodules, consistent with malignancy. These included a 1 cm anterior medial left upper lobe nodule with SUV 6.7 and a 1.1 cm right upper lobe nodule with SUV 6.4. With those findings he had further evaluation with a next generation sequencing study. It showed no actionable mutations, but the PD-L1 was positive at 10% and the tumor mutation burden was high at 11, suggesting potential benefit with immunotherapy. On 12/24/2020 he began cycle 1 of treatment with pembrolizumab. He tolerated it with no adverse effects. He then continued treatment at 3-week intervals. As of 03/04/2021 he completed his 4th cycle. I had seen him for a follow-up visit on 03/25/2021. He was feeling very weak generally. His ECOG score had declined to 3. He also had very poor appetite. He was noted to have a weight loss of 35 pounds since December. He was having a lot of intestinal gas and he also reported having pain in his right lower quadrant area. He had some constipation, but no diarrhea. His treatment was put on hold, and he was given IV hydration. I also opted to give him steroid therapy, but with his known diabetes, it was limited to a relatively low dose of prednisone. During follow-up his symptoms persisted, and on 04/11/2021 he was admitted to the hospital after his CT pulmonary angiogram reported presence of left upper and right lower lobe pulmonary emboli. Also noted were numerous bilateral metastatic pulmonary nodules, the majority of which were either decreased in size or resolved. One was noted to have increased from 10 to 15 mm in the right upper lobe. There was also increasing mediastinal and hilar lymphadenopathy with the largest node at the left hilum measuring 1.6 cm. There was evidence for diffuse air distention throughout the colon felt to be most likely an ileus pattern. He began on anticoagulation with apixaban and at that point he also was placed on higher dose steroid therapy. I had seen him for a follow-up visit on 04/23/2021. He was still weak, but feeling a little better. At that point I had him gradually taper off prednisone, and I also had him start citalopram for depression. His restaging PET/CT on 05/04/2021 showed improvement or resolution in the majority of the pulmonary nodules, though with a right upper lobe nodule increasing in size from 1.1 to 1.7 cm with SUV 6.7. There was development of multiple new mediastinal lymph nodes including a left paratracheal region node measuring 1.7 cm with SUV 11.8, suspicious for disease progression. His repeat chest CT on 06/13/2021 showed significant progression in the size of bilateral pulmonary nodules as well as significant progression of the lymphadenopathy within the chest. The following day he was seen in the emergency room after he became hypotensive during his physical therapy treatment. He was given hydration and discharged home. He was seen for follow-up on 07/01/2021. At that point he was still very weak generally, and his performance status remained poor. He indicated a desire to continue further treatment, though his options appeared to be very limited. Subsequent to that visit, he continued getting outpatient IV hydration, which did help him feel better. As of his follow-up visit on 07/11/2021 he was continuing to show gradual improvement, and we opted to continue with symptomatic/supportive care measures. He has a history of having previously undergone radical prostatectomy for prostate cancer. He also has a prior history of ITP. His other medical illnesses include hypertension, hyperlipidemia, and type 2 diabetes. He has a past history of smoking, but only for about 6 years. He quit smoking approximately 40 years ago. He had also chewed tobacco, but only for about 1 or 2 years. INTERIM HISTORY: Restaging CT scans on 09/10/2021 showed progression of metastatic disease within the chest with multiple new and enlarging pulmonary nodules. Prominent mediastinal, peribronchial, and left hilar lymphadenopathy appeared stable. There were small pleural effusions bilaterally, greater on the left, which did appear to have worsened. There was no evidence of metastatic disease in the abdomen or pelvis. With those findings, he opted to restart immunotherapy with pembrolizumab. He continued with his 5th cycle of treatment on 10/17/2021. He tolerated without significant toxicity, and he continued treatment at 3-week intervals. As of 12/19/2021 he completed his 8th cycle. Restaging CT scans of the chest, abdomen, and pelvis on 01/01/2022 showed significant progression of metastatic masses and nodules throughout both lungs compared to the September 2021 study. The largest confluent mass in the right upper lobe measured 4.0 x 2.9 cm. There was also significant progression of lymphadenopathy including a large mass in the left paratracheal region extending into the AP window measuring 2.0 x 4.4 cm. A large solid mass with lobulated borders was noted to invade into the anterior mediastinum on the left measuring 6.7 x 2.9 cm. I had seen him for a follow-up visit on 01/09/2022. Given the CT findings, he was recommended to stop the pembrolizumab. We discussed the possibility of contributing treatment with a second line chemotherapy regimen versus transitioning to symptomatic/supportive care and hospice. He was advised that the success rate with further chemotherapy would be low, and that there would be potential for significant treatment-related toxicity. That said, he opted to continue with more treatment. On 01/27/2022 he began cycle 1 of second line chemotherapy with carboplatin/5-FU in combination with cetuximab. He experienced no acute toxicity with the initial infusions. During subsequent follow-up he developed mucositis and he also developed the expected skin eruption with cetuximab. He did receive day 15 cetuximab, but at a reduced dosage. His blood counts then nadired at day 19 with absolute neutrophil count 500 and platelet count 66,000. He is seen for a follow-up visit. He continues to have very limited activity, but he is still doing exercises with physical therapy. ECOG score is 3. His appetite has been okay since his mucositis resolved. He does not have fever or night sweats. He currently is not complaining of sore mouth or throat, but he has ongoing problems with hoarseness. He does cough to clear his throat, but his breathing has been okay. He does not complain of chest pain. He is not having nausea. He does have some acid reflux and he has had constipation this past week. Bladder function has been okay. He has some pain in his knees, but no other joint or bone pain. He does not complain of headache or dizziness, and he has no focal neurologic symptoms. Medications: busPIRone HCl 0.5 Tablet (of 5 mg) Oral b.i.d., Citalopram Hydrobromide 1 (40 mg) Tablet Oral daily, D3-1000 1 Tablet (of 25 mcg ) Oral daily, Daily Multiple Vitamins 1 Tablet Oral daily, Euthyrox 1 (100 mcg) Tablet Oral at bedtime, Ferrous Sulfate 1 (325 (65 fe) mg) Tablet Oral daily, Flonase Allergy Relief Suspension Nasal, Furosemide 1 Tablet (of 40 mg) Oral daily PRN, metFORMIN HCl 0.5 - 1 Tablet (of 1000 mg) Oral b.i.d., Omeprazole 1 Capsule (of 20 mg) Capsule Delayed Release Oral daily, Potassium Chloride ER 1 Tablet (of 20 meq) Capsule, controlled release Oral daily, Pravastatin Sodium 1 Tablet (of 80 mg) Oral daily, Singulair 1 Tablet (of 10 mg) Oral b.i.d., Vitamin B 12 1 Tablet Oral once Allergies: Keflex, Penicillins, and Pneumococcal 13-[place] Conj Vacc. Vital Signs: Performed on Feb 24, 2022 10:41 Height - 72.00 in Weight - 172.4 lbs (LOW) BSA - 2.00 sq.m BMI - 23.38 Temperature - 98.6 F Pulse - 91 /min Respiration - 18 /min BP - 134/77 mm(hg) O2 Sat - 96 % Pain - 0 Fatigue - 7 Physical Examination: Constitutional - He appears generally weak, Eyes - Sclerae nonicteric. Conjunctivae clear, ENMT - No lesions noted in the oral cavity, Hematologic/Lymphatic - No cervical, clavicular, or axillary adenopathy noted, Respiratory - Lungs sound clear with diminished air movement bilaterally, Cardiovascular - Heart rhythm is regular. There is no murmur, gallop, or rub noted, Abdomen - Mildly distended. The subcutaneous nodules in the mid and upper abdomen appear unchanged. Liver is not enlarged. There is no abdominal mass or ascites noted and there is no inguinal adenopathy, Extremities - There is just slight lower extremity edema, Integumentary - There is a mild residual maculopapular skin eruption in the facial area, Neurologic - No focal neurologic deficits noted. Lab/Imaging: Test performed on Feb 24, 2022 09:58 Creatinine 0.8 mg/dL Cr Clearance (Est) 95.08 mL/min Test performed on Feb 24, 2022 08:31 Sodium 137 mmol/L Potassium 4.0 mmol/L Chloride 102 mmol/L CO2 23 mmol/L Anion Gap 16.0 BUN 16 mg/dL Glucose 152 mg/dL Osmolality - Calculated 288 mOsm/kg Calcium 9.4 mg/dL Protein, Total 7.0 g/dL Albumin 3.9 g/dL Globulin 3.1 g/dL Bilirubin, Total 0.3 mg/dL ALT (SGPT) 13 U/L AST (SGOT) 21 U/L Alkaline Phosphatase 113 IU/L WBC 5.4 10 3/uL RBC 3.56 10 6/uL HGB 11.4 g/dL HCT 34.6 % MCV 97.2 fl MCH 32.0 pg MCHC 32.9 g/dL RDW 17.0 % Platelet Count 339 10 3/cmm MPV 10.9 fL Neutrophils 2.36 10 3/uL Lymphocytes 2.0 10 3/uL Monocytes 0.8 10 3/uL Eosinophils 0.2 10 3/uL Basophils 0.1 10 3/uL Neutrophil % 43.7 % Lymphocyte % 36.3 % Monocyte % 14.6 % Eosinophil % 3.9 % Basophils % 1.3 % NRBC % 0 % Problem List: 1. HPV positive squamous cell carcinoma involving left base of tongue, by clinical evaluation stage II (T2, N2, M0) at initial diagnosis in March 2020. He had subsequent progression to stage IV with PET/CT evidence of pulmonary metastatic disease bilaterally. 2. Hypertension. 3. Hyperlipidemia. 4. Type 2 diabetes. 5. He has chronic venous insufficiency. 6. History of prostate cancer for which he underwent radical prostatectomy approximately 5 years ago. 7. 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 Problems Addressed with this Encounter and Plan: Patient with HPV positive squamous cell carcinoma involving left base of tongue, by clinical evaluation stage II (T2, N2b, M0) at initial diagnosis in March 2020. He underwent direct laryngoscopy with biopsy and esophagoscopy on 04/05/2020. Staging PET/CT 04/28/2020 showed a 2.8 x 1.5 subcarinal node with SUV 5.3, suspicious for metastatic disease. Smaller FDG positive nodes in the right paratracheal and subaortic territories appeared to be most likely reactive. On 05/15/2020 he underwent bronchoscopy/EBUS with transbronchial FNA biopsy of station 7 and station 4R lymph nodes. Pathology from both sites showed reactive lymph node tissue with no evidence of malignancy. With those findings, he was recommended to undergo radiation concurrently with standard high-dose cisplatin chemotherapy. He began cycle 1 of cisplatin 100 mg/m??? IV infusion concurrently with radiation on 05/31/2020. He tolerated the initial cisplatin infusion with no acute toxicity. At day 22 he had developed moderately severe neutropenia, ANC 1000, and his 2nd cycle of cisplatin was deferred. During that time he had undergone placement of a PEG tube, and he began nutritional support with tube feeding. He was able to continue his radiation, and he was then given cycle 2 of cisplatin on 07/03/2020. On 07/16/2020 he was admitted to the hospital with acute GI bleed, determined by EGD to be due to duodenal ulcers. He stabilized with conservative management. He again became neutropenic, but with uneventful recovery. He was able to continue radiation, and he completed his treatment on 07/23/2020 to a total dose of 7000 cGy. He did appear to have a very good response by follow-up CT in August 2020. Restaging PET/CT on 11/24/2019 showed FDG positive pulmonary nodules bilaterally, consistent with metastatic disease. A next generation sequencing study showed no actionable mutations, but his tumor was found to be PD-L1 positive at 10% with tumor mutation burden high at 11%, suggesting possible benefit with immunotherapy. He then began cycle 1 of pembrolizumab on 12/24/2020, and he then continued pembrolizumab 200 mg by IV infusion every 3 weeks. As of 03/04/2021 he completed his 4th cycle. He then had a significant decline in his general condition with progressive weakness and declining performance status, and his further treatment was put on hold. On 04/11/2021 he was admitted to the hospital after his CT pulmonary angiogram reported presence of left upper and right lower lobe pulmonary emboli. Also noted were numerous bilateral metastatic pulmonary nodules, the majority of which were either decreased in size or resolved. One was noted to have increased from 10 to 15 mm in the right upper lobe. There was also increasing mediastinal and hilar lymphadenopathy with the largest node at the left hilum measuring 1.6 cm. There was evidence for diffuse air distention throughout the colon felt to be most likely an ileus pattern. He began on anticoagulation with apixaban and at that point he also was placed on higher dose steroid therapy. During follow-up he continued to have very marginal performance status. The exact cause of his decline was uncertain. However, as it had occurred while on immunotherapy with pembrolizumab, it was presumed to be treatment related. His repeat CT scan on 06/13/2021 showed further progression of his metastatic disease. The following day he required treatment in the emergency room for orthostatic hypotension. He was seen for a follow-up visit on 07/01/2021. He remained very weak generally. He had indicated a desire to continue further treatment, though with very poor performance status his options appeared to be very limited. Ultimately he opted to just continue with symptomatic/supportive care measures. He has continued IV outpatient hydration, as it did provide significant symptomatic benefit for him. His restaging CT scans on 09/10/2021 showed progression of metastatic disease within the chest with multiple new and enlarging pulmonary nodules. With those findings, he opted to restart immunotherapy with pembrolizumab. He continued with his 5th cycle on 10/17/2021. He tolerated it well and then proceeded with cycle 6 on 11/07/2021, with cycle 7 on 11/28/2021 and with cycle 8 on 12/19/2021. His restaging CT scans on 01/01/2022 show significant progression of pulmonary metastatic disease and metastatic lymph node disease in the chest and upper abdomen. He continues to have very poor performance status. He has recent onset of hoarseness, which is almost certainly due to left vocal cord paralysis. I had seen him for a follow-up visit on 01/09/2022. At that point he was showing further decline in performance status. He had developed hoarseness, which appeared to be almost certainly due to left vocal cord paralysis. I had discussed options for further management. He decided to proceed with a trial of second line chemotherapy. On 01/27/2022 he began cycle 1 of carboplatin/5-FU in combination with cetuximab. He experienced no acute toxicity with the initial infusions. He subsequently developed significant mucositis and he developed expected skin eruption with the cetuximab. He was able to complete his day 15 cetuximab, but at a reduced dosage. His blood counts nadired at day 19 with moderately severe neutropenia and thrombocytopenia. At this point he continues to have marginal performance status, but he has had adequate recovery from his 1st cycle of treatment. He will proceed now with cycle 2 of carboplatin/5-FU in combination with cetuximab. He will be given a 20% reduction in the chemotherapy dosages and the cetuximab will be continued at the reduced dosage. He will be given additional IV hydration as needed. His blood counts and chemistries will be monitored weekly. He will return in 2 weeks for day 15 cetuximab, and he will be scheduled for a follow-up visit in 4 weeks. He will have a restaging chest CT prior to that visit. In the meantime, he will continue empiric low-dose steroid therapy with prednisone 10 mg twice daily. Signed By: Devendra Reich M.D. <<Signature on File>>
== END 2022-03-01 23:59 | disposition home or self-care (01) ==
LOC: ONCMED 06:40
PROVIDERS: Internal Medicine Medical Oncology; PCP Family Medicine; Visit Provider Radiology Radiation Oncology
DX: Z51.12 Encounter for antineoplastic immunotherapy (principal); Z51.11 Encounter for antineoplastic chemotherapy; C01 Malignant neoplasm of base of tongue; C78.01 Secondary malignant neoplasm of right lung; C78.02 Secondary malignant neoplasm of left lung; Z85.46 Personal history of malignant neoplasm of prostate; Z90.81 Acquired absence of spleen; Z79.899 Other long term (current) drug therapy
CPT/HCPCS: 80053; 85025; 96360; 96367; 96368; 96375; 96413; 96416; 96417; 96523; 99215; J1100; J1200; J1453; J2469; J3490; J7030; J7040; J7050; J9045; J9055; J9190

== ENCOUNTER 2022-03-02 06:00 | Outpatient (RCR) | payer MEDICARE, OTHER, SELFPAY | END 2022-04-01 23:59 | disposition home or self-care (01) | LOC: SPT 06:00 | PROVIDERS: PCP Family Medicine; Visit Provider Internal Medicine Medical Oncology | DX: M62.81 Muscle weakness (generalized) (principal) | CPT/HCPCS: 97110 ==

== ENCOUNTER 2022-04-01 08:00 | Oncology outpatient (recurring) (ONCR) | payer MEDICARE, OTHER, SELFPAY ==
[2022-03-05 09:26] LABS: Basophils # 0.1 10^3/uL (0.0-0.1); Basophils % 1.7 %; Eosinophils # 0.2 10^3/uL (0.0-0.8); Eosinophils % 3.6 %; Hemoglobin 10.5 g/dL (11.7-16.6); Lymphocytes # 1.5 10^3/uL (0.8-4.8); Mean Corpuscular HGB Conc 32.8 g/dL (30.0-36.0); Mean Corpuscular Hemoglobin 32.1 pg (28.0-34.0); Mean Corpuscular Volume 97.9 fl (80-94); Mean Platelet Volume 10.9 fL (7.4-10.4); Monocytes # 0.4 10^3/uL (0.2-0.9); Monocytes % 10.7 %; Neutrophils # 1.91 10^3/uL (1.8-7.7); Neutrophils % 46.3 %; Nucleated Red Blood Cells % 0.7 %; Platelet Count 211 10^3/cmm (130-400); Red Blood Count 3.27 10^6/uL (4.1-5.3); Red Cell Distribution Width 17.2 % (12.1-15.1); White Blood Count 4.1 10^3/uL (4.0-10.0)
[2022-03-05] MEDS: sodium chloride 0.9% 1,000 ML 999 ML IV (09:29)
[2022-03-05 09:55] LABS: Anion Gap 15.1 (5-19); Blood Urea Nitrogen 15 mg/dL (8-23); Calcium 9.6 mg/dL (8.5-10.5); Carbon Dioxide 23 mmol/L (22-29); Chloride 102 mmol/L (98-107); Glucose 146 mg/dL (65-115); Osmolality Calculated 285 mOsm/kg (285-295); Potassium 4.1 mmol/L (3.5-5.1); Sodium 136 mmol/L (136-145)
[2022-03-05 11:41] VITALS: BP 124/68; PULSE 70; TEMP 36.9; O2SAT 99
[2022-03-10 09:24] LABS: Basophils % 0.9 %; Eosinophils # 0.2 10^3/uL (0.0-0.8); Eosinophils % 3.8 %; Lymphocytes % 42.8 %; Mean Corpuscular HGB Conc 33.3 g/dL (30.0-36.0); Mean Corpuscular Hemoglobin 32.5 pg (28.0-34.0); Mean Corpuscular Volume 97.6 fl (80-94); Mean Platelet Volume 12.1 fL (7.4-10.4); Monocytes # 0.6 10^3/uL (0.2-0.9); Monocytes % 12.6 %; Neutrophils # 1.87 10^3/uL (1.8-7.7); Neutrophils % 39.7 %; Nucleated Red Blood Cells % 0.6 %; Platelet Count 112 10^3/cmm (130-400); Red Blood Count 3.38 10^6/uL (4.1-5.3); Red Cell Distribution Width 18.7 % (12.1-15.1); White Blood Count 4.7 10^3/uL (4.0-10.0)
[2022-03-10 09:36] LABS: Alanine Aminotransferase 18 U/L (0-41); Alkaline Phosphatase 115 IU/L (40-130); Aspartate Amino Transferase 21 U/L (0-40); Blood Urea Nitrogen 15 mg/dL (8-23); Carbon Dioxide 21 mmol/L (22-29); Chloride 98 mmol/L (98-107); Globulin 3.2 g/dL (1.3-4.6); Glucose 117 mg/dL (65-115); Osmolality Calculated 282 mOsm/kg (285-295); Sodium 135 mmol/L (136-145); Total Bilirubin 0.2 mg/dL (0.15-1.2); Total Protein 7.2 g/dL (6.6-8.7)
[2022-03-10] MEDS: sodium chloride 0.9% 250 ML 75 ML IV (11:37)
[2022-03-10] MEDS: diphenhydrAMINE 50 mg/mL SDV 1mL 25 MG IVP (11:47)
[2022-03-10] MEDS: famotidine 20 mg/2 mL INJ IVP (11:53)
[2022-03-10] MEDS: acetaminophen 325 mg Tablet 650 MG PO (11:53)
[2022-03-10 13:19] VITALS: BP 170/67; PULSE 50; TEMP 36.8; O2SAT 99
[2022-03-17 08:50] LABS: Eosinophils # 0.3 10^3/uL (0.0-0.8); Eosinophils % 6.4 %; Hematocrit 32.7 % (42.0-52.0); Hemoglobin 10.8 g/dL (11.7-16.6); Lymphocytes # 1.7 10^3/uL (0.8-4.8); Lymphocytes % 44.6 %; Monocytes # 0.8 10^3/uL (0.2-0.9); Monocytes % 20.6 %; Neutrophils # 1.04 10^3/uL (1.8-7.7); Neutrophils % 26.9 %; Nucleated Red Blood Cells % 0.5 %; Platelet Count 115 10^3/cmm (130-400); Red Blood Count 3.27 10^6/uL (4.1-5.3); Red Cell Distribution Width 20.6 % (12.1-15.1); White Blood Count 3.9 10^3/uL (4.0-10.0)
[2022-03-17 09:22] LABS: Alanine Aminotransferase 14 U/L (0-41); Albumin Level 3.9 g/dL (3.5-5.2); Alkaline Phosphatase 99 IU/L (40-130); Aspartate Amino Transferase 21 U/L (0-40); Blood Urea Nitrogen 11 mg/dL (8-23); Calcium 9.7 mg/dL (8.5-10.5); Carbon Dioxide 23 mmol/L (22-29); Chloride 100 mmol/L (98-107); Globulin 2.9 g/dL (1.3-4.6); Glucose 127 mg/dL (65-115); Magnesium 1.1 mg/dL (1.7-2.3); Osmolality Calculated 283 mOsm/kg (285-295); Sodium 136 mmol/L (136-145); Total Bilirubin 0.2 mg/dL (0.15-1.2); Total Protein 6.8 g/dL (6.6-8.7)
[2022-03-17 09:29] LABS: Anion Gap 17.1 (5-19); Potassium 4.1 mmol/L (3.5-5.1)
[2022-03-17] MEDS: sodium chloride 0.9% 500 ML 999 ML IV (09:44)
[2022-03-17] MEDS: famotidine 20 mg/2 mL INJ IVP (10:13)
[2022-03-17] MEDS: diphenhydrAMINE 50 mg/mL SDV 1mL 25 MG IVP (10:17)
--- NOTE | 2022-03-20 11:00 | CT_ITS ---
WS: [id number] CT CHEST WITHOUT INTRAVENOUS CONTRAST HISTORY: restaging TECHNIQUE: Contiguous 5 mm axial imaging performed on the thorax. Coronal and sagittal reformats are submitted. All CT scans at [facility] use at least one of these dose optimization techniques: automated exposure control; mA and/or kV adjustment per patient size (includes targeted exams where dose is matched to clinical indication); or iterative reconstruction. CONTRAST: None DLP: 586.71 mGy.cm COMPARISON: 2021, 09/10/2021, 06/13/2021 Lungs and central airway: Numerous bilateral, multilobar pulmonary nodules. These nodules have very s lightly improved in size and number since the prior study from 01/01/2022. The LEFT anterior mediastina l soft tissue mass has slightly decrease also measuring 5.5 x 1.7 cm as compared to 6.7 x 2.9 cm. Thi s mass does invade into the anterior mediastinal fat. There are additional pulmonary nodules ranging in size from a few millimeters with the largest measuring approximately 2.2 x 2.3 cm. Pleura: Normal. No pleural effusion. Heart and pericardium: Heart is very mildly enlarged. There is a small pericardial effusion which is very minimally increased in size. Mediastinum and crow: On this noncontrast study hilar lymph nodes are difficult to visualize. The sof t tissue within the mediastinum does appear improved with the largest lymph nodes measuring about 1.6 cm. Necrotic LEFT supraclavicular lymph node measures 2.5 x 1.7 cm and is not significantly changed in size. Retrocrural lymph node on the RIGHT has decreased in size from 1.7 to 1.1 cm. Vessels: Mild atherosclerosis aorta. Normal size pulmonary artery. Chest wall and lower neck: RIGHT subclavian Port-A-Cath. Upper abdomen: No hepatic lesions are identified. LEFT renal cyst. Osseous structures: Pectus carinatum. CT/CT chest wo con [id number] IMPRESSION: 1. There is slight improvement in the size and number of the pulmonary nodules since 01/01/2022. 2. Mild improvement in the size and number of the LEFT supraclavicular, retroc [place], mediastinal and hilar lymph nodes. 3. Cardiomegaly with a small pericardial effusion.
[2022-03-24 09:55] LABS: Basophils # 0.1 10^3/uL (0.0-0.1); Basophils % 1.3 %; Eosinophils # 0.2 10^3/uL (0.0-0.8); Hematocrit 33.3 % (42.0-52.0); Hemoglobin 11.1 g/dL (11.7-16.6); Lymphocytes # 1.7 10^3/uL (0.8-4.8); Lymphocytes % 26.3 %; Mean Corpuscular HGB Conc 33.3 g/dL (30.0-36.0); Mean Corpuscular Hemoglobin 33.8 pg (28.0-34.0); Mean Corpuscular Volume 101.5 fl (80-94); Mean Platelet Volume 11.2 fL (7.4-10.4); Monocytes # 0.8 10^3/uL (0.2-0.9); Monocytes % 13.2 %; Neutrophils # 3.52 10^3/uL (1.8-7.7); Neutrophils % 55.9 %; Nucleated Red Blood Cells % 0 %; Platelet Count 221 10^3/cmm (130-400); Red Blood Count 3.28 10^6/uL (4.1-5.3); Red Cell Distribution Width 22.2 % (12.1-15.1); White Blood Count 6.3 10^3/uL (4.0-10.0)
[2022-03-24 10:25] LABS: Alanine Aminotransferase 15 U/L (0-41); Albumin Level 4.2 g/dL (3.5-5.2); Alkaline Phosphatase 109 IU/L (40-130); Anion Gap 18.5 (5-19); Aspartate Amino Transferase 24 U/L (0-40); Blood Urea Nitrogen 12 mg/dL (8-23); Calcium 9.2 mg/dL (8.5-10.5); Carbon Dioxide 23 mmol/L (22-29); Chloride 101 mmol/L (98-107); Globulin 2.5 g/dL (1.3-4.6); Glucose 129 mg/dL (65-115); Osmolality Calculated 287 mOsm/kg (285-295); Potassium 4.5 mmol/L (3.5-5.1); Sodium 138 mmol/L (136-145); Total Bilirubin 0.3 mg/dL (0.15-1.2); Total Protein 6.7 g/dL (6.6-8.7)
[2022-03-24 11:11] VITALS: BMI 21.6
[2022-03-24] MEDS: sodium chloride 0.9% 250 ML 75 ML IV (12:00)
[2022-03-24] MEDS: diphenhydrAMINE 50 mg/mL SDV 1mL IVP (12:02)
[2022-03-24] MEDS: famotidine 20 mg/2 mL INJ IVP (12:04)
[2022-03-24] MEDS: palonosetron 0.25 MG in sodium chloride 0.9% 50 ML 187 MG IV (12:05)
[2022-03-24] MEDS: fosaprepitant 150 MG in sodium chloride 0.9% 150 ML 300 MG IV (12:36)
[2022-03-24] MEDS: CARBOplatin 520 MG in sodium chloride 0.9% 500 ML 552 MG IV (14:12)
[2022-03-24 16:00] VITALS: BP 110/84; PULSE 78; RESP 18; TEMP 35.9; O2SAT 98
[2022-03-28 09:03] VITALS: BP 130/75; PULSE 101; RESP 18; TEMP 36.9; O2SAT 99
[2022-04-01 08:35] LABS: Basophils # 0.1 10^3/uL (0.0-0.1); Basophils % 1.4 %; Eosinophils # 0.3 10^3/uL (0.0-0.8); Eosinophils % 5.3 %; Hemoglobin 10.4 g/dL (11.7-16.6); Lymphocytes # 1.7 10^3/uL (0.8-4.8); Lymphocytes % 33.3 %; Mean Corpuscular HGB Conc 33.5 g/dL (30.0-36.0); Mean Corpuscular Hemoglobin 33.7 pg (28.0-34.0); Mean Corpuscular Volume 100.3 fl (80-94); Mean Platelet Volume 11.7 fL (7.4-10.4); Monocytes # 0.5 10^3/uL (0.2-0.9); Monocytes % 10.4 %; Neutrophils # 2.51 10^3/uL (1.8-7.7); Neutrophils % 49.2 %; Nucleated Red Blood Cells % 0.6 %; Platelet Count 204 10^3/cmm (130-400); Red Blood Count 3.09 10^6/uL (4.1-5.3); Red Cell Distribution Width 21.6 % (12.1-15.1); White Blood Count 5.1 10^3/uL (4.0-10.0)
[2022-04-01] MEDS: sodium chloride 0.9% 500 ML 999 ML IV (08:36)
[2022-04-01 09:09] LABS: Alanine Aminotransferase 13 U/L (0-41); Albumin Level 4.2 g/dL (3.5-5.2); Alkaline Phosphatase 104 IU/L (40-130); Anion Gap 16.2 (5-19); Aspartate Amino Transferase 25 U/L (0-40); Blood Urea Nitrogen 19 mg/dL (8-23); Calcium 9.8 mg/dL (8.5-10.5); Carbon Dioxide 23 mmol/L (22-29); Chloride 101 mmol/L (98-107); Globulin 2.9 g/dL (1.3-4.6); Glucose 109 mg/dL (65-115); Osmolality Calculated 285 mOsm/kg (285-295); Potassium 4.2 mmol/L (3.5-5.1); Sodium 136 mmol/L (136-145); Total Bilirubin 0.3 mg/dL (0.15-1.2); Total Protein 7.1 g/dL (6.6-8.7)
[2022-04-01] MEDS: sodium chloride 0.9% 250 ML 75 ML IV (09:30)
[2022-04-01] MEDS: diphenhydrAMINE 50 mg/mL SDV 1mL 25 MG IVP (09:31)
[2022-04-01] MEDS: famotidine 20 mg/2 mL INJ IVP (09:31)
[2022-04-01 12:08] VITALS: BP 129/75; PULSE 70; TEMP 36.2; O2SAT 99
== END 2022-04-01 23:59 | disposition home or self-care (01) ==
PROVIDERS: Nurse Practitioner Family; PCP Family Medicine; Visit Provider Internal Medicine Medical Oncology
DX: Z51.11 Encounter for antineoplastic chemotherapy (principal); C01 Malignant neoplasm of base of tongue; C77.8 Secondary and unspecified malignant neoplasm of lymph nodes of multiple regions; C78.01 Secondary malignant neoplasm of right lung; C78.02 Secondary malignant neoplasm of left lung; D70.1 Agranulocytosis secondary to cancer chemotherapy; D69.59 Other secondary thrombocytopenia; T45.1X5A Adverse effect of antineoplastic and immunosuppressive drugs, initial encounter; R49.0 Dysphonia; J38.01 Paralysis of vocal cords and larynx, unilateral; Z79.899 Other long term (current) drug therapy; Z92.25 Personal history of immunosuppression therapy; Z92.3 Personal history of irradiation
CPT/HCPCS: 36591; 71250; 80048; 80053; 83735; 85025; 96360; 96361; 96367; 96375; 96413; 96415; 96417; 96523; 97110; 99215; 99999; J1100; J1200; J1453; J2469; J3490; J7030; J7040; J7050; J9045; J9055; J9190

== ENCOUNTER 2022-04-02 06:00 | Outpatient (RCR) | payer MEDICARE, OTHER, SELFPAY | END 2022-05-01 23:59 | disposition home or self-care (01) | LOC: SPT 06:00 | PROVIDERS: PCP Family Medicine; Visit Provider Internal Medicine Medical Oncology | DX: M62.81 Muscle weakness (generalized) (principal) | CPT/HCPCS: 97110; 97164 ==

== ENCOUNTER → 2022-04-22 08:55 | Outpatient (BNVA) | payer MEDICARE, OTHER, SELFPAY | PROVIDERS: PCP Family Medicine; Referring Provider Internal Medicine Medical Oncology; Visit Provider Otolaryngology | DX: J38.00 Paralysis of vocal cords and larynx, unspecified (principal); C01 Malignant neoplasm of base of tongue; C78.00 Secondary malignant neoplasm of unspecified lung; Z87.891 Personal history of nicotine dependence | CPT/HCPCS: 31575; 99204; 99205 ==

== ENCOUNTER 2022-04-28 09:00 | Oncology outpatient (recurring) (ONCR) | payer MEDICARE, OTHER, SELFPAY ==
[2022-04-07 08:56] LABS: Basophils % 0.9 %; Eosinophils # 0.2 10^3/uL (0.0-0.8); Eosinophils % 4.2 %; Hematocrit 31.1 % (42.0-52.0); Hemoglobin 10.4 g/dL (11.7-16.6); Lymphocytes # 2.1 10^3/uL (0.8-4.8); Lymphocytes % 49.3 %; Mean Corpuscular HGB Conc 33.4 g/dL (30.0-36.0); Mean Corpuscular Hemoglobin 34.1 pg (28.0-34.0); Mean Platelet Volume 13.4 fL (7.4-10.4); Monocytes # 0.6 10^3/uL (0.2-0.9); Monocytes % 13.7 %; Neutrophils # 1.35 10^3/uL (1.8-7.7); Neutrophils % 31.9 %; Nucleated Red Blood Cells % 0.7 %; Platelet Count 56 10^3/cmm (130-400); Red Blood Count 3.05 10^6/uL (4.1-5.3); Red Cell Distribution Width 21.8 % (12.1-15.1); White Blood Count 4.2 10^3/uL (4.0-10.0)
[2022-04-07 09:14] LABS: Alanine Aminotransferase 18 U/L (0-41); Albumin Level 4.2 g/dL (3.5-5.2); Alkaline Phosphatase 113 IU/L (40-130); Aspartate Amino Transferase 23 U/L (0-40); Blood Urea Nitrogen 15 mg/dL (8-23); Calcium 9.7 mg/dL (8.5-10.5); Carbon Dioxide 21 mmol/L (22-29); Chloride 100 mmol/L (98-107); Globulin 2.7 g/dL (1.3-4.6); Glucose 119 mg/dL (65-115); Osmolality Calculated 284 mOsm/kg (285-295); Sodium 136 mmol/L (136-145); Total Bilirubin 0.2 mg/dL (0.15-1.2); Total Protein 6.9 g/dL (6.6-8.7)
[2022-04-07] MEDS: sodium chloride 0.9% 500 ML 999 ML IV (09:30)
[2022-04-07 09:55] LABS: Slide Review Slide Review Perform
[2022-04-07] MEDS: famotidine 20 mg/2 mL INJ IVP (11:11)
[2022-04-07] MEDS: diphenhydrAMINE 50 mg/mL SDV 1mL 25 MG IVP (11:11)
[2022-04-07] MEDS: sodium chloride 0.9% 250 ML 25 ML IV (11:51)
[2022-04-07 13:13] VITALS: BP 127/80; PULSE 66; TEMP 36.4; O2SAT 98
[2022-04-14 09:23] LABS: Basophils % 0.9 %; Eosinophils # 0.2 10^3/uL (0.0-0.8); Eosinophils % 3.3 %; Hematocrit 30.2 % (42.0-52.0); Hemoglobin 10.1 g/dL (11.7-16.6); Lymphocytes # 2.6 10^3/uL (0.8-4.8); Lymphocytes % 56.7 %; Mean Corpuscular HGB Conc 33.4 g/dL (30.0-36.0); Mean Corpuscular Hemoglobin 34.5 pg (28.0-34.0); Mean Corpuscular Volume 103.1 fl (80-94); Monocytes # 0.8 10^3/uL (0.2-0.9); Monocytes % 17.8 %; Neutrophils % 21.1 %; Nucleated Red Blood Cells % 0.9 %; Platelet Count 55 10^3/cmm (130-400); Red Blood Count 2.93 10^6/uL (4.1-5.3); Red Cell Distribution Width 23.1 % (12.1-15.1); White Blood Count 4.6 10^3/uL (4.0-10.0)
[2022-04-14] MEDS: sodium chloride 0.9% 500 ML 999 ML IV (09:25)
[2022-04-14 09:40] LABS: Alanine Aminotransferase 16 U/L (0-41); Alkaline Phosphatase 109 IU/L (40-130); Aspartate Amino Transferase 23 U/L (0-40); Blood Urea Nitrogen 15 mg/dL (8-23); Calcium 9.5 mg/dL (8.5-10.5); Carbon Dioxide 21 mmol/L (22-29); Chloride 105 mmol/L (98-107); Globulin 2.8 g/dL (1.3-4.6); Glucose 116 mg/dL (65-115); Magnesium 1.3 mg/dL (1.7-2.3); Osmolality Calculated 294 mOsm/kg (285-295); Sodium 141 mmol/L (136-145); Total Bilirubin 0.2 mg/dL (0.15-1.2); Total Protein 6.8 g/dL (6.6-8.7)
[2022-04-14 09:46] LABS: Add RBC Morph Yes; Slide Review Slide Review Perform
[2022-04-14 09:47] LABS: Neutrophils # 0.96 10^3/uL (1.8-7.7); RBC Morph Comp No
[2022-04-14 09:49] LABS: Giant Platelets Trace
[2022-04-14 09:50] LABS: Acanthocytes 1+; Anisocytosis 2+; Burr Cells 1+; Macrocytosis 2+; Microcytosis 1+; Ovalocytes Trace; Poikilocytosis 1+; Polychromasia Trace; Schistocytes Trace
[2022-04-14] MEDS: acetaminophen 325 mg Tablet 650 MG PO (12:54)
[2022-04-14] MEDS: diphenhydrAMINE 50 mg/mL SDV 1mL 25 MG IVP (12:55)
[2022-04-14] MEDS: sodium chloride 0.9% 250 ML 75 ML IV (12:55)
[2022-04-14 14:29] VITALS: BP 127/76; PULSE 72; TEMP 36.7; O2SAT 99
[2022-04-21 09:21] LABS: Basophils # 0.1 10^3/uL (0.0-0.1); Basophils % 1.2 %; Eosinophils # 0.2 10^3/uL (0.0-0.8); Eosinophils % 2.9 %; Hematocrit 32.2 % (42.0-52.0); Hemoglobin 10.7 g/dL (11.7-16.6); Lymphocytes # 2.8 10^3/uL (0.8-4.8); Lymphocytes % 40.9 %; Mean Corpuscular HGB Conc 33.2 g/dL (30.0-36.0); Mean Corpuscular Hemoglobin 35.3 pg (28.0-34.0); Mean Corpuscular Volume 106.3 fl (80-94); Mean Platelet Volume 12.5 fL (7.4-10.4); Monocytes # 1.2 10^3/uL (0.2-0.9); Monocytes % 17.4 %; Neutrophils # 2.52 10^3/uL (1.8-7.7); Neutrophils % 36.4 %; Nucleated Red Blood Cells % 0.3 %; Platelet Count 121 10^3/cmm (130-400); Red Blood Count 3.03 10^6/uL (4.1-5.3); White Blood Count 6.9 10^3/uL (4.0-10.0)
[2022-04-21 09:39] LABS: Alanine Aminotransferase 13 U/L (0-41); Albumin Level 4.4 g/dL (3.5-5.2); Alkaline Phosphatase 130 IU/L (40-130); Anion Gap 21.4 (5-19); Aspartate Amino Transferase 23 U/L (0-40); Blood Urea Nitrogen 18 mg/dL (8-23); Calcium 10.3 mg/dL (8.5-10.5); Carbon Dioxide 21 mmol/L (22-29); Chloride 99 mmol/L (98-107); Globulin 2.8 g/dL (1.3-4.6); Glucose 135 mg/dL (65-115); Magnesium 1.9 mg/dL (1.7-2.3); Osmolality Calculated 288 mOsm/kg (285-295); Potassium 4.4 mmol/L (3.5-5.1); Sodium 137 mmol/L (136-145); Total Bilirubin 0.3 mg/dL (0.15-1.2); Total Protein 7.2 g/dL (6.6-8.7)
[2022-04-21] MEDS: sodium chloride 0.9% 500 ML 999 ML IV (11:06)
[2022-04-21] MEDS: famotidine 20 mg/2 mL INJ IVP (11:08)
[2022-04-21] MEDS: diphenhydrAMINE 50 mg/mL SDV 1mL 25 MG IVP (11:08)
[2022-04-21] MEDS: fosaprepitant 150 MG in sodium chloride 0.9% 150 ML 300 MG IV (11:14)
[2022-04-21] MEDS: palonosetron 0.25 mg/5 mL SDV (11:48)
[2022-04-21] MEDS: SODIUM CHLORIDE 0.9% IV (13:22)
[2022-04-21] MEDS: CARBOPLATIN IV (13:22)
[2022-04-21 15:19] VITALS: BP 134/79; PULSE 77; TEMP 36.3; O2SAT 100
[2022-04-28] MEDS: sodium chloride 0.9% 500 ML 999 ML IV (09:22)
[2022-04-28 09:27] LABS: Basophils # 0.1 10^3/uL (0.0-0.1); Basophils % 1.5 %; Eosinophils # 0.2 10^3/uL (0.0-0.8); Eosinophils % 5.2 %; Hematocrit 28.8 % (42.0-52.0); Hemoglobin 9.8 g/dL (11.7-16.6); Lymphocytes # 1.4 10^3/uL (0.8-4.8); Lymphocytes % 34.1 %; Mean Corpuscular Volume 105.9 fl (80-94); Monocytes # 0.2 10^3/uL (0.2-0.9); Monocytes % 4.2 %; Neutrophils % 54.8 %; Nucleated Red Blood Cells % 0.7 %; Platelet Count 162 10^3/cmm (130-400); Red Blood Count 2.72 10^6/uL (4.1-5.3); Red Cell Distribution Width 21.9 % (12.1-15.1)
[2022-04-28 09:41] LABS: Alanine Aminotransferase 14 U/L (0-41); Alkaline Phosphatase 110 IU/L (40-130); Anion Gap 17.4 (5-19); Aspartate Amino Transferase 24 U/L (0-40); Blood Urea Nitrogen 17 mg/dL (8-23); Calcium 9.5 mg/dL (8.5-10.5); Carbon Dioxide 22 mmol/L (22-29); Chloride 104 mmol/L (98-107); Glucose 122 mg/dL (65-115); Osmolality Calculated 291 mOsm/kg (285-295); Potassium 4.4 mmol/L (3.5-5.1); Sodium 139 mmol/L (136-145); Total Bilirubin 0.3 mg/dL (0.15-1.2)
[2022-04-28] MEDS: sodium chloride 0.9% 250 ML 75 ML IV (10:41)
[2022-04-28] MEDS: acetaminophen 325 mg Tablet 650 MG PO (10:41)
[2022-04-28] MEDS: diphenhydrAMINE 50 mg/mL SDV 1mL 25 MG IVP (10:43)
[2022-04-28] MEDS: FLEXIBLE CONTAINER IV (10:59)
[2022-04-28] MEDS: CETUXIMAB IV (10:59)
[2022-04-28 12:15] VITALS: BP 130/71; PULSE 64; TEMP 36.7; O2SAT 100
== END 2022-05-01 23:59 | disposition home or self-care (01) ==
PROVIDERS: PCP Family Medicine; Visit Provider Internal Medicine Medical Oncology
DX: Z51.11 Encounter for antineoplastic chemotherapy (principal); C78.00 Secondary malignant neoplasm of unspecified lung; C01 Malignant neoplasm of base of tongue; D70.1 Agranulocytosis secondary to cancer chemotherapy; E83.42 Hypomagnesemia; T45.1X5A Adverse effect of antineoplastic and immunosuppressive drugs, initial encounter; J38.00 Paralysis of vocal cords and larynx, unspecified; Z87.891 Personal history of nicotine dependence
CPT/HCPCS: 80053; 83735; 85025; 96361; 96367; 96372; 96375; 96413; 96416; 96417; 96523; 99214; 99215; J1100; J1200; J1453; J2469; J3490; J7040; J7050; J9045; J9055; J9190; Q5101

== ENCOUNTER 2022-05-02 06:00 | Outpatient (RCR) | payer OTHER, SELFPAY | END 2022-06-01 23:59 | disposition home or self-care (01) | LOC: SPT 06:00 | PROVIDERS: PCP Family Medicine; Visit Provider Internal Medicine Medical Oncology | DX: C01 Malignant neoplasm of base of tongue (principal); C78.00 Secondary malignant neoplasm of unspecified lung | CPT/HCPCS: 97110 ==

== ENCOUNTER → 2022-05-12 07:53 | Outpatient (BNVA) | payer MEDICARE, OTHER, SELFPAY | PROVIDERS: PCP Family Medicine; Visit Provider Nurse Practitioner Family | DX: Z51.11 Encounter for antineoplastic chemotherapy (principal); C01 Malignant neoplasm of base of tongue; C78.01 Secondary malignant neoplasm of right lung; C78.02 Secondary malignant neoplasm of left lung; D70.1 Agranulocytosis secondary to cancer chemotherapy; T45.1X5A Adverse effect of antineoplastic and immunosuppressive drugs, initial encounter; J38.02 Paralysis of vocal cords and larynx, bilateral; E83.42 Hypomagnesemia; Z79.899 Other long term (current) drug therapy | CPT/HCPCS: 99214; 99215 ==

== ENCOUNTER 2022-05-13 09:00 | Oncology outpatient (recurring) (ONCR) | payer MEDICARE, OTHER, SELFPAY ==
[2022-05-06] VITALS (7 sets, daily range): BP systolic 129–138; BP diastolic 73–76; PULSE 61–66; RESP 14–18; TEMP 36–36.6; O2SAT 99–100
[2022-05-06] MEDS: sodium chloride 0.9% 500 ML 999 ML IV (09:34)
[2022-05-06 09:36] LABS: Basophils % 0.7 %; Eosinophils # 0.2 10^3/uL (0.0-0.8); Eosinophils % 6.1 %; Hemoglobin 8.7 g/dL (11.7-16.6); Lymphocytes # 1.6 10^3/uL (0.8-4.8); Lymphocytes % 57.7 %; Mean Corpuscular HGB Conc 33.5 g/dL (30.0-36.0); Mean Corpuscular Hemoglobin 36.6 pg (28.0-34.0); Mean Corpuscular Volume 109.2 fl (80-94); Monocytes # 0.4 10^3/uL (0.2-0.9); Monocytes % 15.1 %; Neutrophils % 20.4 %; Nucleated Red Blood Cells # 0.1 /100WBC; Nucleated Red Blood Cells % 2.9 %; Red Blood Count 2.38 10^6/uL (4.1-5.3); White Blood Count 2.8 10^3/uL (4.0-10.0)
[2022-05-06 09:58] LABS: Platelet Count 16 10^3/cmm (130-400)
[2022-05-06 09:59] LABS: Neutrophils # 0.57 10^3/uL (1.8-7.7)
[2022-05-06 10:01] LABS: Alanine Aminotransferase 17 U/L (0-41); Albumin Level 3.8 g/dL (3.5-5.2); Alkaline Phosphatase 108 IU/L (40-130); Anion Gap 14.3 (5-19); Aspartate Amino Transferase 23 U/L (0-40); Blood Urea Nitrogen 12 mg/dL (8-23); Calcium 9.4 mg/dL (8.5-10.5); Carbon Dioxide 26 mmol/L (22-29); Chloride 102 mmol/L (98-107); Globulin 2.5 g/dL (1.3-4.6); Glucose 114 mg/dL (65-115); Osmolality Calculated 287 mOsm/kg (285-295); Potassium 4.3 mmol/L (3.5-5.1); Sodium 138 mmol/L (136-145); Total Bilirubin 0.2 mg/dL (0.15-1.2); Total Protein 6.3 g/dL (6.6-8.7)
[2022-05-06] MEDS: sodium chloride 0.9% 250 ML 75 ML IV (10:54)
[2022-05-06] MEDS: diphenhydrAMINE 25 mg Capsule PO (10:57)
[2022-05-06] MEDS: acetaminophen 325 mg Tablet 650 MG PO (10:57)
[2022-05-06] MEDS: CETUXIMAB IV (11:39)
[2022-05-06] MEDS: FLEXIBLE CONTAINER IV (11:39)
[2022-05-08 09:06] VITALS: BP 136/79; PULSE 118; RESP 18; TEMP 36.4; O2SAT 98
[2022-05-08 09:32] LABS: Basophils % 0.3 %; Eosinophils # 0.2 10^3/uL (0.0-0.8); Eosinophils % 2.7 %; Hematocrit 28.1 % (42.0-52.0); Hemoglobin 9.2 g/dL (11.7-16.6); Lymphocytes # 2.9 10^3/uL (0.8-4.8); Lymphocytes % 46.5 %; Mean Corpuscular HGB Conc 32.7 g/dL (30.0-36.0); Mean Corpuscular Hemoglobin 37.6 pg (28.0-34.0); Mean Corpuscular Volume 114.7 fl (80-94); Monocytes # 1.4 10^3/uL (0.2-0.9); Monocytes % 22.6 %; Neutrophils % 27.3 %; Nucleated Red Blood Cells # 0.1 /100WBC; Nucleated Red Blood Cells % 1.8 %; Red Blood Count 2.45 10^6/uL (4.1-5.3); Red Cell Distribution Width 21.8 % (12.1-15.1); White Blood Count 6.2 10^3/uL (4.0-10.0)
[2022-05-08 09:49] LABS: Platelet Count 7 10^3/cmm (130-400); Slide Review Slide Review Perform
[2022-05-08] MEDS: acetaminophen 325 mg Tablet 650 MG PO (12:56)
[2022-05-08] MEDS: diphenhydrAMINE 25 mg Capsule PO (12:56)
[2022-05-08 13:17] VITALS: BP 117/77; PULSE 87; RESP 18; TEMP 36.9; O2SAT 99
[2022-05-08 13:31] VITALS: BP 114/77; PULSE 89; RESP 18; TEMP 36.6; O2SAT 99
[2022-05-08 13:33] VITALS: BP 122/75; PULSE 82; RESP 18; TEMP 36.7; O2SAT 99
[2022-05-08 13:45] VITALS: BP 135/81; PULSE 82; RESP 18; TEMP 36.2; O2SAT 99
[2022-05-12 08:25] LABS: Basophils # 0.1 10^3/uL (0.0-0.1); Basophils % 0.6 %; Eosinophils # 0.2 10^3/uL (0.0-0.8); Eosinophils % 1.6 %; Hematocrit 26.5 % (42.0-52.0); Hemoglobin 9.1 g/dL (11.7-16.6); Lymphocytes # 2.6 10^3/uL (0.8-4.8); Lymphocytes % 27.1 %; Mean Corpuscular HGB Conc 34.3 g/dL (30.0-36.0); Mean Corpuscular Hemoglobin 37.3 pg (28.0-34.0); Mean Corpuscular Volume 108.6 fl (80-94); Monocytes # 2.1 10^3/uL (0.2-0.9); Monocytes % 22.5 %; Neutrophils # 4.33 10^3/uL (1.8-7.7); Neutrophils % 46.1 %; Nucleated Red Blood Cells # 0.2 /100WBC; Nucleated Red Blood Cells % 1.7 %; Red Blood Count 2.44 10^6/uL (4.1-5.3); Red Cell Distribution Width 21.9 % (12.1-15.1); White Blood Count 9.4 10^3/uL (4.0-10.0)
[2022-05-12] MEDS: sodium chloride 0.9% 500 ML 999 ML IV (08:37)
[2022-05-12 08:46] LABS: Alanine Aminotransferase 12 U/L (0-41); Albumin Level 4.1 g/dL (3.5-5.2); Alkaline Phosphatase 139 IU/L (40-130); Anion Gap 16.2 (5-19); Aspartate Amino Transferase 17 U/L (0-40); Blood Urea Nitrogen 11 mg/dL (8-23); Calcium 9.4 mg/dL (8.5-10.5); Carbon Dioxide 24 mmol/L (22-29); Chloride 101 mmol/L (98-107); Glucose 115 mg/dL (65-115); Osmolality Calculated 284 mOsm/kg (285-295); Potassium 4.2 mmol/L (3.5-5.1); Sodium 137 mmol/L (136-145); Total Bilirubin 0.2 mg/dL (0.15-1.2); Total Protein 7.1 g/dL (6.6-8.7)
[2022-05-12 09:04] LABS: Slide Review Slide Review Perform
[2022-05-12 09:05] LABS: Platelet Count 17 10^3/cmm (130-400)
[2022-05-12] MEDS: acetaminophen 325 mg Tablet 650 MG PO (10:16)
[2022-05-12] MEDS: diphenhydrAMINE 25 mg Capsule PO (10:17)
[2022-05-12] MEDS: sodium chloride 0.9% 250 ML 100 ML IV (10:21)
[2022-05-12] MEDS: FLEXIBLE CONTAINER IV (11:05)
[2022-05-12] MEDS: CETUXIMAB IV (11:05)
[2022-05-12 12:32] VITALS: BP 126/71; PULSE 71; TEMP 37; O2SAT 98
--- NOTE | 2022-05-13 09:00 | CT_ITS ---
WS: [id number] CT NECK WITH CONTRAST HISTORY: nodule left side of neck, history of tongue cancer. TECHNIQUE: Contiguous 5 mm axial images are performed through the neck with intravenous contrast. Sag ittal and coronal reformats are also submitted. All CT scans at [facility] use at least one o f these dose optimization techniques: automated exposure control; mA and/or kV adjustment per patient size (includes targeted exams where dose is matched to clinical indication); or iterative reconstruc tion. CONTRAST: CONTRAST: Omnipaque 350; 50 mL IV. DLP: 196.95 mGy.cm COMPARISON: 08/20/2020 New soft tissue infiltrating the fat in the LEFT lateral tongue base. There are numerous ill-defined lymph nodes along the LEFT cervical chain that were not present on the prior examination. There is so ft tissue edema and multiple nodules now identified. These are most likely abnormal lymph nodes. At l evel 2A largest lymph nodes measure up to 1.8 cm. There are additional ill-defined lymph nodes throug hout level 3. There is a very large necrotic increasing in size LEFT supraclavicular lymph node now m easuring 3.0 x 2.8 cm. There is soft tissue infiltration adjacent to these lymph nodes which is proba jack extranodal extension or could be radiation treatment. There is an additional smaller subcentimete r LEFT supraclavicular lymph nodes. Patient has known increasing pulmonary masses and nodules at the lung apices. No significant RIGHT cervical chain lymph nodes. There are small lymph nodes in the RIGHT but not enl arged. LEFT subclavian Port-A-Cath. CT/CT neck w con* [id number] IMPRESSION: 1. Recurrent lymphadenopathy throughout the LEFT cervical chain involving mult iple groups. Largest lymph node is necrotic in the LEFT supraclavicular space m easuring 3.0 x 2.8 cm. 2. Numerous ill-defined, enlarged lymph nodes with adjacent soft tissue strand ing along the LEFT cervical chain beginning at level 2. The soft tissue strandi ng may be external extension of metastatic disease.
--- NOTE | 2022-05-13 09:00 | CT_ITS ---
WS: [id number] CT CHEST WITH INTRAVENOUS CONTRAST HISTORY: Nodule left side of neck; reevaluation TECHNIQUE: Contiguous 5 mm axial imaging performed on the thorax. Coronal and sagittal reformats are submitted. All CT scans at [facility] use at least one of these dose optimization techniques: automated exposure control; mA and/or kV adjustment per patient size (includes targeted exams where dose is matched to clinical indication); or iterative reconstruction. CONTRAST: Omnipaque 350; 50 mL IV. DLP: 642.69 mGy.cm COMPARISON: 03/20/2022 Lungs and central airway: Progression in size of the numerous bilateral pulmonary nodules and masses predominantly within the upper lung patel. These nodules range in size from a few millimeters to sev eral centimeters. The largest RIGHT upper lobe mass measures 2.9 x 2.6 cm, increased from 2.8 x 2.3 c m. Largest lobulated solid mass medial LEFT upper lobe measures 2.7 x 2.6 cm, increased in size from 2.2 x 2.4 cm. Invasive mediastinal mass in the LEFT upper thorax measures 5.6 x 4.0 cm as compared to 5.0 x 3.1 cm. Pleura: Progressive pleural thickening in the LEFT lower thorax. Nodular in appearance and suspicious for neoplastic involvement. Heart and pericardium: Enlarged heart with pericardial fluid. Similar to the prior study. Small metas tatic deposit about the pericardium over the anterior pulmonary artery. Mediastinum and crow: Patient has known mediastinal and hilar lymph nodes. These lymph nodes are bila teral and only very slightly increased in size. The largest lymph node at the AP window measures 1.7 x 2.8 cm. Bilateral paratracheal and mediastinal lymph nodes. Vessels: Mild atherosclerosis aorta. Normal size pulmonary artery. Chest wall and lower neck: Enlarging necrotic LEFT supraclavicular lymph node now measures 3.1 x 2.4 cm as compared to 2.5 x 1.7 cm. Upper abdomen: No metastatic lesions in the liver. No adrenal mass. LEFT renal cyst measures 5.6 x 4. 4 cm. RIGHT retrocrural lymph node unchanged measuring 9 mm. Postsurgical changes along the anterior suprarenal abdominal wall. Osseous structures: Pectus carinatum. Causes mild deformity on the heart. No osteoblastic or osteolyt ic lesions. CT/CT chest w con* [id number] IMPRESSION: 1. Progression of neoplastic involvement of the lungs and lymph nodes since . 2. Increase in size of the numerous bilateral pulmonary masses and nodules. 3. Increase in size of the necrotic LEFT supraclavicular lymph node now measur ing 3.1 x 2.4 cm as compared to 2.5 x 1.7 cm. 4. Very slight increase in size of the mediastinal and hilar lymph nodes. 5. New LEFT pleural thickening in the lower thorax suspicious for neoplastic i nvolvement. 6. No adrenal mass. 7. Cardiomegaly. No change in the pericardial effusion.
[2022-05-13] MEDS: iohexol 350 mg/mL 100 mL Btl IV (09:13)
== END 2022-05-14 23:59 | disposition home or self-care (01) ==
LOC: ONCMED 05-15 07:09
PROVIDERS: PCP Family Medicine; Visit Provider Internal Medicine Medical Oncology
DX: R59.0 Localized enlarged lymph nodes (principal); C01 Malignant neoplasm of base of tongue; I51.7 Cardiomegaly
CPT/HCPCS: 36430; 70491; 71260; 80053; 85025; 86900; 96367; 96372; 96413; 99214; 99215; J7040; J7050; J9055; P9037; Q5101

== ENCOUNTER 2022-05-29 09:00 | Oncology outpatient (recurring) (ONCR) | payer OTHER, SELFPAY ==
--- NOTE | 2022-05-15 08:55 | PC.NURSE ---
Phone call to the home talking with Demarcus with Dr Harrison request to get hydration fluids in morning 05/16/22 with the review of the scans to be discussed. He was had to hear over the phone but did verbalize understanding to come in for hydration in am. mario alberto
[2022-05-16] MEDS: sodium chloride 0.9% 500 ML 999 ML IV (08:07)
[2022-05-22] MEDS: sodium chloride 0.9% 1,000 ML 999 ML IV (09:07)
[2022-05-26] MEDS: sodium chloride 0.9% 1,000 ML 999 ML IV (09:12)
[2022-05-26 09:17] VITALS: BP 107/70; PULSE 115; RESP 16; TEMP 36.6; O2SAT 98
[2022-05-26 09:56] VITALS: BP 111/58; PULSE 90; RESP 16; TEMP 36.8; O2SAT 98
== END 2022-06-01 23:59 | disposition home or self-care (01) ==
PROVIDERS: PCP Family Medicine; Visit Provider Internal Medicine Medical Oncology
DX: Z53.9 Procedure and treatment not carried out, unspecified reason (principal)
CPT/HCPCS: 96365; 99215; J7030; J7040

== ENCOUNTER 2022-06-02 06:00 | Outpatient (RCR) | payer OTHER, SELFPAY | END 2022-07-02 23:59 | disposition home or self-care (01) | LOC: SPT 06:00 | PROVIDERS: PCP Family Medicine; Visit Provider Internal Medicine Medical Oncology | DX: M62.81 Muscle weakness (generalized) (principal) | CPT/HCPCS: 97110 ==

== ENCOUNTER 2022-06-24 09:00 | Oncology outpatient (recurring) (ONCR) | payer OTHER, SELFPAY ==
[2022-06-02] MEDS: sodium chloride 0.9% 1,000 ML 999 ML IV (09:20)
[2022-06-02 10:45] VITALS: BP 112/77; PULSE 72; RESP 18; TEMP 36.5; O2SAT 98
[2022-06-04] MEDS: sodium chloride 0.9% 500 ML 999 ML IV (11:41)
[2022-06-04 11:44] LABS: Basophils # 0.1 10^3/uL (0.0-0.1); Basophils % 1.1 %; Eosinophils # 0.2 10^3/uL (0.0-0.8); Hematocrit 30.2 % (42.0-52.0); Hemoglobin 9.7 g/dL (11.7-16.6); Lymphocytes # 1.5 10^3/uL (0.8-4.8); Lymphocytes % 26.4 %; Mean Corpuscular HGB Conc 32.1 g/dL (30.0-36.0); Mean Corpuscular Volume 115.3 fl (80-94); Mean Platelet Volume 11.8 fL (7.4-10.4); Monocytes # 0.8 10^3/uL (0.2-0.9); Monocytes % 13.9 %; Neutrophils % 55.2 %; Nucleated Red Blood Cells % 0 %; Platelet Count 260 10^3/cmm (130-400); Red Blood Count 2.62 10^6/uL (4.1-5.3); Red Cell Distribution Width 15.1 % (12.1-15.1); White Blood Count 5.6 10^3/uL (4.0-10.0)
[2022-06-04 11:58] LABS: Alanine Aminotransferase 7 U/L (0-41); Albumin Level 3.3 g/dL (3.5-5.2); Alkaline Phosphatase 119 IU/L (40-130); Anion Gap 16.2 (5-19); Aspartate Amino Transferase 25 U/L (0-40); Blood Urea Nitrogen 12 mg/dL (8-23); Calcium 9.3 mg/dL (8.5-10.5); Carbon Dioxide 24 mmol/L (22-29); Chloride 104 mmol/L (98-107); Glucose 113 mg/dL (65-115); Magnesium 1.5 mg/dL (1.7-2.3); Osmolality Calculated 291 mOsm/kg (285-295); Potassium 4.2 mmol/L (3.5-5.1); Sodium 140 mmol/L (136-145); Total Bilirubin 0.2 mg/dL (0.15-1.2); Total Protein 6.3 g/dL (6.6-8.7)
[2022-06-11] MEDS: sodium chloride 0.9% 500 ML 999 ML IV (11:20)
[2022-06-11 12:05] VITALS: BP 129/75; PULSE 76; RESP 18; TEMP 36.6; O2SAT 98
--- NOTE | 2022-06-11 13:15 | MR_ITS ---
WS: [id number] MRI HEAD WITH CONTRAST TECHNIQUE: Sagittal T1, T2 axial, T2 axial FLAIR, axial susceptibility weighted imaging, axial diffus ion weighted images, and coronal T2 images were obtained. Pre and post-T1 axial and post T1 coronal i mages. ADC and FSPGR images. CLINICAL INFORMATION: weakness and confusion COMPARISON: MRI 04/10/21 FINDINGS: No evidence of restricted diffusion to suggest acute ischemia. Innumerable new enhancing lay pra and infratentorial metastatic lesions new since the prior examination. Largest enhancing metastat ic lesions involving the LEFT occipital lobe measuring 2.3 x 2.9 cm with prominent lesion in the RIGH T cerebellum measuring 1.7 x 2.2 CM. Moderate edema surrounding LEFT occipital lesion with mild mass effect on the LEFT occipital horn. Mild edema in the bilateral frontal lobes. Diffuse moderate edema involving the cerebellum bilaterally. 4th ventricle remains patent. Notable small enhancing lesion within the LEFT dorsal la. Small amount of hemosiderin involving a f ew of the lesions most prominent in the LEFT occipital lobe and cerebellum. Mild small vessel changes. Moderate parenchymal volume loss. Normal vascular flow voids at the skull base. No extra-axial fluid collections. MR/MR head wo/w con [id number] IMPRESSION: 1. Innumerable enhancing supra and infratentorial metastatic lesions have deve loped since the prior examination. Largest lesion LEFT occipital lobe measuring 2.3 x 2.9cm. Some lesions demonstrate a small amount of hemosiderin. 2. Moderate amount of edema in the LEFT occipital lobe and parietal lobe at th e LEFT occipital lesion. Small amount of edema involving the frontal lesions. 3. Moderate diffuse edema involving the cerebellum with mild crowding of the p osterior fossa. 4th ventricle remains patent. 4. No hydrocephalus. Notified Devendra Reich MD at 06/11/2022 5:13 PM.
[2022-06-11] MEDS: gadobenate dimeglumine 20 mL vial IV (14:57)
[2022-06-20] MEDS: sodium chloride 0.9% 1,000 ML 999 ML IV (10:36)
[2022-06-20 11:59] VITALS: BP 139/81; PULSE 83; RESP 18; TEMP 36.4; O2SAT 99
== END 2022-07-02 23:59 | disposition home or self-care (01) ==
PROVIDERS: PCP Family Medicine; Visit Provider Internal Medicine Medical Oncology
DX: C01 Malignant neoplasm of base of tongue (principal); Z87.891 Personal history of nicotine dependence
CPT/HCPCS: 70553; 80053; 83735; 85025; 96365; J7030; J7040